=== PATIENT | male | born 1970 | race Two or more races ===

== ENCOUNTER 2023-01-18 16:11 | Emergency (ER) | payer MEDICAID, OTHER ==
[~2023-01-18] VITALS: Ht 157.5 cm; Wt 73.5 kg
[2023-01-18 16:37] VITALS: PULSE 87; RESP 18; O2SAT 97
[2023-01-18 16:51] LABS: Basophils # (auto) 0.1 10 ^3/uL (0-0.2); Basophils % (auto) 0.5 % (0.0-2.0); Eosinophils # (auto) 0 10 ^3/uL (0-0.8); Eosinophils % (auto) 0.2 % (0.0-7.0); Hematocrit 47.4 % (41.0-53.0); Lymphocytes % (auto) 9.7 % (10.0-50.0); Mean Corpuscular Hemoglobin 28.9 pg (28.0-32.0); Mean Corpuscular Hgb Conc. 33.9 g/dL (32.0-36.0); Mean Corpuscular Volume 85.3 fL (80.0-100.0); Monocytes # (auto) 0.3 10 ^3/uL (0-1.3); Monocytes % (auto) 2.9 % (0.0-12.0); Neutrophils # (auto) 8.7 10 ^3/uL (1.6-8.6); Neutrophils % (auto) 86.7 % (37.0-80.0); Red Blood Cells 5.55 10^6/uL (4.5-5.90); Red Cell Distribution Width 13.3 % (11.8-14.3); White Blood Cell 10.1 10^3/uL (4.4-10.8)
[2023-01-18 17:09] LABS: Alanine Aminotransferase 32 U/L (7-40); Albumin 4.7 g/dL (3.2-4.8); Alkaline Phosphatase 173 U/L (46-116); Anion Gap 10 (5-15); Aspartate Aminotransferase 12 U/L (13-40); BUN/Creatinine Ratio 10.4 (10.0-20.0); Bilirubin, Total 0.7 mg/dL (0.2-1.0); Blood Urea Nitrogen 14 mg/dL (9-23); Calcium 9.4 mg/dL (8.7-10.4); Carbon Dioxide 24 mmol/L (20-30); Chloride 98 mmol/L (98-107); Lipase 65 U/L (12-53); Potassium 4.1 mmol/L (3.5-5.1); Sodium 132 mmol/L (136-145); Total Protein 7.1 g/dL (5.7-8.2)
[2023-01-18 17:20] LABS: Glucose 665 mg/dL (74-106)
[2023-01-18] MEDS ORDERED: InsuLIN REG 1unit/0.01ml Soln (100units/ml) IV ONE (17:30)
[2023-01-18] MEDS ORDERED: SODIUM CHLORIDE 0.9% 1,000 ML IV ONE (18:45)
[2023-01-18 18:55] LABS: Base Excess 1.7 mmol/L (-2.0-2.0)
[2023-01-18 19:00] VITALS: TEMP 98.3
[2023-01-18 19:15] LABS: Urine Bacteria NONE SEEN /hpf (None Seen); Urine Blood 3+ /uL (Negative); Urine Clarity Clear (Clear); Urine Color Colorless (Yellow); Urine Protein, UAD TRACE (Negative); Urine Specific Gravity 1.026 (1.001-1.035); Urine Urobilinogen Normal (Negative); Urine WBC 39 /hpf (0 - 3)
[2023-01-18 19:25] VITALS: PULSE 85; RESP 18; O2SAT 98
[2023-01-18 23:45] VITALS: BP 150/98; PULSE 95; RESP 14; O2SAT 95
[2023-01-18] MEDS ORDERED: BACDST PO (23:51)
== END 2023-01-18 23:48 | disposition left against medical advice (07) ==
LOC: ER 16:11 → EDBD 16:11 → ER 23:48
DX: E11.65 Type 2 diabetes mellitus with hyperglycemia (principal); N20.0 Calculus of kidney; N39.0 Urinary tract infection, site not specified; N28.1 Cyst of kidney, acquired; Q63.1 Lobulated, fused and horseshoe kidney; E78.5 Hyperlipidemia, unspecified; I10 Essential (primary) hypertension; F17.210 Nicotine dependence, cigarettes, uncomplicated
CPT/HCPCS: 36415; 36600; 74176; 80053; 81001; 82805; 82962; 83690; 84484; 85025; 93005; 96361; 96374; 99285; J1815; J7030

== ENCOUNTER 2024-01-06 09:39 | Emergency (ER) | payer SELFPAY ==
[~2024-01-06] VITALS: Ht 180.3 cm; Wt 65.9 kg
[~2024-01-06 09:39] MED LIST: BACDST PO
[2024-01-06] MEDS: SODIUM CHLORIDE 0.9% 1,000 ML IVB ONE (11:00)
[2024-01-06] MEDS: METOCLOPRAMIDE HCL 5MG/ml INJ 2ml VIAL IV ONE (11:30)
[2024-01-06] MEDS: KETOROLAC TROMETH 30 MG/ML 1ML VIAL IV ONE (11:30)
[2024-01-06 11:55] LABS: Basophils # (auto) 0 10 ^3/uL (0-0.2); Basophils % (auto) 0.3 % (0.0-2.0); Eosinophils # (auto) 0 10 ^3/uL (0-0.8); Eosinophils % (auto) 0.1 % (0.0-7.0); Hematocrit 37.5 % (41.0-53.0); Lymphocytes # (auto) 0.6 10 ^3/uL (0.4-5.4); Lymphocytes % (auto) 5.6 % (10.0-50.0); Mean Corpuscular Hemoglobin 27.8 pg (28.0-32.0); Mean Corpuscular Hgb Conc. 34.6 g/dL (32.0-36.0); Mean Corpuscular Volume 80.3 fL (80.0-100.0); Monocytes # (auto) 0.3 10 ^3/uL (0-1.3); Monocytes % (auto) 3.2 % (0.0-12.0); Neutrophils # (auto) 9.3 10 ^3/uL (1.6-8.6); Neutrophils % (auto) 90.8 % (37.0-80.0); Platelet Count (auto) 311 10^3/uL (140-450); Red Blood Cells 4.67 10^6/uL (4.5-5.90); Red Cell Distribution Width 12.9 % (11.8-14.3); White Blood Cell 10.3 10^3/uL (4.4-10.8)
[2024-01-06 12:06] LABS: Alanine Aminotransferase 10 U/L (7-40); Albumin 4.4 g/dL (3.2-4.8); Alkaline Phosphatase 140 U/L (46-116); Anion Gap 7 (5-15); Aspartate Aminotransferase < 8 U/L (13-40); BUN/Creatinine Ratio 13.3 (10.0-20.0); Blood Urea Nitrogen 12 mg/dL (9-23); Calcium 9.9 mg/dL (8.7-10.4); Carbon Dioxide 26 mmol/L (20-30); Chloride 104 mmol/L (98-107); Glucose 336 mg/dL (74-106); Lipase 30 U/L (12-53); Magnesium 1.6 mg/dL (1.6-2.6); Potassium 4.1 mmol/L (3.5-5.1); Sodium 137 mmol/L (136-145)
[2024-01-06 12:07] LABS: Bilirubin, Total 0.4 mg/dL (0.2-1.0); Total Protein 7.2 g/dL (5.7-8.2)
[2024-01-06 13:59] VITALS: BP 113/81; PULSE 92; RESP 13; TEMP 98; O2SAT 98
== END 2024-01-06 14:22 | disposition left against medical advice (07) ==
LOC: ER 09:39 → EDBD 09:39 → ER 14:22
DX: K68.3 Retroperitoneal hematoma (principal); N28.89 Other specified disorders of kidney and ureter; N20.0 Calculus of kidney; Q63.1 Lobulated, fused and horseshoe kidney; R91.8 Other nonspecific abnormal finding of lung field; E11.9 Type 2 diabetes mellitus without complications; E78.5 Hyperlipidemia, unspecified; I10 Essential (primary) hypertension; F17.210 Nicotine dependence, cigarettes, uncomplicated
CPT/HCPCS: 36415; 74176; 80053; 83690; 83735; 85025; 93005; 96361; 96374; 96375; 99285; J1885; J2765; J7030

== ENCOUNTER 2024-05-17 20:02 | Inpatient (IN) | payer MEDICAID ==
[~2024-05-17] VITALS: Ht 177.8 cm; Wt 49.4 kg
--- NOTE | 2024-05-17 20:37 | ED.PDOC ---
History of Present Illness HPI Comments 53 y/o, with a Hx of DM, gout, HLD, HTN, and tobacco use, M is BIBA for c/o shortness of breath and chest pain, today. Per EMS report, patient endorses on sudden and unprovoked onset of symptoms, that began with difficulty breathing 2 hours prior to arrival to ED, with chest pain ensuing 1.5 hours later. Patient reports on being fine all day prior symptoms onset and having them in the past when he had "fluids" in his lungs then. Patient also was stated to have a Hx of lung cancer that, originally, metastasized from his right kidney s/p nephrectomy and is being treated, currently, at [facility] every 3 weeks, with last treatment session being performed 4 days ago. Patient was noted to have been found with a SpO2 of 94-96%RA, with all other remaining vitals stable, on scene, and was placed on 2lpm O2 en route. At time of assessment, patient reports no additional relevant or pertinent history, such as sick contac t or recent travel, aside from additional complaint of chronic back pain issues, which restrains his means of travel and was another reason he called EMS. He denies having any palpitations, cough, congestion, fever, chills, nausea, vomiting, or other associated symptoms or modifiers at this time. 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 Cardiac: chest pain; No palpitations. Lungs: shortness of breath; no cough. GI: No nausea, no vomiting, no diarrhea, no constipation, no abdominal pain : No dysuria, frequency, or urgency. No hematuria. Musculoskeletal: back pain (chronic); No joint pain , no joint swelling, no extremity edema. Skin: No rash, no itching. Neuro: No headache, no dizziness, no weakness Vital Signs Vital Signs Date Time Temp Pulse Resp B/P (MAP) Pulse Ox O2 Delivery O2 Flow Rate FiO2 05/17/24 21:50 18 97 Simple Mask* 6 50 05/17/24 20:37 117 05/17/24 20:14 98.2 117/81 (93) Physical Exam General: Awake, alert and oriented. Patient is frail, ill-appearing No acute distress. Skin: Skin in warm, dry and intact. Appropriate color for ethnicity. Nailbeds pink with no cyanosis. HEENT: The head is normocephalic and atraumatic. Conjunctivae are clear without exudates or hemorrhage. Sclera is non-icteric. EOM are intact. No signs of nystagmus. Eyelids are normal in appearance without swelling or lesions. Oral mucosa is pink and moist Neck: The neck is supple with normal range of motion. No JVD. Cardiac: Heart rate and rhythm are normal. No murmurs, gallops, or rubs are auscultated. Respiratory: Diminished breathe sounds, bilaterally; No signs of respiratory distress. Lung sounds are clear in all lobes bilaterally without rales, rhonchi, or wheezes. Abdominal: Abdomen is soft, non-tender without distention. Bowel sounds are present and normoactive in all four quadrants. Extremities: Upper and lower extremities are atraumatic in appearance without deformity or edema. Neurological: The patient is awake, alert and oriented to person, place, and time with normal speech. Speech is clear. There is no facial asymmetry. Psychiatric: Appropriate mood and affect. Good judgement and insight. No visual or auditory hallucinations. Past Medical History PAST MEDICAL HISTORY: DM, Gout, High Lipids, HTN Past Medical History (Other): chronic back pain syndrome. Surgical History: Denies all surgeries Family History Family History: Reviewed,noncontributory to illness, Unknown Social History Smoker: Cigarettes Alcohol: Denies ETOH Use Drugs: Denies Drug Use Lives In: Home Was a procedure done? Was a procedure done?: No EKG EKG : Pulse Rate (adult): 117 [place]: Normal Cardiac Rhythm: ST Block: None Hypertrophy: None ST: Normal Differential Dx Considerations may include: Differential diagnoses considered includebut arenot limited to acute Bronchitis, Asthma, COPD, Pneumothorax, PE, CHF, Pulmonary HTN, Anemia, CO Poisoning, Methemoglobinemia, Hyperventilation, Metabolic Acidosis, Pulmonary Edema, Pneumonia, ACS, Pericardial Tamponade, Anxiety, other X-Ray, Labs, Meds, VS Vital Signs Date Time Temp Pulse Resp B/P (MAP) Pulse Ox O2 Delivery O2 Flow Rate FiO2 05/17/24 21:50 18 97 Simple Mask* 6 50 05/17/24 20:37 117 05/17/24 20:14 98.2 113 20 117/81 (93) 94 05/17/24 20:03 117 Lab Test 05/17/24 23:00 05/17/24 21:32 05/17/24 20:43 05/17/24 20:40 Range/Units Lactic Acid Level Pending 2.2 *H 0.4-2.0 mmol/L Parathyroid Hormone (Intact) Pending Blood Gas Specimen Type Arterial Blood Gas Sample Site Right radial Blood Gas Patient Temperature 37.0 Arterial Blood Date Drawn [id number] Arterial Blood pH 7.535 H 7.350-7.450 Arterial Blood Partial Pressure CO2 33.2 L 35.0-48.0 mmHg Arterial Blood Partial Pressure O2 66.6 L 83.0-108.0 mmHg Arterial Blood HCO3 27.4 21.0-28.0 mmol/L Arterial Blood Oxygen Saturation 94.3 94.0-98.0 % Arterial Blood Base Excess 5.1 H -2.0-3.0 mmol/L Arterial Blood Oxyhemoglobin 93.1 L 94.0-98.0 % Arterial Blood Carboxyhemoglobin 0.7 0.5-1.5 % Arterial Blood Methemoglobin 0.6 0.0-1.5 % Micky Test Yes Blood Gas Total Hemoglobin 13.50 13.5-17.5 g/dL Blood Gas Liter Flow 6.00 Blood Gas Modality Mask - simple FiO2 % 35.0 White Blood Count 10.5 4.4-10.8 10^3/uL Red Blood Count 5.48 4.5-5.90 10^6/uL Hemoglobin 14.6 13.5-17.5 g/dL Hematocrit 43.7 41.0-53.0 % Mean Corpuscular Volume 79.8 L 80.0-100.0 fL Mean Corpuscular Hemoglobin 26.6 L 28.0-32.0 pg Mean Corpuscular Hemoglobin Concent 33.4 32.0-36.0 g/dL Red Cell Distribution Width 14.5 H 11.8-14.3 % Platelet Count 430 140-450 10^3/uL Mean Platelet Volume 7.9 6.9-10.8 fL Neutrophils (%) (Auto) 87.3 H 37.0-80.0 % Lymphocytes (%) (Auto) 9.0 L 10.0-50.0 % Monocytes (%) (Auto) 3.0 0.0-12.0 % Eosinophils (%) (Auto) 0.0 0.0-7.0 % Basophils (%) (Auto) 0.7 0.0-2.0 % Neutrophils # (Auto) 9.2 H 1.6-8.6 10 ^3/uL Lymphocytes # (Auto) 0.9 0.4-5.4 10 ^3/uL Monocytes # (Auto) 0.3 0-1.3 10 ^3/uL Eosinophils # (Auto) 0 0-0.8 10 ^3/uL Basophils # (Auto) 0.1 0-0.2 10 ^3/uL Nucleated Red Blood Cells 0.0 % Sodium Level 134 L 136-145 mmol/L Potassium Level 4.7 3.5-5.1 mmol/L Chloride Level 96 L 98-107 mmol/L Carbon Dioxide Level 29 20-31 mmol/L Anion Gap 9 5-15 Blood Urea Nitrogen 31 H 9-23 mg/dL Creatinine 0.96 0.700-1.30 mg/dL Glomerular Filtration Rate Calc 95 >90 mL/min BUN/Creatinine Ratio 32.3 H 10.0-20.0 Serum Glucose 152 H 74-106 mg/dL Calcium Level 13.4 *H 8.7-10.4 mg/dL Total Bilirubin 0.5 0.2-1.0 mg/dL Aspartate Amino Transferase (AST) 17 13-40 U/L Alanine Aminotransferase (ALT) 9 7-40 U/L Alkaline Phosphatase 134 H 46-116 U/L Troponin I High Sensitivity < 3 L </=54 ng/L B-Type Natriuretic Peptide 57.85 0-100 pg/mL Total Protein 8.2 5.7-8.2 g/dL Albumin 4.8 3.2-4.8 g/dL Thyroid Stimulating Hormone (TSH) 4.29 0.55-4.78 uIU/mL Influenza Type A Antigen Negative Negative Influenza Type B Antigen Negative Negative SARS-CoV-2 Antigen (Rapid) Negative NEGATIVE Current Medications Medications (Trade) Dose Ordered Sig/Sonia Route Start Time Stop Time Status Last Admin Sodium Chloride 1,000 ml @ 1,000 mls/hr Q1H ONCE IV 05/17/24 21:45 05/17/24 22:44 DC 05/17/24 22:12 Time of 1ST Reevaluation: 23:28 Reevaluation 1ST: Unchanged Patient Education/Counseling: Diagnosis, Treatment, Other (Need for admission) Family Education/Counseling: No Family Present Departure 1 Departure Time of Disposition: 23:21 Impression: Primary Impression: Hypoxia Additional Impressions: Pneumonia Hypercalcemia Disposition: ADMITTED INPATIENT Condition: Stable Comments 53-year-old male with history of metastatic lung cancer presents to the emergency department with shortness of breath. Patient is hypoxic, he improved somewhat after albuterol treatment. Chest x-ray shows pneumonia. CTA negative for pulmonary embolism. Antibiotics initiated in the emergency department. IV fluids initiated for treatment of hypercalcemia of 13.4 Patient admitted for further treatment, evaluation and monitoring. Extensive evaluation was performed in attempt to identify or rule out: (See differential diagnosis section) The following tests were ordered, and results were reviewed by me: (See diagnostic results section) The following test were independently interpreted by me: EKG I reviewed and agreed with the following test results read by other providers: Chest x-ray I reviewed the following notes from the pt's past medical encounters: ER visit 01/2024 for abdominal pain Additional information was gathered from interviewing the following independent historians: EMS, patient's family at bedside Discussion of management or test interpretation with external physician/other qualified health toddler caregiver: N/A Addressed an acute or chronic illness that poses a threat to life or bodily fun ction: Acute hypoxia, pneumonia Decision regarding hospitalization or escalation of hospital level of care: Risk and benefits of admission for further treatment of patient's condition was considered. Due to patient's current clinical condition, high risk of decline and poor outcome if discharged and need for further inpatient management and monitoring, patient will be admitted to the hospital. Drug therapy requiring intensive monitoring for toxicity: N/A Parenteral controlled substances: N/A Decision regarding elective major surgery with identified patient or procedure risk factors: N/A Decision regarding emergency major surgery: N/A Decision not to resuscitate or to de-escalate care because of poor prognosis: N/A Diagnosis or treatment significantly limited by social determinants of health: N/A Critical Care Note Critical Care Time?: No Stability Stability form required: No Heart Score Heart Score: Heart Score Response (Comments) Value History Moderate Suspicious 1 EKG Normal 0 Age 45-64 1 Risk Factors >3 or Hx ASHD 2 Troponin Normal limit 0 Total 4 I personally scribed for DON VIERA MD ([email or web address]) on 05/17/24 at 20:37. Electronically submitted by Yemi Blair ([email or web address]). DON VIERA MD May 17, 2024 20:37
[2024-05-17 21:10] LABS: Basophils # (auto) 0.1 10 ^3/uL (0-0.2); Eosinophils # (auto) 0 10 ^3/uL (0-0.8); Mean Corpuscular Volume 79.8 fL (80.0-100.0); Monocytes # (auto) 0.3 10 ^3/uL (0-1.3)
[2024-05-17 21:11] LABS: Anion Gap 9 (5-15); Aspartate Aminotransferase 17 U/L (13-40); BUN/Creatinine Ratio 32.3 (10.0-20.0); Carbon Dioxide 29 mmol/L (20-31); Potassium 4.7 mmol/L (3.5-5.1)
[2024-05-17 21:12] LABS: Basophils % (auto) 0.7 % (0.0-2.0); Bilirubin, Total 0.5 mg/dL (0.2-1.0); Hematocrit 43.7 % (41.0-53.0); Hemoglobin 14.6 g/dL (13.5-17.5); Lymphocytes # (auto) 0.9 10 ^3/uL (0.4-5.4); Mean Corpuscular Hemoglobin 26.6 pg (28.0-32.0); Mean Corpuscular Hgb Conc. 33.4 g/dL (32.0-36.0); Neutrophils # (auto) 9.2 10 ^3/uL (1.6-8.6); Neutrophils % (auto) 87.3 % (37.0-80.0); Platelet Count (auto) 430 10^3/uL (140-450); Red Blood Cells 5.48 10^6/uL (4.5-5.90); Red Cell Distribution Width 14.5 % (11.8-14.3); Total Protein 8.2 g/dL (5.7-8.2); White Blood Cell 10.5 10^3/uL (4.4-10.8)
[2024-05-17 21:13] LABS: Alanine Aminotransferase 9 U/L (7-40); Albumin 4.8 g/dL (3.2-4.8); Alkaline Phosphatase 134 U/L (46-116); Blood Urea Nitrogen 31 mg/dL (9-23); Chloride 96 mmol/L (98-107); Glucose 152 mg/dL (74-106); Sodium 134 mmol/L (136-145)
[2024-05-17 21:15] VITALS: PULSE 121; RESP 34; O2SAT 91
[2024-05-17 21:17] LABS: Calcium 13.4 mg/dL (8.7-10.4); Lactic Acid w/Reflex 2.2 mmol/L (0.4-2.0)
[2024-05-17 21:22] LABS: COVID19 ANTIGEN SOFIA FIA NEGATIVE (NEGATIVE); Rapid Influenza A Negative (Negative); Rapid Influenza B Negative (Negative)
--- NOTE | 2024-05-17 21:42 | DVH ---
CHEST RADIOGRAPH Indication: sob Technique: Single frontal view of the chest was obtained Comparison: CT abdomen and pelvis 01/06/2020 FINDINGS: Lines and Tubes: None Lungs: Opacification of the right upper lung zone. 8 x 6.2 cm right mid to lower lung zone mass with additional smaller nodular densities of the right lower lung zone. 7.8 x 4.9 cm left perihilar mass w ith the opacification of the left lower lung zone. Obscuration of the left hemidiaphragm. No pneumothorax. Cardiomediastinal contours: Unremarkable Bones: No acute osseous abnormality. IMPRESSION: Right upper lung zone opacification which may represent atelectasis with underlying mass / pneumonia not excluded. Multiple bilateral lung masses and nodules. Left lower lung zone opacification which may represent pneumonia /atelectasis/ pleural effusion with underlying mass.
[2024-05-17 21:44] LABS: Base Excess 5.1 mmol/L (-2.0-3.0)
[2024-05-17] MEDS: ALBUTEROL SULF 2.5 MG/0.5ML(0.5%) NEB SOLN NEB ONE (21:45)
[2024-05-17] MEDS: ALBUTEROL SULF 2.5 MG/0.5ML(0.5%) NEB SOLN ONE (21:49)
[2024-05-17] MEDS: IOHEXOL 350 MG/ML 100ML IJ ONE (22:11)
[2024-05-17] MEDS: SODIUM CHLORIDE 0.9% 1,000 ML IV ONE (22:12)
--- NOTE | 2024-05-17 22:36 | DVH ---
CTA Chest with intravenous contrast INDICATION: sob COMPARISON: None TECHNIQUE: Multidetector spiral CTA of the chest was performed of the chest with intravenous contrast . PULMONARY ANGIOGRAPHY PROTOCOL was utilized using a bolus-tracking technique centered on the main p ulmonary artery. Axial, coronal and sagittal multiplanar and MIP reformats were performed. Radiation Dose : 1. Chest: CTDI volume is 5.5 mGy. Dose-length product is 229 mGy*cm The dose indicators for CT are the volume Computed Tomography (CT) Dose Index (CTDIvol) and the Dose Length Product (DLP), and are measured in units of mGy and mGy-cm, respectively. These indicators are not patient dose, but values generated from the CT scanner acquisition factors. The report includes radiation exposure data for exposures received during this examination. Findings: Pulmonary artery: No pulmonary embolism Lower neck: Normal thyroid. Lungs: Multiple pulmonary masses are seen throughout both lungs (at least 20), the largest measuring up to 6 cm in the right lower lobe. Right upper lobe consolidation may reflect superimposed pneumoni a. Heart/Vascular Structures: Normal heart size. No pericardial effusion. Lymph Nodes: Bulky mediastinal and perihilar lymphadenopathy, for example enlarged right perihilar ly mph node measuring up to 6.6 cm. Pleura: Trace bilateral pleural effusions. Right apical pleural chest tube in place. Musculoskeletal: No acute osseous abnormality. Soft tissues: Normal. Upper abdomen: Limited portions of the upper abdomen are unremarkable. IMPRESSION: 1. No pulmonary embolism. 2. Multiple pulmonary masses throughout both lungs (at least 20), largest measuring up to 6 cm in the right lower lobe, compatible with neoplastic process. 3. Bulky mediastinal and perihilar lymphadenopathy, for example a large right perihilar lymph node me asuring up to 6.6 cm 4. Trace bilateral pleural effusions
[2024-05-17] MEDS: ACETAMINOPHEN 325 MG TAB PO ONE (23:28)
[2024-05-17] MEDS ORDERED: MORPHINE SULFATE INJ 2 MG/ml SYRG IV PRN (23:30)
[2024-05-17] MEDS ORDERED: ONDANSETRON HCL 4 MG/2 ML VIAL IV PRN (23:30)
[2024-05-17] MEDS ORDERED: NITROGLYCERIN 0.4 MG SL TAB SL PRN (23:30)
[2024-05-17 23:52] VITALS: BP 117/81; PULSE 113; RESP 16; O2SAT 99
[2024-05-18] VITALS (11 sets, daily range): BP systolic 105–115; BP diastolic 72–79; PULSE 86–113; RESP 14–20; TEMP 97.6–98.2; O2SAT 96–100
[2024-05-18] MEDS: cefTRIAXone 1GM/50ML D5W 50 ML IV ONE (00:16)
--- NOTE | 2024-05-18 00:25 | DVHHP2 ---
History of Present Illness Reason for Visit: Shortness of breath History of Present Illness 53-year-old male presents for evaluation of shortness for breath. Patient with a history of kidney carcinoma status post nephrectomy with metastases to the lungs currently undergoing immunotherapy at [facility] with last treatment being four days ago. Patient presents with a one day history of worsening shortness for breath. Denies chest pain or palpitations. No cough or fever. No other acute complaints reported. Past Medical History Hypertension, lung carcinoma, gout, diabetes mellitus Past Surgical History Nephrectomy Family History Noncontributory Smoke: <1 pack per day ALCOHOL: none Drugs: None Lives: with Family Review of Systems Review of Systems Review of systems are currently negative otherwise dressing HPI. Allergies: Coded Allergies: NO KNOWN ALLERGIES (Unverified , 01/18/23) Medications Current Medications Medications Dose Ordered Sig/Sonia Route Start Time Stop Time Status Last Admin Dose Admin Albuterol 2.5 mg Q6HPRN PRN NEB 05/17/24 23:30 Ipratropium [place] 0.5 mg Q6HPRN PRN NEB 05/17/24 23:30 Ceftriaxone Sodium 50 ml @ 100 mls/hr Q24H IV 05/18/24 23:00 Furosemide 40 mg DAILY PO 05/18/24 10:00 Acetaminophen/ Hydrocodone Bitart 1 tab Q4HP PRN PO 05/17/24 23:30 Ondansetron HCl 4 mg Q4HP PRN IV 05/17/24 23:30 Acetaminophen 650 mg Q6HP PRN PO 05/17/24 23:30 Morphine Sulfate 2 mg Q6HPRN PRN IV 05/17/24 23:30 Nitroglycerin 0.4 mg Q5MINP PRN SL 05/17/24 23:30 Morphine Sulfate 2 mg Q30M PRN IV 05/17/24 23:30 Exam Vital Signs Vital Signs Date Time Temp Pulse Resp B/P (MAP) Pulse Ox O2 Delivery O2 Flow Rate FiO2 05/17/24 23:52 113 16 117/81 99 6.0 05/17/24 21:50 Simple Mask* 50 05/17/24 20:14 98.2 Exam Gen: 53-year-old male in mild distress Skin: Warm, dry, normal color and texture, no rash. HEENT: Normocephalic atraumatic, mucous membranes moist and pink. Neck: Cervical and supraclavicular nodes normal without enlargement, trachea is midline, thyroid gland is normal without masses. Pulmonary: Diminished breath sounds bilaterally Cardiac: Regular rate and rhythm. No murmur Abdomen: Soft, nontender, nondistended, bowel sounds present all 4 quadrants, no guarding, no rigidity, no organomegaly. Extremities: No cyanosis, clubbing, no edema Neuro: Cranial nerves II through XII grossly intact, normal affect and speech, no focal motor deficits. Labs/Xrays ORDERING PHYSICIAN: DON VIERA MD PROCEDURE(s): CTACH - CT ANGIO CHEST CONTRAST REASON: sob ORDER NUMBER(s): [id number], ACCESSION NUMBER(s): [id number] CTA Chest with intravenous contrast INDICATION: sob COMPARISON: None TECHNIQUE: Multidetector spiral CTA of the chest was performed of the chest with intravenous contrast. PULMONARY ANGIOGRAPHY PROTOCOL was utilized using a bolus- tracking technique centered on the main pulmonary artery. Axial, coronal and sagittal multiplanar and MIP reformats were performed. Radiation Dose : 1. Chest: CTDI volume is 5.5 mGy. Dose-length product is 229 mGy*cm The dose indicators for CT are the volume Computed Tomography (CT) Dose Index (CTDIvol) and the Dose Length Product (DLP), and are measured in units of mGy and mGy-cm, respectively. These indicators are not patient dose, but values generated from the CT scanner acquisition factors. The report includes radiation exposure data for exposures received during this examination. Findings: Pulmonary artery: No pulmonary embolism Lower neck: Normal thyroid. Lungs: Multiple pulmonary masses are seen throughout both lungs (at least 20), the largest measuring up to 6 cm in the right lower lobe. Right upper lobe consolidation may reflect superimposed pneumonia. Heart/Vascular Structures: Normal heart size. No pericardial effusion. Lymph Nodes: Bulky mediastinal and perihilar lymphadenopathy, for example enlarged right perihilar lymph node measuring up to 6.6 cm. Pleura: Trace bilateral pleural effusions. Right apical pleural chest tube in place. Musculoskeletal: No acute osseous abnormality. Soft tissues: Normal. Upper abdomen: Limited portions of the upper abdomen are unremarkable. IMPRESSION: 1. No pulmonary embolism. 2. Multiple pulmonary masses throughout both lungs (at least 20), largest measuring up to 6 cm in the right lower lobe, compatible with neoplastic process. 3. Bulky mediastinal and perihilar lymphadenopathy, for example a large right perihilar lymph node measuring up to 6.6 cm 4. Trace bilateral pleural effusions ATED BY: ELISSA STARK MD ORDERING PHYSICIAN: DON VIERA MD PROCEDURE(s): CXR1 - CHEST XRAY 1 VIEW REASON: sob ORDER NUMBER(s): [id number], ACCESSION NUMBER(s): [id number] CHEST RADIOGRAPH Indication: sob Technique: Single frontal view of the chest was obtained Comparison: CT abdomen and pelvis 01/06/2020 FINDINGS: Lines and Tubes: None Lungs: Opacification of the right upper lung zone. 8 x 6.2 cm right mid to lower lung zone mass with additional smaller nodular densities of the right lower lung zone. 7.8 x 4.9 cm left perihilar mass with the opacification of the left lower lung zone. Obscuration of the left hemidiaphragm. No pneumothorax. Cardiomediastinal contours: Unremarkable Bones: No acute osseous abnormality. IMPRESSION: Right upper lung zone opacification which may represent atelectasis with underlying mass / pneumonia not excluded. Multiple bilateral lung masses and nodules. Left lower lung zone opacification which may represent pneumonia /atelectasis/ pleural effusion with underlying mass. Labs Test 05/17/24 23:00 05/17/24 21:32 05/17/24 20:43 05/17/24 20:40 Range/Units Lactic Acid Level 1.7 0.4-2.0 mmol/L Blood Gas Specimen Type Arterial Blood Gas Sample Site Right radial Blood Gas Patient Temperature 37.0 Arterial Blood Date Drawn [id number] Arterial Blood pH 7.535 H 7.350-7.450 Arterial Blood Partial Pressure CO2 33.2 L 35.0-48.0 mmHg Arterial Blood Partial Pressure O2 66.6 L 83.0-108.0 mmHg Arterial Blood HCO3 27.4 21.0-28.0 mmol/L Arterial Blood Oxygen Saturation 94.3 94.0-98.0 % Arterial Blood Base Excess 5.1 H -2.0-3.0 mmol/L Arterial Blood Oxyhemoglobin 93.1 L 94.0-98.0 % Arterial Blood Carboxyhemoglobin 0.7 0.5-1.5 % Arterial Blood Methemoglobin 0.6 0.0-1.5 % Micky Test Yes Blood Gas Total Hemoglobin 13.50 13.5-17.5 g/dL Blood Gas Liter Flow 6.00 Blood Gas Modality Mask - simple FiO2 % 35.0 White Blood Count 10.5 4.4-10.8 10^3/uL Red Blood Count 5.48 4.5-5.90 10^6/uL Hemoglobin 14.6 13.5-17.5 g/dL Hematocrit 43.7 41.0-53.0 % Mean Corpuscular Volume 79.8 L 80.0-100.0 fL Mean Corpuscular Hemoglobin 26.6 L 28.0-32.0 pg Mean Corpuscular Hemoglobin Concent 33.4 32.0-36.0 g/dL Red Cell Distribution Width 14.5 H 11.8-14.3 % Platelet Count 430 140-450 10^3/uL Mean Platelet Volume 7.9 6.9-10.8 fL Neutrophils (%) (Auto) 87.3 H 37.0-80.0 % Lymphocytes (%) (Auto) 9.0 L 10.0-50.0 % Monocytes (%) (Auto) 3.0 0.0-12.0 % Eosinophils (%) (Auto) 0.0 0.0-7.0 % Basophils (%) (Auto) 0.7 0.0-2.0 % Neutrophils # (Auto) 9.2 H 1.6-8.6 10 ^3/uL Lymphocytes # (Auto) 0.9 0.4-5.4 10 ^3/uL Monocytes # (Auto) 0.3 0-1.3 10 ^3/uL Eosinophils # (Auto) 0 0-0.8 10 ^3/uL Basophils # (Auto) 0.1 0-0.2 10 ^3/uL Nucleated Red Blood Cells 0.0 % D-Dimer, Quantitative > 35.20 H 0.0-0.49 mg/L FEU Sodium Level 134 L 136-145 mmol/L Potassium Level 4.7 3.5-5.1 mmol/L Chloride Level 96 L 98-107 mmol/L Carbon Dioxide Level 29 20-31 mmol/L Anion Gap 9 5-15 Blood Urea Nitrogen 31 H 9-23 mg/dL Creatinine 0.96 0.700-1.30 mg/dL Glomerular Filtration Rate Calc 95 >90 mL/min BUN/Creatinine Ratio 32.3 H 10.0-20.0 Serum Glucose 152 H 74-106 mg/dL Calcium Level 13.4 *H 8.7-10.4 mg/dL Total Bilirubin 0.5 0.2-1.0 mg/dL Aspartate Amino Transferase (AST) 17 13-40 U/L Alanine Aminotransferase (ALT) 9 7-40 U/L Alkaline Phosphatase 134 H 46-116 U/L Troponin I High Sensitivity < 3 L </=54 ng/L B-Type Natriuretic Peptide 57.85 0-100 pg/mL Total Protein 8.2 5.7-8.2 g/dL Albumin 4.8 3.2-4.8 g/dL Thyroid Stimulating Hormone (TSH) 4.29 0.55-4.78 uIU/mL Influenza Type A Antigen Negative Negative Influenza Type B Antigen Negative Negative SARS-CoV-2 Antigen (Rapid) Negative NEGATIVE Assessment/Plan Assessment/Plan Assessment Acute hypoxic respiratory distress Lung carcinoma Metastatic disease Electrolyte imbalance Plan Admit the patient to telemetry to the hospitalist Luis A Rubio Resume home medications Continue treatment per orders. Plan discussed with: Patient My Orders Orders - ASHLEY GALVEZ Procedure Category Date Status Time D-Dimer LAB 05/17/24 In Process 23:25 Albuterol Medneb PHA 05/17/24 In Process (Ventolin Medneb) 23:30 Ipratropium Medneb PHA 05/17/24 In Process (Atrovent Medneb) 23:30 Ceftriaxone 1gm/50ml PHA 05/18/24 In Process D5w (Rocephin) 23:00 Furosemide Tablet PHA 05/18/24 In Process (Lasix Tablet) 10:00 Basic Metabolic Panel LAB 05/18/24 Logged 04:00 Admit ADMIT 05/17/24 Transmitted 23:25 Hydrocodone-Acet PHA 05/17/24 In Process 5/325mg Tab ([place] 23:30 Ondansetron Hcl PHA 05/17/24 In Process (Zofran) 23:30 Complete Blood Count LAB 05/18/24 Logged 04:00 Cardiac DIET 05/18/24 Transmitted Diet-2gna,Lofat,Lochol Breakfast Condition: Stable DANICA 05/17/24 In Process 23:25 Acetaminophen Tablet PHA 05/17/24 In Process (Tylenol Tablet) 23:30 Bedrest With Bathroom DANICA 05/17/24 In Process Privileg 23:25 Morphine Sulfate PHA 05/17/24 In Process Injection 23:30 Nitroglycerin PHA 05/17/24 In Process Sublingual (Ntrostat 23:30 Morphine Sulfate PHA 05/17/24 In Process Injection 23:30 Stat Ekg For Chest DANICA 05/17/24 In Process Pain 23:25 Notify Of Changes DANICA 05/17/24 In Process From Base 23:25 Claims Supervisor For DANICA 05/17/24 In Process 24 Hours 23:25 Emergency Dysrhythmia DANICA 05/17/24 In Process Protocol 23:25 Rhythm Strips Once DANICA 05/17/24 In Process Every Shift 23:25 Oxygen By Nasal RT 05/17/24 Transmitted Cannula 23:25 Megestrol Tablet PHA 05/18/24 Verified (Megace Tablet) 10:00 Temazepam (Restoril) PHA 05/18/24 Verified 00:30 Temazepam (Restoril) PHA 05/18/24 Verified 00:30 Ipratropium Medneb PHA 05/18/24 Verified (Atrovent Medneb) 00:30 Date of Service: May 17, 2024 Billing Provider: SAHLEY GALVEZ Common Visit Codes: [id number] INP/OBS CARE (HIGH) ASHLEY GALVEZ May 18, 2024 00:25
[2024-05-18] MEDS ORDERED: TEMAZEPAM 15 MG CAP PO PRN (00:30)
[2024-05-18] MEDS ORDERED: IPRATROPIUM BROM 0.5 MG/2.5ML INH SOL NEB PRN (00:30)
[2024-05-18] MEDS: TEMAZEPAM 15 MG CAP PO ONE (00:41)
[2024-05-18] MEDS: MORPHINE SULFATE INJ 2 MG/ml SYRG IV PRN (01:14)
[2024-05-18] MEDS: IPRATROPIUM BROM 0.5 MG/2.5ML INH SOL NEB PRN (01:51)
[2024-05-18] MEDS: ALBUTEROL SULF 2.5 MG/0.5ML(0.5%) NEB SOLN NEB PRN (01:51)
[2024-05-18 06:55] LABS: Basophils # (auto) 0 10 ^3/uL (0-0.2); Basophils % (auto) 0.1 % (0.0-2.0); Eosinophils # (auto) 0 10 ^3/uL (0-0.8); Hematocrit 35.3 % (41.0-53.0); Hemoglobin 11.9 g/dL (13.5-17.5); Lymphocytes # (auto) 0.5 10 ^3/uL (0.4-5.4); Lymphocytes % (auto) 6.5 % (10.0-50.0); Mean Corpuscular Hemoglobin 26.9 pg (28.0-32.0); Mean Corpuscular Hgb Conc. 33.5 g/dL (32.0-36.0); Mean Corpuscular Volume 80.3 fL (80.0-100.0); Monocytes # (auto) 0.4 10 ^3/uL (0-1.3); Monocytes % (auto) 4.7 % (0.0-12.0); Neutrophils # (auto) 7.3 10 ^3/uL (1.6-8.6); Neutrophils % (auto) 88.7 % (37.0-80.0); Nucleated Red Blood Cells % 0.1 %; Platelet Count (auto) 270 10^3/uL (140-450); Red Cell Distribution Width 14.6 % (11.8-14.3); White Blood Cell 8.2 10^3/uL (4.4-10.8)
[2024-05-18 07:18] LABS: Anion Gap 11 (5-15); Carbon Dioxide 26 mmol/L (20-31); Chloride 99 mmol/L (98-107); Potassium 3.9 mmol/L (3.5-5.1)
[2024-05-18 07:20] LABS: Calcium 11.8 mg/dL (8.7-10.4); Sodium 136 mmol/L (136-145)
[2024-05-18 07:24] LABS: BUN/Creatinine Ratio 32.3 (10.0-20.0)
[2024-05-18 07:28] LABS: Blood Urea Nitrogen 31 mg/dL (9-23); Glucose 153 mg/dL (74-106)
[2024-05-18] MEDS: HYDROcodone-ACET 5/325MG TAB PO PRN (07:34)
--- NOTE | 2024-05-18 08:36 | DVHPNRES ---
Progress Note Date Seen: May 18, 2024 Resident Creating Document: CLEVELAND BECERRIL RESIDENT Has the PT tested + for MRSA If YES, has PT been informed?: No Medical Necessity Reason Pt with a Central, PICC or Fol: No Medical Necessity Reason A 53-year-old male with PMHX renal carcinoma with lung mets, hypertension and gout presents for evaluation of shortness for breath. Patient with a history of kidney carcinoma status post nephrectomy with metastases to the lungs currently undergoing immunotherapy at [place] with last treatment being four days ago. Patient presents with a one day history of worsening shortness for breath for 2 days ago and more requirement of O2. Objective vital signs Vital Sign Date Time Temp Pulse Resp B/P (MAP) Pulse Ox O2 Delivery O2 Flow Rate FiO2 05/18/24 08:03 102 05/18/24 07:00 19 101/66 (78) 99 05/18/24 06:31 Simple Mask* 6 50 05/17/24 21:15 97.9 97.9 medications Current Medications Medications Dose Ordered Sig/Sonia Route Start Time Stop Time Status Last Admin Dose Admin Albuterol 2.5 mg Q6HPRN PRN NEB 05/17/24 23:30 05/18/24 01:51 2.5 MG Ipratropium [place] 0.5 mg Q6HPRN PRN NEB 05/17/24 23:30 05/18/24 01:51 0.5 MG Ceftriaxone Sodium 50 ml @ 100 mls/hr Q24H IV 05/18/24 23:00 Furosemide 40 mg DAILY PO 05/18/24 10:00 Acetaminophen/ Hydrocodone Bitart 1 tab Q4HP PRN PO 05/17/24 23:30 05/18/24 07:34 1 TAB Ondansetron HCl 4 mg Q4HP PRN IV 05/17/24 23:30 Acetaminophen 650 mg Q6HP PRN PO 05/17/24 23:30 Morphine Sulfate 2 mg Q6HPRN PRN IV 05/17/24 23:30 05/18/24 01:14 2 MG Nitroglycerin 0.4 mg Q5MINP PRN SL 05/17/24 23:30 Morphine Sulfate 2 mg Q30M PRN IV 05/17/24 23:30 Megestrol Acetate 40 mg BID PO 05/18/24 10:00 Temazepam 15 mg HSPRN PRN PO 05/18/24 00:30 Ipratropium [place] 0.5 mg Q4HPRN PRN NEB 05/18/24 00:30 Examination GEN: cachectic PSYCH: Good Judgment. AOx3. Normal memory, mood, and affect. HEENT -Head: normocephalic atraumatic, no facial trauma, neck is supple -Eyes: PERRL, EOMI. No discharge or redness; -Ears: External ears are normal. Normal TMs. -Nose: Normal nares. -Mouth and throat: MMM. Normal gums, mucosa, palate,. Good dentition. NECK: Supple, with no masses. CV: RRR, no m/r/g. LUNGS: diminish respiratory sounds bilateral, no wheezing, right drainage on place ABD: Soft, ND/NT. No evidence of fluid wave. No pulsatile masses on exam, rebound tenderness, James sign or pain over Mcburney's point. SKIN: Warm, well perfused. No skin rashes or abnormal lesions. MSK: No deformities or signs of scoliosis. Normal gait. EXT: No clubbing, cyanosis, or edema. NEURO: Ambulating with no limitations. Normal muscle strength and tone. No focal deficits. laboratory and microbiology Laboratory Tests 05/18/24 06:22 Test 05/18/24 06:22 Range/Units Serum Glucose 153 H 74-106 mg/dL Problem List/Assessment/Plan Problem List/Assessment/Plan #Acute on chronic respiratory failure due to lung mets #Bilateral Pleural effusion s/p PleurX catheter in the right chest #Sepsis due to probably pneumonia gram +/ gram - #Respiratory alkalosis with hypoxemia due lung mets O2 6LT : titrate down Pulmonology consult Patient had drainage of 150 cc 2 days ago Keep ceftriaxone Continue drainage as it was done at home: every other day Keep breathing treatments q6h #Renal carcinoma s/p right nephrectomy #Lung mets Patient had last inmunotherapy 4 days ago #Hypercalcemia due to malignancy #Hypoparathyroidism probably due to above IVF 75 cc/h Bolus 200 cc #DM type 2 Pending hba1c #PE ruled out AngioCT scan negative #H/o of Gout Full code Case discussed with Dr Amador Henderson discussed with: Patient, Other (rn) My Orders My Orders Orders - CLEVELAND BECERRIL Procedure Category Date Status Time Calcium LAB 05/18/24 Logged 08:28 Sodium Chloride 0.9% PHA 05/18/24 Logged 08:30 Chest Ultrasound US 05/18/24 Logged 08:31 Date of Service: May 18, 2024 Billing Provider: VILMA CROCKER MD Common Visit Codes: [id number] INP/OBS CARE(HIGH) CLEVELAND BECERRIL RESIDENT May 18, 2024 08:36 VILMA CROCKER MD May 21, 2024 15:13
[2024-05-18] MEDS: SODIUM CHLORIDE 0.9% 1,000 ML IV ONE ×2 (08:48→16:09)
--- NOTE | 2024-05-18 09:08 | DVH ---
US CHEST ULTRASOUND HISTORY: bilateral pleural effusion COMPARISON(S): None TECHNICAL DATA: Transverse and longitudinal images are obtained of the chest. FINDING: Small bilateral pleural effusion with a PleurX catheter in the right chest. IMPRESSION(S): Small bilateral pleural effusion with a PleurX catheter in the right chest.
--- NOTE | 2024-05-18 10:42 | ECG ---
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
[2024-05-18] MEDS: FUROSEMIDE 40 MG TAB PO SCH (13:01)
[2024-05-18] MEDS: MEGESTROL ACETATE 20 MG TAB PO SCH (13:10)
[2024-05-18 17:02] LABS: Magnesium 2.1 mg/dL (1.6-2.6)
[2024-05-18 17:03] LABS: Phosphorus 4.1 mg/dL (2.4-5.1)
[2024-05-18 19:50] LABS: Albumin 3.7 g/dL (3.2-4.8); Alkaline Phosphatase 109 U/L (46-116); Anion Gap 9 (5-15); BUN/Creatinine Ratio 37.4 (10.0-20.0); Bilirubin, Total 0.4 mg/dL (0.2-1.0); Carbon Dioxide 28 mmol/L (20-31); Chloride 99 mmol/L (98-107); Potassium 4.5 mmol/L (3.5-5.1)
[2024-05-18 19:59] LABS: Alanine Aminotransferase < 9 U/L (7-40); Aspartate Aminotransferase 13 U/L (13-40); Blood Urea Nitrogen 34 mg/dL (9-23); Calcium 11.7 mg/dL (8.7-10.4); Glucose 149 mg/dL (74-106); Sodium 136 mmol/L (136-145)
[2024-05-18] MEDS: cefTRIAXone 1GM/50ML D5W 50 ML IV SCH (23:01)
--- NOTE | 2024-05-18 23:32 | DVHINCON2 ---
Date of service: May 18, 2024 Referring Physician Cleveland Loomis MD Reason for Consultation AHRF, pleural effusion, lung cancer. History of Present Illness A 53-year-old man with PMHx of hypertension, kidney carcinoma with mets to lungs (s/p nephrectomy), gout, and diabetes mellitus who presented to ED on 05/17/24 for evaluation of shortness of breath. Patient is currently undergoing immunotherapy at [place] with last treatment being 4 days ago. Patient presented with a one-day history of worsening shortness of breath. Denied chest pain or palpitations. No cough or fever. No other acute complaints reported. Patient was admitted for further care and pulmonary consultation is requested for evaluation and management due to these findings. Review of Systems: 14-point review of systems negative unless otherwise noted above. Past Medical History: Hypertension, kidney carcinoma with mets to lungs (s/p nephrectomy), gout, and diabetes mellitus Past Surgical History: Nephrectomy Medications: Reviewed. Allergies: No known drug allergies. Family History: No family history of premature CAD. No family history of lung disorders. Social History: Smoker. Smokes <1 pack per day No alcohol or illicit drug use. Family History: Patient reports no known family medical history. Allergies: Coded Allergies: NO KNOWN ALLERGIES (Unverified , 01/18/23) Home Meds Active Scripts Levofloxacin Hemihydrate (LEVOFLOXACIN) 750 Mg Tab, 1 TAB PO DAILY for 7 Days, #7 TAB Prov:CLEVELAND BECERRIL RESIDENT 05/19/24 Furosemide (Furosemide) 40 Mg Tab, 40 MG PO DAILY for 30 Days, #30 TAB Prov:CLEVELAND BECERRIL RESIDENT 05/19/24 Acetaminophen (Acetaminophen) 325 Mg Tab, 325 MG PO Q6HP PRN for 10 Days, #40 TAB Prov:CLEVELAND BECERRIL RESIDENT 05/19/24 Sulfamethoxazole W/Trimethopri (Bactrim Ds Tablet) 1 Tab Tb, 1 TAB PO BID for 7 Days, #14 TAB Prov:PRIYA MONTESINOS PAC 01/18/23 Current Medications Current Medications Medications (Trade) Dose Ordered Sig/Sonia Route PRN Reason Start Time Stop Time Status Last Admin Ceftriaxone Sodium 50 ml @ 100 mls/hr Q24H IV 05/18/24 23:00 05/18/24 23:01 Furosemide (Lasix Tablet) 40 mg DAILY PO 05/18/24 10:00 05/18/24 13:01 Megestrol Acetate (Megace Tablet) 40 mg BID PO 05/18/24 10:00 05/18/24 21:51 Temazepam (Restoril) 15 mg HSPRN PRN PO FOR INSOMNIA 05/18/24 00:30 Ipratropium [place] (Atrovent Medneb) 0.5 mg Q4HPRN PRN NEB SHORTNESS OF BREATH 05/18/24 00:30 Pantoprazole Sodium (Protonix) 40 mg DAILY IV 05/19/24 10:00 Enoxaparin Sodium (Lovenox) 40 mg DAILY SC 05/19/24 10:00 Vital Signs Vital Signs Date Time Temp Pulse Resp B/P (MAP) Pulse Ox O2 Delivery O2 Flow Rate FiO2 05/18/24 21:00 98.2 96 16 110/79 (89) 98 98.2 05/18/24 20:00 Nasal Cannula* 6 44 Physical Exam Gen.: Patient lying in bed in no apparent distress. On supplemental oxygen. Head: Normocephalic, atraumatic. Eyes: EOMI/PERRLA. Ears: Normal hearing. Normal anatomy. Neck/trachea: Trachea midline, supple. Nose: Normal external anatomy. Mouth: Moist mucous membranes. Chest: Decreased air entry bilaterally. No wheezing or rhonchi. Cardiovascular: Positive S1, positive S2. Regular rate and rhythm. Abdomen: Positive bowel sounds in all 4 quadrants. Soft, non-tender, non- distended. : Deferred. Rectal: Deferred. Skin: Warm, dry. Intact. Extremities: 2+ radial pulses bilaterally. No lower extremity edema. Neuro: Awake, alert, oriented x3. No gross motor or sensory deficits. Cranial nerves II through XII intact. Gait not assessed. Labs/Diagnostic Data Labs Test 05/18/24 18:28 05/18/24 06:22 05/17/24 23:00 05/17/24 21:32 Range/Units Sodium Level 136 136-145 mmol/L Potassium Level 4.5 3.5-5.1 mmol/L Chloride Level 99 98-107 mmol/L Carbon Dioxide Level 28 20-31 mmol/L Anion Gap 9 5-15 Blood Urea Nitrogen 34 H 9-23 mg/dL Creatinine 0.91 0.700-1.30 mg/dL Glomerular Filtration Rate Calc 101 >90 mL/min BUN/Creatinine Ratio 37.4 H 10.0-20.0 Serum Glucose 149 H 74-106 mg/dL Calcium Level 11.7 H 8.7-10.4 mg/dL Total Bilirubin 0.4 0.2-1.0 mg/dL Aspartate Amino Transferase (AST) 13 13-40 U/L Alanine Aminotransferase (ALT) < 9 7-40 U/L Alkaline Phosphatase 109 46-116 U/L Total Protein 6.0 5.7-8.2 g/dL Albumin 3.7 3.2-4.8 g/dL White Blood Count 8.2 4.4-10.8 10^3/uL Red Blood Count 4.40 L 4.5-5.90 10^6/uL Hemoglobin 11.9 #L 13.5-17.5 g/dL Hematocrit 35.3 #L 41.0-53.0 % Mean Corpuscular Volume 80.3 80.0-100.0 fL Mean Corpuscular Hemoglobin 26.9 L 28.0-32.0 pg Mean Corpuscular Hemoglobin Concent 33.5 32.0-36.0 g/dL Red Cell Distribution Width 14.6 H 11.8-14.3 % Platelet Count 270 140-450 10^3/uL Mean Platelet Volume 7.7 6.9-10.8 fL Neutrophils (%) (Auto) 88.7 H 37.0-80.0 % Lymphocytes (%) (Auto) 6.5 L 10.0-50.0 % Monocytes (%) (Auto) 4.7 0.0-12.0 % Eosinophils (%) (Auto) 0.0 0.0-7.0 % Basophils (%) (Auto) 0.1 0.0-2.0 % Neutrophils # (Auto) 7.3 1.6-8.6 10 ^3/uL Lymphocytes # (Auto) 0.5 0.4-5.4 10 ^3/uL Monocytes # (Auto) 0.4 0-1.3 10 ^3/uL Eosinophils # (Auto) 0 0-0.8 10 ^3/uL Basophils # (Auto) 0 0-0.2 10 ^3/uL Nucleated Red Blood Cells 0.1 % Hemoglobin A1c 6.5 H <5.7 % A1C Phosphorus Level 4.1 2.4-5.1 mg/dL Magnesium Level 2.1 1.6-2.6 mg/dL Lactic Acid Level 1.7 0.4-2.0 mmol/L Parathyroid Hormone (Intact) 8.9 L 18.4-80.1 pg/mL Blood Gas Specimen Type Arterial Blood Gas Sample Site Right radial Blood Gas Patient Temperature 37.0 Arterial Blood Date Drawn Arterial Blood pH 7.535 H 7.350-7.450 Arterial Blood Partial Pressure CO2 33.2 L 35.0-48.0 mmHg Arterial Blood Partial Pressure O2 66.6 L 83.0-108.0 mmHg Arterial Blood HCO3 27.4 21.0-28.0 mmol/L Arterial Blood Oxygen Saturation 94.3 94.0-98.0 % Arterial Blood Base Excess 5.1 H -2.0-3.0 mmol/L Arterial Blood Oxyhemoglobin 93.1 L 94.0-98.0 % Arterial Blood Carboxyhemoglobin 0.7 0.5-1.5 % Arterial Blood Methemoglobin 0.6 0.0-1.5 % Micky Test Yes Blood Gas Total Hemoglobin 13.50 13.5-17.5 g/dL Blood Gas Liter Flow 6.00 Blood Gas Modality Mask - simple FiO2 % 35.0 Test 05/17/24 20:43 05/17/24 20:40 Range/Units D-Dimer, Quantitative > 35.20 H 0.0-0.49 mg/L FEU Troponin I High Sensitivity < 3 L </=54 ng/L B-Type Natriuretic Peptide 57.85 0-100 pg/mL Thyroid Stimulating Hormone (TSH) 4.29 0.55-4.78 uIU/mL Influenza Type A Antigen Negative Negative Influenza Type B Antigen Negative Negative SARS-CoV-2 Antigen (Rapid) Negative NEGATIVE Assessment Impression: Acute hypoxic respiratory failure Dependence on supplemental oxygen Pleural effusion Atelectasis Lung cancer Metastatic disease Elevated D-dimer Nicotine dependence Plan: Supplemental oxygen 2 LPM NC Titrate to keep O2 sats above 92%. Taper O2 as tolerated. CTA reviewed, reveals no evidence of pulmonary embolism. Mediastinal lymphadenopathy. Trace bilateral pleural effusions. Drain PleurX per home schedule. Drains every other day. Continue bronchodilators. Continue antibiotics Incentive spirometry Diurese as tolerated w/ Lasix Monitor renal function. Monitor electrolytes. Supplement as necessary. Monitor ins and outs. Smoking cessation discussed for greater than 10 minutes GI prophylaxis - Protonix DVT prophylaxis. Prognosis: Poor given patient's multiple co-morbidities. Rest of plan per hospitalist and other consultants. Thank you, Dr. Loomis, for allowing me to participate in this patient's care. Further recommendations will depend on the patient's clinical course. Please do not hesitate to contact me if you have any questions or concerns. This medical document was created using an electronic medical record system with [employer] dictation system. Although these documentations are being carefully reviewed, there may still be some phonetic and typographical changes. The errors are purely typographical, due to imperfection on the software program, and do not reflect any compromise in the patient's medical care. Plan discussed with: Patient, Other (ROBERT Lopez/MD Loomis) YIN SAMSON MD May 18, 2024 23:32
[2024-05-19] VITALS (8 sets, daily range): BP systolic 92–106; BP diastolic 66–72; PULSE 90–99; RESP 16–19; TEMP 97.3–98.1; O2SAT 92–98
[2024-05-19] MEDS ORDERED: IPRATROPIUM BROM 0.5 MG/2.5ML INH SOL NEB PRN (05:30)
[2024-05-19 08:10] LABS: Magnesium 2.2 mg/dL (1.6-2.6)
[2024-05-19 08:11] LABS: Basophils # (auto) 0 10 ^3/uL (0-0.2); Basophils % (auto) 0.1 % (0.0-2.0); Eosinophils # (auto) 0 10 ^3/uL (0-0.8); Hematocrit 34.8 % (41.0-53.0); Hemoglobin 11.5 g/dL (13.5-17.5); Lymphocytes # (auto) 0.5 10 ^3/uL (0.4-5.4); Lymphocytes % (auto) 4.9 % (10.0-50.0); Mean Corpuscular Hemoglobin 27.2 pg (28.0-32.0); Mean Corpuscular Hgb Conc. 33.1 g/dL (32.0-36.0); Mean Corpuscular Volume 82.2 fL (80.0-100.0); Monocytes # (auto) 0.4 10 ^3/uL (0-1.3); Monocytes % (auto) 3.7 % (0.0-12.0); Neutrophils % (auto) 91.3 % (37.0-80.0); Nucleated Red Blood Cells % 0.1 %; Phosphorus 3.8 mg/dL (2.4-5.1); Platelet Count (auto) 278 10^3/uL (140-450); Red Blood Cells 4.24 10^6/uL (4.5-5.90); Red Cell Distribution Width 14.8 % (11.8-14.3); White Blood Cell 9.9 10^3/uL (4.4-10.8)
--- NOTE | 2024-05-19 08:45 | DVH ---
EXAM: XY CHEST XRAY 1 VIEW Indication: pleural effusion Technique: Single frontal view of the chest was obtained Comparison: XY CHEST XRAY 1 VIEW on DOS: 05/17/24 FINDINGS: Lines and Tubes: Right pleurX catheter is visualized. Lungs: Multifocal masslike consolidative opacities. Pleura: Moderate right pleural effusion. No pneumothorax. Cardiomediastinal contours: Cardiomegaly. Bones: No acute osseous abnormality. IMPRESSION: Right pleurX catheter with moderate right pleural effusion. Multifocal masslike consolidative opaciti es.
[2024-05-19] MEDS: PANTOPRAZOLE 40 MG/10 ML VIAL INJ IV SCH (09:33)
[2024-05-19] MEDS: ENOXAPARIN SOD 40 MG/0.4 ML SYRINGE SC SCH (09:37)
[2024-05-19] MEDS ORDERED: FURO40TA4 PO (11:42)
[2024-05-19] MEDS ORDERED: ACET-1882 PO (11:42)
--- NOTE | 2024-05-19 13:22 | DVHDSRES ---
Discharge Summary Date of Admission Resident Creating Document: CLEVELAND BECERRIL RESIDENT May 17, 2024 at 23:25 Date of Discharge: May 19, 2024 Admitting Diagnosis acute on chronic respiratory failure Labs/Diagnostic Data: Laboratory Results Test 05/19/24 07:29 05/18/24 18:28 05/18/24 06:22 05/17/24 23:00 White Blood Count 9.9 10^3/uL (4.4-10.8) Red Blood Count 4.24 10^6/uL (4.5-5.90) Hemoglobin 11.5 g/dL (13.5-17.5) Hematocrit 34.8 % (41.0-53.0) Mean Corpuscular Volume 82.2 fL (80.0-100.0) Mean Corpuscular Hemoglobin 27.2 pg (28.0-32.0) Mean Corpuscular Hemoglobin Concent 33.1 g/dL (32.0-36.0) Red Cell Distribution Width 14.8 % (11.8-14.3) Platelet Count 278 10^3/uL (140-450) Mean Platelet Volume 7.4 fL (6.9-10.8) Neutrophils (%) (Auto) 91.3 % (37.0-80.0) Lymphocytes (%) (Auto) 4.9 % (10.0-50.0) Monocytes (%) (Auto) 3.7 % (0.0-12.0) Eosinophils (%) (Auto) 0.0 % (0.0-7.0) Basophils (%) (Auto) 0.1 % (0.0-2.0) Neutrophils # (Auto) 9.0 10 ^3/uL (1.6-8.6) Lymphocytes # (Auto) 0.5 10 ^3/uL (0.4-5.4) Monocytes # (Auto) 0.4 10 ^3/uL (0-1.3) Eosinophils # (Auto) 0 10 ^3/uL (0-0.8) Basophils # (Auto) 0 10 ^3/uL (0-0.2) Nucleated Red Blood Cells 0.1 % Phosphorus Level 3.8 mg/dL (2.4-5.1) Magnesium Level 2.2 mg/dL (1.6-2.6) Sodium Level 136 mmol/L (136-145) Potassium Level 4.5 mmol/L (3.5-5.1) Chloride Level 99 mmol/L (98-107) Carbon Dioxide Level 28 mmol/L (20-31) Anion Gap 9 (5-15) Blood Urea Nitrogen 34 mg/dL (9-23) Creatinine 0.91 mg/dL (0.700-1.30) Glomerular Filtration Rate Calc 101 mL/min (>90) BUN/Creatinine Ratio 37.4 (10.0-20.0) Serum Glucose 149 mg/dL (74-106) Calcium Level 11.7 mg/dL (8.7-10.4) Total Bilirubin 0.4 mg/dL (0.2-1.0) Aspartate Amino Transferase (AST) 13 U/L (13-40) Alanine Aminotransferase (ALT) < 9 U/L (7-40) Alkaline Phosphatase 109 U/L (46-116) Total Protein 6.0 g/dL (5.7-8.2) Albumin 3.7 g/dL (3.2-4.8) Hemoglobin A1c 6.5 % A1C (<5.7) Lactic Acid Level 1.7 mmol/L (0.4-2.0) Parathyroid Hormone (Intact) 8.9 pg/mL (18.4-80.1) Test 05/17/24 21:32 05/17/24 20:43 05/17/24 20:40 Blood Gas Specimen Type Arterial Blood Gas Sample Site Right radial Blood Gas Patient Temperature 37.0 Arterial Blood Date Drawn [id number] Arterial Blood pH 7.535 (7.350-7.450) Arterial Blood Partial Pressure CO2 33.2 mmHg (35.0-48.0) Arterial Blood Partial Pressure O2 66.6 mmHg (83.0-108.0) Arterial Blood HCO3 27.4 mmol/L (21.0-28.0) Arterial Blood Oxygen Saturation 94.3 % (94.0-98.0) Arterial Blood Base Excess 5.1 mmol/L (-2.0-3.0) Arterial Blood Oxyhemoglobin 93.1 % (94.0-98.0) Arterial Blood Carboxyhemoglobin 0.7 % (0.5-1.5) Arterial Blood Methemoglobin 0.6 % (0.0-1.5) Micky Test Yes Blood Gas Total Hemoglobin 13.50 g/dL (13.5-17.5) Blood Gas Liter Flow 6.00 Blood Gas Modality Mask - simple FiO2 % 35.0 D-Dimer, Quantitative > 35.20 mg/L FEU (0.0-0.49) Troponin I High Sensitivity < 3 ng/L (</=54) B-Type Natriuretic Peptide 57.85 pg/mL (0-100) Thyroid Stimulating Hormone (TSH) 4.29 uIU/mL (0.55-4.78) Influenza Type A Antigen Negative (Negative) Influenza Type B Antigen Negative (Negative) SARS-CoV-2 Antigen (Rapid) Negative (NEGATIVE) Other Laboratory Tests 05/19/24 07:29 05/18/24 18:28 Brief Hx & Hospital Course: A 53-year-old male with PMHx of renal carcinoma post-right nephrectomy with metastases to the lungs, hypertension, gout, and type 2 diabetes was admitted for acute on chronic respiratory failure secondary to lung metastases. The patient presented with two days of worsening dyspnea and was found to have bilateral pleural effusions and hypoxemia requiring oxygen supplementation above his baseline requirements. The right pleural effusion was managed via PleurX catheter drainage (total of 400 cc) and ongoing at-home management. Imaging ruled out pulmonary embolism, and antibiotics were initiated for probable pneumonia with gram-positive/gram-negative coverage. The patient also had asymptomatic hypercalcemia likely due to malignancy, which improved with diuretics during admission. His oxygen requirements returned to baseline, and hypercalcemia is improving. He remains on regular oxygen therapy and breathing treatments at home. The patient was discharged with close follow- up for oncology and pulmonary care, and ongoing at-home pleural effusion management every other day via PleurX catheter. GEN: cachectic PSYCH: Good Judgment. AOx3. Normal memory, mood, and affect. HEENT -Head: normocephalic atraumatic, no facial trauma, neck is supple -Eyes: PERRL, EOMI. No discharge or redness; -Ears: External ears are normal. Normal TMs. -Nose: Normal nares. -Mouth and throat: MMM. Normal gums, mucosa, palate,. Good dentition. NECK: Supple, with no masses. CV: RRR, no m/r/g. LUNGS: diminish respiratory sounds bilateral, no wheezing, right drainage on place ABD: Soft, ND/NT. No evidence of fluid wave. No pulsatile masses on exam, rebound tenderness, James sign or pain over Mcburney's point. SKIN: Warm, well perfused. No skin rashes or abnormal lesions. MSK: No deformities or signs of scoliosis. Normal gait. EXT: No clubbing, cyanosis, or edema. NEURO: Ambulating with no limitations. Normal muscle strength and tone. No focal deficits. Case discussed with Dr English Time spent on care 23 min Consults/Reason for consult pulmonology due to malignant pleural effusion Operations or Procedures CTA Chest with intravenous contrast INDICATION: sob COMPARISON: None TECHNIQUE: Multidetector spiral CTA of the chest was performed of the chest with intravenous contrast. PULMONARY ANGIOGRAPHY PROTOCOL was utilized using a bolus- tracking technique centered on the main pulmonary artery. Axial, coronal and sagittal multiplanar and MIP reformats were performed. Radiation Dose : 1. Chest: CTDI volume is 5.5 mGy. Dose-length product is 229 mGy*cm The dose indicators for CT are the volume Computed Tomography (CT) Dose Index (CTDIvol) and the Dose Length Product (DLP), and are measured in units of mGy and mGy-cm, respectively. These indicators are not patient dose, but values generated from the CT scanner acquisition factors. The report includes radiation exposure data for exposures received during this examination. Findings: Pulmonary artery: No pulmonary embolism Lower neck: Normal thyroid. Lungs: Multiple pulmonary masses are seen throughout both lungs (at least 20), the largest measuring up to 6 cm in the right lower lobe. Right upper lobe consolidation may reflect superimposed pneumonia. Heart/Vascular Structures: Normal heart size. No pericardial effusion. Lymph Nodes: Bulky mediastinal and perihilar lymphadenopathy, for example enlarged right perihilar lymph node measuring up to 6.6 cm. Pleura: Trace bilateral pleural effusions. Right apical pleural chest tube in place. Musculoskeletal: No acute osseous abnormality. Soft tissues: Normal. Upper abdomen: Limited portions of the upper abdomen are unremarkable. IMPRESSION: 1. No pulmonary embolism. 2. Multiple pulmonary masses throughout both lungs (at least 20), largest measuring up to 6 cm in the right lower lobe, compatible with neoplastic process. 3. Bulky mediastinal and perihilar lymphadenopathy, for example a large right perihilar lymph node measuring up to 6.6 cm 4. Trace bilateral pleural effusions Condition at Discharge: Stable Final Diagnosis/Problems List #Acute on chronic respiratory failure due to lung mets #Bilateral Pleural effusion s/p PleurX catheter in the right chest #Sepsis due to probably pneumonia gram +/ gram - #Respiratory alkalosis with hypoxemia due lung mets #Renal carcinoma s/p right nephrectomy #Lung mets #Hypercalcemia due to malignancy #Hypoparathyroidism probably due to above #DM type 2 border-line hba1c #PE ruled out #H/o of Gout Discharge Disposition: Home Discharge Instruct/Medications Diet: Consistent carbohydrate, Cardiac 2g Na,low cholest Activity: Light activity Follow Up/Referral: f/u with oncologit on [place] f/u pulm Dr Lee as outpatient Medications: see prescription Discharge Statement: "Patient was advised to return to the ER or call 911 if any headaches, dizziness, shortness of breath, chest pain, abdominal pain, bleeding, fevers, or worsening of medical condition. Patient was counseled about treatment plan, medications, possible side effects, patientverbalized understanding. All questions were answered to the best of my ability. This discharge took greater then 30 minutes in planning, reviewing documentation, counseling the patient, and discussing with other team members." ASSESSMENT ASSESSMENT Assessment acute respiratory failure pleural efussion hypercalcemia Date of Service: May 19, 2024 Billing Provider: VILMA ENGLISH MD Common Visit Codes: 92141-DTS/OBS DISCH DAY >30min CLEVELAND BECERRIL RESIDENT May 19, 2024 13:22 VILMA ENGLISH MD May 21, 2024 15:13
[2024-05-19] MEDS ORDERED: LEVO750T40 PO (13:25)
[2024-05-19] MEDS: ACETAMINOPHEN 325 MG TAB PO PRN (14:10)
--- NOTE | 2024-05-19 22:53 | DVHPN2 ---
Progress Note - Dictate Date Seen: May 19, 2024 Has the PT tested + for MRSA If YES, has PT been informed?: No Medical Necessity Reason Pt with a Central, PICC or Fol: No Subjective Patient seen and examined at bedside. Remains on supplemental oxygen Overnight events reviewed. vital signs Vital Sign Date Time Temp Pulse Resp B/P (MAP) Pulse Ox O2 Delivery O2 Flow Rate FiO2 05/19/24 17:00 98.1 99 18 93/66 (75) 96 98.1 05/19/24 10:00 Mask 6.0 05/19/24 10:00 50 Total Intake and Output 05/18/24 05/18/24 05/19/24 15:00 23:00 07:00 Intake Total 75 ml 360 ml 290 ml Output Total 450 ml Balance 75 ml 360 ml -160 ml objective Gen.: Patient lying in bed in no apparent distress. On supplemental oxygen. Head: Normocephalic, atraumatic. Eyes: EOMI/PERRLA. Ears: Normal hearing. Normal anatomy. Neck/trachea: Trachea midline, supple. Nose: Normal external anatomy. Mouth: Moist mucous membranes. Chest: Decreased air entry bilaterally. No wheezing or rhonchi. Cardiovascular: Positive S1, positive S2. Regular rate and rhythm. Abdomen: Positive bowel sounds in all 4 quadrants. Soft, non-tender, non- distended. : Deferred. Rectal: Deferred. Skin: Warm, dry. Intact. Extremities: 2+ radial pulses bilaterally. No lower extremity edema. Neuro: Awake, alert, oriented x3. No gross motor or sensory deficits. Cranial nerves II through XII intact. Gait not assessed. laboratory and microbiology Laboratory Tests 05/19/24 07:29 05/18/24 18:28 Test 05/18/24 18:28 Range/Units Serum Glucose 149 H 74-106 mg/dL Assessment/Plan Impression: Acute hypoxic respiratory failure Dependence on supplemental oxygen Pleural effusion Atelectasis Lung cancer Metastatic disease Elevated D-dimer Nicotine dependence Events: Remains on supplemental oxygen, 4 LPM NC Taper O2 as tolerated S/p drainage of right PleurX - 400 mL Continue antibiotics Incentive spirometry Patient is stable for discharge from the pulmonary standpoint. Labs and imaging reviewed. Rest of plan as noted below. Plan: Supplemental oxygen Titrate to keep O2 sats above 92%. CTA reviewed, reveals no evidence of pulmonary embolism. Mediastinal lymphadenopathy. Trace bilateral pleural effusions. Drain PleurX per home schedule. Drains every other day. Continue bronchodilators PRN. Continue antibiotics Incentive spirometry Diurese as tolerated w/ Lasix Monitor renal function. Monitor electrolytes. Supplement as necessary. Monitor ins and outs. Smoking cessation discussed for greater than 10 minutes GI prophylaxis - Protonix DVT prophylaxis. Prognosis: Poor given patient's multiple co-morbidities. Rest of plan per hospitalist and other consultants. Thank you, Dr. Loomis, for allowing me to participate in this patient's care. Further recommendations will depend on the patient's clinical course. Please do not hesitate to contact me if you have any questions or concerns. This medical document was created using an electronic medical record system with [employer] computerized dictation system. Although these documentations are being carefully reviewed, there may still be some phonetic and typographical changes. The errors are purely typographical, due to imperfection on the software program, and do not reflect any compromise in the patient's medical care. Plan discussed with: Patient, Other (ROBERT Lopez) YIN SAMSON MD May 19, 2024 22:53
== END 2024-05-19 17:01 | disposition home or self-care (01) | DRG 720 ==
LOC: EDSEX 20:02 → ER 20:02 → EDBD 20:02 → TELE 23:25 → TELE-WESTW 05-18 09:21
PROVIDERS: ADMIT Student in an Organized Health Care Education/Training Program; ATTEND Student in an Organized Health Care Education/Training Program
DX: A41.59 Other Gram-negative sepsis (principal); J96.21 Acute and chronic respiratory failure with hypoxia; J15.69 Pneumonia due to other Gram-negative bacteria; C78.02 Secondary malignant neoplasm of left lung; C78.01 Secondary malignant neoplasm of right lung; E87.3 Alkalosis; J15.9 Unspecified bacterial pneumonia; J90 Pleural effusion, not elsewhere classified; Z20.822 Contact with and (suspected) exposure to COVID-19; Z99.81 Dependence on supplemental oxygen; E78.5 Hyperlipidemia, unspecified; E11.9 Type 2 diabetes mellitus without complications; E83.52 Hypercalcemia; F17.210 Nicotine dependence, cigarettes, uncomplicated; G89.4 Chronic pain syndrome; I10 Essential (primary) hypertension; M10.9 Gout, unspecified; Z85.528 Personal history of other malignant neoplasm of kidney; Z90.5 Acquired absence of kidney; Z79.899 Other long term (current) drug therapy; Z79.4 Long term (current) use of insulin
CPT/HCPCS: 36415; 36600; 71045; 71275; 76604; 80048; 80053; 82310; 82805; 83036; 83605; 83735; 83880; 83970; 84100; 84443; 84484; 85025; 85379; 87070; 87426; 87804; 93005; 94640; G0378; J2470

== ENCOUNTER 2024-06-02 02:28 | Inpatient (IN) | payer MEDICAID ==
[~2024-06-02] VITALS: Ht 182.9 cm; Wt 50.2 kg
[2024-06-02] VITALS (31 sets, daily range): BP systolic 76–104; BP diastolic 51–71; PULSE 85–116; RESP 10–20; TEMP 97.5–98; O2SAT 91–100
[~2024-06-02 02:28] MED LIST changes: +ACET-1882 PO; +FURO40TA4 PO; +LEVO750T40 PO
[2024-06-02 03:07] LABS: Basophils # (auto) 0 10 ^3/uL (0-0.2); Basophils % (auto) 0.2 % (0.0-2.0); Eosinophils # (auto) 0 10 ^3/uL (0-0.8); Eosinophils % (auto) 0.2 % (0.0-7.0); Hemoglobin 11.6 g/dL (13.5-17.5); Lymphocytes # (auto) 0.3 10 ^3/uL (0.4-5.4); Lymphocytes % (auto) 2.9 % (10.0-50.0); Mean Corpuscular Hemoglobin 27.2 pg (28.0-32.0); Mean Corpuscular Hgb Conc. 32.2 g/dL (32.0-36.0); Mean Corpuscular Volume 84.3 fL (80.0-100.0); Monocytes # (auto) 0.2 10 ^3/uL (0-1.3); Monocytes % (auto) 1.9 % (0.0-12.0); Neutrophils # (auto) 10.7 10 ^3/uL (1.6-8.6); Neutrophils % (auto) 94.8 % (37.0-80.0); Nucleated Red Blood Cells % 0.1 %; Platelet Count (auto) 202 10^3/uL (140-450); Red Blood Cells 4.27 10^6/uL (4.5-5.90); Red Cell Distribution Width 15.5 % (11.8-14.3); White Blood Cell 11.3 10^3/uL (4.4-10.8)
--- NOTE | 2024-06-02 03:12 | ED.PDOC ---
History of Present Illness HPI Comments 53 y/o M, with a Hx of renal carcinoma post-right nephrectomy with metastases to lungs, acute on chronic respiratory failure, bilateral pleural effusions, sepsis secondary to PNA, DM type II, HLD, HTN, and hypoparathyroidism, is BIBA for c/o shortness of breath, today. Per EMS report, patient endorses on sudden and unprovoked onset of symptoms, this morning. He is noted to have been found with a SpO2 of 92% on his 4LPM O2, which increased to 98% upon oxygen placement en route, by EMS staff. At of assessment, patient comments on feeling better and denies having any chest pain, cough, fever, chills, or other associated symptoms or modifiers at this time. Chief Complaint: Shortness of Breath Time Seen by MD: 02:40 Primary Care Provider: UNKNOWN Reviewed Notes: Nurses Notes, Concrete Journeyman Notes, Medications, Allergies Allergies: Coded Allergies: NO KNOWN ALLERGIES (Unverified , 01/18/23) Home Meds Active Scripts Levofloxacin Hemihydrate (LEVOFLOXACIN) 750 Mg Tab, 1 TAB PO DAILY for 7 Days, #7 TAB Prov:C[place]AND BECERRIL RESIDENT 05/19/24 Furosemide (Furosemide) 40 Mg Tab, 40 MG PO DAILY for 30 Days, #30 TAB Prov:C[place]AND BECERRIL RESIDENT 05/19/24 Acetaminophen (Acetaminophen) 325 Mg Tab, 325 MG PO Q6HP PRN for 10 Days, #40 TAB Prov:CLEVELAND BECERRIL RESIDENT 05/19/24 Sulfamethoxazole W/Trimethopri (Bactrim Ds Tablet) 1 Tab Tb, 1 TAB PO BID for 7 Days, #14 TAB Prov:PRIYA MONTESINOS PAC 01/18/23 Information Source: Patient, Emergency Med Personnel Mode of Arrival: EMS Severity: Moderate Timing: Hours Duration: Since onset Prehospital treatment: 12 Lead EKG, Hygiene Teacher, Oxygen Past Medical History PAST MEDICAL HISTORY: Cancer (renal carcinoma post-right nephrectomy with metastases to the lungs), DM (type II ), Gout, High Lipids, HTN, Thyroid (hypoparathyroidism) Past Medical History (Other): acute on chronic respiratory failiure bilateral pleural effusions sepsis PNA respiratory alkalosis w/hypoxemia hypercalcemia Surgical History: Denies all surgeries Surgical History (Other): right nephectomy Family History Family History: Reviewed,noncontributory to illness, Unknown Social History Smoker: Cigarettes Alcohol: Denies ETOH Use Drugs: Denies Drug Use Lives In: Home Respiratory: reports: shortness of breath All Other Systems: Reviewed and Negative (negative unless otherwise stated above or in HPI) Physical Exam General Appearance: No Apparent Distress, Normal HEENT: Normal ENT Inspection, Pharynx Normal, TMs Normal Neck: Full Range of Motion, Non-Tender, Normal, Normal Inspection Respiratory: Chest Non-Tender, Lungs Clear, No Accessory Muscle Use, No Respiratory Distress, Normal Breath Sounds Cardiovascular: No Edema, No JVD, No Murmur, No Gallop, Normal Peripheral Pulses, Regular Rate/Rhythm Breast Exam: Deferred Gastrointestinal: No Organomegaly, Non Tender, No Pulsatile Mass, Normal Bowel Sounds, Soft Genitalia: Deferred Pelvic: Deferred Rectal: Deferred Extremities: No calf tenderness, Normal capillary refill, Normal inspection, Normal range of motion, Non-tender, No pedal edema Musculoskeletal : Apperance: Normal Neurologic: Alert, upsetter helper II-XII nml as Tested, No Motor Deficits, Normal Affect, Normal Mood, No Sensory Deficits Cerebellar Function: Normal Reflexes: Normal Skin: Dry, Normal Color, Warm Lymphatic: No Adenopathy Was a procedure done? Was a procedure done?: No EKG EKG : Pulse Rate (adult): 102 [place]: Normal Cardiac Rhythm: ST Block: None Hypertrophy: None ST: Normal Differential Dx Considerations may include: lung CA advancement, URI, viral syndrome, bilateral pleural effusions X-Ray, Labs, Meds, VS Vital Signs Date Time Temp Pulse Resp B/P (MAP) Pulse Ox O2 Delivery O2 Flow Rate FiO2 06/02/24 03:12 100 12 96 Nasal Cannula* 5 40 06/02/24 03:12 102 06/02/24 03:09 98.9 100 12 85/58 (67) 96 98.9 06/02/24 02:48 102 06/02/24 02:35 97.8 105 18 88/66 (73) 98 Lab Test 06/02/24 02:52 Range/Units White Blood Count 11.3 H 4.4-10.8 10^3/uL Red Blood Count 4.27 L 4.5-5.90 10^6/uL Hemoglobin 11.6 L 13.5-17.5 g/dL Hematocrit 36.0 L 41.0-53.0 % Mean Corpuscular Volume 84.3 80.0-100.0 fL Mean Corpuscular Hemoglobin 27.2 L 28.0-32.0 pg Mean Corpuscular Hemoglobin Concent 32.2 32.0-36.0 g/dL Red Cell Distribution Width 15.5 H 11.8-14.3 % Platelet Count 202 140-450 10^3/uL Mean Platelet Volume 7.0 6.9-10.8 fL Neutrophils (%) (Auto) 94.8 H 37.0-80.0 % Lymphocytes (%) (Auto) 2.9 L 10.0-50.0 % Monocytes (%) (Auto) 1.9 0.0-12.0 % Eosinophils (%) (Auto) 0.2 0.0-7.0 % Basophils (%) (Auto) 0.2 0.0-2.0 % Neutrophils # (Auto) 10.7 H 1.6-8.6 10 ^3/uL Lymphocytes # (Auto) 0.3 L 0.4-5.4 10 ^3/uL Monocytes # (Auto) 0.2 0-1.3 10 ^3/uL Eosinophils # (Auto) 0 0-0.8 10 ^3/uL Basophils # (Auto) 0 0-0.2 10 ^3/uL Nucleated Red Blood Cells 0.1 % Sodium Level 130 L 136-145 mmol/L Potassium Level 5.1 3.5-5.1 mmol/L Chloride Level 91 L 98-107 mmol/L Carbon Dioxide Level 30 20-31 mmol/L Anion Gap 9 5-15 Blood Urea Nitrogen 65 H 9-23 mg/dL Creatinine 1.97 H 0.700-1.30 mg/dL Glomerular Filtration Rate Calc 40 >90 mL/min BUN/Creatinine Ratio 33.0 H 10.0-20.0 Serum Glucose 137 H 74-106 mg/dL Calcium Level 12.8 H 8.7-10.4 mg/dL Troponin I High Sensitivity < 3 L </=54 ng/L B-Type Natriuretic Peptide 36.76 0-100 pg/mL Current Medications Medications (Trade) Dose Ordered Sig/Sonia Route Start Time Stop Time Status Last Admin Methylprednisolone Sodium Succinate (Solu Medrol) 62.5 mg ONCE ONCE IV 06/02/24 04:00 06/02/24 04:01 DC 06/02/24 04:05 Sodium Chloride 1,000 ml @ 1,000 mls/hr Q1H ONCE IV 06/02/24 04:00 06/02/24 04:59 06/02/24 04:02 Time of 1ST Reevaluation: 03:10 Reevaluation 1ST: Unchanged Patient Education/Counseling: Diagnosis, Treatment Family Education/Counseling: No Family Present Additional Information I reviewed the following notes from patient's past medical encounters: ED physician note on 05/17/24 and Admission discharge summary report on 05/19/24 The following tests were ordered, and results were reviewed by me: CXR, BNP, troponin, CBC, BMP Additional Information was gathered from interviewing the following independent historians: EMT I reviewed and agreed with the following test results read by other providers: CXR I discussed treatment and results with medical personnel Departure 1 Departure Time of Disposition: 04:10 (Patient with worsening shortness of breath and pain. We will admit patient for further workup.) Impression: Primary Impression: Lung malignancy Qualified Codes: C34.80 - Malignant neoplasm of overlapping sites of unspecified bronchus and lung Additional Impression: Shortness of breath Disposition: 09 ADMITTED INPATIENT Admit to: Med Surg Condition: Serious Critical Care Note Critical Care Time?: No Stability Stability form required: No Heart Score Heart Score: Heart Score Response (Comments) Value History N/A 0 EKG N/A 0 Age N/A 0 Risk Factors N/A 0 Troponin N/A 0 Total 0 I personally scribed for SHLOMO SALAZAR MD ([email or web address]) on 06/02/24 at 03:12. Electronically submitted by Yemi Blair [email or web address]). SHLOMO SALAZAR MD Jun 02, 2024 03:12
[2024-06-02 03:16] LABS: Anion Gap 9 (5-15); Carbon Dioxide 30 mmol/L (20-31)
[2024-06-02 03:19] LABS: Calcium 12.8 mg/dL (8.7-10.4); Chloride 91 mmol/L (98-107); Potassium 5.1 mmol/L (3.5-5.1); Sodium 130 mmol/L (136-145)
[2024-06-02 03:26] LABS: Blood Urea Nitrogen 65 mg/dL (9-23); Glucose 137 mg/dL (74-106)
--- NOTE | 2024-06-02 03:55 | DVH ---
CHEST RADIOGRAPH Indication: sob, lung ca Technique: Single frontal view of the chest was obtained Comparison: XY CHEST XRAY 1 VIEW on DOS: 05/19/24, XY CHEST XRAY 1 VIEW on DOS: 05/17/24 IMPRESSION: Heart appears stable in size. There are innumerable bilateral pulmonary masses. Right upper lobe con solidation has improved. Probable small bilateral pleural effusions. Right chest tube is present, no discrete pneumothorax.
[2024-06-02] MEDS: SODIUM CHLORIDE 0.9% 1,000 ML IV ONE (04:02)
[2024-06-02] MEDS: methylPREDNISolone SOD SUCC 125 MG/2 ML VL IV ONE (04:05)
[2024-06-02] MEDS: ALBUTEROL SULF 2.5 MG/0.5ML(0.5%) NEB SOLN NEB ONE (04:20)
[2024-06-02] MEDS: IPRATROPIUM BROM 0.5 MG/2.5ML INH SOL NEB ONE (04:20)
[2024-06-02] MEDS: PIPERACILLIN-TAZOB 3.375GM 100 ML IV ONE (04:27)
[2024-06-02 04:46] LABS: COVID19 ANTIGEN SOFIA FIA NEGATIVE (NEGATIVE); Rapid Influenza A Negative (Negative); Rapid Influenza B Negative (Negative)
[2024-06-02 05:01] LABS: Lactic Acid w/Reflex 2.1 mmol/L (0.4-2.0)
[2024-06-02] MEDS: AZITHROMYCIN 500MG/ 250ML 250 ML IV ONE (05:17)
[2024-06-02] MEDS ORDERED: ONDANSETRON HCL 4 MG/2 ML VIAL IV PRN (07:00)
[2024-06-02] MEDS: InsuLIN REG 1unit/0.01ml Soln (100units/ml) SC SCH (07:00)
[2024-06-02] MEDS ORDERED: DEXTROSE (50%) 50ML SYRG IV PRN (07:00)
[2024-06-02] MEDS ORDERED: ACETAMINOPHEN 325 MG TAB PO PRN (07:00)
--- NOTE | 2024-06-02 07:02 | ECG ---
[facility] Test Date: 2024-06-02 Test Time: 02:48:22 Pat Name: VAISHNAVI MON Department: ED Room: [address] [place] [address] Gender: M Corduroy Brusher Operator: NABIL : 1970 Requested By: SHLOMO SALAZAR Order Number: [id number] Reading MD: Rene Bartlett Measurements Intervals [place] Rate: 102 P: 81 AL: 151 QRS: 74 QRSD: 93 T: 0 QT: 278 QTc: 363 Interpretive Statements Sinus tachycardia Low voltage, extremity leads Nonspecific T abnormalities, lateral leads Electronically Signed On 06-03-2024 8:53:53 PST by Rene Bartlett Please click the below link to view image of tracing.
--- NOTE | 2024-06-02 07:02 | DVHHP2 ---
History of Present Illness Reason for Visit: SOB History of Present Illness Arnol Olmos is a 53-year-old male with past medical history of hypertension, hyperlipidemia, diabetes, renal cell carcinoma Mets to the lung receiving treatment immunotherapy at [place], gout, hypothyroidism, right nephrectomy who presents to the ED with shortness of breath x1 day. Per mother at bedside and caregiver stated that the patient is bed-bound, on 5 L nasal cannula oxygen dependence at home suddenly became short of breath. Per family and caregiver, patient is A&O x1 and tracks with eyes but nonverbal. Patient is still has right chest tube in place, was supposed to go see oncologist today to get a re- sutured. Patient also has dentures in place. Per caregiver patient eats foods that are liquids and needs assistance be fed. Per caregiver patient is getting Opdivo at [place]. Caregiver denies any recent sick contacts or recent illnesses. Mother and caregiver at bedside denies chest pain, fever, chills, nausea, vomiting, diarrhea, and recent trauma or injury. Cardiovascular: HTN, hyperipidemia Endocrine: Diabetes, Hypothyroidism Past Medical History Renal cell carcinoma Mets to the lung Past Surgical History: Other (Right nephrectomy) Family History: None Smoke: Quit ALCOHOL: none Drugs: None Lives: with Family Domestic Violence: Neg Review of Systems Respiratory: Shortness of breath Allergies: Coded Allergies: NO KNOWN ALLERGIES (Unverified , 01/18/23) Exam Vital Signs Vital Signs Date Time Temp Pulse Resp B/P (MAP) Pulse Ox O2 Delivery O2 Flow Rate FiO2 06/02/24 06:00 94 10 90/56 (67) 96 06/02/24 04:21 Nasal Cannula* 4 36 06/02/24 03:09 98.9 98.9 General Appearance: No acute distress HEENT: Atraumatic, Other (Patient has dentures) Respiratory: Normal air movement Cardiovascular: Normal S1, Normal S2, No murmurs Abdominal: Normal bowel sounds, Soft, No tenderness, No hepatospenomegaly, No masses Extremities: No edema, Normal pulses, No tenderness/swelling Neuro: Sensation intact Psych/Mental Status: Other (A&O x1) Labs/Xrays Labs Test 06/02/24 04:30 06/02/24 04:14 06/02/24 02:52 Range/Units Lactic Acid Level 2.1 *H 0.4-2.0 mmol/L Influenza Type A Antigen Negative Negative Influenza Type B Antigen Negative Negative SARS-CoV-2 Antigen (Rapid) Negative NEGATIVE White Blood Count 11.3 H 4.4-10.8 10^3/uL Red Blood Count 4.27 L 4.5-5.90 10^6/uL Hemoglobin 11.6 L 13.5-17.5 g/dL Hematocrit 36.0 L 41.0-53.0 % Mean Corpuscular Volume 84.3 80.0-100.0 fL Mean Corpuscular Hemoglobin 27.2 L 28.0-32.0 pg Mean Corpuscular Hemoglobin Concent 32.2 32.0-36.0 g/dL Red Cell Distribution Width 15.5 H 11.8-14.3 % Platelet Count 202 140-450 10^3/uL Mean Platelet Volume 7.0 6.9-10.8 fL Neutrophils (%) (Auto) 94.8 H 37.0-80.0 % Lymphocytes (%) (Auto) 2.9 L 10.0-50.0 % Monocytes (%) (Auto) 1.9 0.0-12.0 % Eosinophils (%) (Auto) 0.2 0.0-7.0 % Basophils (%) (Auto) 0.2 0.0-2.0 % Neutrophils # (Auto) 10.7 H 1.6-8.6 10 ^3/uL Lymphocytes # (Auto) 0.3 L 0.4-5.4 10 ^3/uL Monocytes # (Auto) 0.2 0-1.3 10 ^3/uL Eosinophils # (Auto) 0 0-0.8 10 ^3/uL Basophils # (Auto) 0 0-0.2 10 ^3/uL Nucleated Red Blood Cells 0.1 % Sodium Level 130 L 136-145 mmol/L Potassium Level 5.1 3.5-5.1 mmol/L Chloride Level 91 L 98-107 mmol/L Carbon Dioxide Level 30 20-31 mmol/L Anion Gap 9 5-15 Blood Urea Nitrogen 65 H 9-23 mg/dL Creatinine 1.97 H 0.700-1.30 mg/dL Glomerular Filtration Rate Calc 40 >90 mL/min BUN/Creatinine Ratio 33.0 H 10.0-20.0 Serum Glucose 137 H 74-106 mg/dL Calcium Level 12.8 H 8.7-10.4 mg/dL Troponin I High Sensitivity < 3 L </=54 ng/L B-Type Natriuretic Peptide 36.76 0-100 pg/mL EXAM: CT HEAD WITHOUT CONTRAST INDICATION: Pain TECHNIQUE: CT of the head without intravenous contrast. Radiation Dose : 1. Head: CT Dose: CTDI volume is 51.53 mGy. Dose-length product is 1015.65 mGy*cm The dose indicators for CT are the volume Computed Tomography (CT) Dose Index (CTDIvol) and the Dose Length Product (DLP), and are measured in units of mGy and mGy-cm, respectively. These indicators are not patient dose, but values generated from the CT scanner acquisition factors. The report includes radiation exposure data for exposures received during this examination. COMPARISON: None FINDINGS: There is no evidence of acute intracranial hemorrhage, extra-axial collection, mass effect, midline shift, herniation or hydrocephalus. The ventricles, sulci and cisterns are age appropriate. The lion-white differentiation is intact. Patchy periventricular and subcortical white matter hypoattenuation is nonspecific but may be related to small vessel ischemic disease. The visualized paranasal sinuses and mastoid air cells are clear. The surrounding soft tissues and osseous structures are unremarkable. IMPRESSION: No acute intracranial abnormality. CHEST RADIOGRAPH Indication: sob, lung ca Technique: Single frontal view of the chest was obtained Comparison: XY CHEST XRAY 1 VIEW on DOS: 05/19/24, XY CHEST XRAY 1 VIEW on DOS: 05/17/24 IMPRESSION: Heart appears stable in size. There are innumerable bilateral pulmonary masses. Right upper lobe consolidation has improved. Probable small bilateral pleural effusions. Right chest tube is present, no discrete pneumothorax. Assessment/Plan Assessment/Plan Assessment/Plan: Acute on chronic respiratory failure Leukocytosis rule out sepsis Lactic acidosis Hyponatremia Oxygen dependence MK and CKD History of right nephrectomy Labs IV antibiotics-Zosyn + azithromycin Respiratory treatments IV fluids IV steroids Blood cultures Flu negative COVID negative EKG done Chest x-ray noted BNP Troponin negative UA Urine culture A.m. labs CT head Nephro consult Pulmonary consult for right chest tube Wound consult for sacral wound pressor Diabetes type 2 uncontrolled Hemoglobin A1c ISS and Accu-Cheks Renal cell carcinoma Mets to the lung Follow up outpatient with oncologist Chronic hypertension Continue home medications Chronic hyperlipidemia Continue home medications History of gout Continue home medications History of hypothyroidism Continue home medication Ex-smoker Monitor Bilateral pulmonary masses Follow up outpatient with oncologist FEN/PPX Diet Ivf DVT ppx - lovenox PUD ppx - famotidine given with steroids Discussed plan of care with patient's mom, caregiver and nurse Home medications reconciled Admit to ICU Plan discussed with: Patient My Orders Orders - YASMANY AVITIA Procedure Category Date Status Time Azithromycin 500mg/ PHA 06/02/24 Verified 250ml (Zithromax 50 10:00 Zosyn Extended PHA 06/02/24 Verified Infusion 14:00 Urinalysis LAB 06/02/24 Verified 06:51 Urine Bacterial KATHLEEN 06/02/24 Verified Culture 06:51 Hemoglobin A1c LAB 06/02/24 Verified 06:51 Glucose Blood PHA 06/02/24 Verified (Accu-Chek Comfort 07:00 Mild Sliding Scale PHA 06/02/24 Verified 07:00 Dextrose 50% Syringe PHA 06/02/24 Verified 07:00 NS PHA 06/02/24 Verified 07:[address] 06/02/24 Verified 06:51 *[facility] CONS 06/02/24 Verified -[place] 06:51 Admit ADMIT 06/02/24 Verified 06:51 Date of Service: Jun 02, 2024 Billing Provider: YASMANY AVITIA Common Visit Codes: [id number] INP/OBS CARE (HIGH) YASMANY AVITIA Jun 02, 2024 07:02
[2024-06-02] MEDS: ACCU-CHEK COMFORT CURVE STRIP VI SCH (07:13)
[2024-06-02] MEDS: SODIUM CHLORIDE 0.9% 1,000 ML IV SCH ×2 (07:48→16:12)
--- NOTE | 2024-06-02 07:54 | DVH ---
EXAM: CT HEAD WITHOUT CONTRAST INDICATION: Pain TECHNIQUE: CT of the head without intravenous contrast. Radiation Dose : 1. Head: CT Dose: CTDI volume is 51.53 mGy. Dose-length product is 1015.65 mGy*cm The dose indicators for CT are the volume Computed Tomography (CT) Dose Index (CTDIvol) and the Dose Length Product (DLP), and are measured in units of mGy and mGy-cm, respectively. These indicators are not patient dose, but values generated from the CT scanner acquisition factors. The report includes radiation exposure data for exposures received during this examination. COMPARISON: None FINDINGS: There is no evidence of acute intracranial hemorrhage, extra-axial collection, mass effect, midline s hift, herniation or hydrocephalus. The ventricles, sulci and cisterns are age appropriate. The lion-white differentiation is intact. Patchy periventricular and subcortical white matter hypoattenuation is nonspecific but may be related to small vessel ischemic disease. The visualized paranasal sinuses and mastoid air cells are clear. The surrounding soft tissues and osseous structures are unremarkable. IMPRESSION: No acute intracranial abnormality. Radiation optimization: All CT scans at this facility use at least one of these dose optimization hugo hniques: automated exposure control mA and/or kV adjustment per patient size (includes targeted exam s where dose is matched to clinical indication) or iterative reconstruction.
[2024-06-02] MEDS ORDERED: METH-1181 (08:42)
[2024-06-02] MEDS ORDERED: PROC10TA6 (08:42)
[2024-06-02] MEDS ORDERED: ALBUTEROL SULF 2.5 MG/0.5ML(0.5%) NEB SOLN NEB PRN (08:45)
[2024-06-02] MEDS ORDERED: IPRATROPIUM BROM 0.5 MG/2.5ML INH SOL NEB PRN (08:45)
[2024-06-02] MEDS: IPRATROPIUM BROM 0.5 MG/2.5ML INH SOL NEB SCH (09:11)
[2024-06-02] MEDS: ALBUTEROL SULF 2.5 MG/0.5ML(0.5%) NEB SOLN NEB SCH (09:11)
[2024-06-02] MEDS ORDERED: FUROSEMIDE 40 MG TAB PO SCH (10:00)
--- NOTE | 2024-06-02 10:32 | DVHINCON2 ---
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 Patient presents to the hospital complaining of weakness. Per caregiver at bedside patient has poor nutrition. Nephrology consulted due to elevated creatinine level. Patient's baseline renal function is normal. At bedside patient is moving spontaneously but is alert and oriented times 0. He is severely cachectic and malnourished Allergies: Coded Allergies: NO KNOWN ALLERGIES (Unverified , 01/18/23) Home Meds Active Scripts Levofloxacin Hemihydrate (LEVOFLOXACIN) 750 Mg Tab, 1 TAB PO DAILY for 7 Days, #7 TAB Prov:[place] BECERRIL RESIDENT 05/19/24 Furosemide (Furosemide) 40 Mg Tab, 40 MG PO DAILY for 30 Days, #30 TAB Prov:[place] BECERRIL RESIDENT 05/19/24 Acetaminophen (Acetaminophen) 325 Mg Tab, 325 MG PO Q6HP PRN for 10 Days, #40 TAB Prov:[place] B[facility]ERRIL [facility] 05/19/24 Sulfamethoxazole W/Trimethopri (Bactrim Ds Tablet) 1 Tab Tb, 1 TAB PO BID for 7 Days, #14 TAB Prov:PRIYA MONTESINOS PAC 01/18/23 Reported Medications Prochlorperazine Maleate (Compazine) 10 Mg Tb 06/02/24 Methocarbamol (Methocarbamol) 500 Mg Tab, 1 06/02/24 Current Medications Current Medications Medications (Trade) Dose Ordered Sig/Sonia Route PRN Reason Start Time Stop Time Status Last Admin Azithromycin 250 ml @ 125 mls/hr DAILY IV 06/03/24 10:00 Piperacillin Sod/ Tazobactam Sod 100 ml @ 25 mls/hr Q8HR IV 06/02/24 14:00 Diagnostic Test (Pha) (Accu-Chek Comfort Curve T) 1 strip ACHS 06/02/24 07:00 06/02/24 07:13 Insulin Human Regular (InsuLIN R) ACHS SC 06/02/24 07:00 Dextrose 50 ml UD PRN IV Blood Sugar LESS THAN 60 06/02/24 07:00 Sodium Chloride 1,000 ml @ 60 mls/hr [id number] IV 06/02/24 07:00 06/02/24 07:48 Ondansetron HCl (Zofran) 4 mg Q4HP PRN IV NAUSEA / VOMITING 06/02/24 07:00 Enoxaparin Sodium (Lovenox) 30 mg DAILY SC 06/02/24 10:00 Acetaminophen (Tylenol Tablet) 650 mg Q6HP PRN PO PAIN SCALE 1-3 OR TEMP>100.4 06/02/24 07:00 Methylprednisolone Sodium Succinate (Solu Medrol) 40 mg Q8HR IV 06/02/24 14:00 Famotidine (Pepcid Injection) 20 mg DAILY IV 06/02/24 10:00 Furosemide (Lasix Tablet) 40 mg DAILY PO 06/02/24 10:00 06/02/24 09:50 DC Albuterol (Ventolin Medneb) 2.5 mg Q4HWA NEB 06/02/24 10:00 06/02/24 09:11 Albuterol (Ventolin Medneb) 2.5 mg Q2HPRN PRN NEB SHORTNESS OF BREATH 06/02/24 08:45 Ipratropium [place] (Atrovent Medneb) 0.5 mg Q4HWA NEB 06/02/24 10:00 06/02/24 09:11 Ipratropium [place] (Atrovent Medneb) 0.5 mg Q2HPRN PRN NEB SHORTNESS OF BREATH 06/02/24 08:45 Family History: Patient reports no known family medical history. Review of Systems Can not obtain due to altered mental state H&P Exam Vital Signs/I&O Vital Sign Date Time Temp Pulse Resp B/P (MAP) Pulse Ox O2 Delivery O2 Flow Rate FiO2 06/02/24 09:17 97.5 93 91/62 98 2.0 97.5 06/02/24 09:14 14 Nasal Cannula* 28 Intake and Output 06/01/24 06/02/24 19:00 07:00 Intake Total 1225 ml Balance 1225 ml Intake IV Total 1225 ml Physical Exam Cachectic weak appearing middle-aged male Alert oriented times 0 Right chest tube Abdomen is soft Bony prominence of the sacral bones No pitting edema Labs/Diagnostic Data Labs/Diagnostic Data Laboratory Tests Test 06/02/24 07:25 06/02/24 07:12 06/02/24 04:30 06/02/24 04:14 Range/Units Lactic Acid Level 1.7 2.1 *H 0.4-2.0 mmol/L POC Glucose 194 H 70-106 mg/dl Influenza Type A Antigen Negative Negative Influenza Type B Antigen Negative Negative SARS-CoV-2 Antigen (Rapid) Negative NEGATIVE Test 06/02/24 02:52 Range/Units White Blood Count 11.3 H 4.4-10.8 10^3/uL Red Blood Count 4.27 L 4.5-5.90 10^6/uL Hemoglobin 11.6 L 13.5-17.5 g/dL Hematocrit 36.0 L 41.0-53.0 % Mean Corpuscular Volume 84.3 80.0-100.0 fL Mean Corpuscular Hemoglobin 27.2 L 28.0-32.0 pg Mean Corpuscular Hemoglobin Concent 32.2 32.0-36.0 g/dL Red Cell Distribution Width 15.5 H 11.8-14.3 % Platelet Count 202 140-450 10^3/uL Mean Platelet Volume 7.0 6.9-10.8 fL Neutrophils (%) (Auto) 94.8 H 37.0-80.0 % Lymphocytes (%) (Auto) 2.9 L 10.0-50.0 % Monocytes (%) (Auto) 1.9 0.0-12.0 % Eosinophils (%) (Auto) 0.2 0.0-7.0 % Basophils (%) (Auto) 0.2 0.0-2.0 % Neutrophils # (Auto) 10.7 H 1.6-8.6 10 ^3/uL Lymphocytes # (Auto) 0.3 L 0.4-5.4 10 ^3/uL Monocytes # (Auto) 0.2 0-1.3 10 ^3/uL Eosinophils # (Auto) 0 0-0.8 10 ^3/uL Basophils # (Auto) 0 0-0.2 10 ^3/uL Nucleated Red Blood Cells 0.1 % Sodium Level 130 L 136-145 mmol/L Potassium Level 5.1 3.5-5.1 mmol/L Chloride Level 91 L 98-107 mmol/L Carbon Dioxide Level 30 20-31 mmol/L Anion Gap 9 5-15 Blood Urea Nitrogen 65 H 9-23 mg/dL Creatinine 1.97 H 0.700-1.30 mg/dL Glomerular Filtration Rate Calc 40 >90 mL/min BUN/Creatinine Ratio 33.0 H 10.0-20.0 Serum Glucose 137 H 74-106 mg/dL Calcium Level 12.8 H 8.7-10.4 mg/dL Troponin I High Sensitivity < 3 L </=54 ng/L B-Type Natriuretic Peptide 36.76 0-100 pg/mL Assessment Acute kidney injury hemodynamically mediated patient clinically appears volume depleted No previous history of CKD Bilateral small pleural effusions with PleurX catheter in place Metastatic cancer Severe protein calorie malnutrition Recommend IV fluid hydration gentle fluid at this time Recommend nutritional consult Avoid hypotension Recommend sepsis workup Obtain urine studies place Morrison catheter if unable to produce urine Obtain pulmonology consultation Plan discussed with: Other (child care provider) NATHAN LOOMIS MD Jun 02, 2024 10:32
[2024-06-02] MEDS: ENOXAPARIN SOD 30 MG/0.3 ML SYRINGE SC SCH (10:50)
[2024-06-02] MEDS: FAMOTIDINE (10MG/ML) 2ML VL IV SCH (10:51)
[2024-06-02 11:54] LABS: Base Excess -1.7 mmol/L (-2.0-3.0)
[2024-06-02] MEDS: NOREPINEPHRINE 8 MG/250ML KIT 250 ML IV ONE (13:52)
[2024-06-02] MEDS: NOREPINEPHRINE 8 MG/250ML KIT 250 ML IV SCH (14:00)
[2024-06-02] MEDS: methylPREDNISolone SOD SUCC 40 MG/ML VL IV SCH (14:51)
[2024-06-02] MEDS: PIPERACILLIN-TAZOB 3.375GM 100 ML IV SCH (14:51)
[2024-06-02 15:01] LABS: Base Excess 4.3 mmol/L (-2.0-3.0)
[2024-06-02 16:22] LABS: Urine Bacteria FEW /hpf (None Seen); Urine Blood TRACE /uL (Negative); Urine Clarity Turbid (Clear); Urine Color Yellow (Yellow); Urine Hyaline Cast FEW /lpf (0 - 2); Urine Mucus FEW (None Seen); Urine Protein, UAD 1+ (Negative); Urine Sperm PRESENT /hpf (None Seen); Urine Squamous Epithelial Cell FEW /hpf (<5); Urine Urobilinogen Normal (Negative); Urine WBC 6 /HPF (0-3)
[2024-06-02 16:31] LABS: Creatinine, Urine 105.47 mg/dL (30.0-125.0); Sodium Urine < 10 mmol/L (40-220)
--- NOTE | 2024-06-02 16:41 | DVHPN2 ---
Subjective Patient unresponsive Reviewed: Care Plan, H&P, Labs, Medications Changes from previous H/P or p: No Changes General: Per HPI Respiratory: Shortness of breath Objective Vitals Vital Signs Date Time Temp Pulse Resp B/P (MAP) Pulse Ox O2 Delivery O2 Flow Rate FiO2 06/02/24 16:00 99/69 06/02/24 15:19 86 100 Facial BiPAP Mask 50 06/02/24 15:00 15 06/02/24 13:52 70.0 06/02/24 10:32 97.6 97.6 Intake/Output Intake and Output 06/02/24 07:00 Intake Total 1225 ml Balance 1225 ml Intake IV Total 1225 ml General Appearance: severe distress, Other (Encephalopathic) HEENT: Atraumatic, PERRLA Cardiovascular: Normal S1, Normal S2 Abdomen: Normal bowel sounds, Soft, No tenderness Musculoskeletal: Normal sensory function, Normal motor function Neuro: Normal gait, Normal speech Psych/Mental Status: Mental status NL, Mood NL Medications Current Medications Medications Dose Ordered Sig/Sonia Route Start Time Stop Time Status Last Admin Dose Admin Azithromycin 250 ml @ 125 mls/hr DAILY IV 06/03/24 10:00 Piperacillin Sod/ Tazobactam Sod 100 ml @ 25 mls/hr Q8HR IV 06/02/24 14:00 06/02/24 14:51 25 MLS/HR Diagnostic Test (Pha) 1 strip ACHS 06/02/24 07:00 06/02/24 11:49 1 STRIP Insulin Human Regular ACHS SC 06/02/24 07:00 06/02/24 11:49 3 UNITS Dextrose 50 ml UD PRN IV 06/02/24 07:00 Ondansetron HCl 4 mg Q4HP PRN IV 06/02/24 07:00 Enoxaparin Sodium 30 mg DAILY SC 06/02/24 10:00 06/02/24 10:50 30 MG Acetaminophen 650 mg Q6HP PRN PO 06/02/24 07:00 Methylprednisolone Sodium Succinate 40 mg Q8HR IV 06/02/24 14:00 06/02/24 14:51 40 MG Famotidine 20 mg DAILY IV 06/02/24 10:00 06/02/24 10:51 20 MG Albuterol 2.5 mg Q4HWA NEB 06/02/24 10:00 06/02/24 13:52 2.5 MG Albuterol 2.5 mg Q2HPRN PRN NEB 06/02/24 08:45 Ipratropium [place] 0.5 mg Q4HWA [facility] 06/02/24 10:00 06/02/24 13:52 0.5 MG Ipratropium [place] 0.5 mg Q2HPRN PRN NEB 06/02/24 08:45 Norepinephrine Bitartrate 250 ml @ 3.75 mls/hr Q24H IV 06/02/24 14:00 06/02/24 14:00 3.75 MLS/HR Sodium Chloride 1,000 ml @ 125 mls/hr Q8H IV 06/02/24 16:00 06/02/24 16:12 125 MLS/HR Laboratory Results Laboratory Tests 06/02/24 02:52 Chemistry Test 06/02/24 02:52 Calcium Level 12.8 mg/dL (8.7-10.4) H Cardiac Markers Test 06/02/24 02:52 B-Type Natriuretic Peptide 36.76 pg/mL (0-100) Urinalysis Test 06/02/24 15:57 Urine Color Yellow (Yellow) Urine Clarity Turbid (Clear) H Urine pH 5.0 (5.0-9.0) Urine Specific [place] 1.020 (1.001-1.035) Urine Protein 1+ (Negative) H Urine Ketones Negative (Negative) Urine Blood Trace /uL (Negative) H Urine Nitrite Negative (Negative) Urine Bilirubin Negative (Negative) Urine Urobilinogen Normal mg/dL (Negative) Urine Leukocyte Esterase Trace /uL (Negative) Urine RBC 7 /hpf (0 - 3) Urine Microscopic WBC 6 /HPF (0-3) H Urine Squamous Epithelial Cells Few /hpf (<5) Urine Calcium Oxalate Crystals Few (None Seen) Urine Bacteria Few /hpf (None Seen) H Urine Hyaline Casts Few /lpf (0 - 2) Urine Mucus Few (None Seen) Urine Sperm Present /hpf (None Seen) Urine Creatinine 105.47 mg/dL (30.0-125.0) Urine Sodium < 10 mmol/L (40-220) L Urine Glucose Normal mg/dL (Normal) Blood Gas Results Test 06/02/24 11:42 06/02/24 14:51 06/02/24 16:08 Arterial Blood pH 7.133 (7.350-7.450) 7.241 (7.350-7.450) 7.246 (7.350-7.450) FiO2 % 100.0 50.0 50.0 Labs and/or images reviewed: Labs reviewed by me, Image(s) reviewed by me Assessment/Plan Assessment/Plan Impression: -acute on chronic hypoxic and hypercarbic respiratory failure -metabolic encephalopathy secondary to hypercarbia and hypercalcemia -renal cell carcinoma, status post nephrectomy with metastatic cancer to the lungs -cachexia -hypercalcemia -tic acidosis -diabetes mellitus Plan: -plan of care discussed with patient's family bedside. At this time they wished for the patient to be full code. Given his clinical presentation, the patient should be endotracheally intubated while he was on BiPAP given his nonresponsiveness. Patient's mother is wishing to hold off on intubating at this time. Discussion was made with her that a repeat ABG will be performed and if he continues to have worsening hypercarbia, patient will be endotracheally intubated. -nephrology consultation -IV hydration -regular insulin sliding scale -empiric antibiotic therapy -continue BiPAP at current settings -repeat labs in a.m. Critical care time spent with patient discussing and formulating plan of care: 90 minutes. This does not include time spent performing procedures. This medical document was created using an electronic medical record system with [employer] dictation system. Although this document has been carefully reviewed, there may still be some phonetic and typographical errors. These areas are purely typographical due to imperfections of the software programs, and do not reflect any compromise in the patient's medical care. Plan discussed with: Patient, Other (RN) My Orders Orders - MARCELO CARRASCO NP Procedure Category Date Status Time Sodium Chloride 0.9% PHA 06/02/24 In Process 16:00 Date of Service: Jun 02, 2024 Billing Provider: MARCELO CARRASCO NP Common Visit Codes: [id number] CARE 30-74 MIN, [id number] CARE-EACH +30MIN MARCELO CARRASCO NP Jun 02, 2024 16:41
[2024-06-02] MEDS: fentaNYL Drip 2500mCg/250mlNS 250 ML IV SCH (17:45)
[2024-06-02] MEDS: ETOMIDATE (2MG/ML) 20ML VIAL IV ONE (17:51)
[2024-06-02] MEDS: ROCURONIUM 10MG/ML 10ML VIAL IV ONE (17:52)
[2024-06-02] MEDS: MIDAZOLAM DRIP 50 mg/50mL 50 ML IV SCH (17:55)
[2024-06-02] MEDS: PHENYLEPHRINE IV 250 ML IV SCH (18:00)
--- NOTE | 2024-06-02 18:33 | DVHNC2 ---
Procedure - Procedure: Endotracheal Intubation INDICATION: Acute hypoxic respiratory failure, accessory muscle usage Physician: Yin Lee MD High Lift Mule Operator: Dr Anil Velasquez MD PGY2 CONSENT: Emergent procedure. Implied. Time out time: 1810 pm Patient medications and allergies reviewed. Patient identification and proposed procedure were verified prior to the procedure by the physician, and a nurse in the patient's room. The heart rate, respiratory rate, oxygen saturations, blood pressure, adequacy of pulmonary ventilation, and response to care were monitored throughout the procedure. The physical status of the patient was reassessed after the procedure. PROCEDURE SUMMARY: A time out was performed. My hands were washed immediately prior to the procedure. I wore a surgical cap, mask with protective eyewear, gown and gloves throughout the procedure. The patient was placed on a surveillance system monitor including continuous pulse oximetry. The patient received 16 mg Etomidate and 50 mg rocuronium for induction. Cricoid pressure was maintained from time induction agent was given to time of cuff balloon inflation. Using a MAC 4 LaryngoScope and a size 8.0 endotracheal tube with stylet, the patient was intubated on the 1 attempt. The stylet was removed and cuff balloon was inflated. Appropriate endotracheal tube position was confirmed by direct visualization of vocal cord passage, fogging of the tube, CO2 colorimetric indicator and symmetric breath sounds. The tube was secured at 23 cm at the lips. Post intubation chest x-ray is pending. CPT Code: 80394 YIN LEE MD Jun 02, 2024 18:33
--- NOTE | 2024-06-02 18:34 | DVHNC2 ---
Procedure - ULTRASOUND-GUIDED LEFT SUBCLAVIAN INTERNAL JUGULAR CENTRAL VENOUS CANNULATION CPT Codes: 23291 (ultrasound guidance) 04007 (insertion of non-tunneled centrally inserted central venous catheter) 87922 (CXR interpretation) Time out time: 1824 Patient medications and allergies reviewed. The risks and benefits of the procedure and the sedation options and risk were discussed with the patient's healthcare proxy. All questions were answered and informed consent was obtained. Patient identification and proposed procedure were verified prior to the procedure by the physician, and a nurse in the patient's room. The heart rate, respiratory rate, oxygen saturations, blood pressure, adequacy of pulmonary ventilation, and response to care were monitored throughout the procedure. The physical status of the patient was reassessed after the procedu re. Date: 06/02/24 PHYSICIAN: Yin Lee Calender Roll Press Operator: Dr Anil Velasquez MD PGY 2 PREOPERATIVE DIAGNOSIS: Shock POSTOPERATIVE DIAGNOSIS: Shock PROCEDURE PERFORMED: Limited Ultrasound-guided LEFT SUBCLAVIAN jugular central line placement. ANESTHESIA: 2 mL of 1% lidocaine plain. ESTIMATED BLOOD LOSS: less than 5 mL. SPECIMENS: None. COMPLICATIONS: None. INDICATIONS FOR PROCEDURE: The patient is in need of large bore IV access for administration of fluids, including blood products and vasoactive drugs, possib le transvenous cardiac pacing and CVP monitoring for hemodynamic instability. DESCRIPTION OF PROCEDURE IN DETAIL: The patient was lying in the Trendelenburg position with head turned 30 degrees away from the insertion site. The skin was thoroughly sponged with chlorhexidine and allowed to dry. All persons involved were shielded with hair nets, face masks and sterile gowns. With sterile-gloved hands the right neck area was draped with the large disposable sterile field provided in the pre-manufactured kit. The skin and subcutaneous tissues superficial to the LEFT SUBCLAVIAN vein were anesthetized with 2 mL of 1% lidocaine. The LEFT SUBCLAVIAN vein was identified on ultrasound using the linear ultrasound probe in the transverse orientation. The subclavian artery was identified and avoided utilizing color-flow. The subclavian vein was then placed in the center of the ultrasound field and compressed for patency. A movement artifact was identified as the needle was advanced through the skin and advanced toward the vessel. A real time hyperechoic signal revealed visualization of vascular needle entry into the lumen as blood was noted to flashback in the syringe. The needle was then held in place while the guide wire was advanced. The needle was then removed. Direct visualization of guide wire location within the vein was noted on ultrasound indicating proper placement and was document in the electronic medical record chart. A skin dilator was advanced over the guidewire and removed, and the triple-lumen catheter was then advanced over the guide wire into proper position. The guide wire was removed and discarded. The ports were aspirated which showed good blood return and then carefully flushed with normal saline. The catheter was stabilized and sutured to the skin with 2-0 silk at 2 anchor points. A sterile bio-patch and dressing was placed over the catheter, including the insertion site. The patient tolerated the procedure well. A chest x-ray was ordered for position confirmation. I reviewed the image immediately after it was taken at bedside. Post-procedure chest x-ray is pending at the time of doing this note. An image recording of the procedure accompanies the chart. YIN LEE MD Jun 02, 2024 18:34
[2024-06-02 18:59] LABS: Base Excess -0.5 mmol/L (-2.0-3.0)
--- NOTE | 2024-06-02 19:04 | DVH ---
CHEST RADIOGRAPH Indication: INTUBATION AND CENTRAL LINE Technique: Single frontal view of the chest was obtained Comparison: XY CHEST PORTABLE on DOS: 06/02/24, XY CHEST XRAY 1 VIEW on DOS: 05/19/24, XY CHEST XRAY 1 VIEW on DOS: 05/17/24 FINDINGS: Lines and Tubes: Endotracheal and enteric tubes are in satisfactory position. Appears to be left-side d approach central venous catheter terminating over the distal SVC. There is a right-sided chest tube terminating over the right lower lung zone. Lungs: Redemonstration of multiple pulmonary masses with bilateral perihilar lower lung zone opacitie s and obscuration of the diaphragm No pneumothorax. Cardiomediastinal contours: cardiomediastinal silhouette is unchanged. Bones: No acute osseous abnormality. Surgical clips noted over the right paramedian abdomen. IMPRESSION: Redemonstration of bilateral lung masses and consolidation; relatively unchanged from prior imaging. Possible [id number]-right pleural effusion. Endotracheal tube, enteric tube, right-sided chest tube and left-sided approach central venous cathet er are in satisfactory position.
--- NOTE | 2024-06-02 19:23 | DVHINCON2 ---
Date of service: Jun 02, 2024 Referring Physician AMOS Gifford Reason for Consultation Acute hypoxic respiratory failure, recurrent right pleural effusion due to malignancy History of Present Illness 53-year-old man history of hypertension, hyperlipidemia, diabetes mellitus type 2, renal cell carcinoma with metastasis to the lung on immunotherapy at [facility], gout, hypothyroidism, status post right nephrectomy who presented with shortness of breath. Patient was bed-bound. He has a PleurX catheter in place which is drained every other day per family member. He suddenly became short of breath. He was on noninvasive positive pressure ventilation. He became obtunded. He was emergently intubated and placed on mechanical ventilator. See separate procedure notes. Pulmonary c onsultation is called due to acute hypoxic respiratory failure, mechanical ventilator management, recurrent right pleural effusion due to malignancy. Review of systems: Unable to obtain due to patient's critical condition. Past medical history:hypertension, hyperlipidemia, diabetes mellitus type 2, renal cell carcinoma with metastasis to the lung on immunotherapy at [facility], gout, hypothyroidism, Past surgical history: status post right nephrectomy Medications: Reviewed Allergies: No known drug allergies. Family history: No family history of premature CAD. No family history of lung disease Social history: Ex-smoker. No alcohol or illicit drug use. Lives with family. Family History: Patient reports no known family medical history. Allergies: Coded Allergies: NO KNOWN ALLERGIES (Unverified , 01/18/23) Home Meds Active Scripts Levofloxacin Hemihydrate (LEVOFLOXACIN) 750 Mg Tab, 1 TAB PO DAILY for 7 Days, #7 TAB Prov:[facility] RESIDENT 05/19/24 Furosemide (Furosemide) 40 Mg Tab, 40 MG PO DAILY for 30 Days, #30 TAB Prov:[facility] RESIDENT 05/19/24 Acetaminophen (Acetaminophen) 325 Mg Tab, 325 MG PO Q6HP PRN for 10 Days, #40 TAB Prov:[facility] 05/19/24 Sulfamethoxazole W/Trimethopri (Bactrim Ds Tablet) 1 Tab Tb, 1 TAB PO BID for 7 Days, #14 TAB Prov:PRIYA MONTESINOS PAC 01/18/23 Reported Medications Prochlorperazine Maleate (Compazine) 10 Mg Tb 06/02/24 Methocarbamol (Methocarbamol) 500 Mg Tab, 1 06/02/24 Current Medications Current Medications Medications (Trade) Dose Ordered Sig/Sonia Route PRN Reason Start Time Stop Time Status Last Admin Azithromycin 250 ml @ 125 mls/hr DAILY IV 06/03/24 10:00 Piperacillin Sod/ Tazobactam Sod 100 ml @ 25 mls/hr Q8HR IV 06/02/24 14:00 06/02/24 14:51 Diagnostic Test (Pha) (Accu-Chek Comfort Curve T) 1 strip ACHS 06/02/24 07:00 06/02/24 17:12 Insulin Human Regular (InsuLIN R) ACHS SC 06/02/24 07:00 06/02/24 11:49 Dextrose 50 ml UD PRN IV Blood Sugar LESS THAN 60 06/02/24 07:00 Sodium Chloride 1,000 ml @ 60 mls/hr [id number] IV 06/02/24 07:00 06/02/24 15:56 DC 06/02/24 07:48 Ondansetron HCl (Zofran) 4 mg Q4HP PRN IV NAUSEA / VOMITING 06/02/24 07:00 Enoxaparin Sodium (Lovenox) 30 mg DAILY SC 06/02/24 10:00 06/02/24 10:50 Acetaminophen (Tylenol Tablet) 650 mg Q6HP PRN PO PAIN SCALE 1-3 OR TEMP>100.4 06/02/24 07:00 Methylprednisolone Sodium Succinate (Solu Medrol) 40 mg Q8HR IV 06/02/24 14:00 06/02/24 14:51 Famotidine (Pepcid Injection) 20 mg DAILY IV 06/02/24 10:00 06/02/24 10:51 Furosemide (Lasix Tablet) 40 mg DAILY PO 06/02/24 10:00 06/02/24 09:50 DC Albuterol (Ventolin Medneb) 2.5 mg Q4HWA NEB 06/02/24 10:00 06/02/24 13:52 Albuterol (Ventolin Medneb) 2.5 mg Q2HPRN PRN NEB SHORTNESS OF BREATH 06/02/24 08:45 Ipratropium [place] (Atrovent Medneb) 0.5 mg Q4HWA NEB 06/02/24 10:00 06/02/24 13:52 Ipratropium [place] (Atrovent Medneb) 0.5 mg Q2HPRN PRN NEB SHORTNESS OF BREATH 06/02/24 08:45 Norepinephrine Bitartrate 250 ml @ 3.75 mls/hr Q24H IV 06/02/24 14:00 06/02/24 14:00 Sodium Chloride 1,000 ml @ 125 mls/hr Q8H IV 06/02/24 16:00 06/02/24 16:12 Midazolam HCl 50 ml @ 1 mls/hr Q24H IV 06/02/24 17:45 06/02/24 17:55 Fentanyl Citrate 250 ml @ 2.5 mls/hr Q24H IV 06/02/24 17:45 Phenylephrine HCl 250 ml @ 30 mls/hr Q8H20M IV 06/02/24 18:00 Vital Signs Vital Signs Date Time Temp Pulse Resp B/P (MAP) Pulse Ox O2 Delivery O2 Flow Rate FiO2 06/02/24 19:10 82/61 06/02/24 19:00 85 20 100 06/02/24 15:19 Facial BiPAP Mask 50 06/02/24 13:52 70.0 06/02/24 10:32 97.6 97.6 Physical Exam Gen.: Patient lying in bed in medical ICU. Sedated, intubated on mechanical ventilator. Head: Normocephalic, atraumatic. Eyes: PERRLA. Ears: Normal external anatomy. Throat: Endotracheal tube and orogastric tube in place. Neck: Supple, trachea midline. Chest: Transmitted breath sounds bilaterally. Decreased air entry bilaterally. No wheezing. Bibasilar crackles. Cardio vascular: Positive S1, positive S2. Regular rate and rhythm. Abdomen: Positive bowel sounds in all 4 quadrants. Soft, nontender, nondistended. : Morrison in place. Normal external genitalia. Rectal: Deferred Skin: Warm, dry. Intact. Extremities: 2+ radial pulses bilaterally. No lower extremity edema. Neuro: Sedated. Labs/Diagnostic Data Labs Test 06/02/24 17:33 06/02/24 15:57 06/02/24 14:51 06/02/24 07:25 Range/Units Blood Gas Specimen Type Arterial Blood Gas Sample Site Right radial Blood Gas Patient Temperature 37.0 Arterial Blood Date Drawn [id number] Arterial Blood pH 7.235 *L 7.350-7.450 Arterial Blood Partial Pressure CO2 68.5 *H 35.0-48.0 mmHg Arterial Blood Partial Pressure O2 41.6 *L 83.0-108.0 mmHg Arterial Blood HCO3 28.4 H 21.0-28.0 mmol/L Arterial Blood Oxygen Saturation 76.6 *L 94.0-98.0 % Arterial Blood Base Excess -0.5 -2.0-3.0 mmol/L Arterial Blood Oxyhemoglobin 75.5 L 94.0-98.0 % Arterial Blood Carboxyhemoglobin 0.6 0.5-1.5 % Arterial Blood Methemoglobin 0.8 0.0-1.5 % Micky Test Yes Blood Gas Total Hemoglobin 12.10 L 13.5-17.5 g/dL Blood Gas Set Respiration Rate 16.0 Blood Gas Modality Mask - bipap Blood Gas Spontaneous Rate 16 FiO2 % 100.0 Blood Gas Spontaneous Tidal Volume 550 Blood Gas EPAP 7 Blood Gas IPAP 18 Blood Gas Critical Value Read Back Yes Blood Gas Notified Whom Dr. ricky antony Blood Gas Notified Time [id number] Blood Gas Notified By Curt harvey die forger Urine Color Yellow Yellow Urine Clarity Turbid H Clear Urine pH 5.0 5.0-9.0 Urine Specific [place] 1.020 1.001-1.035 Urine Protein 1+ H Negative Urine Ketones Negative Negative Urine Blood Trace H Negative /uL Urine Nitrite Negative Negative Urine Bilirubin Negative Negative Urine Urobilinogen Normal Negative mg/dL Urine Leukocyte Esterase Trace Negative /uL Urine RBC 7 0 - 3 /hpf Urine Microscopic WBC 6 H 0-3 /HPF Urine Squamous Epithelial Cells Few <5 /hpf Urine Calcium Oxalate Crystals Few None Seen Urine Bacteria Few H None Seen /hpf Urine Hyaline Casts Few 0 - 2 /lpf Urine Mucus Few None Seen Urine Sperm Present None Seen /hpf Urine Creatinine 105.47 30.0-125.0 mg/dL Urine Sodium < 10 L 40-220 mmol/L Urine Glucose Normal Normal mg/dL Blood Gas Pressure Support 8 Lactic Acid Level 1.7 0.4-2.0 mmol/L Test 06/02/24 07:12 06/02/24 04:14 06/02/24 02:52 Range/Units POC Glucose 194 H 70-106 mg/dl Influenza Type A Antigen Negative Negative Influenza Type B Antigen Negative Negative SARS-CoV-2 Antigen (Rapid) Negative NEGATIVE White Blood Count 11.3 H 4.4-10.8 10^3/uL Red Blood Count 4.27 L 4.5-5.90 10^6/uL Hemoglobin 11.6 L 13.5-17.5 g/dL Hematocrit 36.0 L 41.0-53.0 % Mean Corpuscular Volume 84.3 80.0-100.0 fL Mean Corpuscular Hemoglobin 27.2 L 28.0-32.0 pg Mean Corpuscular Hemoglobin Concent 32.2 32.0-36.0 g/dL Red Cell Distribution Width 15.5 H 11.8-14.3 % Platelet Count 202 140-450 10^3/uL Mean Platelet Volume 7.0 6.9-10.8 fL Neutrophils (%) (Auto) 94.8 H 37.0-80.0 % Lymphocytes (%) (Auto) 2.9 L 10.0-50.0 % Monocytes (%) (Auto) 1.9 0.0-12.0 % Eosinophils (%) (Auto) 0.2 0.0-7.0 % Basophils (%) (Auto) 0.2 0.0-2.0 % Neutrophils # (Auto) 10.7 H 1.6-8.6 10 ^3/uL Lymphocytes # (Auto) 0.3 L 0.4-5.4 10 ^3/uL Monocytes # (Auto) 0.2 0-1.3 10 ^3/uL Eosinophils # (Auto) 0 0-0.8 10 ^3/uL Basophils # (Auto) 0 0-0.2 10 ^3/uL Nucleated Red Blood Cells 0.1 % Sodium Level 130 L 136-145 mmol/L Potassium Level 5.1 3.5-5.1 mmol/L Chloride Level 91 L 98-107 mmol/L Carbon Dioxide Level 30 20-31 mmol/L Anion Gap 9 5-15 Blood Urea Nitrogen 65 H 9-23 mg/dL Creatinine 1.97 H 0.700-1.30 mg/dL Glomerular Filtration Rate Calc 40 >90 mL/min BUN/Creatinine Ratio 33.0 H 10.0-20.0 Serum Glucose 137 H 74-106 mg/dL Calcium Level 12.8 H 8.7-10.4 mg/dL Troponin I High Sensitivity < 3 L </=54 ng/L B-Type Natriuretic Peptide 36.76 0-100 pg/mL Assessment Impression: Acute hypoxic respiratory failure Acute hypercarbic respiratory failure, PaCO2 60.5 mmHg On mechanical ventilator Recurrent right pleural effusion due to malignancy Renal cell carcinoma with metastasis to the lung Ex-smoker Cachexia, BMI 15.8 Shock Plan: s/p intubation on mechanical ventilator CXR image and report reviewed. Bilateral lung masses. Endotracheal tube in place. Bilateral pleural effusions, [id number]-dami-right pleural effusion. ABG reviewed. Acidemia due to CO2 retention On vent: 24, 450, eight, 100% Titrate FIO2 to keep O2 saturation above 92%. VAP bundle Daily ABG and CXR while intubated. Sedate for ventilatory synchrony Post intubation ABG pending On pressors for hemodynamic support. On Levophed Start vasopressin and fentanyl (if necessary. Titrate to keep MAP above 65 mmHg/SBP above 90 mmHg. Broad-spectrum empiric antibiotics. F/u cultures. Monitor renal function due to Acute kidney injury. Monitor electrolytes. Supplement as necessary. Nutritional support. Accucheks, ISS. GI/DVT prophylaxis. Condition: Critical Prognosis: Poor given multiple comorbidities. Rest of plan per hospitalist and other consultants. A total of 36 minutes of critical care time was spent reviewing the patient record, examining the patient, making a diagnostic and therapeutic plan, discussing this plan with the medical personnel, following up on diagnostic studies and following the patient for clinical stability excluding any and all procedures. At least 50% of this time was spent in direct, [id number] contact. Thank you AMOS Gifford for allowing me to participate in this patient's care. Further recommendations will depend on patient's clinical course. Please do not hesitate to contact me if you have any questions or concerns. This medical document was created using an electronic medical record system with [employer] system. Although this document has been carefully reviewed, there may still be some phonetic and typographical errors. These areas are purely typographical due to imperfections of the software programs, and do not reflect any compromise in the patient's medical care. Plan discussed with: Spouse, Other (RN, MD, FURNACE CHECKER) YIN SAMSON MD Jun 02, 2024 19:23
--- NOTE | 2024-06-02 20:20 | DVH ---
CHEST RADIOGRAPH Indication: ET TUBE RELOCATED. CXR TO CONFIRM PLACEMENT Technique: Single frontal view of the chest was obtained COMPARISON: XY CHEST PORTABLE on DOS: 06/02/24, XY CHEST PORTABLE on DOS: 06/02/24, XY CHEST XRAY 1 VIE W on DOS: 05/19/24, XY CHEST XRAY 1 VIEW on DOS: 05/17/24 FINDINGS: Lines and Tubes: Endotracheal tube, enteric catheter and left central venous catheter in satisfactory position. Right chest tube in-situ. Lungs: Multiple right lung masses. Bilateral airspace disease. Pleura: Small bilateral pleural effusions. No pneumothorax. Cardiomediastinal contours: Unremarkable Bones: Unremarkable IMPRESSION: Lines and tubes in satisfactory position.
[2024-06-03] VITALS (105 sets, daily range): BP systolic 82–119; BP diastolic 51–90; PULSE 98–126; RESP 11–25; TEMP 98.1–99.6; O2SAT 91–99
[2024-06-03 05:06] LABS: Mean Corpuscular Volume 80.8 fL (80.0-100.0)
[2024-06-03 05:09] LABS: Hematocrit 33.5 % (41.0-53.0); Hemoglobin 11.4 g/dL (13.5-17.5); Mean Corpuscular Hemoglobin 27.5 pg (28.0-32.0); Mean Corpuscular Hgb Conc. 34.1 g/dL (32.0-36.0); Platelet Count (auto) 302 10^3/uL (140-450); Red Blood Cells 4.14 10^6/uL (4.5-5.90); Red Cell Distribution Width 15.2 % (11.8-14.3); White Blood Cell 13.7 10^3/uL (4.4-10.8)
[2024-06-03 05:12] LABS: Band Neutrophils % (manual) 0; Basophils % (manual) 0 (0.0-2.0); Blast Cells 0; Eosinophils % (manual) 0 (0-7); Metamyelocytes % 0; Promyelocytes % 0; Reactive Lymphocytes 0
[2024-06-03 05:22] LABS: Albumin 3.7 g/dL (3.2-4.8); Alkaline Phosphatase 109 U/L (46-116); Anion Gap 11 (5-15); Aspartate Aminotransferase 24 U/L (13-40); BUN/Creatinine Ratio 36.9 (10.0-20.0); Carbon Dioxide 23 mmol/L (20-31); Chloride 98 mmol/L (98-107)
[2024-06-03 05:23] LABS: Alanine Aminotransferase < 9 U/L (7-40); Bilirubin, Total 0.4 mg/dL (0.2-1.0); Blood Urea Nitrogen 79 mg/dL (9-23); Calcium 11.1 mg/dL (8.7-10.4); Glucose 163 mg/dL (74-106); Potassium 5.4 mmol/L (3.5-5.1); Sodium 132 mmol/L (136-145); Total Protein 5.9 g/dL (5.7-8.2)
[2024-06-03 05:58] LABS: Lymphocytes % (manual) 2 (10.0-50.0); Monocytes % (manual) 2 (0-12); Myelocytes % 1; Platelet Estimate Adequate
[2024-06-03] MEDS: FUROSEMIDE 100 MG/10ML VIAL IV ONE (08:17)
[2024-06-03 08:18] LABS: Base Excess -4.3 mmol/L (-2.0-3.0)
--- NOTE | 2024-06-03 08:57 | DVHPN2 ---
Subjective Patient unresponsive Reviewed: Care Plan, H&P, Labs, Medications Changes from previous H/P or p: No Changes General: Per HPI Respiratory: Shortness of breath Objective Vitals Vital Signs Date Time Temp Pulse Resp B/P (MAP) Pulse Ox O2 Delivery O2 Flow Rate FiO2 06/03/24 08:25 97/70 06/03/24 08:02 121 20 95 40 06/03/24 06:00 Mechanical Ventilator+ 06/03/24 04:00 98.9 98.9 06/02/24 13:52 70.0 Intake/Output Intake and Output 06/03/24 06:59 Intake Total 1712.50 ml Output Total 325 ml Balance 1387.50 ml Intake Oral 0 ml IV Total 1712.50 ml Output Urine Total 325 ml Stool Total 0 ml General Appearance: severe distress, Other (Encephalopathic) HEENT: Atraumatic, PERRLA Cardiovascular: Normal S1, Normal S2 Abdomen: Normal bowel sounds, Soft, No tenderness Musculoskeletal: Normal sensory function, Normal motor function Neuro: Normal gait, Normal speech Skin: Dry, Intact Psych/Mental Status: Mental status NL, Mood NL Medications Current Medications Medications Dose Ordered Sig/Sonia Route Start Time Stop Time Status Last Admin Dose Admin Azithromycin 250 ml @ 125 mls/hr DAILY IV 06/03/24 10:00 Piperacillin Sod/ Tazobactam Sod 100 ml @ 25 mls/hr Q8HR IV 06/02/24 14:00 06/03/24 05:30 25 MLS/HR Diagnostic Test (Pha) 1 strip ACHS 06/02/24 07:00 06/03/24 06:36 1 STRIP Insulin Human Regular ACHS SC 06/02/24 07:00 06/03/24 06:38 3 UNITS Dextrose 50 ml UD PRN IV 06/02/24 07:00 Ondansetron HCl 4 mg Q4HP PRN IV 06/02/24 07:00 Enoxaparin Sodium 30 mg DAILY SC 06/02/24 10:00 06/02/24 10:50 30 MG Acetaminophen 650 mg Q6HP PRN PO 06/02/24 07:00 Methylprednisolone Sodium Succinate 40 mg Q8HR IV 06/02/24 14:00 06/03/24 05:30 40 MG Famotidine 20 mg DAILY IV 06/02/24 10:00 06/02/24 10:51 20 MG Albuterol 2.5 mg Q2HPRN PRN NEB 06/02/24 08:45 Ipratropium [place] 0.5 mg Q2HPRN PRN NEB 06/02/24 08:45 Norepinephrine Bitartrate 250 ml @ 3.75 mls/hr Q24H IV 06/02/24 14:00 06/03/24 07:35 37.5 MLS/HR Sodium Chloride 1,000 ml @ 125 mls/hr Q8H IV 06/02/24 16:00 06/02/24 23:34 125 MLS/HR Midazolam HCl 50 ml @ 1 mls/hr Q24H IV 06/02/24 17:45 06/03/24 08:25 5 MLS/HR Fentanyl Citrate 250 ml @ 2.5 mls/hr Q24H IV 06/02/24 17:45 Phenylephrine HCl 250 ml @ 30 mls/hr Q8H20M IV 06/02/24 18:00 Albuterol 2.5 mg Q6H NEB 06/03/24 12:00 UNV Ipratropium [place] 0.5 mg Q6H NEB 06/03/24 12:00 UNV Doxycycline Hyclate 100 ml @ 50 mls/hr Q12H IV 06/03/24 08:45 UNV Enteral Nutritional Formula 1,000 ml 30ML/HR GT 06/03/24 08:45 UNV Laboratory Results Laboratory Tests 06/03/24 04:53 Chemistry Test 06/03/24 04:53 Albumin 3.7 g/dL (3.2-4.8) Calcium Level 11.1 mg/dL (8.7-10.4) H Total Protein 5.9 g/dL (5.7-8.2) LFT Test 06/03/24 04:53 Alanine Aminotransferase (ALT) < 9 U/L (7-40) Alkaline Phosphatase 109 U/L (46-116) Aspartate Amino Transferase (AST) 24 U/L (13-40) Total Bilirubin 0.4 mg/dL (0.2-1.0) Urinalysis Test 06/02/24 15:57 Urine Color Yellow (Yellow) Urine Clarity Turbid (Clear) H Urine pH 5.0 (5.0-9.0) Urine Specific [place] 1.020 (1.001-1.035) Urine Protein 1+ (Negative) H Urine Ketones Negative (Negative) Urine Blood Trace /uL (Negative) H Urine Nitrite Negative (Negative) Urine Bilirubin Negative (Negative) Urine Urobilinogen Normal mg/dL (Negative) Urine Leukocyte Esterase Trace /uL (Negative) Urine RBC 7 /hpf (0 - 3) Urine Microscopic WBC 6 /HPF (0-3) H Urine Squamous Epithelial Cells Few /hpf (<5) Urine Calcium Oxalate Crystals Few (None Seen) Urine Bacteria Few /hpf (None Seen) H Urine Hyaline Casts Few /lpf (0 - 2) Urine Mucus Few (None Seen) Urine Sperm Present /hpf (None Seen) Urine Creatinine 105.47 mg/dL (30.0-125.0) Urine Sodium < 10 mmol/L (40-220) L Urine Glucose Normal mg/dL (Normal) Blood Gas Results Test 06/02/24 11:42 06/02/24 14:51 06/02/24 16:08 06/02/24 17:33 Arterial Blood pH 7.133 (7.350-7.450) 7.241 (7.350-7.450) 7.246 (7.350-7.450) 7.235 (7.350-7.450) FiO2 % 100.0 50.0 50.0 100.0 Test 06/02/24 19:43 06/03/24 08:08 Arterial Blood pH 7.389 (7.350-7.450) 7.409 (7.350-7.450) FiO2 % 100.0 40.0 Microbiology Microbiology Date/Time Source Procedure Growth Status 06/02/24 04:30 Blood Blood Culture - Preliminary NO GROWTH AFTER 24 HOURS OF INCUBATION. Resulted Labs and/or images reviewed: Labs reviewed by me, Image(s) reviewed by me Assessment/Plan Assessment/Plan Impression: -acute on chronic hypoxic and hypercarbic respiratory failure -metabolic encephalopathy secondary to hypercarbia and hypercalcemia -renal cell carcinoma, status post nephrectomy with metastatic cancer to the lungs -cachexia -hypercalcemia -metabolic acidosis -diabetes mellitus -acute kidney injury, probable vasomotor nephropathy -CKD stage IIIB -history of nephrectomy Plan: -events: Patient was endotracheally intubated in the evening by pulmonology. -nephrology consultation : Recommendations reviewed -continue normal saline at 125 mL/hr. -start tube feeding -regular insulin sliding scale -empiric antibiotic therapy -continue BiPAP at current settings -repeat labs in a.m. Long discussion was made with the patient's family who were bedside. Reported overall prognosis is poor. At this time they wished for the patient to remain full code. Critical care time spent with patient discussing and formulating plan of care: 40 minutes. This does not include time spent performing procedures. This medical document was created using an electronic medical record system with [employer] dictation system. Although this document has been carefully reviewed, there may still be some phonetic and typographical errors. These areas are purely typographical due to imperfections of the software programs, and do not reflect any compromise in the patient's medical care. Plan discussed with: Patient, Other (RN) My Orders Orders - MARCELO CARRASCO NP Procedure Category Date Status Time Sodium Chloride 0.9% PHA 06/02/24 In Process 16:00 Chest Portable XY 06/02/24 Resulted 19:44 Mrsa Screen KATHLEEN 06/02/24 In Process 22:30 * Dietary Consult CONS 06/03/24 Transmitted 00:38 Albuterol Medneb PHA 06/03/24 Logged (Ventolin Medneb) 12:00 Ipratropium Medneb PHA 06/03/24 Logged (Atrovent Medneb) 12:00 Potassium LAB 06/03/24 Logged 13:00 Complete Blood Count LAB 06/04/24 Verified 04:00 Chest Portable XY 06/04/24 Logged 04:00 Doxycycline PHA 06/03/24 Logged 100mg/100ml 08:45 Nutritional PHA 06/03/24 Logged Supplements (Nepro 08:45 Date of Service: Jun 03, 2024 Billing Provider: MARCELO CARRASCO NP Common Visit Codes: [id number] CARE 30-74 MIN MARCELO CARRASCO NP Jun 03, 2024 08:57
[2024-06-03] MEDS ORDERED: AZITHROMYCIN 500MG/ 250ML 250 ML IV SCH (10:00)
[2024-06-03] MEDS: DOXYCYCLINE 100MG/100ML 100 ML IV SCH (10:12)
[2024-06-03] MEDS: IPRATROPIUM BROM 0.5 MG/2.5ML INH SOL NEB SCH (12:00)
[2024-06-03] MEDS: ALBUTEROL SULF 2.5 MG/0.5ML(0.5%) NEB SOLN NEB SCH (12:01)
--- NOTE | 2024-06-03 14:10 | DVHPN2 ---
Progress Note Date Seen: Jun 03, 2024 Medical Necessity Reason Pt with a Central, PICC or Fol: Yes The following are medically ne: Central Line, Morrison Catheter Subjective Review of Systems: RESPIRATORY:Abnormal Objective vital signs Vital Sign Date Time Temp Pulse Resp B/P (MAP) Pulse Ox O2 Delivery O2 Flow Rate FiO2 06/03/24 13:52 103/82 06/03/24 13:48 113 22 97 40 06/03/24 12:00 Mechanical Ventilator+ 06/03/24 10:33 99.6 99.6 06/02/24 13:52 70.0 Total Intake and Output 06/02/24 06/02/24 06/03/24 15:00 23:00 07:00 Intake Total 926.25 ml 978.75 ml Output Total 325 ml Balance 926.25 ml 653.75 ml medications Current Medications Medications Dose Ordered Sig/Sonia Route Start Time Stop Time Status Last Admin Dose Admin Piperacillin Sod/ Tazobactam Sod 100 ml @ 25 mls/hr Q8HR IV 06/02/24 14:00 06/03/24 13:37 25 MLS/HR Diagnostic Test (Pha) 1 strip ACHS 06/02/24 07:00 06/03/24 11:49 1 STRIP Insulin Human Regular ACHS SC 06/02/24 07:00 06/03/24 12:25 4 UNITS Dextrose 50 ml UD PRN IV 06/02/24 07:00 Ondansetron HCl 4 mg Q4HP PRN IV 06/02/24 07:00 Enoxaparin Sodium 30 mg DAILY SC 06/02/24 10:00 06/03/24 10:12 30 MG Acetaminophen 650 mg Q6HP PRN PO 06/02/24 07:00 Methylprednisolone Sodium Succinate 40 mg Q8HR IV 06/02/24 14:00 06/03/24 13:38 40 MG Famotidine 20 mg DAILY IV 06/02/24 10:00 06/03/24 10:11 20 MG Albuterol 2.5 mg Q2HPRN PRN NEB 06/02/24 08:45 Ipratropium [place] 0.5 mg Q2HPRN PRN NEB 06/02/24 08:45 Norepinephrine Bitartrate 250 ml @ 3.75 mls/hr Q24H IV 06/02/24 14:00 06/03/24 13:52 33.75 MLS/HR Sodium Chloride 1,000 ml @ 125 mls/hr Q8H IV 06/02/24 16:00 06/02/24 23:34 125 MLS/HR Midazolam HCl 50 ml @ 1 mls/hr Q24H IV 06/02/24 17:45 06/03/24 08:25 5 MLS/HR Fentanyl Citrate 250 ml @ 2.5 mls/hr Q24H IV 06/02/24 17:45 06/03/24 09:26 2.5 MLS/HR Phenylephrine HCl 250 ml @ 30 mls/hr Q8H20M IV 06/02/24 18:00 Albuterol 2.5 mg Q6H NEB 06/03/24 12:00 06/03/24 12:01 2.5 MG Ipratropium [place] 0.5 mg Q6H NEB 06/03/24 12:00 06/03/24 12:00 0.5 MG Doxycycline Hyclate 100 ml @ 50 mls/hr Q12H IV 06/03/24 08:45 06/03/24 10:12 50 MLS/HR Enteral Nutritional Formula 1,000 ml 30ML/HR GT 06/03/24 08:45 Examination: GENERAL:Abnormal, LUNGS:Abnormal, ABDOMEN:Abnormal laboratory and microbiology Laboratory Tests 06/03/24 13:10 06/03/24 04:53 Test 06/03/24 04:53 Range/Units Serum Glucose 163 H 74-106 mg/dL Microbiology Date/Time Source Procedure Growth Status 06/02/24 18:00 Sputum Gram Stain - Final Resulted 06/02/24 18:00 Sputum Respiratory Culture - Preliminary Resulted 06/02/24 15:57 Voided Urine Urine Culture - Preliminary Resulted 06/02/24 04:30 Blood Blood Culture - Preliminary NO GROWTH AFTER 24 HOURS OF INCUBATION. Resulted Problem List/Assessment/Plan Problem List/Assessment/Plan Acute kidney injury hemodynamically mediated patient clinically appears volume depleted No previous history of CKD Bilateral small pleural effusions with PleurX catheter in place Metastatic cancer Severe protein calorie malnutrition IV fluid hydration Pressors to maintain mean arterial pressure greater than 65 Diuretic stressors challenge today Avoid hypotension Critically ill patient's poor prognosis due to poor functional status and failure to thrive Plan discussed with: Spouse My Orders My Orders Orders - NATHAN LOOMIS MD Procedure Category Date Status Time Basic Metabolic Panel LAB 06/04/24 Verified 04:00 NATHAN LOOMIS MD Jun 03, 2024 14:10
--- NOTE | 2024-06-03 14:50 | MEDREC ---
[facility] ASP Intervention Section I [facility] ASP Intervention: Review courses of therapy (PLEASE CONSIDER BRO[employer] COVERAGE FOR MDRO AND ANTIFUNGAL IF CLINICALLY RELEVANT) ROSENDA MELCHOR PHARMACIST Jun 03, 2024 14:50
[2024-06-03] MEDS: Nepro With Carb Steady 1 Liter Bottle GT SCH (15:18)
--- NOTE | 2024-06-03 23:39 | DVHPN2 ---
Progress Note - Dictate Date Seen: Jun 03, 2024 Medical Necessity Reason Pt with a Central, PICC or Fol: Yes The following are medically ne: Central Line, Dc Catheter Reason for dc catheter: Strict I&O Subjective Patient seen and examined at bedside. Sedated, intubated on mechanical ventilator. Overnight events reviewed. vital signs Vital Sign Date Time Temp Pulse Resp B/P (MAP) Pulse Ox O2 Delivery O2 Flow Rate FiO2 06/03/24 22:05 98 20 92/66 (75) 98 30 06/03/24 18:00 Mechanical Ventilator+ 06/03/24 12:00 98.6 98.6 06/02/24 13:52 70.0 Total Intake and Output 06/02/24 06/02/24 06/03/24 15:00 23:00 07:00 Intake Total 926.25 ml 978.75 ml Output Total 325 ml Balance 926.25 ml 653.75 ml medications Current Medications Medications Dose Ordered Sig/Sonia Route Start Time Stop Time Status Last Admin Dose Admin Piperacillin Sod/ Tazobactam Sod 100 ml @ 25 mls/hr Q8HR IV 06/02/24 14:00 06/03/24 21:54 25 MLS/HR Diagnostic Test (Pha) 1 strip ACHS 06/02/24 07:00 06/03/24 21:55 1 STRIP Insulin Human Regular ACHS SC 06/02/24 07:00 06/03/24 22:06 2 UNITS Dextrose 50 ml UD PRN IV 06/02/24 07:00 Ondansetron HCl 4 mg Q4HP PRN IV 06/02/24 07:00 Enoxaparin Sodium 30 mg DAILY SC 06/02/24 10:00 06/03/24 10:12 30 MG Acetaminophen 650 mg Q6HP PRN PO 06/02/24 07:00 Methylprednisolone Sodium Succinate 40 mg Q8HR IV 06/02/24 14:00 06/03/24 21:54 40 MG Famotidine 20 mg DAILY IV 06/02/24 10:00 06/03/24 10:11 20 MG Albuterol 2.5 mg Q2HPRN PRN NEB 06/02/24 08:45 Ipratropium [place] 0.5 mg Q2HPRN PRN NEB 06/02/24 08:45 Norepinephrine Bitartrate 250 ml @ 3.75 mls/hr Q24H IV 06/02/24 14:00 06/03/24 13:52 33.75 MLS/HR Sodium Chloride 1,000 ml @ 125 mls/hr Q8H IV 06/02/24 16:00 06/03/24 14:44 125 MLS/HR Midazolam HCl 50 ml @ 1 mls/hr Q24H IV 06/02/24 17:45 06/03/24 23:18 6 MLS/HR Fentanyl Citrate 250 ml @ 2.5 mls/hr Q24H IV 06/02/24 17:45 06/03/24 09:26 2.5 MLS/HR Phenylephrine HCl 250 ml @ 30 mls/hr Q8H20M IV 06/02/24 18:00 Albuterol 2.5 mg Q6H NEB 06/03/24 12:00 06/03/24 18:21 2.5 MG Ipratropium [place] 0.5 mg Q6H NEB 06/03/24 12:00 06/03/24 18:21 0.5 MG Doxycycline Hyclate 100 ml @ 50 mls/hr Q12H IV 06/03/24 08:45 06/03/24 20:59 50 MLS/HR Enteral Nutritional Formula 1,000 ml 30ML/HR GT 06/03/24 08:45 06/03/24 15:18 1,000 ML objective Gen.: Patient lying in bed in medical ICU. Sedated, intubated on mechanical ventilator. Head: Normocephalic, atraumatic. Eyes: PERRLA. Ears: Normal external anatomy. Throat: Endotracheal tube and orogastric tube in place. Neck: Supple, trachea midline. Chest: Transmitted breath sounds bilaterally. Decreased air entry bilaterally. No wheezing. Bibasilar crackles. Cardiovascular: Positive S1, positive S2. Regular rate and rhythm. Abdomen: Positive bowel sounds in all 4 quadrants. Soft, nontender, nondistended. : Dc in place. Normal external genitalia. Rectal: Deferred. Skin: Warm, dry. Intact. Extremities: 2+ radial pulses bilaterally. No lower extremity edema. Neuro: Sedated. 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 CXR reviewed, demonstrates small bilateral pleural effusions and atelectasis. No pneumothorax. Continue antibiotics Continue bronchodilators IV steroids Blood cultures show no growth in 24 hours Monitor renal function - creatinine trending up Monitor electrolytes. Supplement as necessary. Hyperkalemia GI prophylaxis w/ Pepcid DVT prophylaxis w/ Lovenox Labs and imaging reviewed. Rest of plan as noted below. Plan: s/p intubation on mechanical ventilator CXR image and report reviewed. Bilateral lung masses. Endotracheal tube in place. Bilateral pleural effusions, [id number]-right pleural effusion. ABG reviewed. Acidemia due to CO2 retention On vent: RR 20, VT 450, PEEP 8, Fio2 40% Titrate FIO2 to keep O2 saturation above 92%. VAP bundle Daily ABG and CXR while intubated. Sedate for ventilator synchrony On pressors for hemodynamic support. On Levophed Start vasopressin if necessary. Titrate to keep MAP above 65 mmHg/SBP above 90 mmHg. Broad-spectrum empiric antibiotics. F/u cultures. Monitor renal function due to Acute kidney injury. Monitor electrolytes. Supplement as necessary. Nutritional support. Accucheks, ISS. GI/DVT prophylaxis. Condition: Critical Prognosis: Poor given multiple comorbidities. Rest of plan per hospitalist and other consultants. A total of 35 minutes of critical care time was spent reviewing the patient record, examining the patient, making a diagnostic and therapeutic plan, discussing this plan with the medical personnel, following up on diagnostic studies and following the patient for clinical stability excluding any and all procedures. At least 50% of this time was spent in direct, [id number] contact. Thank you AMOS Gifford for allowing me to participate in this patient's care. Further recommendations will depend on patient's clinical course. Please do not hesitate to contact me if you have any questions or concerns. This medical document was created using an electronic medical record system with Dragon computerized dictation system. Although this document has been carefully reviewed, there may still be some phonetic and typographical errors. These areas are purely typographical due to imperfections of the software programs, and do not reflect any compromise in the patient's medical care. Plan discussed with: Other (RN) Critical Care Time(min): 35 YIN SAMSON MD Jun 03, 2024 23:39
[2024-06-04] VITALS (103 sets, daily range): BP systolic 69–146; BP diastolic 45–93; PULSE 92–109; RESP 18–22; TEMP 97.8–99.6; O2SAT 92–100
--- NOTE | 2024-06-04 05:36 | DVH ---
CHEST RADIOGRAPH Indication: device placement Technique: Single frontal view of the chest was obtained COMPARISON: XY CHEST PORTABLE on DOS: 06/02/24, XY CHEST PORTABLE on DOS: 06/02/24, XY CHEST PORTABLE o n DOS: 06/02/24, XY CHEST XRAY 1 VIEW on DOS: 05/19/24, XY CHEST XRAY 1 VIEW on DOS: 05/17/24, XY CHEST PORTABLE on DOS: 06/02/24 FINDINGS: Lines and Tubes: Endotracheal tube, enteric catheter and left central venous catheter in satisfactory position. Right chest tube in-situ. Lungs: Multiple bilateral lung masses. Bilateral airspace disease. Pleura: Small bilateral pleural effusions. Possible small right pneumothorax, unchanged. Cardiomediastinal contours: Unremarkable Bones: Unremarkable IMPRESSION: Lines and tubes in satisfactory position. No significant interval change.
[2024-06-04 06:34] LABS: Basophils # (auto) 0 10 ^3/uL (0-0.2); Basophils % (auto) 0.1 % (0.0-2.0); Eosinophils # (auto) 0 10 ^3/uL (0-0.8); Hematocrit 32.8 % (41.0-53.0); Hemoglobin 10.7 g/dL (13.5-17.5); Lymphocytes # (auto) 0.4 10 ^3/uL (0.4-5.4); Lymphocytes % (auto) 2.5 % (10.0-50.0); Mean Corpuscular Hemoglobin 27.1 pg (28.0-32.0); Mean Corpuscular Hgb Conc. 32.7 g/dL (32.0-36.0); Mean Corpuscular Volume 82.7 fL (80.0-100.0); Monocytes # (auto) 0.2 10 ^3/uL (0-1.3); Monocytes % (auto) 1.6 % (0.0-12.0); Neutrophils # (auto) 14.8 10 ^3/uL (1.6-8.6); Neutrophils % (auto) 95.8 % (37.0-80.0); Platelet Count (auto) 198 10^3/uL (140-450); Red Blood Cells 3.97 10^6/uL (4.5-5.90); Red Cell Distribution Width 15.8 % (11.8-14.3); White Blood Cell 15.4 10^3/uL (4.4-10.8)
[2024-06-04 06:49] LABS: Chloride 104 mmol/L (98-107); Potassium 4.5 mmol/L (3.5-5.1); Sodium 137 mmol/L (136-145)
[2024-06-04 06:50] LABS: Anion Gap 15 (5-15); Calcium 10.1 mg/dL (8.7-10.4)
[2024-06-04 06:51] LABS: Carbon Dioxide 18 mmol/L (20-31)
[2024-06-04 06:55] LABS: BUN/Creatinine Ratio 37.3 (10.0-20.0)
[2024-06-04 06:56] LABS: Glucose 170 mg/dL (74-106)
[2024-06-04 06:58] LABS: Blood Urea Nitrogen 91 mg/dL (9-23)
[2024-06-04 08:27] LABS: Base Excess -9.4 mmol/L (-2.0-3.0)
--- NOTE | 2024-06-04 08:32 | DVHPN2 ---
Subjective Patient unresponsive Reviewed: Care Plan, H&P, Labs, Medications Changes from previous H/P or p: No Changes General: Per HPI Respiratory: Shortness of breath Objective Vitals Vital Signs Date Time Temp Pulse Resp B/P (MAP) Pulse Ox O2 Delivery O2 Flow Rate FiO2 06/04/24 07:00 111/69 06/04/24 06:45 106 20 95 06/04/24 06:15 30 06/04/24 06:00 Mechanical Ventilator+ 06/04/24 04:00 99.4 99.4 06/02/24 13:52 70.0 Intake/Output Intake and Output 06/04/24 07:00 Intake Total 4474.21 ml Output Total 1300 ml Balance 3174.21 ml Intake Oral 0 ml IV Total 4333.21 ml Tube Feeding 141 ml Output Urine Total 900 ml Stool Total 0 ml Drainage Total 400 ml General Appearance: moderate distress, Other (Cachexia) HEENT: Atraumatic, PERRLA Cardiovascular: Normal S1, Normal S2 Abdomen: Normal bowel sounds, Soft, No tenderness Musculoskeletal: Normal sensory function, Normal motor function Neuro: Normal gait, Normal speech Skin: Dry, Intact Psych/Mental Status: Mental status NL, Mood NL Medications Current Medications Medications Dose Ordered Sig/Sonia Route Start Time Stop Time Status Last Admin Dose Admin Piperacillin Sod/ Tazobactam Sod 100 ml @ 25 mls/hr Q8HR IV 06/02/24 14:00 06/04/24 06:28 25 MLS/HR Diagnostic Test (Pha) 1 strip ACHS 06/02/24 07:00 06/04/24 06:30 1 STRIP Insulin Human Regular ACHS SC 06/02/24 07:00 06/04/24 06:34 3 UNITS Dextrose 50 ml UD PRN IV 06/02/24 07:00 Ondansetron HCl 4 mg Q4HP PRN IV 06/02/24 07:00 Enoxaparin Sodium 30 mg DAILY SC 06/02/24 10:00 06/03/24 10:12 30 MG Acetaminophen 650 mg Q6HP PRN PO 06/02/24 07:00 Methylprednisolone Sodium Succinate 40 mg Q8HR IV 06/02/24 14:00 06/04/24 06:28 40 MG Albuterol 2.5 mg Q2HPRN PRN NEB 06/02/24 08:45 Ipratropium [place] 0.5 mg Q2HPRN PRN NEB 06/02/24 08:45 Norepinephrine Bitartrate 250 ml @ 3.75 mls/hr Q24H IV 06/02/24 14:00 06/03/24 13:52 33.75 MLS/HR Sodium Chloride 1,000 ml @ 125 mls/hr Q8H IV 06/02/24 16:00 06/04/24 00:00 125 MLS/HR Midazolam HCl 50 ml @ 1 mls/hr Q24H IV 06/02/24 17:45 06/03/24 23:18 6 MLS/HR Fentanyl Citrate 250 ml @ 2.5 mls/hr Q24H IV 06/02/24 17:45 06/03/24 09:26 2.5 MLS/HR Phenylephrine HCl 250 ml @ 30 mls/hr Q8H20M IV 06/02/24 18:00 Albuterol 2.5 mg Q6H NEB 06/03/24 12:00 06/04/24 06:15 2.5 MG Ipratropium [place] 0.5 mg Q6H NEB 06/03/24 12:00 06/04/24 06:15 0.5 MG Doxycycline Hyclate 100 ml @ 50 mls/hr Q12H IV 06/03/24 08:45 06/03/24 20:59 50 MLS/HR Enteral Nutritional Formula 1,000 ml 30ML/HR GT 06/03/24 08:45 06/03/24 15:18 1,000 ML Pantoprazole Sodium 40 mg BID IV 06/04/24 10:00 Laboratory Results Laboratory Tests 06/04/24 06:15 Chemistry Test 06/03/24 16:35 06/04/24 06:15 Magnesium Level 2.5 mg/dL (1.6-2.6) Calcium Level 10.1 mg/dL (8.7-10.4) Coagulation Test 06/04/24 06:15 D-Dimer, Quantitative 5.21 mg/L FEU (0.0-0.49) H Urinalysis Test 06/02/24 15:57 Urine Color Yellow (Yellow) Urine Clarity Turbid (Clear) H Urine pH 5.0 (5.0-9.0) Urine Specific [place] 1.020 (1.001-1.035) Urine Protein 1+ (Negative) H Urine Ketones Negative (Negative) Urine Blood Trace /uL (Negative) H Urine Nitrite Negative (Negative) Urine Bilirubin Negative (Negative) Urine Urobilinogen Normal mg/dL (Negative) Urine Leukocyte Esterase Trace /uL (Negative) Urine RBC 7 /hpf (0 - 3) Urine Microscopic WBC 6 /HPF (0-3) H Urine Squamous Epithelial Cells Few /hpf (<5) Urine Calcium Oxalate Crystals Few (None Seen) Urine Bacteria Few /hpf (None Seen) H Urine Hyaline Casts Few /lpf (0 - 2) Urine Mucus Few (None Seen) Urine Sperm Present /hpf (None Seen) Urine Creatinine 105.47 mg/dL (30.0-125.0) Urine Sodium < 10 mmol/L (40-220) L Urine Glucose Normal mg/dL (Normal) Microbiology Microbiology Date/Time Source Procedure Growth Status 06/02/24 22:30 Nose MRSA Screen - Final Complete 06/02/24 18:00 Sputum Gram Stain - Final Resulted 06/02/24 18:00 Sputum Respiratory Culture - Preliminary Resulted 06/02/24 15:57 Voided Urine Urine Culture - Preliminary Resulted 06/02/24 04:30 Blood Blood Culture - Preliminary NO GROWTH AFTER 48 HOURS OF INCUBATION. Resulted Labs and/or images reviewed: Labs reviewed by me, Image(s) reviewed by me Assessment/Plan Assessment/Plan Impression: -acute on chronic hypoxic and hypercarbic respiratory failure -metabolic encephalopathy secondary to hypercarbia and hypercalcemia -renal cell carcinoma, status post nephrectomy with metastatic cancer to the lungs -cachexia -hypercalcemia -metabolic acidosis -diabetes mellitus -acute kidney injury, probable vasomotor nephropathy -CKD stage IIIB -history of nephrectomy Plan: -events: Minimal urine output. Calcium improving. Patient now moving to noxious stimuli. -pulmonary consultation: Ventilator management per their discretion. -nephrology consultation : Recommendations reviewed -continue normal saline at 125 mL/hr. -continue tube feeding -PleurX catheter draining by staff every other day -regular insulin sliding scale -empiric antibiotic therapy: No growth at this time -repeat labs in a.m. Critical care time spent with patient discussing and formulating plan of care: 40 minutes. This does not include time spent performing procedures. This medical document was created using an electronic medical record system with SmartCrowdsation system. Although this document has been carefully reviewed, there may still be some phonetic and typographical errors. These areas are purely typographical due to imperfections of the software programs, and do not reflect any compromise in the patient's medical care. Plan discussed with: Patient, Other (RN) My Orders Orders - MARCELO CARRASCO NP Procedure Category Date Status Time Albuterol Medneb PHA 06/03/24 In Process (Ventolin Medneb) 12:00 Ipratropium Medneb PHA 06/03/24 In Process (Atrovent Medneb) 12:00 Chest Portable XY 06/04/24 Resulted 04:00 Doxycycline PHA 06/03/24 In Process 100mg/100ml 08:45 Nutritional PHA 06/03/24 In Process Supplements (Nepro 08:45 Cover Wound With Foam DANICA 06/03/24 In Process Dressing 10:35 Pantoprazole PHA 06/04/24 In Process (Protonix) 10:00 Basic Metabolic Panel LAB 06/05/24 Verified 04:00 Chest Portable XY 06/05/24 Logged 04:00 Abg W/ Co-Ox RT 06/05/24 Logged 04:00 Phosphorus LAB 06/04/24 Logged 08:21 Uric Acid LAB 06/04/24 Logged 08:21 Date of Service: Jun 04, 2024 Billing Provider: MARCELO CARRASCO NP Common Visit Codes: [id number] CARE 30-74 MIN MARCELO CARRASCO NP Jun 04, 2024 08:32
[2024-06-04] MEDS: PANTOPRAZOLE 40 MG/10 ML VIAL INJ IV SCH (09:09)
[2024-06-04] MEDS: SODIUM CHLORIDE 0.9% 1,000 ML IV SCH (09:10)
[2024-06-04 09:12] LABS: Phosphorus 5.4 mg/dL (2.4-5.1)
[2024-06-04 11:12] LABS: Uric Acid 14.1 mg/dL (3.7-9.2)
--- NOTE | 2024-06-04 14:24 | DVHPN2 ---
Progress Note Date Seen: Jun 04, 2024 Medical Necessity Reason Pt with a Central, PICC or Fol: Yes The following are medically ne: Central Line, [place] Catheter Subjective Patient reports: No new complaints Review of Systems: RESPIRATORY:Abnormal Objective vital signs Vital Sign Date Time Temp Pulse Resp B/P (MAP) Pulse Ox O2 Delivery O2 Flow Rate FiO2 06/04/24 12:19 105 20 99/57 (71) 95 30 06/04/24 12:00 Mechanical Ventilator+ 06/04/24 12:00 98.1 98.1 06/02/24 13:52 70.0 Total Intake and Output 06/03/24 06/03/24 06/04/24 15:00 23:00 07:00 Intake Total 1503.41 ml 1660.25 ml 1310.55 ml Output Total 950 ml 350 ml Balance 1503.41 ml 710.25 ml 960.55 ml medications Current Medications Medications Dose Ordered Sig/Sonia Route Start Time Stop Time Status Last Admin Dose Admin Piperacillin Sod/ Tazobactam Sod 100 ml @ 25 mls/hr Q8HR IV 06/02/24 14:00 06/04/24 13:32 25 MLS/HR Diagnostic Test (Pha) 1 strip ACHS 06/02/24 07:00 06/04/24 11:48 1 STRIP Insulin Human Regular ACHS SC 06/02/24 07:00 06/04/24 11:54 2 UNITS Dextrose 50 ml UD PRN IV 06/02/24 07:00 Ondansetron HCl 4 mg Q4HP PRN IV 06/02/24 07:00 Enoxaparin Sodium 30 mg DAILY SC 06/02/24 10:00 06/04/24 09:11 30 MG Acetaminophen 650 mg Q6HP PRN PO 06/02/24 07:00 Methylprednisolone Sodium Succinate 40 mg Q8HR IV 06/02/24 14:00 06/04/24 13:32 40 MG Albuterol 2.5 mg Q2HPRN PRN NEB 06/02/24 08:45 Ipratropium [place] 0.5 mg Q2HPRN PRN NEB 06/02/24 08:45 Norepinephrine Bitartrate 250 ml @ 3.75 mls/hr Q24H IV 06/02/24 14:00 06/04/24 10:22 22.5 MLS/HR Midazolam HCl 50 ml @ 1 mls/hr Q24H IV 06/02/24 17:45 06/03/24 23:18 6 MLS/HR Fentanyl Citrate 250 ml @ 2.5 mls/hr Q24H IV 06/02/24 17:45 06/03/24 09:26 2.5 MLS/HR Phenylephrine HCl 250 ml @ 30 mls/hr Q8H20M IV 06/02/24 18:00 Albuterol 2.5 mg Q6H NEB 06/03/24 12:00 06/04/24 12:18 2.5 MG Ipratropium [place] 0.5 mg Q6H NEB 06/03/24 12:00 06/04/24 12:18 0.5 MG Doxycycline Hyclate 100 ml @ 50 mls/hr Q12H IV 06/03/24 08:45 06/04/24 09:08 50 MLS/HR Enteral Nutritional Formula 1,000 ml 30ML/HR GT 06/03/24 08:45 06/03/24 15:18 1,000 ML Pantoprazole Sodium 40 mg BID IV 06/04/24 10:00 06/04/24 09:09 40 MG Sodium Chloride 1,000 ml @ 75 mls/hr [id number] IV 06/04/24 08:30 06/04/24 09:10 75 MLS/HR Examination: GENERAL:Abnormal, LUNGS:Abnormal, CVS:Abnormal laboratory and microbiology Laboratory Tests 06/04/24 06:15 Test 06/04/24 06:15 Range/Units Serum Glucose 170 H 74-106 mg/dL Microbiology Date/Time Source Procedure Growth Status 06/02/24 22:30 Nose MRSA Screen - Final Complete 06/02/24 18:00 Sputum Gram Stain - Final Resulted 06/02/24 18:00 Sputum Respiratory Culture - Preliminary Resulted 06/02/24 15:57 Voided Urine Urine Culture - Preliminary Resulted 06/02/24 04:30 Blood Blood Culture - Preliminary NO GROWTH AFTER 48 HOURS OF INCUBATION. Resulted Problem List/Assessment/Plan Problem List/Assessment/Plan Acute kidney injury hemodynamically mediated patient clinically appears volume depleted No previous history of CKD Bilateral small pleural effusions with PleurX catheter in place Metastatic cancer Severe protein calorie malnutrition worsening azotemia is multifactorial. catabolic state, steroids and high protein continue IVF start diuretics to increase UOP Pressors to maintain mean arterial pressure greater than 65 Avoid hypotension Critically ill patient's poor prognosis due to poor functional status and failure to thrive. patient is hospice candidate. not candidate for jail dialysis. Discussion about acute dialysis risk and benefits are ongoing however treatment has very high chance of poor tolerance Plan discussed with: Spouse Critical Care Time (mins): 36 NATHAN LOOMIS MD Jun 04, 2024 14:24
[2024-06-04] MEDS: FUROSEMIDE 100 MG/10ML VIAL IV SCH (14:56)
[2024-06-04] MEDS: FUROSEMIDE INJECTION 100 MG in SODIUM CHL 0.9% 100 ML IV SCH (17:01)
--- NOTE | 2024-06-04 23:11 | DVHPN2 ---
Progress Note - Dictate Date Seen: Jun 04, 2024 Medical Necessity Reason Pt with a Central, PICC or Fol: Yes The following are medically ne: Central Line, Dc Catheter Reason for cd catheter: Strict I&O Subjective Patient seen and examined at bedside. Sedated, intubated on mechanical ventilator. Overnight events reviewed. vital signs Vital Sign Date Time Temp Pulse Resp B/P (MAP) Pulse Ox O2 Delivery O2 Flow Rate FiO2 06/04/24 22:27 106/75 06/04/24 22:07 97 20 98 30 06/04/24 18:00 Mechanical Ventilator+ 06/04/24 16:00 98.3 98.3 06/02/24 13:52 70.0 Total Intake and Output 06/03/24 06/03/24 06/04/24 15:00 23:00 07:00 Intake Total 1503.41 ml 1660.25 ml 1310.55 ml Output Total 950 ml 350 ml Balance 1503.41 ml 710.25 ml 960.55 ml medications Current Medications Medications Dose Ordered Sig/Sonia Route Start Time Stop Time Status Last Admin Dose Admin Piperacillin Sod/ Tazobactam Sod 100 ml @ 25 mls/hr Q8HR IV 06/02/24 14:00 06/04/24 22:28 25 MLS/HR Diagnostic Test (Pha) 1 strip ACHS 06/02/24 07:00 06/04/24 22:57 1 STRIP Insulin Human Regular ACHS SC 06/02/24 07:00 06/04/24 22:51 3 UNITS Dextrose 50 ml UD PRN IV 06/02/24 07:00 Ondansetron HCl 4 mg Q4HP PRN IV 06/02/24 07:00 Enoxaparin Sodium 30 mg DAILY SC 06/02/24 10:00 06/04/24 09:11 30 MG Acetaminophen 650 mg Q6HP PRN PO 06/02/24 07:00 Methylprednisolone Sodium Succinate 40 mg Q8HR IV 06/02/24 14:00 06/04/24 22:28 40 MG Albuterol 2.5 mg Q2HPRN PRN NEB 06/02/24 08:45 Ipratropium [place] 0.5 mg Q2HPRN PRN NEB 06/02/24 08:45 Norepinephrine Bitartrate 250 ml @ 3.75 mls/hr Q24H IV 06/02/24 14:00 06/04/24 20:58 22.5 MLS/HR Midazolam HCl 50 ml @ 1 mls/hr Q24H IV 06/02/24 17:45 06/04/24 22:27 6 MLS/HR Fentanyl Citrate 250 ml @ 2.5 mls/hr Q24H IV 06/02/24 17:45 06/04/24 17:38 2.5 MLS/HR Phenylephrine HCl 250 ml @ 30 mls/hr Q8H20M IV 06/02/24 18:00 Albuterol 2.5 mg Q6H NEB 06/03/24 12:00 06/04/24 18:25 2.5 MG Ipratropium [place] 0.5 mg Q6H NEB 06/03/24 12:00 06/04/24 18:26 0.5 MG Doxycycline Hyclate 100 ml @ 50 mls/hr Q12H IV 06/03/24 08:45 06/04/24 20:21 50 MLS/HR Enteral Nutritional Formula 1,000 ml 30ML/HR GT 06/03/24 08:45 06/03/24 15:18 1,000 ML Pantoprazole Sodium 40 mg BID IV 06/04/24 10:00 06/04/24 22:28 40 MG Sodium Chloride 1,000 ml @ 75 mls/hr [id number] IV 06/04/24 08:30 06/04/24 09:10 75 MLS/HR Furosemide 100 mg/ Sodium Chloride 110 ml @ 11 mls/hr Q10H IV 06/04/24 15:15 06/04/24 17:01 11 MLS/HR objective Gen.: Patient lying in bed in medical ICU. Sedated, intubated on mechanical ventilator. Head: Normocephalic, atraumatic. Eyes: PERRLA. Ears: Normal external anatomy. Throat: Endotracheal tube and orogastric tube in place. Neck: Supple, trachea midline. Chest: Transmitted breath sounds bilaterally. Decreased air entry bilaterally. No wheezing. Bibasilar crackles. Cardiovascular: Positive S1, positive S2. Regular rate and rhythm. Abdomen: Positive bowel sounds in all 4 quadrants. Soft, nontender, nondistended. : Dc in place. Normal external genitalia. Rectal: Deferred. Skin: Warm, dry. Intact. Extremities: 2+ radial pulses bilaterally. No lower extremity edema. Neuro: Sedated. laboratory and microbiology Laboratory Tests 06/04/24 06:15 Test 06/04/24 06:15 Range/Units Serum Glucose 170 H 74-106 mg/dL Assessment/Plan Impression: Acute hypoxic respiratory failure Acute hypercarbic respiratory failure, PaCO2 60.5 mmHg On mechanical ventilator Recurrent right pleural effusion due to malignancy Renal cell carcinoma with metastasis to the lung Ex-smoker Cachexia, BMI 15.8 Shock Events: Remains on vent support On vent: RR 20, VT 450, PEEP 8, Fio2 30% Sedated on Versed, Fentanyl ABG reviewed, acidemia CXR reviewed, demonstrates multiple bilateral lung masses. Bilateral airspace disease. Small bilateral pleural effusions. Possible small right pneumothorax, unchanged. On pressors for hemodynamic support. On Levophed 12 mcg/min Start vasopressin if necessary. Titrate to keep MAP above 65 mmHg/SBP above 90 mmHg. PleurX was drained yesterday. Continue to drain every other day. Continue antibiotics Continue bronchodilators IV steroids Blood cultures show no growth in 72 hours Diurese w/ Lasix drip Monitor renal function - creatinine trending up Monitor electrolytes. Supplement as necessary. Poor prognosis GI prophylaxis w/ Pepcid DVT prophylaxis w/ Lovenox Labs and imaging reviewed. Rest of plan as noted below. Plan: s/p intubation on mechanical ventilator CXR image and report reviewed. Bilateral lung masses. Endotracheal tube in place. Bilateral pleural effusions, [id number]-right pleural effusion. ABG reviewed. Acidemia due to CO2 retention On vent: RR 20, VT 450, PEEP 8, Fio2 30% Titrate FIO2 to keep O2 saturation above 92%. VAP bundle Daily ABG and CXR while intubated. Sedate for ventilator synchrony On pressors for hemodynamic support. On Levophed Start vasopressin if necessary. Titrate to keep MAP above 65 mmHg/SBP above 90 mmHg. Broad-spectrum empiric antibiotics. F/u cultures. Monitor renal function due to Acute kidney injury. Monitor electrolytes. Supplement as necessary. Nutritional support. Accucheks, ISS. GI/DVT prophylaxis. Condition: Critical Prognosis: Poor given multiple comorbidities. Rest of plan per hospitalist and other consultants. A total of 35 minutes of critical care time was spent reviewing the patient record, examining the patient, making a diagnostic and therapeutic plan, discussing this plan with the medical personnel, following up on diagnostic studies and following the patient for clinical stability excluding any and all procedures. At least 50% of this time was spent in direct, [id number] contact. Thank you AMOS Gifford for allowing me to participate in this patient's care. Further recommendations will depend on patient's clinical course. Please do not hesitate to contact me if you have any questions or concerns. This medical document was created using an electronic medical record system with [employer] dictation system. Although this document has been carefully reviewed, there may still be some phonetic and typographical errors. These areas are purely typographical due to imperfections of the software programs, and do not reflect any compromise in the patient's medical care. Plan discussed with: Other (ROBERT Boyle) Critical Care Time(min): 35 YIN SAMSON MD Jun 04, 2024 23:11
[2024-06-05] VITALS (93 sets, daily range): BP systolic 88–133; BP diastolic 49–95; PULSE 85–99; RESP 16–24; TEMP 97.6–99.6; O2SAT 96–100
[2024-06-05 05:29] LABS: Sodium 140 mmol/L (136-145)
[2024-06-05 05:31] LABS: Anion Gap 14 (5-15); Calcium 9.5 mg/dL (8.7-10.4)
[2024-06-05 05:36] LABS: BUN/Creatinine Ratio 36.8 (10.0-20.0)
[2024-06-05 05:38] LABS: Carbon Dioxide 19 mmol/L (20-31); Chloride 107 mmol/L (98-107); Glucose 140 mg/dL (74-106)
--- NOTE | 2024-06-05 05:38 | DVH ---
CHEST RADIOGRAPH Indication: pna Technique: Single frontal view of the chest was obtained Comparison: XY CHEST PORTABLE on DOS: 06/04/24 FINDINGS: Lines and Tubes: The endotracheal tube terminates 6.9 cm above the zena. Left central venous cathet er terminates in the superior vena cava. The enteric tube terminates at the level of the gastroesopha geal junction. Right chest tube is unchanged in position. Lungs: Bilateral nodular and confluence consolidations throughout both lung saleh are unchanged. Th e lungs are hyperinflated. Pleura: No effusion. No pneumothorax. Cardiomediastinal contours: Stable cardiovascular silhouette. Bones: No acute osseous abnormality. IMPRESSION: 1. Enteric tube terminates in the gastroesophageal junction. Advancement recommended. Other lines a nd tubes are unchanged. 2. No significant interval change in nodular opacities suggestive of metastatic disease and confluent bilateral opacities which may reflect superimposed pneumonia.
[2024-06-05 05:40] LABS: Blood Urea Nitrogen 100 mg/dL (9-23)
[2024-06-05 09:43] LABS: Base Excess -10.8 mmol/L (-2.0-3.0)
--- NOTE | 2024-06-05 09:59 | DVH ---
CHEST RADIOGRAPH Indication: REPOSITION OF ET TUBE Technique: Single frontal view of the chest was obtained Comparison: XY CHEST PORTABLE on DOS: 06/05/24, XY CHEST PORTABLE on DOS: 06/04/24, XY CHEST PORTABLE o n DOS: 06/02/24, XY CHEST PORTABLE on DOS: 06/02/24, XY CHEST PORTABLE on DOS: 06/02/24, XY CHEST PORTAB LE on DOS: 06/05/24 FINDINGS: Lines and Tubes: The endotracheal tube terminates 6.9 cm above the zena. Left central venous cathet er terminates in the superior vena cava. The enteric tube terminates at the level of the gastroesopha geal junction. Right chest tube is unchanged in position. Lungs: Bilateral nodular and confluence consolidations throughout both lung saleh are unchanged. Th e lungs are hyperinflated. Pleura: No effusion. No pneumothorax. Cardiomediastinal contours: Stable cardiovascular silhouette. Bones: No acute osseous abnormality. IMPRESSION: 1. Nasogastric tube tip in the stomach. Endotracheal tube 6 cm from the zena. 2. No significant interval change in nodular opacities suggestive of metastatic disease and confluent bilateral opacities which may reflect superimposed pneumonia.
[2024-06-05 10:55] LABS: Base Excess -9.7 mmol/L (-2.0-3.0)
--- NOTE | 2024-06-05 11:17 | DVHPN2 ---
Subjective Patient unresponsive Reviewed: Care Plan, H&P, Labs, Medications Changes from previous H/P or p: No Changes General: Per HPI Respiratory: Shortness of breath Objective Vitals Vital Signs Date Time Temp Pulse Resp B/P (MAP) Pulse Ox O2 Delivery O2 Flow Rate FiO2 06/05/24 08:48 89/65 06/05/24 08:45 90 20 99 06/05/24 08:12 30 06/05/24 08:00 Mechanical Ventilator+ 06/05/24 08:00 97.7 97.7 Intake/Output Intake and Output 06/05/24 07:00 Intake Total 2444.00 ml Output Total 680 ml Balance 1764.00 ml Intake Oral 40 ml IV Total 2315.00 ml Tube Feeding 89 ml Output Urine Total 680 ml General Appearance: moderate distress, Other (Cachexia) HEENT: Atraumatic, PERRLA Cardiovascular: Normal S1, Normal S2 Abdomen: Normal bowel sounds, Soft, No tenderness Musculoskeletal: Normal sensory function, Normal motor function Neuro: Normal gait, Normal speech Skin: Dry, Intact Psych/Mental Status: Mental status NL, Mood NL Medications Current Medications Medications Dose Ordered Sig/Sonia Route Start Time Stop Time Status Last Admin Dose Admin Piperacillin Sod/ Tazobactam Sod 100 ml @ 25 mls/hr Q8HR IV 06/02/24 14:00 06/05/24 05:53 25 MLS/HR Diagnostic Test (Pha) 1 strip ACHS 06/02/24 07:00 06/05/24 06:44 1 STRIP Insulin Human Regular ACHS SC 06/02/24 07:00 06/05/24 06:44 2 UNITS Dextrose 50 ml UD PRN IV 06/02/24 07:00 Ondansetron HCl 4 mg Q4HP PRN IV 06/02/24 07:00 Enoxaparin Sodium 30 mg DAILY SC 06/02/24 10:00 06/05/24 09:04 30 MG Acetaminophen 650 mg Q6HP PRN PO 06/02/24 07:00 Methylprednisolone Sodium Succinate 40 mg Q8HR IV 06/02/24 14:00 06/05/24 05:52 40 MG Albuterol 2.5 mg Q2HPRN PRN NEB 06/02/24 08:45 Ipratropium [place] 0.5 mg Q2HPRN PRN NEB 06/02/24 08:45 Norepinephrine Bitartrate 250 ml @ 3.75 mls/hr Q24H IV 06/02/24 14:00 06/04/24 20:58 22.5 MLS/HR Midazolam HCl 50 ml @ 1 mls/hr Q24H IV 06/02/24 17:45 06/05/24 05:52 5 MLS/HR Fentanyl Citrate 250 ml @ 2.5 mls/hr Q24H IV 06/02/24 17:45 06/04/24 17:38 2.5 MLS/HR Phenylephrine HCl 250 ml @ 30 mls/hr Q8H20M IV 06/02/24 18:00 Albuterol 2.5 mg Q6H NEB 06/03/24 12:00 06/05/24 06:11 2.5 MG Ipratropium [place] 0.5 mg Q6H NEB 06/03/24 12:00 06/05/24 06:11 0.5 MG Doxycycline Hyclate 100 ml @ 50 mls/hr Q12H IV 06/03/24 08:45 06/05/24 09:05 50 MLS/HR Enteral Nutritional Formula 1,000 ml 30ML/HR GT 06/03/24 08:45 06/03/24 15:18 1,000 ML Pantoprazole Sodium 40 mg BID IV 06/04/24 10:00 06/05/24 09:04 40 MG Sodium Chloride 1,000 ml @ 75 mls/hr [id number] IV 06/04/24 08:30 06/05/24 02:26 75 MLS/HR Furosemide 100 mg/ Sodium Chloride 110 ml @ 11 mls/hr Q10H IV 06/04/24 15:15 06/05/24 07:31 11 MLS/HR Laboratory Results Laboratory Tests 06/04/24 06:15 06/05/24 04:46 Chemistry Test 06/05/24 04:46 Calcium Level 9.5 mg/dL (8.7-10.4) Urinalysis Test 06/02/24 15:57 Urine Color Yellow (Yellow) Urine Clarity Turbid (Clear) H Urine pH 5.0 (5.0-9.0) Urine Specific [place] 1.020 (1.001-1.035) Urine Protein 1+ (Negative) H Urine Ketones Negative (Negative) Urine Blood Trace /uL (Negative) H Urine Nitrite Negative (Negative) Urine Bilirubin Negative (Negative) Urine Urobilinogen Normal mg/dL (Negative) Urine Leukocyte Esterase Trace /uL (Negative) Urine RBC 7 /hpf (0 - 3) Urine Microscopic WBC 6 /HPF (0-3) H Urine Squamous Epithelial Cells Few /hpf (<5) Urine Calcium Oxalate Crystals Few (None Seen) Urine Bacteria Few /hpf (None Seen) H Urine Hyaline Casts Few /lpf (0 - 2) Urine Mucus Few (None Seen) Urine Sperm Present /hpf (None Seen) Urine Creatinine 105.47 mg/dL (30.0-125.0) Urine Sodium < 10 mmol/L (40-220) L Urine Glucose Normal mg/dL (Normal) Blood Gas Results Test 06/05/24 07:05 06/05/24 10:49 Arterial Blood pH 7.282 (7.350-7.450) 7.327 (7.350-7.450) FiO2 % 30.0 40.0 Microbiology Microbiology Date/Time Source Procedure Growth Status 06/02/24 22:30 Nose MRSA Screen - Final Complete 06/02/24 18:00 Sputum Gram Stain - Final Resulted 06/02/24 18:00 Sputum Respiratory Culture - Preliminary Resulted 06/02/24 15:57 Voided Urine Urine Culture - Final Complete 06/02/24 04:30 Blood Blood Culture - Preliminary NO GROWTH AFTER 72 HOURS OF INCUBATION. Resulted Labs and/or images reviewed: Labs reviewed by me, Image(s) reviewed by me Assessment/Plan Assessment/Plan Impression: -acute on chronic hypoxic and hypercarbic respiratory failure -metabolic encephalopathy secondary to hypercarbia and hypercalcemia -renal cell carcinoma, status post nephrectomy with metastatic cancer to the lungs -cachexia -hypercalcemia -metabolic acidosis -diabetes mellitus -acute kidney injury, probable vasomotor nephropathy -CKD stage IIIB -history of nephrectomy Plan: -events: Discussed case with Nephrology yesterday. Possible placement of HD catheter with dialysis initiation. This was discussed by myself with patient's family who were bedside. They verbalized understanding and wished to proceed with hemodialysis if needed. -pulmonary consultation: Ventilator management per their discretion. -nephrology consultation : Recommendations reviewed -stopped IV fluids material Lasix drip -continue tube feeding -PleurX catheter draining by staff every other day -regular insulin sliding scale -empiric antibiotic therapy: No growth at this time -repeat labs in a.m. Critical care time spent with patient discussing and formulating plan of care: 40 minutes. This does not include time spent performing procedures. This medical document was created using an electronic medical record system with [employer] dictation system. Although this document has been carefully reviewed, there may still be some phonetic and typographical errors. These areas are purely typographical due to imperfections of the software programs, and do not reflect any compromise in the patient's medical care. Plan discussed with: Patient, Other (RN) My Orders Orders - MARCELO CARRASCO NP Procedure Category Date Status Time Chest Xray 1 View XY 06/05/24 Resulted 09:31 Complete Blood Count LAB 06/06/24 Verified 05:00 Complete Blood Count LAB 06/07/24 Verified 05:00 Complete Blood Count LAB 06/08/24 Verified 05:00 Basic Metabolic Panel LAB 06/06/24 Verified 05:00 Basic Metabolic Panel LAB 06/07/24 Verified 05:00 Basic Metabolic Panel LAB 06/08/24 Verified 05:00 Chest Portable XY 06/06/24 Logged 05:00 Chest Portable XY 06/07/24 Logged 05:00 Chest Portable XY 06/08/24 Logged 05:00 Abg W/ Co-Ox RT 06/05/24 Logged 10:39 Date of Service: Jun 05, 2024 Billing Provider: MARCELO CARRASCO NP Common Visit Codes: [id number] CARE 30-74 MIN MARCELO CARRASCO NP Jun 05, 2024 11:17
--- NOTE | 2024-06-05 18:25 | DVHPN2 ---
Progress Note Date Seen: Jun 05, 2024 Medical Necessity Reason Pt with a Central, PICC or Fol: Yes The following are medically ne: Central Line, Dc Catheter Reason for dc catheter: Strict I&O Subjective Review of Systems: RESPIRATORY:Abnormal Objective vital signs Vital Sign Date Time Temp Pulse Resp B/P (MAP) Pulse Ox O2 Delivery O2 Flow Rate FiO2 06/05/24 16:25 96 20 96/66 (76) 98 35 06/05/24 12:00 97.8 97.8 06/05/24 10:00 Mechanical Ventilator+ Total Intake and Output 06/04/24 06/04/24 06/05/24 15:00 23:00 07:00 Intake Total 660.25 ml 780.25 ml 1003.50 ml Output Total 180 ml 500 ml Balance 660.25 ml 600.25 ml 503.50 ml medications Current Medications Medications Dose Ordered Sig/Sonia Route Start Time Stop Time Status Last Admin Dose Admin Piperacillin Sod/ Tazobactam Sod 100 ml @ 25 mls/hr Q8HR IV 06/02/24 14:00 06/05/24 16:22 25 MLS/HR Diagnostic Test (Pha) 1 strip ACHS 06/02/24 07:00 06/05/24 12:48 1 STRIP Insulin Human Regular ACHS SC 06/02/24 07:00 06/05/24 12:49 2 UNITS Dextrose 50 ml UD PRN IV 06/02/24 07:00 Ondansetron HCl 4 mg Q4HP PRN IV 06/02/24 07:00 Enoxaparin Sodium 30 mg DAILY SC 06/02/24 10:00 06/05/24 09:04 30 MG Acetaminophen 650 mg Q6HP PRN PO 06/02/24 07:00 Methylprednisolone Sodium Succinate 40 mg Q8HR IV 06/02/24 14:00 06/05/24 16:21 40 MG Albuterol 2.5 mg Q2HPRN PRN NEB 06/02/24 08:45 Ipratropium [place] 0.5 mg Q2HPRN PRN NEB 06/02/24 08:45 Norepinephrine Bitartrate 250 ml @ 3.75 mls/hr Q24H IV 06/02/24 14:00 06/05/24 12:52 15 MLS/HR Midazolam HCl 50 ml @ 1 mls/hr Q24H IV 06/02/24 17:45 06/05/24 16:22 5 MLS/HR Fentanyl Citrate 250 ml @ 2.5 mls/hr Q24H IV 06/02/24 17:45 06/04/24 17:38 2.5 MLS/HR Phenylephrine HCl 250 ml @ 30 mls/hr Q8H20M IV 06/02/24 18:00 Albuterol 2.5 mg Q6H NEB 06/03/24 12:00 06/05/24 11:44 2.5 MG Ipratropium [place] 0.5 mg Q6H NEB 06/03/24 12:00 06/05/24 11:44 0.5 MG Doxycycline Hyclate 100 ml @ 50 mls/hr Q12H IV 06/03/24 08:45 06/05/24 09:05 50 MLS/HR Enteral Nutritional Formula 1,000 ml 30ML/HR GT 06/03/24 08:45 06/03/24 15:18 1,000 ML Pantoprazole Sodium 40 mg BID IV 06/04/24 10:00 06/05/24 09:04 40 MG Sodium Chloride 1,000 ml @ 75 mls/hr [id number] IV 06/04/24 08:30 06/05/24 02:26 75 MLS/HR Furosemide 100 mg/ Sodium Chloride 110 ml @ 11 mls/hr Q10H IV 06/04/24 15:15 06/05/24 07:31 11 MLS/HR Examination: GENERAL:Abnormal, LUNGS:Abnormal, ABDOMEN:Abnormal laboratory and microbiology Laboratory Tests 06/05/24 04:46 06/04/24 06:15 Test 06/05/24 04:46 Range/Units Serum Glucose 140 H 74-106 mg/dL Microbiology Date/Time Source Procedure Growth Status 06/02/24 22:30 Nose MRSA Screen - Final Complete 06/02/24 18:00 Sputum Gram Stain - Final Resulted 06/02/24 18:00 Sputum Respiratory Culture - Preliminary Resulted 06/02/24 15:57 Voided Urine Urine Culture - Final Complete 06/02/24 04:30 Blood Blood Culture - Preliminary NO GROWTH AFTER 72 HOURS OF INCUBATION. Resulted Problem List/Assessment/Plan Problem List/Assessment/Plan Acute kidney injury hemodynamically mediated patient clinically appears volume depleted No previous history of CKD Bilateral small pleural effusions with PleurX catheter in place Metastatic cancer Severe protein calorie malnutrition worsening azotemia is multifactorial. catabolic state, steroids and high protein continue IVF diuretics to increase UOP Pressors to maintain mean arterial pressure greater than 65 Avoid hypotension Acute HD will start tomorrow Critically ill patient's poor prognosis due to poor functional status and failure to thrive. patient is hospice candidate. not candidate for [facility] dialysis, if does not regain function [facility] prognosis is grim Plan discussed with: Other Dietary Evaluation Review Comments: 1. Nepro 30 ml/hr is providing 58 gPro, 1274 kcal supporting pt's needs at 96% of protein, 102% of energy needs as long as pt is on vent. 2. Increase energy feedings once pt is off vent, 3. To avoid nephrotic syndrome, offer a Renal Specific diet with 60 g protein restriction after passing a speech eval. Expected Outcomes/Goals: monitor kidney function and reduce dietary protein for avoiding nephrotic symptoms, Critical Care Time (mins): 33 NATHAN LOOMIS MD Jun 05, 2024 18:25
--- NOTE | 2024-06-05 22:28 | DVHPN2 ---
Progress Note - Dictate Date Seen: Jun 05, 2024 Medical Necessity Reason Pt with a Central, PICC or Fol: Yes The following are medically ne: Central Line, Dc Catheter Reason for dc catheter: Strict I&O Subjective Patient seen and examined at bedside. Sedated, intubated on mechanical ventilator. Overnight events reviewed. vital signs Vital Sign Date Time Temp Pulse Resp B/P (MAP) Pulse Ox O2 Delivery O2 Flow Rate FiO2 06/05/24 22:18 96 20 97/69 (78) 97 35 06/05/24 18:00 Mechanical Ventilator+ 06/05/24 16:00 99.6 99.6 Total Intake and Output 06/04/24 06/04/24 06/05/24 15:00 23:00 07:00 Intake Total 660.25 ml 897.25 ml 1003.50 ml Output Total 180 ml 500 ml Balance 660.25 ml 717.25 ml 503.50 ml medications Current Medications Medications Dose Ordered Sig/Sonia Route Start Time Stop Time Status Last Admin Dose Admin Piperacillin Sod/ Tazobactam Sod 100 ml @ 25 mls/hr Q8HR IV 06/02/24 14:00 06/05/24 21:20 25 MLS/HR Diagnostic Test (Pha) 1 strip ACHS 06/02/24 07:00 06/05/24 21:46 1 STRIP Insulin Human Regular ACHS SC 06/02/24 07:00 06/05/24 21:48 2 UNITS Dextrose 50 ml UD PRN IV 06/02/24 07:00 Ondansetron HCl 4 mg Q4HP PRN IV 06/02/24 07:00 Enoxaparin Sodium 30 mg DAILY SC 06/02/24 10:00 06/05/24 09:04 30 MG Acetaminophen 650 mg Q6HP PRN PO 06/02/24 07:00 Methylprednisolone Sodium Succinate 40 mg Q8HR IV 06/02/24 14:00 06/05/24 21:22 40 MG Albuterol 2.5 mg Q2HPRN PRN NEB 06/02/24 08:45 Ipratropium [place] 0.5 mg Q2HPRN PRN NEB 06/02/24 08:45 Norepinephrine Bitartrate 250 ml @ 3.75 mls/hr Q24H IV 06/02/24 14:00 06/05/24 12:52 15 MLS/HR Midazolam HCl 50 ml @ 1 mls/hr Q24H IV 06/02/24 17:45 06/05/24 16:22 5 MLS/HR Fentanyl Citrate 250 ml @ 2.5 mls/hr Q24H IV 06/02/24 17:45 06/04/24 17:38 2.5 MLS/HR Phenylephrine HCl 250 ml @ 30 mls/hr Q8H20M IV 06/02/24 18:00 Albuterol 2.5 mg Q6H NEB 06/03/24 12:00 06/05/24 18:25 2.5 MG Ipratropium [place] 0.5 mg Q6H NEB 06/03/24 12:00 06/05/24 18:29 0.5 MG Doxycycline Hyclate 100 ml @ 50 mls/hr Q12H IV 06/03/24 08:45 06/05/24 21:19 50 MLS/HR Enteral Nutritional Formula 1,000 ml 30ML/HR GT 06/03/24 08:45 06/03/24 15:18 1,000 ML Pantoprazole Sodium 40 mg BID IV 06/04/24 10:00 06/05/24 21:19 40 MG Sodium Chloride 1,000 ml @ 75 mls/hr [id number] IV 06/04/24 08:30 06/05/24 02:26 75 MLS/HR Furosemide 100 mg/ Sodium Chloride 110 ml @ 11 mls/hr Q10H IV 06/04/24 15:15 06/05/24 18:25 11 MLS/HR objective Gen.: Patient lying in bed in medical ICU. Sedated, intubated on mechanical ventilator. Head: Normocephalic, atraumatic. Eyes: PERRLA. Ears: Normal external anatomy. Throat: Endotracheal tube and orogastric tube in place. Neck: Supple, trachea midline. Chest: Transmitted breath sounds bilaterally. Decreased air entry bilaterally. No wheezing. Bibasilar crackles. Cardiovascular: Positive S1, positive S2. Regular rate and rhythm. Abdomen: Positive bowel sounds in all 4 quadrants. Soft, nontender, nondistended. : Dc in place. Normal external genitalia. Rectal: Deferred. Skin: Warm, dry. Intact. Extremities: 2+ radial pulses bilaterally. No lower extremity edema. Neuro: Sedated. laboratory and microbiology Laboratory Tests 06/05/24 04:46 06/04/24 06:15 Test 06/05/24 04:46 Range/Units Serum Glucose 140 H 74-106 mg/dL Assessment/Plan Impression: Acute hypoxic respiratory failure Acute hypercarbic respiratory failure, PaCO2 60.5 mmHg On mechanical ventilator Recurrent right pleural effusion due to malignancy Renal cell carcinoma with metastasis to the lung Ex-smoker Cachexia, BMI 15.8 Shock Events: Remains on vent support On vent: RR 20, VT 450, PEEP 8, Fio2 35% Sedated on Versed, Fentanyl ABG reviewed, acidemia CXR reviewed, demonstrates bilateral nodular and confluence consolidations throughout both lung saleh are unchanged. The lungs are hyperinflated. Devices in place. On pressors for hemodynamic support. On Levophed 8 mcg/min Start vasopressin if necessary. Titrate to keep MAP above 65 mmHg/SBP above 90 mmHg. Improved pressor requirements Continue to drain PleurX every other day. Continue antibiotics Continue bronchodilators IV steroids Blood cultures show no growth in 72 hours Diurese w/ Lasix drip Monitor renal function - creatinine trending up Monitor electrolytes. Supplement as necessary. Nephrology recommendations appreciated Family declined hemodialysis Poor prognosis GI prophylaxis w/ Pepcid DVT prophylaxis w/ Lovenox Labs and imaging reviewed. Rest of plan as noted below. Plan: s/p intubation on mechanical ventilator CXR image and report reviewed. Bilateral lung masses. Endotracheal tube in place. Bilateral pleural effusions, [id number]-right pleural effusion. ABG reviewed. Acidemia due to CO2 retention On vent: RR 20, VT 450, PEEP 8, Fio2 35% Titrate FIO2 to keep O2 saturation above 92%. VAP bundle Daily ABG and CXR while intubated. Sedate for ventilator synchrony On pressors for hemodynamic support. On Levophed Start vasopressin if necessary. Titrate to keep MAP above 65 mmHg/SBP above 90 mmHg. Broad-spectrum empiric antibiotics. F/u cultures. Monitor renal function due to Acute kidney injury. Monitor electrolytes. Supplement as necessary. Nutritional support. Accucheks, ISS. GI/DVT prophylaxis. Condition: Critical Prognosis: Poor given multiple comorbidities. Rest of plan per hospitalist and other consultants. A total of 35 minutes of critical care time was spent reviewing the patient record, examining the patient, making a diagnostic and therapeutic plan, discussing this plan with the medical personnel, following up on diagnostic studies and following the patient for clinical stability excluding any and all procedures. At least 50% of this time was spent in direct, [id number] contact. Thank you MAOS Gifford for allowing me to participate in this patient's care. Further recommendations will depend on patient's clinical course. Please do not hesitate to contact me if you have any questions or concerns. This medical document was created using an electronic medical record system with [employer] dictation system. Although this document has been carefully reviewed, there may still be some phonetic and typographical errors. These areas are purely typographical due to imperfections of the software programs, and do not reflect any compromise in the patient's medical care. Dietary Evaluation Review Comments: 1. Nepro 30 ml/hr is providing 58 gPro, 1274 kcal supporting pt's needs at 96% of protein, 102% of energy needs as long as pt is on vent. 2. Increase energy feedings once pt is off vent, 3. To avoid nephrotic syndrome, offer a Renal Specific diet with 60 g protein restriction after passing a speech eval. Expected Outcomes/Goals: monitor kidney function and reduce dietary protein for avoiding nephrotic symptoms, Plan discussed with: Other (ROBERT Boyle) Critical Care Time(min): 35 YIN SAMSON MD Jun 05, 2024 22:28
[2024-06-06] VITALS (106 sets, daily range): BP systolic 80–118; BP diastolic 55–92; PULSE 91–104; RESP 13–97; TEMP 97.7–98.7; O2SAT 20–100
[2024-06-06 05:43] LABS: Basophils # (auto) 0 10 ^3/uL (0-0.2); Eosinophils # (auto) 0 10 ^3/uL (0-0.8); Hematocrit 29.5 % (41.0-53.0); Hemoglobin 9.5 g/dL (13.5-17.5); Lymphocytes # (auto) 0.4 10 ^3/uL (0.4-5.4); Lymphocytes % (auto) 3.1 % (10.0-50.0); Mean Corpuscular Hemoglobin 27.6 pg (28.0-32.0); Mean Corpuscular Hgb Conc. 32.2 g/dL (32.0-36.0); Mean Corpuscular Volume 85.6 fL (80.0-100.0); Monocytes # (auto) 0.5 10 ^3/uL (0-1.3); Monocytes % (auto) 3.8 % (0.0-12.0); Neutrophils # (auto) 13.5 10 ^3/uL (1.6-8.6); Neutrophils % (auto) 93.1 % (37.0-80.0); Platelet Count (auto) 152 10^3/uL (140-450); Red Blood Cells 3.45 10^6/uL (4.5-5.90); Red Cell Distribution Width 17.1 % (11.8-14.3); White Blood Cell 14.5 10^3/uL (4.4-10.8)
--- NOTE | 2024-06-06 05:52 | DVH ---
EXAM: XY CHEST PORTABLE Indication: pna Technique: Single frontal view of the chest was obtained Comparison: XY CHEST XRAY 1 VIEW on DOS: 06/05/24, XY CHEST PORTABLE on DOS: 06/05/24, XY CHEST PORTABL E on DOS: 06/04/24, XY CHEST PORTABLE on DOS: 06/02/24, XY CHEST PORTABLE on DOS: 06/02/24, XY CHEST XRA Y 1 VIEW on DOS: 06/05/24 FINDINGS: Lines and Tubes: The endotracheal tube terminates 6.9 cm above the zena. Left central venous cathet er terminates in the superior vena cava. The enteric tube terminates at the level of the gastroesopha geal junction. Right chest tube is unchanged in position. Lungs: Bilateral nodular and confluence consolidations throughout both lung saleh are unchanged. Th e lungs are hyperinflated. Pleura: No effusion. No pneumothorax. Cardiomediastinal contours: Stable cardiovascular silhouette. Bones: No acute osseous abnormality. IMPRESSION: No significant change compared to prior exam.
[2024-06-06 05:57] LABS: Calcium 8.9 mg/dL (8.7-10.4); Potassium 3.6 mmol/L (3.5-5.1); Sodium 143 mmol/L (136-145)
[2024-06-06 05:58] LABS: Anion Gap 15 (5-15)
[2024-06-06 06:03] LABS: BUN/Creatinine Ratio 31.6 (10.0-20.0)
[2024-06-06 06:04] LABS: Carbon Dioxide 16 mmol/L (20-31); Chloride 112 mmol/L (98-107); Glucose 112 mg/dL (74-106)
[2024-06-06 06:06] LABS: Blood Urea Nitrogen 91 mg/dL (9-23)
[2024-06-06] MEDS ORDERED: TPN PER PHARMACY 0 ML IV SCH (06:45)
--- NOTE | 2024-06-06 07:08 | DVHPN2 ---
Subjective Patient unresponsive Reviewed: Care Plan, H&P, Labs, Medications Changes from previous H/P or p: No Changes General: Per HPI Respiratory: Shortness of breath Objective Vitals Vital Signs Date Time Temp Pulse Resp B/P (MAP) Pulse Ox O2 Delivery O2 Flow Rate FiO2 06/06/24 05:22 99/71 06/06/24 04:01 98 20 97 35 06/06/24 04:00 98.3 98.3 06/06/24 02:00 Mechanical Ventilator+ Intake/Output Intake and Output 06/06/24 07:00 Intake Total 2929.25 ml Output Total 300 ml Balance 2629.25 ml IV Total 2929.25 ml Tube Feeding 0 ml Output Urine Total 300 ml General Appearance: moderate distress, Other (Cachexia) HEENT: Atraumatic, PERRLA Cardiovascular: Normal S1, Normal S2 Abdomen: Normal bowel sounds, Soft, No tenderness Musculoskeletal: Normal sensory function, Normal motor function Neuro: Normal gait, Normal speech Skin: Dry, Intact Psych/Mental Status: Mental status NL, Mood NL Medications Current Medications Medications Dose Ordered Sig/Sonia Route Start Time Stop Time Status Last Admin Dose Admin Piperacillin Sod/ Tazobactam Sod 100 ml @ 25 mls/hr Q8HR IV 06/02/24 14:00 06/06/24 06:26 25 MLS/HR Diagnostic Test (Pha) 1 strip ACHS 06/02/24 07:00 06/05/24 21:46 1 STRIP Insulin Human Regular ACHS SC 06/02/24 07:00 06/05/24 21:48 2 UNITS Dextrose 50 ml UD PRN IV 06/02/24 07:00 Ondansetron HCl 4 mg Q4HP PRN IV 06/02/24 07:00 Enoxaparin Sodium 30 mg DAILY SC 06/02/24 10:00 06/05/24 09:04 30 MG Acetaminophen 650 mg Q6HP PRN PO 06/02/24 07:00 Methylprednisolone Sodium Succinate 40 mg Q8HR IV 06/02/24 14:00 06/06/24 06:26 40 MG Albuterol 2.5 mg Q2HPRN PRN NEB 06/02/24 08:45 Ipratropium [place] 0.5 mg Q2HPRN PRN NEB 06/02/24 08:45 Norepinephrine Bitartrate 250 ml @ 3.75 mls/hr Q24H IV 06/02/24 14:00 06/06/24 05:22 15 MLS/HR Midazolam HCl 50 ml @ 1 mls/hr Q24H IV 06/02/24 17:45 06/06/24 00:56 5 MLS/HR Fentanyl Citrate 250 ml @ 2.5 mls/hr Q24H IV 06/02/24 17:45 06/04/24 17:38 2.5 MLS/HR Phenylephrine HCl 250 ml @ 30 mls/hr Q8H20M IV 06/02/24 18:00 Albuterol 2.5 mg Q6H NEB 06/03/24 12:00 06/06/24 06:45 2.5 MG Ipratropium [place] 0.5 mg Q6H NEB 06/03/24 12:00 06/06/24 06:46 0.5 MG Doxycycline Hyclate 100 ml @ 50 mls/hr Q12H IV 06/03/24 08:45 06/05/24 21:19 50 MLS/HR Enteral Nutritional Formula 1,000 ml 30ML/HR GT 06/03/24 08:45 06/03/24 15:18 1,000 ML Pantoprazole Sodium 40 mg BID IV 06/04/24 10:00 06/05/24 21:19 40 MG Sodium Chloride 1,000 ml @ 75 mls/hr [id number] IV 06/04/24 08:30 06/05/24 02:26 75 MLS/HR Furosemide 100 mg/ Sodium Chloride 110 ml @ 11 mls/hr Q10H IV 06/04/24 15:15 06/06/24 03:21 11 MLS/HR Amino Acids 0 ml @ 0 mls/hr PER PHARMACY IV 06/06/24 06:45 UNV Metoclopramide HCl 10 mg Q8HR IV 06/06/24 14:00 06/07/24 06:01 Laboratory Results Laboratory Tests 06/06/24 05:11 Chemistry Test 06/06/24 05:11 Calcium Level 8.9 mg/dL (8.7-10.4) Urinalysis Test 06/02/24 15:57 Urine Color Yellow (Yellow) Urine Clarity Turbid (Clear) H Urine pH 5.0 (5.0-9.0) Urine Specific [place] 1.020 (1.001-1.035) Urine Protein 1+ (Negative) H Urine Ketones Negative (Negative) Urine Blood Trace /uL (Negative) H Urine Nitrite Negative (Negative) Urine Bilirubin Negative (Negative) Urine Urobilinogen Normal mg/dL (Negative) Urine Leukocyte Esterase Trace /uL (Negative) Urine RBC 7 /hpf (0 - 3) Urine Microscopic WBC 6 /HPF (0-3) H Urine Squamous Epithelial Cells Few /hpf (<5) Urine Calcium Oxalate Crystals Few (None Seen) Urine Bacteria Few /hpf (None Seen) H Urine Hyaline Casts Few /lpf (0 - 2) Urine Mucus Few (None Seen) Urine Sperm Present /hpf (None Seen) Urine Creatinine 105.47 mg/dL (30.0-125.0) Urine Sodium < 10 mmol/L (40-220) L Urine Glucose Normal mg/dL (Normal) Blood Gas Results Test 06/05/24 10:49 Arterial Blood pH 7.327 (7.350-7.450) FiO2 % 40.0 Microbiology Microbiology Date/Time Source Procedure Growth Status 06/02/24 22:30 Nose MRSA Screen - Final Complete 06/02/24 18:00 Sputum Gram Stain - Final Resulted 06/02/24 18:00 Sputum Respiratory Culture - Preliminary Resulted 06/02/24 15:57 Voided Urine Urine Culture - Final Complete 06/02/24 04:30 Blood Blood Culture - Preliminary NO GROWTH AFTER 72 HOURS OF INCUBATION. Resulted Labs and/or images reviewed: Labs reviewed by me, Image(s) reviewed by me Assessment/Plan Assessment/Plan Impression: -acute on chronic hypoxic and hypercarbic respiratory failure -metabolic encephalopathy secondary to hypercarbia and hypercalcemia -renal cell carcinoma, status post nephrectomy with metastatic cancer to the lungs -cachexia -hypercalcemia -metabolic acidosis -diabetes mellitus -acute kidney injury, probable vasomotor nephropathy -CKD stage IIIB -history of nephrectomy Plan: -events: Patient continues to have minimal output. Discussed with family possible hemodialysis as did Nephrology. At this time they are wishing to not have hemodialysis started. -NG to low intermittent suction. KUB. -start TPN -pulmonary consultation: Ventilator management per their discretion. -nephrology consultation : Recommendations reviewed -stopped IV fluids material Lasix drip -continue tube feeding -PleurX catheter draining as needed by assessment of chest x-ray -regular insulin sliding scale -empiric antibiotic therapy: No growth at this time -repeat labs in a.m. Prognosis: Poor given multiple comorbidities and advanced metastatic cancer. Critical care time spent with patient discussing and formulating plan of care: 40 minutes. This does not include time spent performing procedures. This medical document was created using an electronic medical record system with [employer] system. Although this document has been carefully reviewed, there may still be some phonetic and typographical errors. These areas are purely typographical due to imperfections of the software programs, and do not reflect any compromise in the patient's medical care. Plan discussed with: Patient, Other (RN) My Orders Orders - MARCELO CARRASCO NP Procedure Category Date Status Time Chest Xray 1 View XY 06/05/24 Resulted 09:31 Complete Blood Count LAB 06/07/24 Verified 05:00 Complete Blood Count LAB 06/08/24 Verified 05:00 Basic Metabolic Panel LAB 06/07/24 Verified 05:00 Basic Metabolic Panel LAB 06/08/24 Verified 05:00 Chest Portable XY 06/06/24 Resulted 05:00 Chest Portable XY 06/07/24 Logged 05:00 Chest Portable XY 06/08/24 Logged 05:00 Abg W/ Co-Ox RT 06/05/24 Logged 10:39 Ng To Lis DANICA 06/06/24 In Process 06:39 Tpn Per Pharmacy PHA 06/06/24 Pending 06:45 Metoclopramide PHA 06/06/24 In Process Injection (Reglan 14:00 Kub Abdomen Single XY 06/06/24 Logged View 06:41 Date of Service: Jun 06, 2024 Billing Provider: MARCELO CARRASCO NP Common Visit Codes: [id number] CARE 30-74 MIN MARCELO CARRASCO NP Jun 06, 2024 07:08
[2024-06-06 08:22] LABS: Base Excess -9.5 mmol/L (-2.0-3.0)
[2024-06-06 09:07] LABS: Magnesium 2.3 mg/dL (1.6-2.6)
--- NOTE | 2024-06-06 10:00 | MEDREC ---
[facility] Intervention Section I [facility] Intervention: Review courses of therapy (PLEASE CONSIDER ADDING ANTIFUNGAL BASED ON THE PRELIMINARY RESPIRATORY CULTURE SHOWED MANY GROWTH OF FILAMENTOUS FUNGI, AND PATIENT'S IMMUNOCOMPROMISED CONDITION) LARRY POLLACK Jun 06, 2024 10:00
--- NOTE | 2024-06-06 10:13 | DVH ---
Exam: XY KUB ABDOMEN SINGLE VIEW Indication: obstruction Comparison: None Technique: 2 Radiographic views of the abdomen. Findings: Numerous surgical clips predominantly to the right of midline. NGT tube in the body of the stomach. Nonobstructive bowel gas pattern noted. There is no definite evidence for pneumoperitoneum. No abnormal calcifications noted. Impression: 1. Nonobstructive bowel gas pattern noted. 2. G tube in the body of the stomach.
[2024-06-06] MEDS: LACTATED RINGER'S 1,000 ML IV SCH (10:59)
--- NOTE | 2024-06-06 11:25 | DVHPN2 ---
Progress Note Date Seen: Jun 06, 2024 Medical Necessity Reason Pt with a Central, PICC or Fol: Yes The following are medically ne: Central Line, Dc Catheter Reason for dc catheter: Strict I&O Subjective Patient reports: Other Review of Systems: RESPIRATORY:Abnormal Objective vital signs Vital Sign Date Time Temp Pulse Resp B/P (MAP) Pulse Ox O2 Delivery O2 Flow Rate FiO2 06/06/24 11:00 100 21 110/78 (89) 97 06/06/24 10:55 35 06/06/24 10:00 Mechanical Ventilator+ 06/06/24 08:00 97.7 97.7 Total Intake and Output 06/05/24 06/05/24 06/06/24 15:00 23:00 07:00 Intake Total 1001.75 ml 1410.5 ml 1745.5 ml Output Total 300 ml 350 ml Balance 1001.75 ml 1110.5 ml 1395.5 ml medications Current Medications Medications Dose Ordered Sig/Sonia Route Start Time Stop Time Status Last Admin Dose Admin Piperacillin Sod/ Tazobactam Sod 100 ml @ 25 mls/hr Q8HR IV 06/02/24 14:00 06/06/24 06:26 25 MLS/HR Diagnostic Test (Pha) 1 strip ACHS 06/02/24 07:00 06/06/24 11:09 1 STRIP Insulin Human Regular ACHS SC 06/02/24 07:00 06/05/24 21:48 2 UNITS Dextrose 50 ml UD PRN IV 06/02/24 07:00 Ondansetron HCl 4 mg Q4HP PRN IV 06/02/24 07:00 Enoxaparin Sodium 30 mg DAILY SC 06/02/24 10:00 06/06/24 08:46 30 MG Acetaminophen 650 mg Q6HP PRN PO 06/02/24 07:00 Methylprednisolone Sodium Succinate 40 mg Q8HR IV 06/02/24 14:00 06/06/24 06:26 40 MG Albuterol 2.5 mg Q2HPRN PRN NEB 06/02/24 08:45 Ipratropium [place] 0.5 mg Q2HPRN PRN NEB 06/02/24 08:45 Norepinephrine Bitartrate 250 ml @ 3.75 mls/hr Q24H IV 06/02/24 14:00 06/06/24 05:22 15 MLS/HR Midazolam HCl 50 ml @ 1 mls/hr Q24H IV 06/02/24 17:45 06/06/24 08:45 5 MLS/HR Fentanyl Citrate 250 ml @ 2.5 mls/hr Q24H IV 06/02/24 17:45 06/04/24 17:38 2.5 MLS/HR Phenylephrine HCl 250 ml @ 30 mls/hr Q8H20M IV 06/02/24 18:00 Albuterol 2.5 mg Q6H NEB 06/03/24 12:00 06/06/24 06:45 2.5 MG Ipratropium [place] 0.5 mg Q6H NEB 06/03/24 12:00 06/06/24 06:46 0.5 MG Doxycycline Hyclate 100 ml @ 50 mls/hr Q12H IV 06/03/24 08:45 06/06/24 08:44 50 MLS/HR Enteral Nutritional Formula 1,000 ml 30ML/HR GT 06/03/24 08:45 06/03/24 15:18 1,000 ML Pantoprazole Sodium 40 mg BID IV 06/04/24 10:00 06/06/24 08:45 40 MG Furosemide 100 mg/ Sodium Chloride 110 ml @ 11 mls/hr Q10H IV 06/04/24 15:15 06/06/24 03:21 11 MLS/HR Amino Acids 0 ml @ 0 mls/hr PER PHARMACY IV 06/06/24 06:45 UNV Metoclopramide HCl 10 mg Q8HR IV 06/06/24 14:00 06/07/24 06:01 Lactated Ringer's 1,000 ml @ 75 mls/hr [id number] IV 06/06/24 11:00 06/06/24 10:59 75 MLS/HR Examination: GENERAL:Abnormal, LUNGS:Abnormal, CVS:Abnormal, ABDOMEN:Abnormal laboratory and microbiology Laboratory Tests 06/06/24 05:11 Test 06/06/24 05:11 Range/Units Serum Glucose 112 H 74-106 mg/dL Microbiology Date/Time Source Procedure Growth Status 06/02/24 22:30 Nose MRSA Screen - Final Complete 06/02/24 18:00 Sputum Gram Stain - Final Resulted 06/02/24 18:00 Sputum Respiratory Culture - Preliminary Resulted 06/02/24 15:57 Voided Urine Urine Culture - Final Complete 06/02/24 04:30 Blood Blood Culture - Preliminary NO GROWTH AFTER 72 HOURS OF INCUBATION. Resulted Problem List/Assessment/Plan Problem List/Assessment/Plan Acute kidney injury hemodynamically mediated No previous history of CKD Bilateral small pleural effusions with PleurX catheter in place Metastatic cancer Severe protein calorie malnutrition worsening azotemia is multifactorial. catabolic state, steroids and high protein continue IVF , change to lactated ringer diuretics to increase UOP Pressors to maintain mean arterial pressure greater than 65 Avoid hypotension Critically ill patient's poor prognosis due to poor functional status and failure to thrive. patient is hospice candidate. not candidate for nursing home dialysis Family at bedside his opted towards avoiding hemodialysis. Code status changed to chemical code prognosis is grim Plan discussed with: Other (mother) My Orders My Orders Orders - NATHAN LOOMIS MD Procedure Category Date Status Time Lactated Ringer's PHA 06/06/24 In Process 11:00 Dietary Evaluation Review Comments: 1. Nepro 30 ml/hr is providing 58 gPro, 1274 kcal supporting pt's needs at 96% of protein, 102% of energy needs as long as pt is on vent. 2. Increase energy feedings once pt is off vent, 3. To avoid nephrotic syndrome, offer a Renal Specific diet with 60 g protein restriction after passing a speech eval. Expected Outcomes/Goals: monitor kidney function and reduce dietary protein for avoiding nephrotic symptoms, Critical Care Time (mins): 33 NATHAN LOOMIS MD Jun 06, 2024 11:25
[2024-06-06] MEDS: METOCLOPRAMIDE HCL 5MG/ml INJ 2ml VIAL IV SCH (14:00)
[2024-06-06] MEDS: InsuLIN REG 1unit/0.01ml Soln (100units/ml) SC SCH (16:55)
[2024-06-06] MEDS: ACCU-CHEK COMFORT CURVE STRIP VI SCH (18:00)
--- NOTE | 2024-06-06 21:52 | DVHPN2 ---
Progress Note - Dictate Date Seen: Jun 06, 2024 Medical Necessity Reason Pt with a Central, PICC or Fol: Yes The following are medically ne: Central Line, Dc Catheter Reason for dc catheter: Strict I&O Subjective Patient seen and examined at bedside. Sedated, intubated on mechanical ventilator. Overnight events reviewed. vital signs Vital Sign Date Time Temp Pulse Resp B/P (MAP) Pulse Ox O2 Delivery O2 Flow Rate FiO2 06/06/24 20:30 96 20 92/63 (73) 97 35 06/06/24 20:00 Mechanical Ventilator+ 06/06/24 20:00 97.7 97.7 Total Intake and Output 06/05/24 06/05/24 06/06/24 15:00 23:00 07:00 Intake Total 1001.75 ml 1410.5 ml 1745.5 ml Output Total 300 ml 350 ml Balance 1001.75 ml 1110.5 ml 1395.5 ml medications Current Medications Medications Dose Ordered Sig/Sonia Route Start Time Stop Time Status Last Admin Dose Admin Piperacillin Sod/ Tazobactam Sod 100 ml @ 25 mls/hr Q8HR IV 06/02/24 14:00 06/06/24 14:01 25 MLS/HR Ondansetron HCl 4 mg Q4HP PRN IV 06/02/24 07:00 Enoxaparin Sodium 30 mg DAILY SC 06/02/24 10:00 06/06/24 08:46 30 MG Acetaminophen 650 mg Q6HP PRN PO 06/02/24 07:00 Methylprednisolone Sodium Succinate 40 mg Q8HR IV 06/02/24 14:00 06/06/24 14:00 40 MG Albuterol 2.5 mg Q2HPRN PRN NEB 06/02/24 08:45 Ipratropium [place] 0.5 mg Q2HPRN PRN NEB 06/02/24 08:45 Norepinephrine Bitartrate 250 ml @ 3.75 mls/hr Q24H IV 06/02/24 14:00 06/06/24 05:22 15 MLS/HR Midazolam HCl 50 ml @ 1 mls/hr Q24H IV 06/02/24 17:45 06/06/24 19:44 5 MLS/HR Fentanyl Citrate 250 ml @ 2.5 mls/hr Q24H IV 06/02/24 17:45 06/06/24 18:05 2.5 MLS/HR Phenylephrine HCl 250 ml @ 30 mls/hr Q8H20M IV 06/02/24 18:00 Albuterol 2.5 mg Q6H NEB 06/03/24 12:00 06/06/24 18:19 2.5 MG Ipratropium [place] 0.5 mg Q6H NEB 06/03/24 12:00 06/06/24 18:23 0.5 MG Doxycycline Hyclate 100 ml @ 50 mls/hr Q12H IV 06/03/24 08:45 06/06/24 08:44 50 MLS/HR Enteral Nutritional Formula 1,000 ml 30ML/HR GT 06/03/24 08:45 06/03/24 15:18 1,000 ML Pantoprazole Sodium 40 mg BID IV 06/04/24 10:00 06/06/24 08:45 40 MG Furosemide 100 mg/ Sodium Chloride 110 ml @ 11 mls/hr Q10H IV 06/04/24 15:15 06/06/24 19:42 11 MLS/HR Amino Acids 0 ml @ 0 mls/hr PER PHARMACY IV 06/06/24 06:45 Metoclopramide HCl 10 mg Q8HR IV 06/06/24 14:00 06/07/24 06:01 06/06/24 14:00 10 MG Lactated Ringer's 1,000 ml @ 75 mls/hr [id number] IV 06/06/24 11:00 06/06/24 10:59 75 MLS/HR Fat Emulsion Intravenous 50 ml/ Potassium Acetate 10 meq/ Multivitamins 10 ml/Chromium/ Copper/Manganese/ Zinc 1 ml/Amino Acids/Dextrose 866 ml @ 36 mls/hr Q24H4M IV 06/06/24 22:00 06/07/24 21:59 Diagnostic Test (Pha) 1 strip Q6HR 06/06/24 18:00 06/06/24 18:00 1 STRIP Insulin Human Regular FOLLOW SLIDING SCALE Q6HR SC 06/06/24 18:00 06/06/24 16:55 2 UNITS Dextrose 50 ml UD IV 06/06/24 22:00 Dexmedetomidine HCl 400 mcg/ Dextrose 100 ml @ 2.56 mls/hr Q24H IV 06/06/24 18:30 objective Gen.: Patient lying in bed in medical ICU. Sedated, intubated on mechanical ventilator. Head: Normocephalic, atraumatic. Eyes: PERRLA. Ears: Normal external anatomy. Throat: Endotracheal tube and orogastric tube in place. Neck: Supple, trachea midline. Chest: Transmitted breath sounds bilaterally. Decreased air entry bilaterally. No wheezing. Bibasilar crackles. Cardiovascular: Positive S1, positive S2. Regular rate and rhythm. Abdomen: Positive bowel sounds in all 4 quadrants. Soft, nontender, nondistended. : Dc in place. Normal external genitalia. Rectal: Deferred. Skin: Warm, dry. Intact. Extremities: 2+ radial pulses bilaterally. No lower extremity edema. Neuro: Sedated. laboratory and microbiology Laboratory Tests 06/06/24 05:11 Test 06/06/24 05:11 Range/Units Serum Glucose 112 H 74-106 mg/dL Assessment/Plan Impression: Acute hypoxic respiratory failure Acute hypercarbic respiratory failure, PaCO2 60.5 mmHg On mechanical ventilator Recurrent right pleural effusion due to malignancy Renal cell carcinoma with metastasis to the lung Ex-smoker Cachexia, BMI 15.8 Shock Events: Remains on vent support On vent: RR 20, VT 450, PEEP 8 -->5, Fio2 35% Sedated on Versed, Fentanyl OK to start Precedex drip if necessary ABG reviewed, acidemia CXR reviewed, demonstrates bilateral nodular and confluence consolidations throughout both lung saleh. Right chest tube in place. On pressors for hemodynamic support. On Levophed 6 mcg/min Start vasopressin if necessary. Titrate to keep MAP above 65 mmHg/SBP above 90 mmHg. Improved pressor requirements Continue to drain PleurX every other day. Continue antibiotics Continue bronchodilators IV steroids Diurese w/ Lasix drip Monitor renal function - creatinine trending up Monitor electrolytes. Supplement as necessary. Nephrology recommendations appreciated Family declined hemodialysis Taper sedation as tolerated Plan for CPAP in AM. Poor prognosis GI prophylaxis w/ Pepcid DVT prophylaxis w/ Lovenox Labs and imaging reviewed. Rest of plan as noted below. Plan: s/p intubation on mechanical ventilator CXR image and report reviewed. Bilateral lung masses. Endotracheal tube in place. Bilateral pleural effusions, [id number]-right pleural effusion. ABG reviewed. Acidemia due to CO2 retention On vent: RR 20, VT 450, PEEP 5, Fio2 35% Titrate FIO2 to keep O2 saturation above 92%. VAP bundle Daily ABG and CXR while intubated. Sedate for ventilator synchrony On pressors for hemodynamic support. On Levophed Start vasopressin if necessary. Titrate to keep MAP above 65 mmHg/SBP above 90 mmHg. Broad-spectrum empiric antibiotics. F/u cultures. Monitor renal function due to Acute kidney injury. Monitor electrolytes. Supplement as necessary. Nutritional support. Accucheks, ISS. GI/DVT prophylaxis. Condition: Critical Prognosis: Poor given multiple comorbidities. Rest of plan per hospitalist and other consultants. A total of 35 minutes of critical care time was spent reviewing the patient record, examining the patient, making a diagnostic and therapeutic plan, discussing this plan with the medical personnel, following up on diagnostic studies and following the patient for clinical stability excluding any and all procedures. At least 50% of this time was spent in direct, [id number] contact. Thank you AMOS Gifford for allowing me to participate in this patient's care. Further recommendations will depend on patient's clinical course. Please do not hesitate to contact me if you have any questions or concerns. This medical document was created using an electronic medical record system with [employer] dictation system. Although this document has been carefully reviewed, there may still be some phonetic and typographical errors. These areas are purely typographical due to imperfections of the software programs, and do not reflect any compromise in the patient's medical care. Dietary Evaluation Review Comments: 1. Nepro 30 ml/hr is providing 58 gPro, 1274 kcal supporting pt's needs at 96% of protein, 102% of energy needs as long as pt is on vent. 2. Increase energy feedings once pt is off vent, 3. To avoid nephrotic syndrome, offer a Renal Specific diet with 60 g protein restriction after passing a speech eval. Expected Outcomes/Goals: monitor kidney function and reduce dietary protein for avoiding nephrotic symptoms, Plan discussed with: Other (ROBERT Lester) Critical Care Time(min): 35 YIN SAMSON MD Jun 06, 2024 21:52
[2024-06-06] MEDS: FAT EMULSION IV NR (21:55)
[2024-06-06] MEDS: MULTIPLE VIT IV NR (21:55)
[2024-06-06] MEDS: POTASSIUM ACETATE IV NR (21:55)
[2024-06-06] MEDS: VIT K IV NR (21:55)
[2024-06-06] MEDS: [UNRECOGNIZED DRUG - OTHER] IV NR (21:55)
[2024-06-06] MEDS ORDERED: DEXTROSE (50%) 50ML SYRG IV SCH (22:00)
[2024-06-07] VITALS (112 sets, daily range): BP systolic 78–145; BP diastolic 51–96; PULSE 69–111; RESP 10–24; TEMP 97.8–99.2; O2SAT 95–100
[2024-06-07 05:51] LABS: Basophils # (auto) 0 10 ^3/uL (0-0.2); Basophils % (auto) 0.1 % (0.0-2.0); Eosinophils # (auto) 0 10 ^3/uL (0-0.8); Lymphocytes # (auto) 0.3 10 ^3/uL (0.4-5.4); Mean Corpuscular Hemoglobin 26.9 pg (28.0-32.0); Monocytes # (auto) 0.4 10 ^3/uL (0-1.3); Monocytes % (auto) 2.8 % (0.0-12.0)
[2024-06-07 05:53] LABS: Hematocrit 30.4 % (41.0-53.0); Hemoglobin 9.7 g/dL (13.5-17.5); Lymphocytes % (auto) 2.2 % (10.0-50.0); Mean Corpuscular Volume 84.1 fL (80.0-100.0); Neutrophils # (auto) 14.2 10 ^3/uL (1.6-8.6); Neutrophils % (auto) 94.9 % (37.0-80.0); Platelet Count (auto) 141 10^3/uL (140-450); Red Blood Cells 3.62 10^6/uL (4.5-5.90)
[2024-06-07 05:55] LABS: Base Excess -11.3 mmol/L (-2.0-3.0)
[2024-06-07 05:57] LABS: Alanine Aminotransferase 23 U/L (7-40); Anion Gap 15 (5-15); BUN/Creatinine Ratio 30.7 (10.0-20.0); Magnesium 2.3 mg/dL (1.6-2.6); Potassium 3.8 mmol/L (3.5-5.1); Sodium 142 mmol/L (136-145)
[2024-06-07 05:58] LABS: Bilirubin, Total 0.4 mg/dL (0.2-1.0)
[2024-06-07 06:19] LABS: Albumin 3.1 g/dL (3.2-4.8); Alkaline Phosphatase 469 U/L (46-116); Aspartate Aminotransferase 54 U/L (13-40); Calcium 8.5 mg/dL (8.7-10.4); Carbon Dioxide 16 mmol/L (20-31); Chloride 111 mmol/L (98-107); Glucose 247 mg/dL (74-106); Phosphorus 5.7 mg/dL (2.4-5.1); Total Protein 5.1 g/dL (5.7-8.2)
[2024-06-07 06:21] LABS: Blood Urea Nitrogen 104 mg/dL (9-23)
--- NOTE | 2024-06-07 06:49 | DVH ---
EXAM: XY CHEST PORTABLE HISTORY: pna COMPARISON: XY CHEST PORTABLE on DOS: 06/06/24, XY CHEST XRAY 1 VIEW on DOS: 06/05/24, XY CHEST PORTABLE on DOS: 06/05/24, XY CHEST PORTABLE on DOS: 06/04/24, XY CHEST PORTABLE on DOS: 06/02/24, chest CT date d 05/17/2024 TECHNIQUE: Portable AP view of the chest was performed. FINDINGS: Endotracheal tube is re-identified with its tip 5 cm above the zena. Tube and left subclavian centr al line re-identified. Bilateral lung nodules, bilateral lower lobe consolidative infiltrates, and ex tensive mediastinal lymphadenopathy are better characterized on prior CT scan. Emphysematous changes are better characterized on prior CT scan. No pneumothorax. The heart is not enlarged. IMPRESSION: 1. Mechanical ventilation with tubes and lines as above. 2. Bilateral lung base consolidative infiltrates, bilateral malignant appearing lung nodules, and ext ensive pathologic appearing mediastinal lymphadenopathy re-identified. 3. Emphysema.
--- NOTE | 2024-06-07 09:55 | DVHPN2 ---
Subjective Patient chemically sedated, with some motor movement noted. Reviewed: Care Plan, H&P, Labs, Medications Changes from previous H/P or p: No Changes General: Per HPI Respiratory: Shortness of breath Objective Vitals Vital Signs Date Time Temp Pulse Resp B/P (MAP) Pulse Ox O2 Delivery O2 Flow Rate FiO2 06/07/24 08:29 94 21 131/85 (100) 96 35 06/07/24 06:00 Mechanical Ventilator+ 06/07/24 04:00 98.5 98.5 Intake/Output Intake and Output 06/07/24 07:00 Intake Total 3688.25 ml Output Total 752 ml Balance 2936.25 ml Intake Oral 0 ml IV Total 3688.25 ml Output Urine Total 750 ml Stool Total 2 ml General Appearance: moderate distress, Other (Cachexia) HEENT: Atraumatic, PERRLA Cardiovascular: Normal S1, Normal S2 Abdomen: Normal bowel sounds, Soft, No tenderness Musculoskeletal: Normal sensory function, Normal motor function Neuro: Normal gait, Normal speech Skin: Dry, Intact Psych/Mental Status: Mental status NL, Mood NL Medications Current Medications Medications Dose Ordered Sig/Sonia Route Start Time Stop Time Status Last Admin Dose Admin Ondansetron HCl 4 mg Q4HP PRN IV 06/02/24 07:00 Enoxaparin Sodium 30 mg DAILY SC 06/02/24 10:00 06/06/24 08:46 30 MG Acetaminophen 650 mg Q6HP PRN PO 06/02/24 07:00 Albuterol 2.5 mg Q2HPRN PRN NEB 06/02/24 08:45 Ipratropium [place] 0.5 mg Q2HPRN PRN NEB 06/02/24 08:45 Norepinephrine Bitartrate 250 ml @ 3.75 mls/hr Q24H IV 06/02/24 14:00 06/07/24 00:06 15 MLS/HR Midazolam HCl 50 ml @ 1 mls/hr Q24H IV 06/02/24 17:45 06/07/24 05:01 5 MLS/HR Fentanyl Citrate 250 ml @ 2.5 mls/hr Q24H IV 06/02/24 17:45 06/06/24 18:05 2.5 MLS/HR Phenylephrine HCl 250 ml @ 30 mls/hr Q8H20M IV 06/02/24 18:00 Albuterol 2.5 mg Q6H NEB 06/03/24 12:00 06/07/24 06:18 2.5 MG Ipratropium [place] 0.5 mg Q6H NEB 06/03/24 12:00 06/07/24 06:18 0.5 MG Doxycycline Hyclate 100 ml @ 50 mls/hr Q12H IV 06/03/24 08:45 06/06/24 22:09 50 MLS/HR Enteral Nutritional Formula 1,000 ml 30ML/HR GT 06/03/24 08:45 06/03/24 15:18 1,000 ML Pantoprazole Sodium 40 mg BID IV 06/04/24 10:00 06/06/24 21:53 40 MG Furosemide 100 mg/ Sodium Chloride 110 ml @ 11 mls/hr Q10H IV 06/04/24 15:15 06/07/24 05:00 11 MLS/HR Amino Acids 0 ml @ 0 mls/hr PER PHARMACY IV 06/06/24 06:45 Lactated Ringer's 1,000 ml @ 75 mls/hr [id number] IV 06/06/24 11:00 06/07/24 00:20 75 MLS/HR Fat Emulsion Intravenous 50 ml/ Potassium Acetate 10 meq/ Multivitamins 10 ml/Chromium/ Copper/Manganese/ Zinc 1 ml/Amino Acids/Dextrose 866 ml @ 36 mls/hr Q24H4M IV 06/06/24 22:00 06/07/24 21:59 06/06/24 21:55 36 MLS/HR Diagnostic Test (Pha) 1 strip Q6HR 06/06/24 18:00 06/07/24 06:10 1 STRIP Insulin Human Regular FOLLOW SLIDING SCALE Q6HR SC 06/06/24 18:00 06/07/24 06:10 8 UNITS Dextrose 50 ml UD IV 06/06/24 22:00 Dexmedetomidine HCl 400 mcg/ Dextrose 100 ml @ 2.56 mls/hr Q24H IV 06/06/24 18:30 Methylprednisolone Sodium Succinate 40 mg Q8HR IV 06/07/24 14:00 Micafungin Sodium 100 mg/Sodium Chloride 100 ml @ 100 mls/hr DAILY IV 06/07/24 10:00 Fat Emulsion Intravenous 50 ml/ Potassium Acetate 10 meq/ Multivitamins 10 ml/Chromium/ Copper/Manganese/ Zinc 1 ml/Amino Acids/Dextrose 866 ml @ 36 mls/hr Q24H4M IV 06/07/24 22:00 06/08/24 21:59 Laboratory Results Laboratory Tests 06/07/24 05:19 Chemistry Test 06/07/24 05:19 Albumin 3.1 g/dL (3.2-4.8) L Calcium Level 8.5 mg/dL (8.7-10.4) L Magnesium Level 2.3 mg/dL (1.6-2.6) Phosphorus Level 5.7 mg/dL (2.4-5.1) H Total Protein 5.1 g/dL (5.7-8.2) L LFT Test 06/07/24 05:19 Alanine Aminotransferase (ALT) 23 U/L (7-40) Alkaline Phosphatase 469 U/L (46-116) H Aspartate Amino Transferase (AST) 54 U/L (13-40) H Total Bilirubin 0.4 mg/dL (0.2-1.0) Urinalysis Test 06/02/24 15:57 Urine Color Yellow (Yellow) Urine Clarity Turbid (Clear) H Urine pH 5.0 (5.0-9.0) Urine Specific [place] 1.020 (1.001-1.035) Urine Protein 1+ (Negative) H Urine Ketones Negative (Negative) Urine Blood Trace /uL (Negative) H Urine Nitrite Negative (Negative) Urine Bilirubin Negative (Negative) Urine Urobilinogen Normal mg/dL (Negative) Urine Leukocyte Esterase Trace /uL (Negative) Urine RBC 7 /hpf (0 - 3) Urine Microscopic WBC 6 /HPF (0-3) H Urine Squamous Epithelial Cells Few /hpf (<5) Urine Calcium Oxalate Crystals Few (None Seen) Urine Bacteria Few /hpf (None Seen) H Urine Hyaline Casts Few /lpf (0 - 2) Urine Mucus Few (None Seen) Urine Sperm Present /hpf (None Seen) Urine Creatinine 105.47 mg/dL (30.0-125.0) Urine Sodium < 10 mmol/L (40-220) L Urine Glucose Normal mg/dL (Normal) Blood Gas Results Test 06/07/24 05:48 Arterial Blood pH 7.309 (7.350-7.450) FiO2 % 35.0 Microbiology Microbiology Date/Time Source Procedure Growth Status 06/02/24 22:30 Nose MRSA Screen - Final Complete 06/02/24 18:00 Sputum Gram Stain - Final Resulted 06/02/24 18:00 Sputum Respiratory Culture - Preliminary Resulted 06/02/24 15:57 Voided Urine Urine Culture - Final Complete 06/02/24 04:30 Blood Blood Culture - Final NO GROWTH AFTER 5 DAYS OF INCUBATION. Complete Labs and/or images reviewed: Labs reviewed by me, Image(s) reviewed by me Assessment/Plan Assessment/Plan Impression: -acute on chronic hypoxic and hypercarbic respiratory failure -metabolic encephalopathy secondary to hypercarbia and hypercalcemia -renal cell carcinoma, status post nephrectomy with metastatic cancer to the lungs -cachexia -hypercalcemia -metabolic acidosis -diabetes mellitus -acute kidney injury, probable vasomotor nephropathy -CKD stage IIIB -history of nephrectomy Plan: -events: Sputum culture positive for filamentous fungi. Start micafungin. Plans for spontaneous breathing trial today. If patient fails, start tube feeding and wean off TPN. Long discussion made with the patient's mother regarding plan of care and poor prognosis the patient. She continues to be hopeful for extubation today. -KUB unremarkable -pulmonary consultation: Ventilator management per their discretion. -nephrology consultation : Recommendations reviewed -stopped IV fluids material Lasix drip -continue tube feeding -PleurX catheter with no drainage today. -regular insulin sliding scale -continue doxycycline and micafungin. Stop Zosyn -repeat labs in a.m. Prognosis: Poor given multiple comorbidities and advanced metastatic cancer. Critical care time spent with patient discussing and formulating plan of care: 40 minutes. This does not include time spent performing procedures. This medical document was created using an electronic medical record system with [employer] dictation system. Although this document has been carefully reviewed, there may still be some phonetic and typographical errors. These areas are purely typographical due to imperfections of the software programs, and do not reflect any compromise in the patient's medical care. Plan discussed with: Patient, Other (RN) My Orders Orders - MARCELO CARRASCO NP Procedure Category Date Status Time Amino Acid PHA 06/06/24 In Process Infusion... W/Fat 22:00 Dextrose 50% Syringe PHA 06/06/24 In Process 22:00 Glucose Blood PHA 06/06/24 In Process (Accu-Chek Comfort 18:00 Insulin R (Human) PHA 06/06/24 In Process (Insulin R) 18:00 Tpn Per Pharmacy DAN[facility] 06/06/24 In Process 22:00 Methylprednisolone PHA 06/07/24 In Process Sod Succ (Solu Medrol 14:00 Micafungin Sodium PHA 06/07/24 In Process (Mycamine) 10:00 Communication Order ORDERS 06/07/24 Transmitted 06:46 Amino Acid PHA 06/07/24 In Process Infusion... W/Fat 22:00 Date of Service: Jun 07, 2024 Billing Provider: MARCELO CARRASCO NP Common Visit Codes: 35455-[id number] CARE 30-74 MIN MARCELO CARRASCO NP Jun 07, 2024 09:55
[2024-06-07] MEDS: MICAFUNGIN SODIUM 100 MG in SODIUM CHL 0.9% 100 ML IV SCH (10:43)
[2024-06-07] MEDS: methylPREDNISolone SOD SUCC 40 MG/ML VL IV SCH (13:45)
[2024-06-07] MEDS: SODIUM BICARB 8.4% 50Meq/50ml SYR Vial IV ONE (14:42)
--- NOTE | 2024-06-07 17:30 | DVHPN2 ---
Progress Note Date Seen: Jun 07, 2024 Medical Necessity Reason Pt with a Central, PICC or Fol: Yes The following are medically ne: Central Line, Dc Catheter Reason for dc catheter: Strict I&O Subjective Review of Systems: RESPIRATORY:Abnormal Objective vital signs Vital Sign Date Time Temp Pulse Resp B/P (MAP) Pulse Ox O2 Delivery O2 Flow Rate FiO2 06/07/24 16:30 129/91 06/07/24 16:30 111 18 99 06/07/24 16:12 35 06/07/24 16:00 99.2 99.2 06/07/24 15:47 Mechanical Ventilator+ Total Intake and Output 06/06/24 06/06/24 06/07/24 15:00 23:00 07:00 Intake Total 953.75 ml 1155.25 ml 1579.25 ml Output Total 250 ml 502 ml Balance 953.75 ml 905.25 ml 1077.25 ml medications Current Medications Medications Dose Ordered Sig/Sonia Route Start Time Stop Time Status Last Admin Dose Admin Ondansetron HCl 4 mg Q4HP PRN IV 06/02/24 07:00 Enoxaparin Sodium 30 mg DAILY SC 06/02/24 10:00 06/07/24 10:45 30 MG Acetaminophen 650 mg Q6HP PRN PO 06/02/24 07:00 Albuterol 2.5 mg Q2HPRN PRN NEB 06/02/24 08:45 Ipratropium [place] 0.5 mg Q2HPRN PRN NEB 06/02/24 08:45 Norepinephrine Bitartrate 250 ml @ 3.75 mls/hr Q24H IV 06/02/24 14:00 06/07/24 00:06 15 MLS/HR Midazolam HCl 50 ml @ 1 mls/hr Q24H IV 06/02/24 17:45 06/07/24 05:01 5 MLS/HR Fentanyl Citrate 250 ml @ 2.5 mls/hr Q24H IV 06/02/24 17:45 06/06/24 18:05 2.5 MLS/HR Phenylephrine HCl 250 ml @ 30 mls/hr Q8H20M IV 06/02/24 18:00 Albuterol 2.5 mg Q6H NEB 06/03/24 12:00 06/07/24 11:43 2.5 MG Ipratropium [place] 0.5 mg Q6H NEB 06/03/24 12:00 06/07/24 11:43 0.5 MG Doxycycline Hyclate 100 ml @ 50 mls/hr Q12H IV 06/03/24 08:45 06/07/24 10:43 50 MLS/HR Enteral Nutritional Formula 1,000 ml 30ML/HR GT 06/03/24 08:45 06/03/24 15:18 1,000 ML Pantoprazole Sodium 40 mg BID IV 06/04/24 10:00 06/07/24 10:43 40 MG Furosemide 100 mg/ Sodium Chloride 110 ml @ 11 mls/hr Q10H IV 06/04/24 15:15 06/07/24 12:59 11 MLS/HR Amino Acids 0 ml @ 0 mls/hr PER PHARMACY IV 06/06/24 06:45 Lactated Ringer's 1,000 ml @ 75 mls/hr [id number] IV 06/06/24 11:00 06/07/24 12:59 75 MLS/HR Fat Emulsion Intravenous 50 ml/ Potassium Acetate 10 meq/ Multivitamins 10 ml/Chromium/ Copper/Manganese/ Zinc 1 ml/Amino Acids/Dextrose 866 ml @ 36 mls/hr Q24H4M IV 06/06/24 22:00 06/07/24 21:59 06/06/24 21:55 36 MLS/HR Diagnostic Test (Pha) 1 strip Q6HR 06/06/24 18:00 06/07/24 12:36 1 STRIP Insulin Human Regular FOLLOW SLIDING SCALE Q6HR SC 06/06/24 18:00 06/07/24 12:40 8 UNITS Dextrose 50 ml UD IV 06/06/24 22:00 Dexmedetomidine HCl 400 mcg/ Dextrose 100 ml @ 2.56 mls/hr Q24H IV 06/06/24 18:30 Methylprednisolone Sodium Succinate 40 mg Q8HR IV 06/07/24 14:00 06/07/24 13:45 40 MG Micafungin Sodium 100 mg/Sodium Chloride 100 ml @ 100 mls/hr DAILY IV 06/07/24 10:00 06/07/24 10:43 100 MLS/HR Fat Emulsion Intravenous 50 ml/ Potassium Acetate 10 meq/ Multivitamins 10 ml/Chromium/ Copper/Manganese/ Zinc 1 ml/Insulin Human Regular 4 units/Amino Acids/ Dextrose 866.04 ml @ 36 mls/hr Q24H4M IV 06/07/24 22:00 06/08/24 21:59 Examination: GENERAL:Abnormal, LUNGS:Abnormal, CVS:Abnormal, ABDOMEN:Abnormal, NEURO:Abnormal laboratory and microbiology Laboratory Tests 06/07/24 05:19 Test 06/07/24 05:19 Range/Units Serum Glucose 247 #H 74-106 mg/dL Microbiology Date/Time Source Procedure Growth Status 06/02/24 22:30 Nose MRSA Screen - Final Complete 06/02/24 18:00 Sputum Gram Stain - Final Resulted 06/02/24 18:00 Sputum Respiratory Culture - Preliminary Resulted 06/02/24 15:57 Voided Urine Urine Culture - Final Complete 06/02/24 04:30 Blood Blood Culture - Final NO GROWTH AFTER 5 DAYS OF INCUBATION. Complete Problem List/Assessment/Plan Problem List/Assessment/Plan Acute kidney injury hemodynamically mediated No previous history of CKD Bilateral small pleural effusions with PleurX catheter in place Metastatic cancer Severe protein calorie malnutrition Fungal PNA worsening azotemia is multifactorial. catabolic state, steroids and high protein continue IVF , change to lactated ringer diuretics to increase UOP Pressors to maintain mean arterial pressure greater than 65 Avoid hypotension Critically ill patient's poor prognosis due to poor functional status and failure to thrive. patient is hospice candidate. not candidate for [facility] dialysis Family at bedside his opted towards avoiding hemodialysis. Code status changed to chemical code prognosis is grim Plan discussed with: Other (mother) Dietary Evaluation Review Comments: 1. Nepro 30 ml/hr is providing 58 gPro, 1274 kcal supporting pt's needs at 96% of protein, 102% of energy needs as long as pt is on vent. 2. Increase energy feedings once pt is off vent, 3. To avoid nephrotic syndrome, offer a Renal Specific diet with 60 g protein restriction after passing a speech eval. Expected Outcomes/Goals: monitor kidney function and reduce dietary protein for avoiding nephrotic symptoms, NATHAN LOOMIS MD Jun 07, 2024 17:30
--- NOTE | 2024-06-07 21:28 | DVHPN2 ---
Progress Note - Dictate Date Seen: Jun 07, 2024 Medical Necessity Reason Pt with a Central, PICC or Fol: Yes The following are medically ne: Central Line, Dc Catheter Reason for dc catheter: Strict I&O Subjective Patient seen and examined at bedside. Sedated, intubated on mechanical ventilator. Overnight events reviewed. vital signs Vital Sign Date Time Temp Pulse Resp B/P (MAP) Pulse Ox O2 Delivery O2 Flow Rate FiO2 06/07/24 20:48 85 21 89/62 (71) 99 35 06/07/24 20:00 97.8 97.8 06/07/24 18:01 Mechanical Ventilator+ Total Intake and Output 06/06/24 06/06/24 06/07/24 15:00 23:00 07:00 Intake Total 953.75 ml 1155.25 ml 1579.25 ml Output Total 250 ml 502 ml Balance 953.75 ml 905.25 ml 1077.25 ml medications Current Medications Medications Dose Ordered Sig/Sonia Route Start Time Stop Time Status Last Admin Dose Admin Ondansetron HCl 4 mg Q4HP PRN IV 06/02/24 07:00 Enoxaparin Sodium 30 mg DAILY SC 06/02/24 10:00 06/07/24 10:45 30 MG Acetaminophen 650 mg Q6HP PRN PO 06/02/24 07:00 Albuterol 2.5 mg Q2HPRN PRN NEB 06/02/24 08:45 Ipratropium [place] 0.5 mg Q2HPRN PRN NEB 06/02/24 08:45 Norepinephrine Bitartrate 250 ml @ 3.75 mls/hr Q24H IV 06/02/24 14:00 06/07/24 00:06 15 MLS/HR Midazolam HCl 50 ml @ 1 mls/hr Q24H IV 06/02/24 17:45 06/07/24 05:01 5 MLS/HR Fentanyl Citrate 250 ml @ 2.5 mls/hr Q24H IV 06/02/24 17:45 06/06/24 18:05 2.5 MLS/HR Phenylephrine HCl 250 ml @ 30 mls/hr Q8H20M IV 06/02/24 18:00 Albuterol 2.5 mg Q6H NEB 06/03/24 12:00 06/07/24 18:27 2.5 MG Ipratropium [place] 0.5 mg Q6H NEB 06/03/24 12:00 06/07/24 18:28 0.5 MG Doxycycline Hyclate 100 ml @ 50 mls/hr Q12H IV 06/03/24 08:45 06/07/24 10:43 50 MLS/HR Enteral Nutritional Formula 1,000 ml 30ML/HR GT 06/03/24 08:45 06/03/24 15:18 1,000 ML Pantoprazole Sodium 40 mg BID IV 06/04/24 10:00 06/07/24 10:43 40 MG Furosemide 100 mg/ Sodium Chloride 110 ml @ 11 mls/hr Q10H IV 06/04/24 15:15 06/07/24 12:59 11 MLS/HR Amino Acids 0 ml @ 0 mls/hr PER PHARMACY IV 06/06/24 06:45 Lactated Ringer's 1,000 ml @ 75 mls/hr [id number] IV 06/06/24 11:00 06/07/24 12:59 75 MLS/HR Fat Emulsion Intravenous 50 ml/ Potassium Acetate 10 meq/ Multivitamins 10 ml/Chromium/ Copper/Manganese/ Zinc 1 ml/Amino Acids/Dextrose 866 ml @ 36 mls/hr Q24H4M IV 06/06/24 22:00 06/07/24 21:59 06/06/24 21:55 36 MLS/HR Diagnostic Test (Pha) 1 strip Q6HR 06/06/24 18:00 06/07/24 18:24 1 STRIP Insulin Human Regular FOLLOW SLIDING SCALE Q6HR SC 06/06/24 18:00 06/07/24 18:24 4 UNITS Dextrose 50 ml UD IV 06/06/24 22:00 Dexmedetomidine HCl 400 mcg/ Dextrose 100 ml @ 2.56 mls/hr Q24H IV 06/06/24 18:30 Methylprednisolone Sodium Succinate 40 mg Q8HR IV 06/07/24 14:00 06/07/24 13:45 40 MG Micafungin Sodium 100 mg/Sodium Chloride 100 ml @ 100 mls/hr DAILY IV 06/07/24 10:00 06/07/24 10:43 100 MLS/HR Fat Emulsion Intravenous 50 ml/ Potassium Acetate 10 meq/ Multivitamins 10 ml/Chromium/ Copper/Manganese/ Zinc 1 ml/Insulin Human Regular 4 units/Amino Acids/ Dextrose 866.04 ml @ 36 mls/hr Q24H4M IV 06/07/24 22:00 06/08/24 21:59 objective Gen.: Patient lying in bed in medical ICU. Sedated, intubated on mechanical ventilator. Head: Normocephalic, atraumatic. Eyes: PERRLA. Ears: Normal external anatomy. Throat: Endotracheal tube and orogastric tube in place. Neck: Supple, trachea midline. Chest: Transmitted breath sounds bilaterally. Decreased air entry bilaterally. No wheezing. Bibasilar crackles. Cardiovascular: Positive S1, positive S2. Regular rate and rhythm. Abdomen: Positive bowel sounds in all 4 quadrants. Soft, nontender, nondistended. : Dc in place. Normal external genitalia. Rectal: Deferred. Skin: Warm, dry. Intact. Extremities: 2+ radial pulses bilaterally. No lower extremity edema. Neuro: Sedated. laboratory and microbiology Laboratory Tests 06/07/24 05:19 Test 06/07/24 05:19 Range/Units Serum Glucose 247 #H 74-106 mg/dL Assessment/Plan Impression: Acute hypoxic respiratory failure Acute hypercarbic respiratory failure, PaCO2 60.5 mmHg On mechanical ventilator Recurrent right pleural effusion due to malignancy Renal cell carcinoma with metastasis to the lung Ex-smoker Cachexia, BMI 15.8 Shock Events: Remains on vent support On vent: RR 20, VT 450, PEEP 5, Fio2 35% Sedated on Versed, Fentanyl OK to start Precedex drip if necessary ABG reviewed, acidemia CXR reviewed, demonstrates bilateral lung base consolidative infiltrates, bilateral malignant appearing lung nodules, and extensive pathologic appearing mediastinal lymphadenopathy re-identified. Emphysema. Devices in place. Patient tolerated CPAP for 4 hours NGT - GI hemorrhage Stop low intermittent suction On pressors for hemodynamic support. On Levophed 2 mcg/min Start vasopressin if necessary. Titrate to keep MAP above 65 mmHg/SBP above 90 mmHg. Improved pressor requirements Continue to drain PleurX every other day. Continue antibiotics Continue bronchodilators IV steroids TPN for nutritional support IV fluids with LR at 75 ml/hr. Diurese w/ Lasix drip Monitor renal function - creatinine trending up Monitor electrolytes. Supplement as necessary. Nephrology recommendations appreciated Family declined hemodialysis Taper sedation as tolerated Plan for CPAP in AM. Poor prognosis GI prophylaxis w/ Pepcid DVT prophylaxis w/ Lovenox Labs and imaging reviewed. Rest of plan as noted below. Plan: s/p intubation on mechanical ventilator CXR image and report reviewed. Bilateral lung masses. Endotracheal tube in place. Bilateral pleural effusions, [id number] pleural effusion. ABG reviewed. Acidemia due to CO2 retention On vent: RR 20, VT 450, PEEP 5, Fio2 35% Titrate FIO2 to keep O2 saturation above 92%. VAP bundle Daily ABG and CXR while intubated. Sedate for ventilator synchrony On pressors for hemodynamic support. On Levophed Start vasopressin if necessary. Titrate to keep MAP above 65 mmHg/SBP above 90 mmHg. Broad-spectrum empiric antibiotics. F/u cultures. Monitor renal function due to Acute kidney injury. Monitor electrolytes. Supplement as necessary. Nutritional support. Accucheks, ISS. GI/DVT prophylaxis. Condition: Critical Prognosis: Poor given multiple comorbidities. Rest of plan per hospitalist and other consultants. A total of 35 minutes of critical care time was spent reviewing the patient record, examining the patient, making a diagnostic and therapeutic plan, discussing this plan with the medical personnel, following up on diagnostic studies and following the patient for clinical stability excluding any and all procedures. At least 50% of this time was spent in direct, [id number] contact. Thank you AMOS Gifford for allowing me to participate in this patient's care. Further recommendations will depend on patient's clinical course. Please do not hesitate to contact me if you have any questions or concerns. This medical document was created using an electronic medical record system with [employer] computerized dictation system. Although this document has been carefully reviewed, there may still be some phonetic and typographical errors. These areas are purely typographical due to imperfections of the software programs, and do not reflect any compromise in the patient's medical care. Dietary Evaluation Review Comments: 1. Nepro 30 ml/hr is providing 58 gPro, 1274 kcal supporting pt's needs at 96% of protein, 102% of energy needs as long as pt is on vent. 2. Increase energy feedings once pt is off vent, 3. To avoid nephrotic syndrome, offer a Renal Specific diet with 60 g protein restriction after passing a speech eval. Expected Outcomes/Goals: monitor kidney function and reduce dietary protein for avoiding nephrotic symptoms, Plan discussed with: Other (ROBERT Colon) Critical Care Time(min): 35 YIN SAMSON MD Jun 07, 2024 21:28
[2024-06-07] MEDS: FUROSEMIDE INJECTION 10 ML ONE (22:24)
[2024-06-07] MEDS: [UNRECOGNIZED DRUG - OTHER] IV NR (22:29)
[2024-06-07] MEDS: POTASSIUM ACETATE IV NR (22:29)
[2024-06-07] MEDS: FAT EMULSION IV NR (22:29)
[2024-06-07] MEDS: VIT K IV NR (22:29)
[2024-06-07] MEDS: MULTIPLE VIT IV NR (22:29)
[2024-06-08] VITALS (103 sets, daily range): BP systolic 72–136; BP diastolic 48–95; PULSE 79–107; RESP 8–26; TEMP 94.6–98.6; O2SAT 97–100
--- NOTE | 2024-06-08 05:18 | DVH ---
CHEST RADIOGRAPH Indication: pna Technique: Single frontal view of the chest was obtained COMPARISON: XY CHEST PORTABLE on DOS: 06/07/24, XY CHEST PORTABLE on DOS: 06/06/24, XY CHEST XRAY 1 VIEW on DOS: 06/05/24, XY CHEST PORTABLE on DOS: 06/05/24, XY CHEST PORTABLE on DOS: 06/04/24 FINDINGS: Lines and Tubes: Endotracheal tube, left central venous catheter and right chest tube in satisfactory position. Lungs: Multifocal airspace disease. Masslike opacities in the right upper lung. Pleura: Small bilateral pleural effusions. No pneumothorax. Cardiomediastinal contours: Unremarkable Bones: Unremarkable IMPRESSION: Lines and tubes in satisfactory position. No significant interval change.
[2024-06-08 05:45] LABS: Basophils # (auto) 0 10 ^3/uL (0-0.2); Basophils % (auto) 0.1 % (0.0-2.0); Eosinophils # (auto) 0 10 ^3/uL (0-0.8); Hematocrit 32.8 % (41.0-53.0); Hemoglobin 10.6 g/dL (13.5-17.5); Lymphocytes # (auto) 0.3 10 ^3/uL (0.4-5.4); Lymphocytes % (auto) 2.1 % (10.0-50.0); Mean Corpuscular Hemoglobin 27.3 pg (28.0-32.0); Mean Corpuscular Hgb Conc. 32.3 g/dL (32.0-36.0); Mean Corpuscular Volume 84.6 fL (80.0-100.0); Monocytes # (auto) 0.4 10 ^3/uL (0-1.3); Neutrophils # (auto) 13.8 10 ^3/uL (1.6-8.6); Neutrophils % (auto) 94.8 % (37.0-80.0); Platelet Count (auto) 101 10^3/uL (140-450); Red Blood Cells 3.87 10^6/uL (4.5-5.90); Red Cell Distribution Width 17.2 % (11.8-14.3); White Blood Cell 14.5 10^3/uL (4.4-10.8)
[2024-06-08 05:59] LABS: Alanine Aminotransferase 31 U/L (7-40); Anion Gap 16 (5-15); BUN/Creatinine Ratio 35.7 (10.0-20.0); Sodium 145 mmol/L (136-145)
[2024-06-08 06:00] LABS: Aspartate Aminotransferase 29 U/L (13-40); Phosphorus 4.1 mg/dL (2.4-5.1)
[2024-06-08 06:23] LABS: Carbon Dioxide 18 mmol/L (20-31); Chloride 111 mmol/L (98-107); Glucose 262 mg/dL (74-106); Potassium 2.8 mmol/L (3.5-5.1)
[2024-06-08 06:25] LABS: Albumin 3.1 g/dL (3.2-4.8); Alkaline Phosphatase 638 U/L (46-116); Bilirubin, Total 0.3 mg/dL (0.2-1.0); Blood Urea Nitrogen 111 mg/dL (9-23); Calcium 8.2 mg/dL (8.7-10.4)
--- NOTE | 2024-06-08 08:14 | DVHPN2 ---
Subjective Patient chemically sedated, with some motor movement noted. Reviewed: Care Plan, H&P, Labs, Medications Changes from previous H/P or p: No Changes General: Per HPI Respiratory: Shortness of breath Objective Vitals Vital Signs Date Time Temp Pulse Resp B/P (MAP) Pulse Ox O2 Delivery O2 Flow Rate FiO2 06/08/24 06:45 89 8 127/95 (106) 100 06/08/24 06:14 35 06/08/24 06:00 Mechanical Ventilator+ 06/07/24 20:00 97.8 97.8 Intake/Output Intake and Output 06/08/24 07:00 Intake Total 2350.25 ml Output Total 2901 ml Balance -550.75 ml IV Total 2350.25 ml Output Urine Total 2900 ml Stool Total 1 ml General Appearance: moderate distress, Other (Cachexia) HEENT: Atraumatic, PERRLA Cardiovascular: Normal S1, Normal S2 Abdomen: Normal bowel sounds, Soft, No tenderness Musculoskeletal: Normal sensory function, Normal motor function Neuro: Normal gait, Normal speech Skin: Dry, Intact Psych/Mental Status: Mental status NL, Mood NL Medications Current Medications Medications Dose Ordered Sig/Sonia Route Start Time Stop Time Status Last Admin Dose Admin Ondansetron HCl 4 mg Q4HP PRN IV 06/02/24 07:00 Enoxaparin Sodium 30 mg DAILY SC 06/02/24 10:00 06/07/24 10:45 30 MG Acetaminophen 650 mg Q6HP PRN PO 06/02/24 07:00 Albuterol 2.5 mg Q2HPRN PRN NEB 06/02/24 08:45 Ipratropium [place] 0.5 mg Q2HPRN PRN NEB 06/02/24 08:45 Norepinephrine Bitartrate 250 ml @ 3.75 mls/hr Q24H IV 06/02/24 14:00 06/07/24 00:06 15 MLS/HR Midazolam HCl 50 ml @ 1 mls/hr Q24H IV 06/02/24 17:45 06/07/24 05:01 5 MLS/HR Fentanyl Citrate 250 ml @ 2.5 mls/hr Q24H IV 06/02/24 17:45 06/06/24 18:05 2.5 MLS/HR Phenylephrine HCl 250 ml @ 30 mls/hr Q8H20M IV 06/02/24 18:00 Albuterol 2.5 mg Q6H NEB 06/03/24 12:00 06/08/24 06:12 2.5 MG Ipratropium [place] 0.5 mg Q6H NEB 06/03/24 12:00 06/08/24 06:14 0.5 MG Doxycycline Hyclate 100 ml @ 50 mls/hr Q12H IV 06/03/24 08:45 06/07/24 22:29 50 MLS/HR Enteral Nutritional Formula 1,000 ml 30ML/HR GT 06/03/24 08:45 06/03/24 15:18 1,000 ML Pantoprazole Sodium 40 mg BID IV 06/04/24 10:00 06/07/24 22:25 40 MG Furosemide 100 mg/ Sodium Chloride 110 ml @ 11 mls/hr Q10H IV 06/04/24 15:15 06/07/24 22:23 11 MLS/HR Amino Acids 0 ml @ 0 mls/hr PER PHARMACY IV 06/06/24 06:45 Diagnostic Test (Pha) 1 strip Q6HR 06/06/24 18:00 06/08/24 05:07 1 STRIP Insulin Human Regular FOLLOW SLIDING SCALE Q6HR SC 06/06/24 18:00 06/08/24 05:12 8 UNITS Dextrose 50 ml UD IV 06/06/24 22:00 Dexmedetomidine HCl 400 mcg/ Dextrose 100 ml @ 2.56 mls/hr Q24H IV 06/06/24 18:30 Methylprednisolone Sodium Succinate 40 mg Q8HR IV 06/07/24 14:00 06/08/24 05:14 40 MG Micafungin Sodium 100 mg/Sodium Chloride 100 ml @ 100 mls/hr DAILY IV 06/07/24 10:00 06/07/24 10:43 100 MLS/HR Fat Emulsion Intravenous 50 ml/ Potassium Acetate 10 meq/ Multivitamins 10 ml/Chromium/ Copper/Manganese/ Zinc 1 ml/Insulin Human Regular 4 units/Amino Acids/ Dextrose 866.04 ml @ 36 mls/hr Q24H4M IV 06/07/24 22:00 06/08/24 21:59 06/07/24 22:29 36 MLS/HR Laboratory Results Laboratory Tests 06/08/24 04:55 Chemistry Test 06/08/24 04:55 Albumin 3.1 g/dL (3.2-4.8) L Calcium Level 8.2 mg/dL (8.7-10.4) L Magnesium Level 2.0 mg/dL (1.6-2.6) Phosphorus Level 4.1 mg/dL (2.4-5.1) Total Protein 5.0 g/dL (5.7-8.2) L LFT Test 06/08/24 04:55 Alanine Aminotransferase (ALT) 31 U/L (7-40) Alkaline Phosphatase 638 U/L (46-116) H Aspartate Amino Transferase (AST) 29 U/L (13-40) Total Bilirubin 0.3 mg/dL (0.2-1.0) Urinalysis Test 06/02/24 15:57 Urine Color Yellow (Yellow) Urine Clarity Turbid (Clear) H Urine pH 5.0 (5.0-9.0) Urine Specific [place] 1.020 (1.001-1.035) Urine Protein 1+ (Negative) H Urine Ketones Negative (Negative) Urine Blood Trace /uL (Negative) H Urine Nitrite Negative (Negative) Urine Bilirubin Negative (Negative) Urine Urobilinogen Normal mg/dL (Negative) Urine Leukocyte Esterase Trace /uL (Negative) Urine RBC 7 /hpf (0 - 3) Urine Microscopic WBC 6 /HPF (0-3) H Urine Squamous Epithelial Cells Few /hpf (<5) Urine Calcium Oxalate Crystals Few (None Seen) Urine Bacteria Few /hpf (None Seen) H Urine Hyaline Casts Few /lpf (0 - 2) Urine Mucus Few (None Seen) Urine Sperm Present /hpf (None Seen) Urine Creatinine 105.47 mg/dL (30.0-125.0) Urine Sodium < 10 mmol/L (40-220) L Urine Glucose Normal mg/dL (Normal) Blood Gas Results Test 06/07/24 14:02 Arterial Blood pH 7.286 (7.350-7.450) FiO2 % 35.0 Microbiology Microbiology Date/Time Source Procedure Growth Status 06/02/24 22:30 Nose MRSA Screen - Final Complete 06/02/24 18:00 Sputum Gram Stain - Final Resulted 06/02/24 18:00 Sputum Respiratory Culture - Preliminary Resulted 06/02/24 15:57 Voided Urine Urine Culture - Final Complete 06/02/24 04:30 Blood Blood Culture - Final NO GROWTH AFTER 5 DAYS OF INCUBATION. Complete Labs and/or images reviewed: Labs reviewed by me, Image(s) reviewed by me Assessment/Plan Assessment/Plan Impression: -acute on chronic hypoxic and hypercarbic respiratory failure -metabolic encephalopathy secondary to hypercarbia and hypercalcemia -renal cell carcinoma, status post nephrectomy with metastatic cancer to the lungs -cachexia -hypercalcemia -metabolic acidosis -diabetes mellitus -acute kidney injury, probable vasomotor nephropathy -CKD stage IIIB -history of nephrectomy Plan: -events: Sputum culture positive for filamentous fungi. Start micafungin. Plans for spontaneous breathing trial today. If patient fails, start tube feeding and wean off TPN. Long discussion made with the patient's mother regarding plan of care and poor prognosis the patient. She continues to be hopeful for extubation today. -KUB unremarkable -pulmonary consultation: Ventilator management per their discretion. -nephrology consultation : Recommendations reviewed -stopped IV fluids material Lasix drip -continue tube feeding -PleurX catheter with no drainage today. -regular insulin sliding scale -continue doxycycline and micafungin. -repeat labs in a.m. Prognosis: Poor given multiple comorbidities and advanced metastatic cancer. Critical care time spent with patient discussing and formulating plan of care: 40 minutes. This does not include time spent performing procedures. This medical document was created using an electronic medical record system with [employer] dictation system. Although this document has been carefully reviewed, there may still be some phonetic and typographical errors. These areas are purely typographical due to imperfections of the software programs, and do not reflect any compromise in the patient's medical care. Plan discussed with: Patient, Other (RN) My Orders Orders - MARCELO CARRASCO NP Procedure Category Date Status Time Amino Acid PHA 06/07/24 In Process Infusion... W/Fat 22:00 Tpn Per Pharmacy DANICA 06/07/24 In Process 22:00 Potassium Chl Gregory PHA 06/08/24 Verified KCL 08:15 Basic Metabolic Panel LAB 06/09/24 Verified 04:00 Chest Portable XY 06/09/24 Verified 04:00 Abg W/ Co-Ox RT 06/09/24 Verified 04:00 Date of Service: Jun 08, 2024 Billing Provider: MARCELO CARRASCO NP Common Visit Codes: [id number] CARE 30-74 MIN MARCELO CARRASCO NP Jun 08, 2024 08:14
[2024-06-08] MEDS: POTASSIUM CHL 20MEQ/100ML 100 ML IV SCH (09:03)
[2024-06-08 10:55] LABS: Base Excess -8.8 mmol/L (-2.0-3.0)
--- NOTE | 2024-06-08 15:12 | DVHPN2 ---
Progress Note Date Seen: Jun 08, 2024 Medical Necessity Reason Pt with a Central, PICC or Fol: Yes The following are medically ne: Central Line, Dc Catheter Reason for dc catheter: Strict I&O Subjective Patient reports: Other (Patient family bedside appears very weak) Review of Systems: Deferred Objective vital signs Vital Sign Date Time Temp Pulse Resp B/P (MAP) Pulse Ox O2 Delivery O2 Flow Rate FiO2 06/08/24 14:00 20 100 Mechanical Ventilator+ 35 35 06/08/24 14:00 87 06/08/24 12:45 110/75 (87) 06/08/24 12:00 94.6 94.6 Total Intake and Output 06/07/24 06/07/24 06/08/24 15:00 23:00 07:00 Intake Total 1284.75 ml 736.75 ml 379.50 ml Output Total 900 ml 2001 ml Balance 1284.75 ml -163.25 ml -1621.50 ml medications Current Medications Medications Dose Ordered Sig/Sonia Route Start Time Stop Time Status Last Admin Dose Admin Ondansetron HCl 4 mg Q4HP PRN IV 06/02/24 07:00 Enoxaparin Sodium 30 mg DAILY SC 06/02/24 10:00 06/08/24 09:03 30 MG Acetaminophen 650 mg Q6HP PRN PO 06/02/24 07:00 Albuterol 2.5 mg Q2HPRN PRN NEB 06/02/24 08:45 Ipratropium [place] 0.5 mg Q2HPRN PRN NEB 06/02/24 08:45 Norepinephrine Bitartrate 250 ml @ 3.75 mls/hr Q24H IV 06/02/24 14:00 06/07/24 00:06 15 MLS/HR Midazolam HCl 50 ml @ 1 mls/hr Q24H IV 06/02/24 17:45 06/07/24 05:01 5 MLS/HR Fentanyl Citrate 250 ml @ 2.5 mls/hr Q24H IV 06/02/24 17:45 06/06/24 18:05 2.5 MLS/HR Phenylephrine HCl 250 ml @ 30 mls/hr Q8H20M IV 06/02/24 18:00 Albuterol 2.5 mg Q6H NEB 06/03/24 12:00 06/08/24 11:50 2.5 MG Ipratropium [place] 0.5 mg Q6H NEB 06/03/24 12:00 06/08/24 11:50 0.5 MG Doxycycline Hyclate 100 ml @ 50 mls/hr Q12H IV 06/03/24 08:45 06/08/24 09:03 50 MLS/HR Enteral Nutritional Formula 1,000 ml 30ML/HR GT 06/03/24 08:45 06/03/24 15:18 1,000 ML Pantoprazole Sodium 40 mg BID IV 06/04/24 10:00 06/08/24 09:03 40 MG Furosemide 100 mg/ Sodium Chloride 110 ml @ 11 mls/hr Q10H IV 06/04/24 15:15 06/08/24 12:38 11 MLS/HR Amino Acids 0 ml @ 0 mls/hr PER PHARMACY IV 06/06/24 06:45 Diagnostic Test (Pha) 1 strip Q6HR 06/06/24 18:00 06/08/24 12:02 1 STRIP Insulin Human Regular FOLLOW SLIDING SCALE Q6HR SC 06/06/24 18:00 06/08/24 12:02 8 UNITS Dextrose 50 ml UD IV 06/06/24 22:00 Dexmedetomidine HCl 400 mcg/ Dextrose 100 ml @ 2.56 mls/hr Q24H IV 06/06/24 18:30 Methylprednisolone Sodium Succinate 40 mg Q8HR IV 06/07/24 14:00 06/08/24 14:45 40 MG Micafungin Sodium 100 mg/Sodium Chloride 100 ml @ 100 mls/hr DAILY IV 06/07/24 10:00 06/08/24 11:31 100 MLS/HR Fat Emulsion Intravenous 50 ml/ Potassium Acetate 10 meq/ Multivitamins 10 ml/Chromium/ Copper/Manganese/ Zinc 1 ml/Insulin Human Regular 4 units/Amino Acids/ Dextrose 866.04 ml @ 36 mls/hr Q24H4M IV 06/07/24 22:00 06/08/24 21:59 06/07/24 22:29 36 MLS/HR Fat Emulsion Intravenous 100 ml/Potassium Acetate 60 meq/ Calcium Gluconate 2.3 meq/Magnesium Sulfate 12 meq/ Multivitamins 10 ml/Chromium/ Copper/Manganese/ Zinc 1 ml/Insulin Human Regular 12 units/Amino Acids/ Dextrose/Purified Water 1,049.0662 ml @ 44 mls/hr [id number] IV 06/08/24 22:00 06/09/24 21:59 Examination: GENERAL:Abnormal (Looks emaciated), MSK:Abnormal, SKIN:Abnormal, NEURO:Normal laboratory and microbiology Laboratory Tests 06/08/24 04:55 Test 06/08/24 04:55 Range/Units Serum Glucose 262 H 74-106 mg/dL Microbiology Date/Time Source Procedure Growth Status 06/02/24 22:30 Nose MRSA Screen - Final Complete 06/02/24 18:00 Sputum Gram Stain - Final Resulted 06/02/24 18:00 Sputum Respiratory Culture - Preliminary Resulted 06/02/24 15:57 Voided Urine Urine Culture - Final Complete 06/02/24 04:30 Blood Blood Culture - Final NO GROWTH AFTER 5 DAYS OF INCUBATION. Complete Problem List/Assessment/Plan Problem List/Assessment/Plan Acute kidney injury hemodynamically mediated No previous history of CKD Bilateral small pleural effusions with PleurX catheter in place Metastatic cancer Severe protein calorie malnutrition Fungal PNA Hypokalemia Recommendations On Lasix drip KCL replace Avoid hypotension Critically ill patient's poor prognosis due to poor functional status and failure to thrive. patient is hospice candidate. not candidate for long-term dialysis Plan discussed with: Patient, Other (Mother and brother) Dietary Evaluation Review Comments: 1. Nepro 30 ml/hr is providing 58 gPro, 1274 kcal supporting pt's needs at 96% of protein, 102% of energy needs as long as pt is on vent. 2. Increase energy feedings once pt is off vent, 3. To avoid nephrotic syndrome, offer a Renal Specific diet with 60 g protein restriction after passing a speech eval. Expected Outcomes/Goals: monitor kidney function and reduce dietary protein for avoiding nephrotic symptoms, SHAD FITZGERALD MD Jun 08, 2024 15:12
[2024-06-08] MEDS: TPN PER PHARMACY IV NR (21:24)
--- NOTE | 2024-06-08 22:24 | DVHPN2 ---
Progress Note - Dictate Date Seen: Jun 08, 2024 Medical Necessity Reason Pt with a Central, PICC or Fol: Yes The following are medically ne: Central Line, Dc Catheter Reason for dc catheter: Strict I&O Subjective Patient seen and examined at bedside. intubated on mechanical ventilator. Overnight events reviewed. vital signs Vital Sign Date Time Temp Pulse Resp B/P (MAP) Pulse Ox O2 Delivery O2 Flow Rate FiO2 06/08/24 21:38 109/76 06/08/24 20:10 84 21 100 30 06/08/24 20:00 Mechanical Ventilator+ 06/08/24 20:00 98.1 208.6 Total Intake and Output 06/07/24 06/07/24 06/08/24 15:00 23:00 07:00 Intake Total 1284.75 ml 736.75 ml 379.50 ml Output Total 900 ml 2001 ml Balance 1284.75 ml -163.25 ml -1621.50 ml medications Current Medications Medications Dose Ordered Sig/Sonia Route Start Time Stop Time Status Last Admin Dose Admin Ondansetron HCl 4 mg Q4HP PRN IV 06/02/24 07:00 Enoxaparin Sodium 30 mg DAILY SC 06/02/24 10:00 06/08/24 09:03 30 MG Acetaminophen 650 mg Q6HP PRN PO 06/02/24 07:00 Albuterol 2.5 mg Q2HPRN PRN NEB 06/02/24 08:45 Ipratropium [place] 0.5 mg Q2HPRN PRN NEB 06/02/24 08:45 Norepinephrine Bitartrate 250 ml @ 3.75 mls/hr Q24H IV 06/02/24 14:00 06/07/24 00:06 15 MLS/HR Midazolam HCl 50 ml @ 1 mls/hr Q24H IV 06/02/24 17:45 06/07/24 05:01 5 MLS/HR Fentanyl Citrate 250 ml @ 2.5 mls/hr Q24H IV 06/02/24 17:45 06/06/24 18:05 2.5 MLS/HR Phenylephrine HCl 250 ml @ 30 mls/hr Q8H20M IV 06/02/24 18:00 Albuterol 2.5 mg Q6H NEB 06/03/24 12:00 06/08/24 18:43 2.5 MG Ipratropium [place] 0.5 mg Q6H NEB 06/03/24 12:00 06/08/24 18:43 0.5 MG Doxycycline Hyclate 100 ml @ 50 mls/hr Q12H IV 06/03/24 08:45 06/08/24 20:35 50 MLS/HR Enteral Nutritional Formula 1,000 ml 30ML/HR GT 06/03/24 08:45 06/03/24 15:18 1,000 ML Pantoprazole Sodium 40 mg BID IV 06/04/24 10:00 06/08/24 21:15 40 MG Furosemide 100 mg/ Sodium Chloride 110 ml @ 11 mls/hr Q10H IV 06/04/24 15:15 06/08/24 21:38 11 MLS/HR Amino Acids 0 ml @ 0 mls/hr PER PHARMACY IV 06/06/24 06:45 Diagnostic Test (Pha) 1 strip Q6HR 06/06/24 18:00 06/08/24 18:12 1 STRIP Insulin Human Regular FOLLOW SLIDING SCALE Q6HR SC 06/06/24 18:00 06/08/24 18:16 4 UNITS Dextrose 50 ml UD IV 06/06/24 22:00 Dexmedetomidine HCl 400 mcg/ Dextrose 100 ml @ 2.56 mls/hr Q24H IV 06/06/24 18:30 Methylprednisolone Sodium Succinate 40 mg Q8HR IV 06/07/24 14:00 06/08/24 21:15 40 MG Micafungin Sodium 100 mg/Sodium Chloride 100 ml @ 100 mls/hr DAILY IV 06/07/24 10:00 06/08/24 11:31 100 MLS/HR Fat Emulsion Intravenous 100 ml/Potassium Acetate 60 meq/ Calcium Gluconate 2.3 meq/Magnesium Sulfate 12 meq/ Multivitamins 10 ml/Chromium/ Copper/Manganese/ Zinc 1 ml/Insulin Human Regular 12 units/Amino Acids/ Dextrose/Purified Water 1,049.0662 ml @ 44 mls/hr [id number] IV 06/08/24 22:00 06/09/24 21:59 06/08/24 21:24 44 MLS/HR objective Gen.: Patient lying in bed in medical ICU. Intubated on mechanical ventilator. Head: Normocephalic, atraumatic. Eyes: PERRLA. Ears: Normal external anatomy. Throat: Endotracheal tube and orogastric tube in place. Neck: Supple, trachea midline. Chest: Transmitted breath sounds bilaterally. Decreased air entry bilaterally. No wheezing. Bibasilar crackles. Cardiovascular: Positive S1, positive S2. Regular rate and rhythm. Abdomen: Positive bowel sounds in all 4 quadrants. Soft, nontender, nondistended. : Dc in place. Normal external genitalia. Rectal: Deferred. Skin: Warm, dry. Intact. Extremities: 2+ radial pulses bilaterally. No lower extremity edema. Neuro: Off sedation laboratory and microbiology Laboratory Tests 06/08/24 04:55 Test 06/08/24 04:55 Range/Units Serum Glucose 262 H 74-106 mg/dL Assessment/Plan Impression: Acute hypoxic respiratory failure Acute hypercarbic respiratory failure, PaCO2 60.5 mmHg On mechanical ventilator Recurrent right pleural effusion due to malignancy Renal cell carcinoma with metastasis to the lung Ex-smoker Cachexia, BMI 15.8 Shock Events: Remains on vent support On vent: RR 20, VT 450, PEEP 5, Fio2 30% Patient failed CPAP x 3. Hypotension Start Levophed Titrate to keep MAP above 65 mmHg/SBP above 90 mmHg. Off sedation Off Fentanyl ABG reviewed, compensated CXR reviewed, demonstrates multifocal airspace disease. Masslike opacities in the right upper lung. Small bilateral pleural effusions. Devices in place. NGT Continue to drain PleurX every other day. Continue antibiotics Continue bronchodilators IV steroids TPN for nutritional support IV fluids with LR at 75 ml/hr. Diurese w/ Lasix drip Monitor renal function - creatinine trending up Monitor electrolytes. Supplement as necessary. Potassium supplementation Nephrology recommendations appreciated Family declined hemodialysis Taper sedation as tolerated Plan for CPAP in AM. Poor prognosis Updated mother at bedside. GI prophylaxis w/ Pepcid DVT prophylaxis w/ Lovenox Labs and imaging reviewed. Rest of plan as noted below. Plan: s/p intubation on mechanical ventilator CXR image and report reviewed. Bilateral lung masses. Endotracheal tube in place. Bilateral pleural effusions, [id number] pleural effusion. ABG reviewed. Acidemia due to CO2 retention On vent: RR 20, VT 450, PEEP 5, Fio2 30% Titrate FIO2 to keep O2 saturation above 92%. VAP bundle Daily ABG and CXR while intubated. Sedate for ventilator synchrony On pressors for hemodynamic support. On Levophed Start vasopressin if necessary. Titrate to keep MAP above 65 mmHg/SBP above 90 mmHg. Broad-spectrum empiric antibiotics. F/u cultures. Monitor renal function due to Acute kidney injury. Monitor electrolytes. Supplement as necessary. Nutritional support. Accucheks, ISS. GI/DVT prophylaxis. Condition: Critical Prognosis: Poor given multiple comorbidities. Rest of plan per hospitalist and other consultants. A total of 35 minutes of critical care time was spent reviewing the patient record, examining the patient, making a diagnostic and therapeutic plan, discussing this plan with the medical personnel, following up on diagnostic studies and following the patient for clinical stability excluding any and all procedures. At least 50% of this time was spent in direct, [id number] contact. Thank you AMOS Gifford for allowing me to participate in this patient's care. Further recommendations will depend on patient's clinical course. Please do not hesitate to contact me if you have any questions or concerns. This medical document was created using an electronic medical record system with [employer] dictation system. Although this document has been carefully reviewed, there may still be some phonetic and typographical errors. These areas are purely typographical due to imperfections of the software programs, and do not reflect any compromise in the patient's medical care. Dietary Evaluation Review Comments: 1. Nepro 30 ml/hr is providing 58 gPro, 1274 kcal supporting pt's needs at 96% of protein, 102% of energy needs as long as pt is on vent. 2. Increase energy feedings once pt is off vent, 3. To avoid nephrotic syndrome, offer a Renal Specific diet with 60 g protein restriction after passing a speech eval. Expected Outcomes/Goals: monitor kidney function and reduce dietary protein for avoiding nephrotic symptoms, Plan discussed with: Other (ROBERT Adair) Critical Care Time(min): 35 YIN SAMSON MD Jun 08, 2024 22:24
[2024-06-09] VITALS (108 sets, daily range): BP systolic 84–135; BP diastolic 60–96; PULSE 91–112; RESP 10–35; TEMP 94.5–99; O2SAT 96–100
--- NOTE | 2024-06-09 05:15 | DVH ---
EXAM: XR Cervical Spine, 6 or More Views CLINICAL INDICATION: pna TECHNIQUE: Frontal, lateral, oblique and flexion/extension views of the cervical spine. COMPARISON: XY CHEST PORTABLE on DOS: 06/08/24, XY CHEST PORTABLE on DOS: 06/07/24, XY CHEST PORTABLE o n DOS: 06/06/24, XY CHEST XRAY 1 VIEW on DOS: 06/05/24, XY CHEST PORTABLE on DOS: 06/05/24 FINDINGS: VERTEBRAE: Unremarkable. No acute fracture. Normal alignment. No instability. DISC SPACES: No acute findings. No significant narrowing. SOFT TISSUES: Unremarkable. LUNG APICES: Nodular opacities of both lungs, likely multifocal pneumonia and/or pulmonary nodules. TUBES, LINES AND DEVICES: Stable tubes and lines. OTHER FINDINGS: . No change. IMPRESSION: Nodular opacities of both lungs, likely multifocal pneumonia and/or pulmonary nodules.
[2024-06-09 05:38] LABS: Alanine Aminotransferase 32 U/L (7-40); Anion Gap 16 (5-15); Aspartate Aminotransferase 25 U/L (13-40); BUN/Creatinine Ratio 46.8 (10.0-20.0); Calcium 8.9 mg/dL (8.7-10.4); Carbon Dioxide 20 mmol/L (20-31); Phosphorus 2.6 mg/dL (2.4-5.1)
[2024-06-09 05:51] LABS: Albumin 3.1 g/dL (3.2-4.8); Alkaline Phosphatase 602 U/L (46-116); Bilirubin, Total 0.3 mg/dL (0.2-1.0); Blood Urea Nitrogen 125 mg/dL (9-23); Chloride 110 mmol/L (98-107); Glucose 192 mg/dL (74-106); Potassium 2.9 mmol/L (3.5-5.1); Sodium 146 mmol/L (136-145); Total Protein 5.2 g/dL (5.7-8.2)
[2024-06-09 07:51] LABS: Base Excess -4.4 mmol/L (-2.0-3.0)
--- NOTE | 2024-06-09 09:29 | DVHPN2 ---
Subjective Patient off sedation and following some commands. Reviewed: Care Plan, H&P, Labs, Medications Changes from previous H/P or p: No Changes General: Per HPI Respiratory: Shortness of breath Objective Vitals Vital Signs Date Time Temp Pulse Resp B/P (MAP) Pulse Ox O2 Delivery O2 Flow Rate FiO2 06/09/24 08:21 102 22 122/86 (98) 98 30 06/09/24 08:00 98.4 209.1 06/09/24 06:00 Mechanical Ventilator+ Intake/Output Intake and Output 06/09/24 07:00 Intake Total 1577 ml Output Total 4400 ml Balance -2823 ml Intake Oral 0 ml IV Total 1577 ml Output Urine Total 4400 ml General Appearance: moderate distress, Other (Cachexia) HEENT: Atraumatic, PERRLA Cardiovascular: Normal S1, Normal S2 Abdomen: Normal bowel sounds, Soft, No tenderness Musculoskeletal: Normal sensory function, Normal motor function Neuro: Normal gait, Normal speech Skin: Dry, Intact Psych/Mental Status: Mental status NL, Mood NL Medications Current Medications Medications Dose Ordered Sig/Sonia Route Start Time Stop Time Status Last Admin Dose Admin Ondansetron HCl 4 mg Q4HP PRN IV 06/02/24 07:00 Enoxaparin Sodium 30 mg DAILY SC 06/02/24 10:00 06/08/24 09:03 30 MG Acetaminophen 650 mg Q6HP PRN PO 06/02/24 07:00 Albuterol 2.5 mg Q2HPRN PRN NEB 06/02/24 08:45 Ipratropium [place] 0.5 mg Q2HPRN PRN NEB 06/02/24 08:45 Norepinephrine Bitartrate 250 ml @ 3.75 mls/hr Q24H IV 06/02/24 14:00 06/09/24 02:45 7.5 MLS/HR Midazolam HCl 50 ml @ 1 mls/hr Q24H IV 06/02/24 17:45 06/07/24 05:01 5 MLS/HR Fentanyl Citrate 250 ml @ 2.5 mls/hr Q24H IV 06/02/24 17:45 06/06/24 18:05 2.5 MLS/HR Phenylephrine HCl 250 ml @ 30 mls/hr Q8H20M IV 06/02/24 18:00 Albuterol 2.5 mg Q6H NEB 06/03/24 12:00 06/09/24 05:52 2.5 MG Ipratropium [place] 0.5 mg Q6H NEB 06/03/24 12:00 06/09/24 05:52 0.5 MG Doxycycline Hyclate 100 ml @ 50 mls/hr Q12H IV 06/03/24 08:45 06/08/24 20:35 50 MLS/HR Enteral Nutritional Formula 1,000 ml 30ML/HR GT 06/03/24 08:45 06/03/24 15:18 1,000 ML Pantoprazole Sodium 40 mg BID IV 06/04/24 10:00 06/08/24 21:15 40 MG Furosemide 100 mg/ Sodium Chloride 110 ml @ 11 mls/hr Q10H IV 06/04/24 15:15 06/09/24 06:19 11 MLS/HR Amino Acids 0 ml @ 0 mls/hr PER PHARMACY IV 06/06/24 06:45 Diagnostic Test (Pha) 1 strip Q6HR 06/06/24 18:00 06/09/24 06:07 1 STRIP Insulin Human Regular FOLLOW SLIDING SCALE Q6HR SC 06/06/24 18:00 06/09/24 06:07 4 UNITS Dextrose 50 ml UD IV 06/06/24 22:00 Dexmedetomidine HCl 400 mcg/ Dextrose 100 ml @ 2.56 mls/hr Q24H IV 06/06/24 18:30 Methylprednisolone Sodium Succinate 40 mg Q8HR IV 06/07/24 14:00 06/09/24 06:06 40 MG Micafungin Sodium 100 mg/Sodium Chloride 100 ml @ 100 mls/hr DAILY IV 06/07/24 10:00 06/08/24 11:31 100 MLS/HR Fat Emulsion Intravenous 100 ml/Potassium Acetate 60 meq/ Calcium Gluconate 2.3 meq/Magnesium Sulfate 12 meq/ Multivitamins 10 ml/Chromium/ Copper/Manganese/ Zinc 1 ml/Insulin Human Regular 12 units/Amino Acids/ Dextrose/Purified Water 1,049.0662 ml @ 44 mls/hr [id number] IV 06/08/24 22:00 06/09/24 21:59 06/08/24 21:24 44 MLS/HR Potassium Chloride 100 ml @ 50 mls/hr Q2H IV 06/09/24 08:15 06/09/24 12:14 Laboratory Results Laboratory Tests 06/08/24 04:55 06/09/24 04:43 Chemistry Test 06/09/24 04:43 Albumin 3.1 g/dL (3.2-4.8) L Calcium Level 8.9 mg/dL (8.7-10.4) Magnesium Level 2.0 mg/dL (1.6-2.6) Phosphorus Level 2.6 mg/dL (2.4-5.1) Total Protein 5.2 g/dL (5.7-8.2) L LFT Test 06/09/24 04:43 Alanine Aminotransferase (ALT) 32 U/L (7-40) Alkaline Phosphatase 602 U/L (46-116) H Aspartate Amino Transferase (AST) 25 U/L (13-40) Total Bilirubin 0.3 mg/dL (0.2-1.0) Urinalysis Test 06/02/24 15:57 Urine Color Yellow (Yellow) Urine Clarity Turbid (Clear) H Urine pH 5.0 (5.0-9.0) Urine Specific [place] 1.020 (1.001-1.035) Urine Protein 1+ (Negative) H Urine Ketones Negative (Negative) Urine Blood Trace /uL (Negative) H Urine Nitrite Negative (Negative) Urine Bilirubin Negative (Negative) Urine Urobilinogen Normal mg/dL (Negative) Urine Leukocyte Esterase Trace /uL (Negative) Urine RBC 7 /hpf (0 - 3) Urine Microscopic WBC 6 /HPF (0-3) H Urine Squamous Epithelial Cells Few /hpf (<5) Urine Calcium Oxalate Crystals Few (None Seen) Urine Bacteria Few /hpf (None Seen) H Urine Hyaline Casts Few /lpf (0 - 2) Urine Mucus Few (None Seen) Urine Sperm Present /hpf (None Seen) Urine Creatinine 105.47 mg/dL (30.0-125.0) Urine Sodium < 10 mmol/L (40-220) L Urine Glucose Normal mg/dL (Normal) Blood Gas Results Test 06/08/24 10:40 06/09/24 07:40 Arterial Blood pH 7.358 (7.350-7.450) 7.432 (7.350-7.450) FiO2 % 35.0 30.0 Microbiology Microbiology Date/Time Source Procedure Growth Status 06/02/24 22:30 Nose MRSA Screen - Final Complete 06/02/24 18:00 Sputum Gram Stain - Final Resulted 06/02/24 18:00 Sputum Respiratory Culture - Preliminary Resulted 06/02/24 15:57 Voided Urine Urine Culture - Final Complete 06/02/24 04:30 Blood Blood Culture - Final NO GROWTH AFTER 5 DAYS OF INCUBATION. Complete Labs and/or images reviewed: Labs reviewed by me, Image(s) reviewed by me Assessment/Plan Assessment/Plan Impression: -acute on chronic hypoxic and hypercarbic respiratory failure -metabolic encephalopathy secondary to hypercarbia and hypercalcemia -renal cell carcinoma, status post nephrectomy with metastatic cancer to the lungs -cachexia -hypercalcemia -metabolic acidosis -diabetes mellitus -acute kidney injury, probable vasomotor nephropathy -CKD stage IIIB -history of nephrectomy Plan: -events: Patient more awake. Following some commands. Chest x-ray reveals right lower lung pleural effusion. We will attempt to drain with PleurX catheter. Sedation has been stopped with probable repeat spontaneous breathing trial if patient tolerates. Long discussion made with the patient's mother and brother yesterday regarding plan of care and poor prognosis. -KUB unremarkable -pulmonary consultation: Ventilator management per their discretion. -nephrology consultation : Recommendations reviewed -stopped IV fluids material Lasix drip -continue tube feeding -PleurX catheter with no drainage today. -regular insulin sliding scale -continue doxycycline and micafungin. -repeat labs in a.m. Prognosis: Poor given multiple comorbidities and advanced metastatic cancer. Critical care time spent with patient discussing and formulating plan of care: 90 minutes. This does not include time spent performing procedures. This medical document was created using an electronic medical record system with [employer] dictation system. Although this document has been carefully reviewed, there may still be some phonetic and typographical errors. These areas are purely typographical due to imperfections of the software programs, and do not reflect any compromise in the patient's medical care. Plan discussed with: Patient, Other (RN) My Orders Orders - MARCELO CARRASCO NP Procedure Category Date Status Time Amino Acid PHA 06/08/24 In Process Infusion... W/Fat 22:00 Tpn Per Pharmacy DANICA 06/08/24 In Process 11:59 Potassium Chl PHA 06/09/24 In Process 20meq/100ml 08:15 Basic Metabolic Panel LAB 06/10/24 Verified 04:00 Complete Blood Count LAB 06/10/24 Verified 04:00 Communication Order ORDERS 06/09/24 Transmitted 09:24 Date of Service: Jun 09, 2024 Billing Provider: MARCELO CARRASCO NP Common Visit Codes: 25988-[id number] CARE 30-74 MIN, 34894-[id number] CARE-EACH +30MIN MARCELO CARRASCO NP Jun 09, 2024 09:29
[2024-06-09] MEDS: POTASSIUM CHL 20MEQ/100ML 100 ML IV SCH (10:12)
[2024-06-09 12:43] LABS: Base Excess -3.5 mmol/L (-2.0-3.0)
--- NOTE | 2024-06-09 17:15 | DVHPN2 ---
Progress Note Date Seen: Jun 09, 2024 Medical Necessity Reason Pt with a Central, PICC or Fol: Yes The following are medically ne: Central Line, Dc Catheter Reason for dc catheter: Strict I&O Subjective Patient reports: Other Review of Systems: Deferred Objective vital signs Vital Sign Date Time Temp Pulse Resp B/P (MAP) Pulse Ox O2 Delivery O2 Flow Rate FiO2 06/09/24 16:30 97.9 100 23 112/84 (93) 99 208.2 06/09/24 16:01 30 06/09/24 12:00 Mechanical Ventilator+ Total Intake and Output 06/08/24 06/08/24 06/09/24 15:00 23:00 07:00 Intake Total 726 ml 396 ml 455 ml Output Total 2200 ml 2200 ml Balance 726 ml -1804 ml -1745 ml medications Current Medications Medications Dose Ordered Sig/Sonia Route Start Time Stop Time Status Last Admin Dose Admin Ondansetron HCl 4 mg Q4HP PRN IV 06/02/24 07:00 Enoxaparin Sodium 30 mg DAILY SC 06/02/24 10:00 06/09/24 10:04 30 MG Acetaminophen 650 mg Q6HP PRN PO 06/02/24 07:00 Albuterol 2.5 mg Q2HPRN PRN NEB 06/02/24 08:45 Ipratropium [place] 0.5 mg Q2HPRN PRN NEB 06/02/24 08:45 Norepinephrine Bitartrate 250 ml @ 3.75 mls/hr Q24H IV 06/02/24 14:00 06/09/24 02:45 7.5 MLS/HR Midazolam HCl 50 ml @ 1 mls/hr Q24H IV 06/02/24 17:45 06/07/24 05:01 5 MLS/HR Fentanyl Citrate 250 ml @ 2.5 mls/hr Q24H IV 06/02/24 17:45 06/06/24 18:05 2.5 MLS/HR Phenylephrine HCl 250 ml @ 30 mls/hr Q8H20M IV 06/02/24 18:00 Albuterol 2.5 mg Q6H NEB 06/03/24 12:00 06/09/24 11:37 2.5 MG Ipratropium [place] 0.5 mg Q6H NEB 06/03/24 12:00 06/09/24 11:37 0.5 MG Doxycycline Hyclate 100 ml @ 50 mls/hr Q12H IV 06/03/24 08:45 06/09/24 10:11 50 MLS/HR Enteral Nutritional Formula 1,000 ml 30ML/HR GT 06/03/24 08:45 06/03/24 15:18 1,000 ML Pantoprazole Sodium 40 mg BID IV 06/04/24 10:00 06/09/24 10:04 40 MG Amino Acids 0 ml @ 0 mls/hr PER PHARMACY IV 06/06/24 06:45 Diagnostic Test (Pha) 1 strip Q6HR 06/06/24 18:00 06/09/24 12:54 1 STRIP Insulin Human Regular FOLLOW SLIDING SCALE Q6HR SC 06/06/24 18:00 06/09/24 12:48 4 UNITS Dextrose 50 ml UD IV 06/06/24 22:00 Dexmedetomidine HCl 400 mcg/ Dextrose 100 ml @ 2.56 mls/hr Q24H IV 06/06/24 18:30 Methylprednisolone Sodium Succinate 40 mg Q8HR IV 06/07/24 14:00 06/09/24 06:06 40 MG Micafungin Sodium 100 mg/Sodium Chloride 100 ml @ 100 mls/hr DAILY IV 06/07/24 10:00 06/09/24 10:05 100 MLS/HR Fat Emulsion Intravenous 100 ml/Potassium Acetate 60 meq/ Calcium Gluconate 2.3 meq/Magnesium Sulfate 12 meq/ Multivitamins 10 ml/Chromium/ Copper/Manganese/ Zinc 1 ml/Insulin Human Regular 12 units/Amino Acids/ Dextrose/Purified Water 1,049.0662 ml @ 44 mls/hr [id number] IV 06/08/24 22:00 06/09/24 21:59 06/08/24 21:24 44 MLS/HR Fat Emulsion Intravenous 150 ml/Potassium Chloride 100 meq/ Magnesium Sulfate 14 meq/ Multivitamins 10 ml/Chromium/ Copper/Manganese/ Zinc 1 ml/Insulin Human Regular 16 units/Amino Acids/ Dextrose 1,064.66 ml @ 44 mls/hr [id number] IV 06/09/24 22:00 06/10/24 21:59 Examination: GENERAL:Abnormal, MSK:Abnormal, NEURO:Abnormal laboratory and microbiology Laboratory Tests 06/09/24 04:43 06/08/24 04:55 Test 06/09/24 04:43 Range/Units Serum Glucose 192 H 74-106 mg/dL Microbiology Date/Time Source Procedure Growth Status 06/02/24 22:30 Nose MRSA Screen - Final Complete 06/02/24 18:00 Sputum Gram Stain - Final Resulted 06/02/24 18:00 Sputum Respiratory Culture - Preliminary Resulted 06/02/24 15:57 Voided Urine Urine Culture - Final Complete 06/02/24 04:30 Blood Blood Culture - Final NO GROWTH AFTER 5 DAYS OF INCUBATION. Complete Problem List/Assessment/Plan Problem List/Assessment/Plan Acute kidney injury hemodynamically mediated No previous history of CKD Bilateral small pleural effusions with PleurX catheter in place Metastatic cancer Severe protein calorie malnutrition Fungal PNA Hypokalemia cachexia Recommendations dc Lasix drip KCL replace Avoid hypotension Critically ill patient's poor prognosis due to poor functional status and failure to thrive. patient is hospice candidate. not candidate for dialysis if renal function deteriorates Plan discussed with: Other Dietary Evaluation Review Comments: 1. Nepro 30 ml/hr is providing 58 gPro, 1274 kcal supporting pt's needs at 96% of protein, 102% of energy needs as long as pt is on vent. 2. Increase energy feedings once pt is off vent, 3. To avoid nephrotic syndrome, offer a Renal Specific diet with 60 g protein restriction after passing a speech eval. Expected Outcomes/Goals: monitor kidney function and reduce dietary protein for avoiding nephrotic symptoms, SHAD FITZGERALD MD Jun 09, 2024 17:15
[2024-06-09] MEDS: TPN PER PHARMACY IV NR (20:59)
--- NOTE | 2024-06-09 21:59 | DVHPN2 ---
Progress Note - Dictate Date Seen: Jun 09, 2024 Medical Necessity Reason Pt with a Central, PICC or Fol: Yes The following are medically ne: Central Line, Dc Catheter Reason for dc catheter: Strict I&O Subjective Patient seen and examined at bedside. intubated on mechanical ventilator. Overnight events reviewed. vital signs Vital Sign Date Time Temp Pulse Resp B/P (MAP) Pulse Ox O2 Delivery O2 Flow Rate FiO2 06/09/24 21:30 98.4 101 20 101/73 (82) 99 209.1 06/09/24 20:16 30 06/09/24 20:00 Mechanical Ventilator+ Total Intake and Output 06/08/24 06/08/24 06/09/24 15:00 23:00 07:00 Intake Total 726 ml 396 ml 513.75 ml Output Total 2200 ml 2200 ml Balance 726 ml -1804 ml -1686.25 ml medications Current Medications Medications Dose Ordered Sig/Sonia Route Start Time Stop Time Status Last Admin Dose Admin Ondansetron HCl 4 mg Q4HP PRN IV 06/02/24 07:00 Enoxaparin Sodium 30 mg DAILY SC 06/02/24 10:00 06/09/24 10:04 30 MG Acetaminophen 650 mg Q6HP PRN PO 06/02/24 07:00 Albuterol 2.5 mg Q2HPRN PRN NEB 06/02/24 08:45 Ipratropium [place] 0.5 mg Q2HPRN PRN NEB 06/02/24 08:45 Norepinephrine Bitartrate 250 ml @ 3.75 mls/hr Q24H IV 06/02/24 14:00 06/09/24 02:45 7.5 MLS/HR Midazolam HCl 50 ml @ 1 mls/hr Q24H IV 06/02/24 17:45 06/07/24 05:01 5 MLS/HR Fentanyl Citrate 250 ml @ 2.5 mls/hr Q24H IV 06/02/24 17:45 06/06/24 18:05 2.5 MLS/HR Phenylephrine HCl 250 ml @ 30 mls/hr Q8H20M IV 06/02/24 18:00 Albuterol 2.5 mg Q6H NEB 06/03/24 12:00 06/09/24 18:20 2.5 MG Ipratropium [place] 0.5 mg Q6H NEB 06/03/24 12:00 06/09/24 18:20 0.5 MG Doxycycline Hyclate 100 ml @ 50 mls/hr Q12H IV 06/03/24 08:45 06/09/24 20:53 50 MLS/HR Enteral Nutritional Formula 1,000 ml 30ML/HR GT 06/03/24 08:45 06/03/24 15:18 1,000 ML Pantoprazole Sodium 40 mg BID IV 06/04/24 10:00 06/09/24 20:53 40 MG Amino Acids 0 ml @ 0 mls/hr PER PHARMACY IV 06/06/24 06:45 Diagnostic Test (Pha) 1 strip Q6HR 06/06/24 18:00 06/09/24 18:21 1 STRIP Insulin Human Regular FOLLOW SLIDING SCALE Q6HR SC 06/06/24 18:00 06/09/24 18:30 8 UNITS Dextrose 50 ml UD IV 06/06/24 22:00 Dexmedetomidine HCl 400 mcg/ Dextrose 100 ml @ 2.56 mls/hr Q24H IV 06/06/24 18:30 Methylprednisolone Sodium Succinate 40 mg Q8HR IV 06/07/24 14:00 06/09/24 20:53 40 MG Micafungin Sodium 100 mg/Sodium Chloride 100 ml @ 100 mls/hr DAILY IV 06/07/24 10:00 06/09/24 10:05 100 MLS/HR Fat Emulsion Intravenous 100 ml/Potassium Acetate 60 meq/ Calcium Gluconate 2.3 meq/Magnesium Sulfate 12 meq/ Multivitamins 10 ml/Chromium/ Copper/Manganese/ Zinc 1 ml/Insulin Human Regular 12 units/Amino Acids/ Dextrose/Purified Water 1,049.0662 ml @ 44 mls/hr [id number] IV 06/08/24 22:00 06/09/24 21:59 06/08/24 21:24 44 MLS/HR Fat Emulsion Intravenous 150 ml/Potassium Chloride 100 meq/ Magnesium Sulfate 14 meq/ Multivitamins 10 ml/Chromium/ Copper/Manganese/ Zinc 1 ml/Insulin Human Regular 16 units/Amino Acids/ Dextrose 1,064.66 ml @ 44 mls/hr [id number] IV 06/09/24 22:00 06/10/24 21:59 06/09/24 20:59 44 MLS/HR objective Gen.: Patient lying in bed in medical ICU. Intubated on mechanical ventilator. Head: Normocephalic, atraumatic. Eyes: PERRLA. Ears: Normal external anatomy. Throat: Endotracheal tube and orogastric tube in place. Neck: Supple, trachea midline. Chest: Transmitted breath sounds bilaterally. Decreased air entry bilaterally. No wheezing. Bibasilar crackles. Cardiovascular: Positive S1, positive S2. Regular rate and rhythm. Abdomen: Positive bowel sounds in all 4 quadrants. Soft, nontender, nondistended. : Dc in place. Normal external genitalia. Rectal: Deferred. Skin: Warm, dry. Intact. Extremities: 2+ radial pulses bilaterally. No lower extremity edema. Neuro: Off sedation laboratory and microbiology Laboratory Tests 06/09/24 04:43 06/08/24 04:55 Test 06/09/24 04:43 Range/Units Serum Glucose 192 H 74-106 mg/dL Assessment/Plan Impression: Acute hypoxic respiratory failure Acute hypercarbic respiratory failure, PaCO2 60.5 mmHg On mechanical ventilator Recurrent right pleural effusion due to malignancy Renal cell carcinoma with metastasis to the lung Ex-smoker Cachexia, BMI 15.8 Shock Events: Remains on vent support On vent: RR 20, VT 450, PEEP 5, Fio2 30% CPAP with PS 12-14 Patient tolerated CPAP for 3 hours. Off sedation On Precedex drip ABG reviewed, on CPAP with PS 8, PEEP 5 CXR reviewed, demonstrates bilateral nodular opacities. Devices in place. NGT Continue to drain PleurX every other day. Continue antibiotics Continue bronchodilators IV steroids TPN for nutritional support Diurese w/ Lasix drip Monitor renal function - creatinine trending down, BUN trending up Monitor electrolytes. Supplement as necessary. Potassium supplementation Nephrology recommendations appreciated Family declined hemodialysis SBT/CAROLINE Poor prognosis GI prophylaxis w/ Pepcid DVT prophylaxis w/ Lovenox Labs and imaging reviewed. Rest of plan as noted below. Plan: s/p intubation on mechanical ventilator On vent: RR 20, VT 450, PEEP 5, Fio2 30% Titrate FIO2 to keep O2 saturation above 92%. VAP bundle Daily ABG and CXR while intubated. Off sedation Pressors as necessary for hemodynamic support. Titrate to keep MAP above 65 mmHg/SBP above 90 mmHg. Broad-spectrum empiric antibiotics. F/u cultures. Monitor renal function due to Acute kidney injury. Monitor electrolytes. Supplement as necessary. Nutritional support. Accucheks, ISS. GI/DVT prophylaxis. Condition: Critical Prognosis: Poor given multiple comorbidities. Rest of plan per hospitalist and other consultants. A total of 35 minutes of critical care time was spent reviewing the patient record, examining the patient, making a diagnostic and therapeutic plan, discussing this plan with the medical personnel, following up on diagnostic studies and following the patient for clinical stability excluding any and all procedures. At least 50% of this time was spent in direct, [id number] contact. Thank you AMOS Gifford for allowing me to participate in this patient's care. Further recommendations will depend on patient's clinical course. Please do not hesitate to contact me if you have any questions or concerns. This medical document was created using an electronic medical record system with [employer] system. Although this document has been carefully reviewed, there may still be some phonetic and typographical errors. These areas are purely typographical due to imperfections of the software programs, and do not reflect any compromise in the patient's medical care. Dietary Evaluation Review Comments: 1. Nepro 30 ml/hr is providing 58 gPro, 1274 kcal supporting pt's needs at 96% of protein, 102% of energy needs as long as pt is on vent. 2. Increase energy feedings once pt is off vent, 3. To avoid nephrotic syndrome, offer a Renal Specific diet with 60 g protein restriction after passing a speech eval. Expected Outcomes/Goals: monitor kidney function and reduce dietary protein for avoiding nephrotic symptoms, Plan discussed with: Other (ROBERT Colon) Critical Care Time(min): 35 YIN SAMSON MD Jun 09, 2024 21:59
[2024-06-10] VITALS (101 sets, daily range): BP systolic 77–129; BP diastolic 52–92; PULSE 76–111; RESP 13–28; TEMP 96.1–98.4; O2SAT 93–100
[2024-06-10 05:15] LABS: Hematocrit 30.1 % (41.0-53.0); Mean Corpuscular Hemoglobin 27.1 pg (28.0-32.0); Mean Corpuscular Hgb Conc. 33.4 g/dL (32.0-36.0); Mean Corpuscular Volume 81.2 fL (80.0-100.0); Platelet Count (auto) 87 10^3/uL (140-450); Red Cell Distribution Width 16.7 % (11.8-14.3)
--- NOTE | 2024-06-10 05:16 | DVH ---
EXAM: XR Chest, 1 View CLINICAL INDICATION: INTUBATED TECHNIQUE: Frontal view of the chest. COMPARISON: XY CHEST PORTABLE on DOS: 06/09/24, XY CHEST PORTABLE on DOS: 06/08/24, XY CHEST PORTABLE o n DOS: 06/07/24, XY CHEST PORTABLE on DOS: 06/06/24, XY CHEST XRAY 1 VIEW on DOS: 06/05/24 FINDINGS: LUNGS AND PLEURAL SPACES: Multiple nodular consolidation, unchanged. No pneumothorax. HEART: Unremarkable. No cardiomegaly. MEDIASTINUM: Unremarkable. Normal mediastinal contour. BONES/JOINTS: Unremarkable. No acute fracture. TUBES, LINES AND DEVICES: Stable tubes and lines. OTHER FINDINGS: No significant change from the prior exam. . . . .. IMPRESSION: No significant change from the prior exam.
[2024-06-10 05:25] LABS: Band Neutrophils % (manual) 0; Basophils % (manual) 0 (0.0-2.0); Blast Cells 0; Eosinophils % (manual) 0 (0-7); Metamyelocytes % 0; Myelocytes % 0; Promyelocytes % 0; Reactive Lymphocytes 0
[2024-06-10 05:31] LABS: Alanine Aminotransferase 32 U/L (7-40); Albumin 3.3 g/dL (3.2-4.8); Anion Gap 14 (5-15); Aspartate Aminotransferase 16 U/L (13-40); Calcium 9.3 mg/dL (8.7-10.4); Carbon Dioxide 25 mmol/L (20-31); Magnesium 2.2 mg/dL (1.6-2.6); Potassium 3.8 mmol/L (3.5-5.1)
[2024-06-10 05:52] LABS: Alkaline Phosphatase 490 U/L (46-116); Bilirubin, Total 0.3 mg/dL (0.2-1.0); Blood Urea Nitrogen 125 mg/dL (9-23); Chloride 109 mmol/L (98-107); Glucose 192 mg/dL (74-106); Phosphorus 1.8 mg/dL (2.4-5.1); Sodium 148 mmol/L (136-145); Total Protein 5.2 g/dL (5.7-8.2)
[2024-06-10 08:00] LABS: Base Excess -1.7 mmol/L (-2.0-3.0)
[2024-06-10 08:47] LABS: Lymphocytes % (manual) 1 (10.0-50.0); Monocytes % (manual) 2 (0-12)
[2024-06-10 08:48] LABS: Platelet Estimate Decreased
--- NOTE | 2024-06-10 08:53 | DVHPN2 ---
Subjective Patient off sedation and following some commands. Reviewed: Care Plan, H&P, Labs, Medications Changes from previous H/P or p: No Changes General: Per HPI Respiratory: Shortness of breath Objective Vitals Vital Signs Date Time Temp Pulse Resp B/P (MAP) Pulse Ox O2 Delivery O2 Flow Rate FiO2 06/10/24 08:00 97.9 98 22 98 208.2 06/10/24 07:40 30 06/10/24 06:00 Mechanical Ventilator+ Intake/Output Intake and Output 06/10/24 07:00 Intake Total 1691.75 ml Output Total 3700 ml Balance -2008.25 ml Intake Oral 0 ml IV Total 1691.75 ml Output Urine Total 3700 ml General Appearance: Alert, moderate distress, Other (Cachexia) HEENT: Atraumatic, PERRLA Lungs: Other (Bilateral rhonchi. Mechanical ventilation) Cardiovascular: Normal S1, Normal S2 Abdomen: Normal bowel sounds, Soft, No tenderness Musculoskeletal: Normal sensory function, Normal motor function Neuro: Normal gait, Normal speech, Other (Patient was following some commands) Skin: Dry, Intact Psych/Mental Status: Mental status NL, Mood NL Medications Current Medications Medications Dose Ordered Sig/Sonia Route Start Time Stop Time Status Last Admin Dose Admin Ondansetron HCl 4 mg Q4HP PRN IV 06/02/24 07:00 Enoxaparin Sodium 30 mg DAILY SC 06/02/24 10:00 06/09/24 10:04 30 MG Acetaminophen 650 mg Q6HP PRN PO 06/02/24 07:00 Albuterol 2.5 mg Q2HPRN PRN NEB 06/02/24 08:45 Ipratropium [place] 0.5 mg Q2HPRN PRN NEB 06/02/24 08:45 Norepinephrine Bitartrate 250 ml @ 3.75 mls/hr Q24H IV 06/02/24 14:00 06/09/24 02:45 7.5 MLS/HR Midazolam HCl 50 ml @ 1 mls/hr Q24H IV 06/02/24 17:45 06/07/24 05:01 5 MLS/HR Fentanyl Citrate 250 ml @ 2.5 mls/hr Q24H IV 06/02/24 17:45 06/06/24 18:05 2.5 MLS/HR Phenylephrine HCl 250 ml @ 30 mls/hr Q8H20M IV 06/02/24 18:00 Albuterol 2.5 mg Q6H NEB 06/03/24 12:00 06/10/24 06:20 2.5 MG Ipratropium [place] 0.5 mg Q6H NEB 06/03/24 12:00 06/10/24 06:20 0.5 MG Doxycycline Hyclate 100 ml @ 50 mls/hr Q12H IV 06/03/24 08:45 06/10/24 08:48 50 MLS/HR Enteral Nutritional Formula 1,000 ml 30ML/HR GT 06/03/24 08:45 06/03/24 15:18 1,000 ML Pantoprazole Sodium 40 mg BID IV 06/04/24 10:00 06/10/24 08:48 40 MG Amino Acids 0 ml @ 0 mls/hr PER PHARMACY IV 06/06/24 06:45 Diagnostic Test (Pha) 1 strip Q6HR 06/06/24 18:00 06/10/24 05:20 1 STRIP Insulin Human Regular FOLLOW SLIDING SCALE Q6HR SC 06/06/24 18:00 06/10/24 05:21 4 UNITS Dextrose 50 ml UD IV 06/06/24 22:00 Dexmedetomidine HCl 400 mcg/ Dextrose 100 ml @ 2.56 mls/hr Q24H IV 06/06/24 18:30 Methylprednisolone Sodium Succinate 40 mg Q8HR IV 06/07/24 14:00 06/10/24 05:08 40 MG Micafungin Sodium 100 mg/Sodium Chloride 100 ml @ 100 mls/hr DAILY IV 06/07/24 10:00 06/10/24 08:49 100 MLS/HR Fat Emulsion Intravenous 150 ml/Potassium Chloride 100 meq/ Magnesium Sulfate 14 meq/ Multivitamins 10 ml/Chromium/ Copper/Manganese/ Zinc 1 ml/Insulin Human Regular 16 units/Amino Acids/ Dextrose 1,064.66 ml @ 44 mls/hr [id number] IV 06/09/24 22:00 06/10/24 21:59 06/09/24 20:59 44 MLS/HR Laboratory Results Laboratory Tests 06/10/24 04:45 Chemistry Test 06/10/24 04:45 Albumin 3.3 g/dL (3.2-4.8) Calcium Level 9.3 mg/dL (8.7-10.4) Magnesium Level 2.2 mg/dL (1.6-2.6) Phosphorus Level 1.8 mg/dL (2.4-5.1) L Total Protein 5.2 g/dL (5.7-8.2) L LFT Test 06/10/24 04:45 Alanine Aminotransferase (ALT) 32 U/L (7-40) Alkaline Phosphatase 490 U/L (46-116) H Aspartate Amino Transferase (AST) 16 U/L (13-40) Total Bilirubin 0.3 mg/dL (0.2-1.0) Urinalysis Test 06/02/24 15:57 Urine Color Yellow (Yellow) Urine Clarity Turbid (Clear) H Urine pH 5.0 (5.0-9.0) Urine Specific [place] 1.020 (1.001-1.035) Urine Protein 1+ (Negative) H Urine Ketones Negative (Negative) Urine Blood Trace /uL (Negative) H Urine Nitrite Negative (Negative) Urine Bilirubin Negative (Negative) Urine Urobilinogen Normal mg/dL (Negative) Urine Leukocyte Esterase Trace /uL (Negative) Urine RBC 7 /hpf (0 - 3) Urine Microscopic WBC 6 /HPF (0-3) H Urine Squamous Epithelial Cells Few /hpf (<5) Urine Calcium Oxalate Crystals Few (None Seen) Urine Bacteria Few /hpf (None Seen) H Urine Hyaline Casts Few /lpf (0 - 2) Urine Mucus Few (None Seen) Urine Sperm Present /hpf (None Seen) Urine Creatinine 105.47 mg/dL (30.0-125.0) Urine Sodium < 10 mmol/L (40-220) L Urine Glucose Normal mg/dL (Normal) Blood Gas Results Test 06/09/24 12:20 06/10/24 07:50 Arterial Blood pH 7.439 (7.350-7.450) 7.453 (7.350-7.450) FiO2 % 30.0 30.0 Microbiology Microbiology Date/Time Source Procedure Growth Status 06/02/24 22:30 Nose MRSA Screen - Final Complete 06/02/24 18:00 Sputum Gram Stain - Final Resulted 06/02/24 18:00 Sputum Respiratory Culture - Preliminary Resulted 06/02/24 15:57 Voided Urine Urine Culture - Final Complete 06/02/24 04:30 Blood Blood Culture - Final NO GROWTH AFTER 5 DAYS OF INCUBATION. Complete Labs and/or images reviewed: Labs reviewed by me Assessment/Plan Assessment/Plan Impression: -acute on chronic hypoxic and hypercarbic respiratory failure -metabolic encephalopathy secondary to hypercarbia and hypercalcemia -renal cell carcinoma, status post nephrectomy with metastatic cancer to the lungs -cachexia -hypercalcemia -metabolic acidosis -diabetes mellitus -acute kidney injury, probable vasomotor nephropathy -CKD stage IIIB -history of nephrectomy -anemia of chronic disease Plan: -events: Patient more awake. Following some commands. PleurX catheter drained yesterday with 650 mL noted. Discussed case with the patient's mother yesterday as well as this a.m.. She wants to continue with spontaneous breathing trials. Patient continues to be a Chem code. -pulmonary consultation: Ventilator management per their discretion. -nephrology consultation : Recommendations reviewed -continue Lasix drip at 5 milligrams/hour -continue TPN -PleurX catheter with no drainage today. -regular insulin sliding scale -continue doxycycline and micafungin. -repeat labs in a.m. Prognosis: Poor given multiple comorbidities and advanced metastatic cancer. Critical care time spent with patient discussing and formulating plan of care: 90 minutes. This does not include time spent performing procedures. This medical document was created using an electronic medical record system with [employer] dictation system. Although this document has been carefully reviewed, there may still be some phonetic and typographical errors. These areas are purely typographical due to imperfections of the software programs, and do not reflect any compromise in the patient's medical care. Plan discussed with: Patient, Other (RN) My Orders Orders - MARCELO CARRASCO NP Procedure Category Date Status Time Communication Order ORDERS 06/09/24 Transmitted 09:24 Amino Acid PHA 06/09/24 In Process Infusion... W/Fat 22:00 Tpn Per Pharmacy [facility]AN[facility] 06/09/24 In Process 22:00 Basic Metabolic Panel LAB 06/11/24 Verified 04:00 Chest Portable XY 06/11/24 Verified 04:00 Date of Service: Jun 10, 2024 Billing Provider: MARCELO CARRASCO NP Common Visit Codes: [id number] CARE 30-74 MIN MARCELO CARRASCO NP Jun 10, 2024 08:53
[2024-06-10] MEDS: SODIUM PHOSPHATES 20 MEQ in SODIUM CHL 0.9% 100 ML IV ONE (12:23)
--- NOTE | 2024-06-10 15:11 | DVHPN2 ---
Progress Note Date Seen: Jun 10, 2024 Medical Necessity Reason Pt with a Central, PICC or Fol: Yes The following are medically ne: Central Line, Dc Catheter Reason for dc catheter: Strict I&O Subjective Patient reports: Other Review of Systems: Deferred Objective vital signs Vital Sign Date Time Temp Pulse Resp B/P (MAP) Pulse Ox O2 Delivery O2 Flow Rate FiO2 06/10/24 13:45 97.7 101 24 121/85 (97) 207.9 06/10/24 13:41 100 30 06/10/24 12:00 Mechanical Ventilator+ Total Intake and Output 06/09/24 06/09/24 06/10/24 15:00 23:00 07:00 Intake Total 931.75 ml 452 ml 352 ml Output Total 1500 ml 850 ml 1350 ml Balance -568.25 ml -398 ml -998 ml medications Current Medications Medications Dose Ordered Sig/Sonia Route Start Time Stop Time Status Last Admin Dose Admin Ondansetron HCl 4 mg Q4HP PRN IV 06/02/24 07:00 Enoxaparin Sodium 30 mg DAILY SC 06/02/24 10:00 06/09/24 10:04 30 MG Acetaminophen 650 mg Q6HP PRN PO 06/02/24 07:00 Albuterol 2.5 mg Q2HPRN PRN NEB 06/02/24 08:45 Ipratropium [place] 0.5 mg Q2HPRN PRN NEB 06/02/24 08:45 Norepinephrine Bitartrate 250 ml @ 3.75 mls/hr Q24H IV 06/02/24 14:00 06/09/24 02:45 7.5 MLS/HR Midazolam HCl 50 ml @ 1 mls/hr Q24H IV 06/02/24 17:45 06/07/24 05:01 5 MLS/HR Fentanyl Citrate 250 ml @ 2.5 mls/hr Q24H IV 06/02/24 17:45 06/06/24 18:05 2.5 MLS/HR Phenylephrine HCl 250 ml @ 30 mls/hr Q8H20M IV 06/02/24 18:00 Albuterol 2.5 mg Q6H NEB 06/03/24 12:00 06/10/24 13:41 2.5 MG Ipratropium [place] 0.5 mg Q6H NEB 06/03/24 12:00 06/10/24 13:41 0.5 MG Doxycycline Hyclate 100 ml @ 50 mls/hr Q12H IV 06/03/24 08:45 06/10/24 08:48 50 MLS/HR Enteral Nutritional Formula 1,000 ml 30ML/HR GT 06/03/24 08:45 06/03/24 15:18 1,000 ML Pantoprazole Sodium 40 mg BID IV 06/04/24 10:00 06/10/24 08:48 40 MG Amino Acids 0 ml @ 0 mls/hr PER PHARMACY IV 06/06/24 06:45 Diagnostic Test (Pha) 1 strip Q6HR 06/06/24 18:00 06/10/24 11:40 1 STRIP Insulin Human Regular FOLLOW SLIDING SCALE Q6HR SC 06/06/24 18:00 06/10/24 11:52 8 UNITS Dextrose 50 ml UD IV 06/06/24 22:00 Dexmedetomidine HCl 400 mcg/ Dextrose 100 ml @ 2.56 mls/hr Q24H IV 06/06/24 18:30 Methylprednisolone Sodium Succinate 40 mg Q8HR IV 06/07/24 14:00 06/10/24 15:02 40 MG Micafungin Sodium 100 mg/Sodium Chloride 100 ml @ 100 mls/hr DAILY IV 06/07/24 10:00 06/10/24 08:49 100 MLS/HR Fat Emulsion Intravenous 150 ml/Potassium Chloride 100 meq/ Magnesium Sulfate 14 meq/ Multivitamins 10 ml/Chromium/ Copper/Manganese/ Zinc 1 ml/Insulin Human Regular 16 units/Amino Acids/ Dextrose 1,064.66 ml @ 44 mls/hr [id number] IV 06/09/24 22:00 06/10/24 21:59 06/09/24 20:59 44 MLS/HR Fat Emulsion Intravenous 150 ml/Potassium Phosphate 20 meq/ Magnesium Sulfate 12 meq/ Multivitamins 10 ml/Chromium/ Copper/Manganese/ Zinc 1 ml/Insulin Human Regular 18 units/Amino Acids/ Dextrose 1,018.7255 ml @ 42 mls/hr [id number] IV 06/10/24 22:00 06/11/24 21:59 Examination: GENERAL:Abnormal (cachexia), LUNGS:Abnormal, MSK:Abnormal, SKIN:Abnormal, NEURO:Normal laboratory and microbiology Laboratory Tests 06/10/24 04:45 Test 06/10/24 04:45 Range/Units Serum Glucose 192 H 74-106 mg/dL Microbiology Date/Time Source Procedure Growth Status 06/02/24 22:30 Nose MRSA Screen - Final Complete 06/02/24 18:00 Sputum Gram Stain - Final Resulted 06/02/24 18:00 Sputum Respiratory Culture - Preliminary Resulted 06/02/24 15:57 Voided Urine Urine Culture - Final Complete 06/02/24 04:30 Blood Blood Culture - Final NO GROWTH AFTER 5 DAYS OF INCUBATION. Complete Problem List/Assessment/Plan Problem List/Assessment/Plan Acute kidney injury hemodynamically mediated etiology No previous history of CKD Bilateral small pleural effusions with PleurX catheter in place Metastatic cancer Severe protein calorie malnutrition Fungal PNA Hypokalemia cachexia hypernatremia Recommendations d5w iv bun high sec to steroids +TPN dc Lasix drip KCL replace prn Avoid hypotension poor prognosis Plan discussed with: Other Dietary Evaluation Review Comments: 1. Nepro 30 ml/hr is providing 58 gPro, 1274 kcal supporting pt's needs at 96% of protein, 102% of energy needs as long as pt is on vent. 2. Increase energy feedings once pt is off vent, 3. To avoid nephrotic syndrome, offer a Renal Specific diet with 60 g protein restriction after passing a speech eval. Expected Outcomes/Goals: monitor kidney function and reduce dietary protein for avoiding nephrotic symptoms, SHAD FITZGERALD MD Jun 10, 2024 15:11
[2024-06-10] MEDS: D5W 5% 1,000 ML IV SCH (18:08)
[2024-06-10] MEDS: TPN PER PHARMACY IV NR (20:39)
--- NOTE | 2024-06-10 23:20 | DVHPN2 ---
Progress Note - Dictate Date Seen: Jun 10, 2024 Medical Necessity Reason Pt with a Central, PICC or Fol: Yes The following are medically ne: Central Line, Dc Catheter Reason for dc catheter: Strict I&O Subjective Patient seen and examined at bedside. intubated on mechanical ventilator. Overnight events reviewed. vital signs Vital Sign Date Time Temp Pulse Resp B/P (MAP) Pulse Ox O2 Delivery O2 Flow Rate FiO2 06/10/24 21:25 76 20 77/52 (60) 99 30 06/10/24 19:15 98.2 208.8 06/10/24 18:00 Mechanical Ventilator+ Total Intake and Output 06/09/24 06/09/24 06/10/24 15:00 23:00 07:00 Intake Total 931.75 ml 452 ml 352 ml Output Total 1500 ml 850 ml 1350 ml Balance -568.25 ml -398 ml -998 ml medications Current Medications Medications Dose Ordered Sig/Sonia Route Start Time Stop Time Status Last Admin Dose Admin Ondansetron HCl 4 mg Q4HP PRN IV 06/02/24 07:00 Enoxaparin Sodium 30 mg DAILY SC 06/02/24 10:00 06/09/24 10:04 30 MG Acetaminophen 650 mg Q6HP PRN PO 06/02/24 07:00 Albuterol 2.5 mg Q2HPRN PRN NEB 06/02/24 08:45 Ipratropium [place] 0.5 mg Q2HPRN PRN NEB 06/02/24 08:45 Norepinephrine Bitartrate 250 ml @ 3.75 mls/hr Q24H IV 06/02/24 14:00 06/09/24 02:45 7.5 MLS/HR Midazolam HCl 50 ml @ 1 mls/hr Q24H IV 06/02/24 17:45 06/07/24 05:01 5 MLS/HR Fentanyl Citrate 250 ml @ 2.5 mls/hr Q24H IV 06/02/24 17:45 06/06/24 18:05 2.5 MLS/HR Phenylephrine HCl 250 ml @ 30 mls/hr Q8H20M IV 06/02/24 18:00 Albuterol 2.5 mg Q6H NEB 06/03/24 12:00 06/10/24 18:36 2.5 MG Ipratropium [place] 0.5 mg Q6H NEB 06/03/24 12:00 06/10/24 18:36 0.5 MG Doxycycline Hyclate 100 ml @ 50 mls/hr Q12H IV 06/03/24 08:45 06/10/24 20:39 50 MLS/HR Enteral Nutritional Formula 1,000 ml 30ML/HR GT 06/03/24 08:45 06/03/24 15:18 1,000 ML Pantoprazole Sodium 40 mg BID IV 06/04/24 10:00 06/10/24 22:39 40 MG Amino Acids 0 ml @ 0 mls/hr PER PHARMACY IV 06/06/24 06:45 Diagnostic Test (Pha) 1 strip Q6HR 06/06/24 18:00 06/10/24 17:59 1 STRIP Insulin Human Regular FOLLOW SLIDING SCALE Q6HR SC 06/06/24 18:00 06/10/24 17:27 4 UNITS Dextrose 50 ml UD IV 06/06/24 22:00 Dexmedetomidine HCl 400 mcg/ Dextrose 100 ml @ 2.56 mls/hr Q24H IV 06/06/24 18:30 Methylprednisolone Sodium Succinate 40 mg Q8HR IV 06/07/24 14:00 06/10/24 22:39 40 MG Micafungin Sodium 100 mg/Sodium Chloride 100 ml @ 100 mls/hr DAILY IV 06/07/24 10:00 06/10/24 08:49 100 MLS/HR Fat Emulsion Intravenous 150 ml/Potassium Phosphate 20 meq/ Magnesium Sulfate 12 meq/ Multivitamins 10 ml/Chromium/ Copper/Manganese/ Zinc 1 ml/Insulin Human Regular 18 units/Amino Acids/ Dextrose 1,018.7255 ml @ 42 mls/hr [id number] IV 06/10/24 22:00 06/11/24 21:59 06/10/24 20:39 42 MLS/HR Dextrose 1,000 ml @ 50 mls/hr Q20H IV 06/10/24 15:15 06/10/24 18:08 50 MLS/HR objective Gen.: Patient lying in bed in medical ICU. Intubated on mechanical ventilator. Head: Normocephalic, atraumatic. Eyes: PERRLA. Ears: Normal external anatomy. Throat: Endotracheal tube and orogastric tube in place. Neck: Supple, trachea midline. Chest: Transmitted breath sounds bilaterally. Decreased air entry bilaterally. No wheezing. Bibasilar crackles. Cardiovascular: Positive S1, positive S2. Regular rate and rhythm. Abdomen: Positive bowel sounds in all 4 quadrants. Soft, nontender, nondistended. : Dc in place. Normal external genitalia. Rectal: Deferred. Skin: Warm, dry. Intact. Extremities: 2+ radial pulses bilaterally. No lower extremity edema. Neuro: Off sedation laboratory and microbiology Laboratory Tests 06/10/24 04:45 Test 06/10/24 04:45 Range/Units Serum Glucose 192 H 74-106 mg/dL Assessment/Plan Impression: Acute hypoxic respiratory failure Acute hypercarbic respiratory failure, PaCO2 60.5 mmHg On mechanical ventilator Recurrent right pleural effusion due to malignancy Renal cell carcinoma with metastasis to the lung Ex-smoker Cachexia, BMI 15.8 Shock Events: Remains on vent support On vent: RR 20, VT 450, PEEP 5, Fio2 30% ABG reviewed, notable for alkalemia CXR reviewed, demonstrates multiple nodular consolidations, unchanged. Devices in place. Patient tolerated CPAP for 1 hour. Off sedation Off Precedex NGT Continue to drain PleurX every other day. Continue antibiotics Continue antifungal Continue bronchodilators IV steroids TPN for nutritional support Monitor renal function - BUN trending up Monitor electrolytes. Supplement as necessary. Potassium supplementation Nephrology recommendations appreciated Family declined hemodialysis SBT/CAROLINE Poor prognosis Family wishes to continue attempts at liberation from vent. GI prophylaxis w/ Pepcid DVT prophylaxis w/ Lovenox Labs and imaging reviewed. Rest of plan as noted below. Plan: s/p intubation on mechanical ventilator On vent: RR 20, VT 450, PEEP 5, Fio2 30% Titrate FIO2 to keep O2 saturation above 92%. VAP bundle Daily ABG and CXR while intubated. Off sedation Pressors as necessary for hemodynamic support. Titrate to keep MAP above 65 mmHg/SBP above 90 mmHg. Broad-spectrum empiric antibiotics. F/u cultures. Monitor renal function due to acute kidney injury. Monitor electrolytes. Supplement as necessary. Nutritional support. Accucheks, ISS. GI/DVT prophylaxis. Condition: Critical Prognosis: Poor given multiple comorbidities. Rest of plan per hospitalist and other consultants. A total of 35 minutes of critical care time was spent reviewing the patient record, examining the patient, making a diagnostic and therapeutic plan, discussing this plan with the medical personnel, following up on diagnostic studies and following the patient for clinical stability excluding any and all procedures. At least 50% of this time was spent in direct, [id number] contact. Thank you AMOS Gifford for allowing me to participate in this patient's care. Further recommendations will depend on patient's clinical course. Please do not hesitate to contact me if you have any questions or concerns. This medical document was created using an electronic medical record system with [employer] dictation system. Although this document has been carefully reviewed, there may still be some phonetic and typographical errors. These areas are purely typographical due to imperfections of the software programs, and do not reflect any compromise in the patient's medical care. Dietary Evaluation Review Comments: 1. Nepro 30 ml/hr is providing 58 gPro, 1274 kcal supporting pt's needs at 96% of protein, 102% of energy needs as long as pt is on vent. 2. Increase energy feedings once pt is off vent, 3. To avoid nephrotic syndrome, offer a Renal Specific diet with 60 g protein restriction after passing a speech eval. Expected Outcomes/Goals: monitor kidney function and reduce dietary protein for avoiding nephrotic symptoms, Plan discussed with: Other (ROBERT Paige) Critical Care Time(min): 35 YIN SAMSON MD Jun 10, 2024 23:20
[2024-06-11] VITALS (97 sets, daily range): BP systolic 80–157; BP diastolic 52–104; PULSE 35–156; RESP 7–30; TEMP 94.1–98.3; O2SAT 86–100
--- NOTE | 2024-06-11 05:13 | DVH ---
EXAM: XR Chest, 1 View CLINICAL INDICATION: device placement TECHNIQUE: Frontal view of the chest. COMPARISON: XY CHEST PORTABLE on DOS: 06/10/24, XY CHEST PORTABLE on DOS: 06/09/24, XY CHEST PORTABLE o n DOS: 06/08/24, XY CHEST PORTABLE on DOS: 06/07/24, XY CHEST PORTABLE on DOS: 06/06/24 FINDINGS: LUNGS AND PLEURAL SPACES: Persistent nodular opacity in both lungs, unchanged. No pneumothorax. HEART: Unremarkable. No cardiomegaly. MEDIASTINUM: Unremarkable. Normal mediastinal contour. BONES/JOINTS: Unremarkable. No acute fracture. TUBES, LINES AND DEVICES: Stable tubes and lines. OTHER FINDINGS: No significant change from the prior exam. . . . .. IMPRESSION: No significant change from the prior exam.
[2024-06-11 05:43] LABS: Hematocrit 28.4 % (41.0-53.0); Hemoglobin 9.6 g/dL (13.5-17.5); Mean Corpuscular Hemoglobin 27.4 pg (28.0-32.0); Mean Corpuscular Hgb Conc. 33.7 g/dL (32.0-36.0); Mean Corpuscular Volume 81.3 fL (80.0-100.0); Platelet Count (auto) 77 10^3/uL (140-450); Red Cell Distribution Width 16.9 % (11.8-14.3); White Blood Cell 8.4 10^3/uL (4.4-10.8)
[2024-06-11 05:50] LABS: Band Neutrophils % (manual) 0; Basophils % (manual) 0 (0.0-2.0); Blast Cells 0; Eosinophils % (manual) 0 (0-7); Metamyelocytes % 0; Myelocytes % 0; Promyelocytes % 0; Reactive Lymphocytes 0
[2024-06-11 06:18] LABS: Alanine Aminotransferase 19 U/L (7-40); Anion Gap 14 (5-15); Calcium 9.1 mg/dL (8.7-10.4); Carbon Dioxide 25 mmol/L (20-31); Magnesium 2.4 mg/dL (1.6-2.6); Potassium 3.9 mmol/L (3.5-5.1); Triglycerides 67 mg/dL (< 150)
[2024-06-11 06:19] LABS: Phosphorus 2.8 mg/dL (2.4-5.1)
[2024-06-11 06:21] LABS: Albumin 3.1 g/dL (3.2-4.8); Alkaline Phosphatase 405 U/L (46-116); Aspartate Aminotransferase 11 U/L (13-40); Bilirubin, Total 0.2 mg/dL (0.2-1.0); Chloride 108 mmol/L (98-107); Glucose 272 mg/dL (74-106); Sodium 147 mmol/L (136-145)
[2024-06-11 06:23] LABS: Blood Urea Nitrogen 121 mg/dL (9-23)
[2024-06-11 06:41] LABS: Lymphocytes % (manual) 4 (10.0-50.0)
[2024-06-11 06:42] LABS: Monocytes % (manual) 1 (0-12); Platelet Estimate Decreased
--- NOTE | 2024-06-11 09:22 | DVHPN2 ---
Subjective Patient was alert and following commands. Attempting to take endotracheal tube out. Reviewed: Care Plan, H&P, Labs, Medications Changes from previous H/P or p: No Changes General: Per HPI Respiratory: Shortness of breath Objective Vitals Vital Signs Date Time Temp Pulse Resp B/P (MAP) Pulse Ox O2 Delivery O2 Flow Rate FiO2 06/11/24 08:24 87 23 120/85 (97) 99 30 06/11/24 08:15 97.2 207.0 06/11/24 08:00 Mechanical Ventilator+ Intake/Output Intake and Output 06/11/24 07:00 Intake Total 2049.25 ml Output Total 1800 ml Balance 249.25 ml Intake Oral 0 ml IV Total 2049.25 ml Output Urine Total 1800 ml # Bowel Movements 2 General Appearance: Alert, mild distress, Other (Cachexia) HEENT: Atraumatic, PERRLA Lungs: Other (Bilateral rhonchi. Mechanical ventilation) Cardiovascular: Normal S1, Normal S2 Abdomen: Normal bowel sounds, Soft, No tenderness Musculoskeletal: Normal sensory function, Normal motor function Neuro: Normal gait, Normal speech, Other (Patient was following some commands) Skin: Dry, Intact Psych/Mental Status: Mental status NL, Mood NL Medications Current Medications Medications Dose Ordered Sig/Sonia Route Start Time Stop Time Status Last Admin Dose Admin Ondansetron HCl 4 mg Q4HP PRN IV 06/02/24 07:00 Enoxaparin Sodium 30 mg DAILY SC 06/02/24 10:00 06/09/24 10:04 30 MG Acetaminophen 650 mg Q6HP PRN PO 06/02/24 07:00 Albuterol 2.5 mg Q2HPRN PRN NEB 06/02/24 08:45 Ipratropium [place] 0.5 mg Q2HPRN PRN NEB 06/02/24 08:45 Norepinephrine Bitartrate 250 ml @ 3.75 mls/hr Q24H IV 06/02/24 14:00 06/09/24 02:45 7.5 MLS/HR Midazolam HCl 50 ml @ 1 mls/hr Q24H IV 06/02/24 17:45 06/07/24 05:01 5 MLS/HR Fentanyl Citrate 250 ml @ 2.5 mls/hr Q24H IV 06/02/24 17:45 06/06/24 18:05 2.5 MLS/HR Phenylephrine HCl 250 ml @ 30 mls/hr Q8H20M IV 06/02/24 18:00 Albuterol 2.5 mg Q6H NEB 06/03/24 12:00 06/11/24 06:34 2.5 MG Ipratropium [place] 0.5 mg Q6H NEB 06/03/24 12:00 06/11/24 06:34 0.5 MG Doxycycline Hyclate 100 ml @ 50 mls/hr Q12H IV 06/03/24 08:45 06/11/24 09:04 50 MLS/HR Enteral Nutritional Formula 1,000 ml 30ML/HR GT 06/03/24 08:45 06/03/24 15:18 1,000 ML Pantoprazole Sodium 40 mg BID IV 06/04/24 10:00 06/11/24 09:04 40 MG Amino Acids 0 ml @ 0 mls/hr PER PHARMACY IV 06/06/24 06:45 Diagnostic Test (Pha) 1 strip Q6HR 06/06/24 18:00 06/11/24 05:39 1 STRIP Insulin Human Regular FOLLOW SLIDING SCALE Q6HR SC 06/06/24 18:00 06/11/24 06:52 12 UNITS Dextrose 50 ml UD IV 06/06/24 22:00 Dexmedetomidine HCl 400 mcg/ Dextrose 100 ml @ 2.56 mls/hr Q24H IV 06/06/24 18:30 Methylprednisolone Sodium Succinate 40 mg Q8HR IV 06/07/24 14:00 06/11/24 05:39 40 MG Micafungin Sodium 100 mg/Sodium Chloride 100 ml @ 100 mls/hr DAILY IV 06/07/24 10:00 06/11/24 09:10 100 MLS/HR Fat Emulsion Intravenous 150 ml/Potassium Phosphate 20 meq/ Magnesium Sulfate 12 meq/ Multivitamins 10 ml/Chromium/ Copper/Manganese/ Zinc 1 ml/Insulin Human Regular 18 units/Amino Acids/ Dextrose 1,018.7255 ml @ 42 mls/hr [id number] IV 06/10/24 22:00 06/11/24 21:59 06/10/24 20:39 42 MLS/HR Dextrose 1,000 ml @ 50 mls/hr Q20H IV 06/10/24 15:15 06/10/24 18:08 50 MLS/HR Laboratory Results Laboratory Tests 06/11/24 04:46 Chemistry Test 06/11/24 04:46 Albumin 3.1 g/dL (3.2-4.8) L Calcium Level 9.1 mg/dL (8.7-10.4) Magnesium Level 2.4 mg/dL (1.6-2.6) Phosphorus Level 2.8 mg/dL (2.4-5.1) Total Protein 5.0 g/dL (5.7-8.2) L Lipid panel Test 06/11/24 04:46 Triglycerides Level 67 mg/dL (< 150) LFT Test 06/11/24 04:46 Alanine Aminotransferase (ALT) 19 U/L (7-40) Alkaline Phosphatase 405 U/L (46-116) H Aspartate Amino Transferase (AST) 11 U/L (13-40) L Total Bilirubin 0.2 mg/dL (0.2-1.0) Urinalysis Test 06/02/24 15:57 Urine Color Yellow (Yellow) Urine Clarity Turbid (Clear) H Urine pH 5.0 (5.0-9.0) Urine Specific [place] 1.020 (1.001-1.035) Urine Protein 1+ (Negative) H Urine Ketones Negative (Negative) Urine Blood Trace /uL (Negative) H Urine Nitrite Negative (Negative) Urine Bilirubin Negative (Negative) Urine Urobilinogen Normal mg/dL (Negative) Urine Leukocyte Esterase Trace /uL (Negative) Urine RBC 7 /hpf (0 - 3) Urine Microscopic WBC 6 /HPF (0-3) H Urine Squamous Epithelial Cells Few /hpf (<5) Urine Calcium Oxalate Crystals Few (None Seen) Urine Bacteria Few /hpf (None Seen) H Urine Hyaline Casts Few /lpf (0 - 2) Urine Mucus Few (None Seen) Urine Sperm Present /hpf (None Seen) Urine Creatinine 105.47 mg/dL (30.0-125.0) Urine Sodium < 10 mmol/L (40-220) L Urine Glucose Normal mg/dL (Normal) Microbiology Microbiology Date/Time Source Procedure Growth Status 06/02/24 22:30 Nose MRSA Screen - Final Complete 06/02/24 18:00 Sputum Gram Stain - Final Resulted 06/02/24 18:00 Sputum Respiratory Culture - Preliminary Resulted 06/02/24 15:57 Voided Urine Urine Culture - Final Complete 06/02/24 04:30 Blood Blood Culture - Final NO GROWTH AFTER 5 DAYS OF INCUBATION. Complete Labs and/or images reviewed: Labs reviewed by me, Image(s) reviewed by me Assessment/Plan Assessment/Plan Impression: -acute on chronic hypoxic and hypercarbic respiratory failure -metabolic encephalopathy secondary to hypercarbia and hypercalcemia -renal cell carcinoma, status post nephrectomy with metastatic cancer to the lungs -cachexia -hypercalcemia -metabolic acidosis -diabetes mellitus -acute kidney injury, probable vasomotor nephropathy -CKD stage IIIB -history of nephrectomy -anemia of chronic disease Plan: -events: Patient was awake and following commands. Discussion made with the patient's mother was bedside regarding the need for her to consider compassionate extubation given his terminal diagnosis. She was requesting to wait until hospice has been established. Discussed case with social worker clinical who will assist mother with establishment of hospice services. Plans for compassion extubation today. -pulmonary consultation: Recommendations reviewed -nephrology consultation : Recommendations reviewed -continue Lasix drip at 5 milligrams/hour -continue TPN -PleurX catheter with no drainage today. -regular insulin sliding scale -continue doxycycline and micafungin. -repeat labs in a.m. Prognosis: Poor given multiple comorbidities and advanced metastatic cancer. Critical care time spent with patient discussing and formulating plan of care: 90 minutes. This does not include time spent performing procedures. This medical document was created using an electronic medical record system with [employer] dictation system. Although this document has been carefully reviewed, there may still be some phonetic and typographical errors. These areas are purely typographical due to imperfections of the software programs, and do not reflect any compromise in the patient's medical care. Plan discussed with: Patient, Other (RN, Mother) My Orders Orders - MARCELO CARRASCO NP Procedure Category Date Status Time Amino Acid PHA 06/10/24 In Process Infusion... W/Fat 22:00 Tpn Per Pharmacy [facility]AN[facility] 06/10/24 In Process 22:00 Date of Service: Jun 11, 2024 Billing Provider: MARCELO CARRASCO NP Common Visit Codes: [id number] CARE 30-74 MIN, [id number] CARE-EACH +30MIN MARCELO CARRASCO NP Jun 11, 2024 09:22
--- NOTE | 2024-06-11 17:16 | DVHPN2 ---
Progress Note Date Seen: Jun 11, 2024 Medical Necessity Reason Pt with a Central, PICC or Fol: Yes The following are medically ne: Central Line, Dc Catheter Reason for dc catheter: Strict I&O Subjective Patient reports: Other Review of Systems: Deferred Objective vital signs Vital Sign Date Time Temp Pulse Resp B/P (MAP) Pulse Ox O2 Delivery O2 Flow Rate FiO2 06/11/24 14:59 87 22 125/83 (97) 100 30 06/11/24 12:45 94.3 201.7 06/11/24 12:00 Mechanical Ventilator+ Total Intake and Output 06/10/24 06/10/24 06/11/24 15:00 23:00 07:00 Intake Total 592.25 ml 706.0 ml 751.0 ml Output Total 850 ml 950 ml Balance 592.25 ml -144.0 ml -199.0 ml medications Current Medications Medications Dose Ordered Sig/Sonia Route Start Time Stop Time Status Last Admin Dose Admin Ondansetron HCl 4 mg Q4HP PRN IV 06/02/24 07:00 Enoxaparin Sodium 30 mg DAILY SC 06/02/24 10:00 06/09/24 10:04 30 MG Acetaminophen 650 mg Q6HP PRN PO 06/02/24 07:00 Albuterol 2.5 mg Q2HPRN PRN NEB 06/02/24 08:45 Ipratropium [place] 0.5 mg Q2HPRN PRN NEB 06/02/24 08:45 Norepinephrine Bitartrate 250 ml @ 3.75 mls/hr Q24H IV 06/02/24 14:00 06/09/24 02:45 7.5 MLS/HR Midazolam HCl 50 ml @ 1 mls/hr Q24H IV 06/02/24 17:45 06/07/24 05:01 5 MLS/HR Fentanyl Citrate 250 ml @ 2.5 mls/hr Q24H IV 06/02/24 17:45 06/06/24 18:05 2.5 MLS/HR Phenylephrine HCl 250 ml @ 30 mls/hr Q8H20M IV 06/02/24 18:00 Albuterol 2.5 mg Q6H NEB 06/03/24 12:00 06/11/24 11:58 2.5 MG Ipratropium [place] 0.5 mg Q6H NEB 06/03/24 12:00 06/11/24 11:57 0.5 MG Doxycycline Hyclate 100 ml @ 50 mls/hr Q12H IV 06/03/24 08:45 06/11/24 09:04 50 MLS/HR Enteral Nutritional Formula 1,000 ml 30ML/HR GT 06/03/24 08:45 06/03/24 15:18 1,000 ML Pantoprazole Sodium 40 mg BID IV 06/04/24 10:00 06/11/24 09:04 40 MG Amino Acids 0 ml @ 0 mls/hr PER PHARMACY IV 06/06/24 06:45 Diagnostic Test (Pha) 1 strip Q6HR 06/06/24 18:00 06/11/24 11:41 1 STRIP Insulin Human Regular FOLLOW SLIDING SCALE Q6HR SC 06/06/24 18:00 06/11/24 11:42 8 UNITS Dextrose 50 ml UD IV 06/06/24 22:00 Dexmedetomidine HCl 400 mcg/ Dextrose 100 ml @ 2.56 mls/hr Q24H IV 06/06/24 18:30 Methylprednisolone Sodium Succinate 40 mg Q8HR IV 06/07/24 14:00 06/11/24 15:30 40 MG Micafungin Sodium 100 mg/Sodium Chloride 100 ml @ 100 mls/hr DAILY IV 06/07/24 10:00 06/11/24 09:10 100 MLS/HR Fat Emulsion Intravenous 150 ml/Potassium Phosphate 20 meq/ Magnesium Sulfate 12 meq/ Multivitamins 10 ml/Chromium/ Copper/Manganese/ Zinc 1 ml/Insulin Human Regular 18 units/Amino Acids/ Dextrose 1,018.7255 ml @ 42 mls/hr [id number] IV 06/10/24 22:00 06/11/24 21:59 06/10/24 20:39 42 MLS/HR Dextrose 1,000 ml @ 50 mls/hr Q20H IV 06/10/24 15:15 06/10/24 18:08 50 MLS/HR Fat Emulsion Intravenous 150 ml/Potassium Phosphate 22 meq/ Magnesium Sulfate 8 meq/ Multivitamins 10 ml/Chromium/ Copper/Manganese/ Zinc 1 ml/Insulin Human Regular 22 units/Amino Acids/ Dextrose/Purified Water 1,218.22 ml @ 51 mls/hr [id number] IV 06/11/24 22:00 06/12/24 21:59 Examination: GENERAL:Abnormal, MSK:Abnormal laboratory and microbiology Laboratory Tests 06/11/24 04:46 Test 06/11/24 04:46 Range/Units Serum Glucose 272 H 74-106 mg/dL Microbiology Date/Time Source Procedure Growth Status 06/02/24 22:30 Nose MRSA Screen - Final Complete 06/02/24 18:00 Sputum Gram Stain - Final Resulted 06/02/24 18:00 Sputum Respiratory Culture - Preliminary Resulted 06/02/24 15:57 Voided Urine Urine Culture - Final Complete 06/02/24 04:30 Blood Blood Culture - Final NO GROWTH AFTER 5 DAYS OF INCUBATION. Complete Problem List/Assessment/Plan Problem List/Assessment/Plan Acute kidney injury hemodynamically mediated etiology No previous history of CKD Bilateral small pleural effusions with PleurX catheter in place Metastatic cancer Severe protein calorie malnutrition Fungal PNA Hypokalemia cachexia hypernatremia Recommendations d5w iv bun high sec to steroids +TPN dc Lasix drip KCL replace prn Avoid hypotension poor prognosis Plan discussed with: Other Dietary Evaluation Review Comments: 1. Nepro 30 ml/hr is providing 58 gPro, 1274 kcal supporting pt's needs at 96% of protein, 102% of energy needs as long as pt is on vent. 2. Increase energy feedings once pt is off vent, 3. To avoid nephrotic syndrome, offer a Renal Specific diet with 60 g protein restriction after passing a speech eval. Expected Outcomes/Goals: monitor kidney function and reduce dietary protein for avoiding nephrotic symptoms, SHAD FITZGERALD MD Jun 11, 2024 17:16
[2024-06-11] MEDS ORDERED: TPN PER PHARMACY IV NR (22:00)
[2024-06-11] MEDS: TPN PER PHARMACY IV NR (23:25)
--- NOTE | 2024-06-11 23:30 | DVHPN2 ---
Progress Note - Dictate Date Seen: Jun 11, 2024 Medical Necessity Reason Pt with a Central, PICC or Fol: Yes The following are medically ne: Central Line, Dc Catheter Reason for cd catheter: Strict I&O Subjective Patient seen and examined at bedside. S/p extubation, on supplemental oxygen Overnight events reviewe vital signs Vital Sign Date Time Temp Pulse Resp B/P (MAP) Pulse Ox O2 Delivery O2 Flow Rate FiO2 06/11/24 22:00 97.2 97.2 06/11/24 20:00 94 13 111/79 (90) 95 06/11/24 18:16 Cool Aerosol 10 98 98 Total Intake and Output 06/10/24 06/10/24 06/11/24 15:00 23:00 07:00 Intake Total 592.25 ml 706.0 ml 751.0 ml Output Total 850 ml 950 ml Balance 592.25 ml -144.0 ml -199.0 ml medications Current Medications Medications Dose Ordered Sig/Sonia Route Start Time Stop Time Status Last Admin Dose Admin Ondansetron HCl 4 mg Q4HP PRN IV 06/02/24 07:00 Enoxaparin Sodium 30 mg DAILY SC 06/02/24 10:00 06/09/24 10:04 30 MG Acetaminophen 650 mg Q6HP PRN PO 06/02/24 07:00 Albuterol 2.5 mg Q2HPRN PRN NEB 06/02/24 08:45 Ipratropium [place] 0.5 mg Q2HPRN PRN NEB 06/02/24 08:45 Norepinephrine Bitartrate 250 ml @ 3.75 mls/hr Q24H IV 06/02/24 14:00 06/09/24 02:45 7.5 MLS/HR Midazolam HCl 50 ml @ 1 mls/hr Q24H IV 06/02/24 17:45 06/07/24 05:01 5 MLS/HR Fentanyl Citrate 250 ml @ 2.5 mls/hr Q24H IV 06/02/24 17:45 06/06/24 18:05 2.5 MLS/HR Phenylephrine HCl 250 ml @ 30 mls/hr Q8H20M IV 06/02/24 18:00 Albuterol 2.5 mg Q6H NEB 06/03/24 12:00 06/11/24 18:18 2.5 MG Ipratropium [place] 0.5 mg Q6H NEB 06/03/24 12:00 06/11/24 18:18 0.5 MG Doxycycline Hyclate 100 ml @ 50 mls/hr Q12H IV 06/03/24 08:45 06/11/24 20:29 50 MLS/HR Enteral Nutritional Formula 1,000 ml 30ML/HR GT 06/03/24 08:45 06/03/24 15:18 1,000 ML Pantoprazole Sodium 40 mg BID IV 06/04/24 10:00 06/11/24 23:06 40 MG Amino Acids 0 ml @ 0 mls/hr PER PHARMACY IV 06/06/24 06:45 Diagnostic Test (Pha) 1 strip Q6HR 06/06/24 18:00 06/11/24 18:00 1 STRIP Insulin Human Regular FOLLOW SLIDING SCALE Q6HR SC 06/06/24 18:00 06/11/24 18:00 8 UNITS Dextrose 50 ml UD IV 06/06/24 22:00 Dexmedetomidine HCl 400 mcg/ Dextrose 100 ml @ 2.56 mls/hr Q24H IV 06/06/24 18:30 Methylprednisolone Sodium Succinate 40 mg Q8HR IV 06/07/24 14:00 06/11/24 23:06 40 MG Micafungin Sodium 100 mg/Sodium Chloride 100 ml @ 100 mls/hr DAILY IV 06/07/24 10:00 06/11/24 09:10 100 MLS/HR Dextrose 1,000 ml @ 50 mls/hr Q20H IV 06/10/24 15:15 06/11/24 11:15 50 MLS/HR Fat Emulsion Intravenous 150 ml/Potassium Phosphate 22 meq/ Magnesium Sulfate 8 meq/ Multivitamins 10 ml/Chromium/ Copper/Manganese/ Zinc 1 ml/Insulin Human Regular 22 units/Amino Acids/ Dextrose/Purified Water 1,218.22 ml @ 51 mls/hr [id number] IV 06/11/24 23:15 06/12/24 23:14 06/11/24 23:25 51 MLS/HR objective Gen.: Patient lying in bed in no apparent distress. On supplemental oxygen. Head: Normocephalic, atraumatic. Eyes: EOMI/PERRLA. Ears: Normal hearing. Normal anatomy. Neck/trachea: Trachea midline, supple. Nose: Normal external anatomy. Mouth: Moist mucous membranes. Chest: Decreased air entry bilaterally. No wheezing or rhonchi. Cardiovascular: Positive S1, positive S2. Regular rate and rhythm. Abdomen: Positive bowel sounds in all 4 quadrants. Soft, non-tender, non- distended. : Deferred. Rectal: Deferred. Skin: Warm, dry. Intact. Extremities: 2+ radial pulses bilaterally. No lower extremity edema. Neuro: Awake, alert, oriented x3. No gross motor or sensory deficits. Cranial nerves II through XII intact. Gait not assessed. laboratory and microbiology Laboratory Tests 06/11/24 04:46 Test 06/11/24 04:46 Range/Units Serum Glucose 272 H 74-106 mg/dL Assessment/Plan Impression: Acute hypoxic respiratory failure Acute hypercarbic respiratory failure, PaCO2 60.5 mmHg On mechanical ventilator Recurrent right pleural effusion due to malignancy Renal cell carcinoma with metastasis to the lung Ex-smoker Cachexia, BMI 15.8 Shock Events: Patient tolerated CPAP and was extubated uneventfully Currently on supplemental O2 at 15 LPM nonrebreather. Patient on atropine due to bradycardia. Pressors for hemodynamic support. On Levophed at 4 mcg/min Titrate to keep MAP above 65 mmHg/SBP above 90 mmHg. NGT Continue to drain PleurX every other day. Continue antibiotics Continue antifungal Continue bronchodilators IV steroids TPN for nutritional support Monitor renal function Monitor electrolytes. Supplement as necessary. Nephrology recommendations appreciated Family declined hemodialysis Poor prognosis GI prophylaxis w/ Pepcid DVT prophylaxis w/ Lovenox Labs and imaging reviewed. Rest of plan as noted below. Plan: s/p extubation Supplemental oxygen Titrate to keep sats above 90% Off sedation Pressors for hemodynamic support. Titrate to keep MAP above 65 mmHg/SBP above 90 mmHg. Broad-spectrum empiric antibiotics. F/u cultures. Monitor renal function due to acute kidney injury. Monitor electrolytes. Supplement as necessary. Nutritional support. Accucheks, ISS. GI/DVT prophylaxis. Condition: Critical Prognosis: Poor given multiple comorbidities. Rest of plan per hospitalist and other consultants. A total of 35 minutes of critical care time was spent reviewing the patient record, examining the patient, making a diagnostic and therapeutic plan, discussing this plan with the medical personnel, following up on diagnostic studies and following the patient for clinical stability excluding any and all procedures. At least 50% of this time was spent in direct, [id number] contact. Thank you AMOS Gifford for allowing me to participate in this patient's care. Further recommendations will depend on patient's clinical course. Please do not hesitate to contact me if you have any questions or concerns. This medical document was created using an electronic medical record system with [employer] dictation system. Although this document has been carefully reviewed, there may still be some phonetic and typographical errors. These areas are purely typographical due to imperfections of the software programs, and do not reflect any compromise in the patient's medical care. Dietary Evaluation Review Comments: 1. Nepro 30 ml/hr is providing 58 gPro, 1274 kcal supporting pt's needs at 96% of protein, 102% of energy needs as long as pt is on vent. 2. Increase energy feedings once pt is off vent, 3. To avoid nephrotic syndrome, offer a Renal Specific diet with 60 g protein restriction after passing a speech eval. Expected Outcomes/Goals: monitor kidney function and reduce dietary protein for avoiding nephrotic symptoms, Plan discussed with: Other (ROBERT Paige) Critical Care Time(min): 35 YIN SAMSON MD Jun 11, 2024 23:30
[2024-06-12] VITALS (93 sets, daily range): BP systolic 82–116; BP diastolic 50–77; PULSE 18–98; RESP 14–26; TEMP 93.3–99.1; O2SAT 88–98
[2024-06-12 05:53] LABS: Alanine Aminotransferase 24 U/L (7-40); Albumin 3.3 g/dL (3.2-4.8); Anion Gap 10 (5-15); Aspartate Aminotransferase 17 U/L (13-40); BUN/Creatinine Ratio 57.6 (10.0-20.0); Calcium 9.1 mg/dL (8.7-10.4); Carbon Dioxide 26 mmol/L (20-31); Magnesium 2.5 mg/dL (1.6-2.6); Phosphorus 4.3 mg/dL (2.4-5.1); Potassium 4.1 mmol/L (3.5-5.1)
[2024-06-12 06:13] LABS: Alkaline Phosphatase 410 U/L (46-116); Bilirubin, Total 0.2 mg/dL (0.2-1.0); Chloride 111 mmol/L (98-107); Glucose 156 mg/dL (74-106); Sodium 147 mmol/L (136-145); Total Protein 5.3 g/dL (5.7-8.2)
[2024-06-12 06:15] LABS: Blood Urea Nitrogen 98 mg/dL (9-23)
--- NOTE | 2024-06-12 10:11 | DVHPN2 ---
Subjective Patient more lethargic today. Able to follow some commands. Reviewed: Care Plan, H&P, Labs, Medications Changes from previous H/P or p: Changes General: Per HPI Respiratory: Shortness of breath Objective Vitals Vital Signs Date Time Temp Pulse Resp B/P (MAP) Pulse Ox O2 Delivery O2 Flow Rate FiO2 06/12/24 08:15 96.3 82 17 101/68 (79) 92 205.3 06/12/24 06:54 Non-Rebreather 15.0 06/12/24 06:54 N/A Intake/Output Intake and Output 06/12/24 07:00 Intake Total 1492.25 ml Output Total 3000 ml Balance -1507.75 ml Intake Oral 0 ml IV Total 1492.25 ml Output Urine Total 3000 ml # Bowel Movements 3 General Appearance: Alert, mild distress, Other (Cachexia) HEENT: Atraumatic, PERRLA Lungs: Other (Bilateral rhonchi. Mechanical ventilation) Cardiovascular: Normal S1, Normal S2 Abdomen: Normal bowel sounds, Soft, No tenderness Musculoskeletal: Normal sensory function, Normal motor function Neuro: Normal gait, Normal speech, Other (Patient was following some commands) Skin: Dry, Intact Psych/Mental Status: Mental status NL, Mood NL Medications Current Medications Medications Dose Ordered Sig/Sonia Route Start Time Stop Time Status Last Admin Dose Admin Ondansetron HCl 4 mg Q4HP PRN IV 06/02/24 07:00 Enoxaparin Sodium 30 mg DAILY SC 06/02/24 10:00 06/09/24 10:04 30 MG Acetaminophen 650 mg Q6HP PRN PO 06/02/24 07:00 Albuterol 2.5 mg Q2HPRN PRN NEB 06/02/24 08:45 Ipratropium [place] 0.5 mg Q2HPRN PRN NEB 06/02/24 08:45 Norepinephrine Bitartrate 250 ml @ 3.75 mls/hr Q24H IV 06/02/24 14:00 06/11/24 18:15 3.75 MLS/HR Midazolam HCl 50 ml @ 1 mls/hr Q24H IV 06/02/24 17:45 06/07/24 05:01 5 MLS/HR Fentanyl Citrate 250 ml @ 2.5 mls/hr Q24H IV 06/02/24 17:45 06/06/24 18:05 2.5 MLS/HR Phenylephrine HCl 250 ml @ 30 mls/hr Q8H20M IV 06/02/24 18:00 Albuterol 2.5 mg Q6H NEB 06/03/24 12:00 06/12/24 06:54 2.5 MG Ipratropium [place] 0.5 mg Q6H NEB 06/03/24 12:00 06/12/24 06:54 0.5 MG Doxycycline Hyclate 100 ml @ 50 mls/hr Q12H IV 06/03/24 08:45 06/12/24 09:05 50 MLS/HR Enteral Nutritional Formula 1,000 ml 30ML/HR GT 06/03/24 08:45 06/03/24 15:18 1,000 ML Pantoprazole Sodium 40 mg BID IV 06/04/24 10:00 06/12/24 09:06 40 MG Amino Acids 0 ml @ 0 mls/hr PER PHARMACY IV 06/06/24 06:45 Diagnostic Test (Pha) 1 strip Q6HR 06/06/24 18:00 06/12/24 06:00 1 STRIP Insulin Human Regular FOLLOW SLIDING SCALE Q6HR SC 06/06/24 18:00 06/12/24 05:54 2 UNITS Dextrose 50 ml UD IV 06/06/24 22:00 Dexmedetomidine HCl 400 mcg/ Dextrose 100 ml @ 2.56 mls/hr Q24H IV 06/06/24 18:30 Methylprednisolone Sodium Succinate 40 mg Q8HR IV 06/07/24 14:00 06/12/24 06:38 40 MG Micafungin Sodium 100 mg/Sodium Chloride 100 ml @ 100 mls/hr DAILY IV 06/07/24 10:00 06/12/24 09:06 100 MLS/HR Dextrose 1,000 ml @ 50 mls/hr Q20H IV 06/10/24 15:15 06/11/24 11:15 50 MLS/HR Fat Emulsion Intravenous 150 ml/Potassium Phosphate 22 meq/ Magnesium Sulfate 8 meq/ Multivitamins 10 ml/Chromium/ Copper/Manganese/ Zinc 1 ml/Insulin Human Regular 22 units/Amino Acids/ Dextrose/Purified Water 1,218.22 ml @ 51 mls/hr [id number] IV 06/11/24 23:15 06/12/24 23:14 06/11/24 23:25 51 MLS/HR Laboratory Results Laboratory Tests 06/11/24 04:46 06/12/24 05:06 Chemistry Test 06/12/24 05:06 Albumin 3.3 g/dL (3.2-4.8) Calcium Level 9.1 mg/dL (8.7-10.4) Magnesium Level 2.5 mg/dL (1.6-2.6) Phosphorus Level 4.3 mg/dL (2.4-5.1) Total Protein 5.3 g/dL (5.7-8.2) L LFT Test 06/12/24 05:06 Alanine Aminotransferase (ALT) 24 U/L (7-40) Alkaline Phosphatase 410 U/L (46-116) H Aspartate Amino Transferase (AST) 17 U/L (13-40) Total Bilirubin 0.2 mg/dL (0.2-1.0) Urinalysis Test 06/02/24 15:57 Urine Color Yellow (Yellow) Urine Clarity Turbid (Clear) H Urine pH 5.0 (5.0-9.0) Urine Specific [place] 1.020 (1.001-1.035) Urine Protein 1+ (Negative) H Urine Ketones Negative (Negative) Urine Blood Trace /uL (Negative) H Urine Nitrite Negative (Negative) Urine Bilirubin Negative (Negative) Urine Urobilinogen Normal mg/dL (Negative) Urine Leukocyte Esterase Trace /uL (Negative) Urine RBC 7 /hpf (0 - 3) Urine Microscopic WBC 6 /HPF (0-3) H Urine Squamous Epithelial Cells Few /hpf (<5) Urine Calcium Oxalate Crystals Few (None Seen) Urine Bacteria Few /hpf (None Seen) H Urine Hyaline Casts Few /lpf (0 - 2) Urine Mucus Few (None Seen) Urine Sperm Present /hpf (None Seen) Urine Creatinine 105.47 mg/dL (30.0-125.0) Urine Sodium < 10 mmol/L (40-220) L Urine Glucose Normal mg/dL (Normal) Microbiology Microbiology Date/Time Source Procedure Growth Status 06/02/24 22:30 Nose MRSA Screen - Final Complete 06/02/24 18:00 Sputum Gram Stain - Final Resulted 06/02/24 18:00 Sputum Respiratory Culture - Preliminary Resulted 06/02/24 15:57 Voided Urine Urine Culture - Final Complete 06/02/24 04:30 Blood Blood Culture - Final NO GROWTH AFTER 5 DAYS OF INCUBATION. Complete Labs and/or images reviewed: Labs reviewed by me, Image(s) reviewed by me Assessment/Plan Assessment/Plan Impression: -acute on chronic hypoxic and hypercarbic respiratory failure -metabolic encephalopathy secondary to hypercarbia and hypercalcemia -renal cell carcinoma, status post nephrectomy with metastatic cancer to the lungs -cachexia -hypercalcemia -metabolic acidosis -diabetes mellitus -acute kidney injury, probable vasomotor nephropathy -CKD stage IIIB -history of nephrectomy -anemia of chronic disease Plan: -events: Patient compassionately extubated yesterday. Continues to be a chemical code at this time and is on Levophed 2 micrograms/minute. Long discussion made with the patient's mother regarding plan of care, with the mother not wanting the patient to go home with hospice at this time. She is still hoping that his mentation will improve and go home safely. Discussed with the mother that he does have a terminal diagnosis and there is no promise that his clinical picture we will improved. At this time she wishes to continue current modalities and is agreeable to not have the patient placed back on the ventilator. -pulmonary consultation: Recommendations reviewed -nephrology consultation : Recommendations reviewed -continue Lasix drip at 5 milligrams/hour -continue TPN -PleurX catheter with no drainage today. -regular insulin sliding scale -continue doxycycline and micafungin. -repeat labs in a.m. Prognosis: Poor given multiple comorbidities and advanced metastatic cancer. Critical care time spent with patient discussing and formulating plan of care: 90 minutes. This does not include time spent performing procedures. This medical document was created using an electronic medical record system with [facility] dictation system. Although this document has been carefully reviewed, there may still be some phonetic and typographical errors. These areas are purely typographical due to imperfections of the software programs, and do not reflect any compromise in the patient's medical care. Plan discussed with: Patient, Other (RN) My Orders Orders - MARCELO CARRASCO NP Procedure Category Date Status Time Tpn Per Pharmacy DANICA 06/11/24 In Process 22:00 Rt To Terminal Wean Pt ORDERS 06/11/24 Transmitted 15:12 Amino Acid PHA 06/11/24 In Process Infusion... W/Fat 23:15 Date of Service: Jun 12, 2024 Billing Provider: MARCELO CARRASCO NP Common Visit Codes: [id number] CARE 30-74 MIN, [id number] CARE-EACH +30MIN MARCELO CARRASCO NP Jun 12, 2024 10:11
--- NOTE | 2024-06-12 19:21 | DVHPN2 ---
Progress Note Date Seen: Jun 12, 2024 Medical Necessity Reason Pt with a Central, PICC or Fol: Yes The following are medically ne: Central Line, Dc Catheter Reason for dc catheter: Strict I&O Subjective Patient reports: Other Review of Systems: Deferred Objective vital signs Vital Sign Date Time Temp Pulse Resp B/P (MAP) Pulse Ox O2 Delivery O2 Flow Rate FiO2 06/12/24 18:43 95 Non-Rebreather 15.0 06/12/24 18:43 N/A 06/12/24 18:08 82 20 06/12/24 17:00 97.5 93/61 (72) 207.5 Total Intake and Output 06/11/24 06/11/24 06/12/24 15:00 23:00 07:00 Intake Total 836 ml 144.75 ml 511.50 ml Output Total 1800 ml 1200 ml Balance 836 ml -1655.25 ml -688.50 ml medications Current Medications Medications Dose Ordered Sig/Sonia Route Start Time Stop Time Status Last Admin Dose Admin Ondansetron HCl 4 mg Q4HP PRN IV 06/02/24 07:00 Enoxaparin Sodium 30 mg DAILY SC 06/02/24 10:00 06/09/24 10:04 30 MG Acetaminophen 650 mg Q6HP PRN PO 06/02/24 07:00 Albuterol 2.5 mg Q2HPRN PRN NEB 06/02/24 08:45 Ipratropium [place] 0.5 mg Q2HPRN PRN NEB 06/02/24 08:45 Norepinephrine Bitartrate 250 ml @ 3.75 mls/hr Q24H IV 06/02/24 14:00 06/11/24 18:15 3.75 MLS/HR Midazolam HCl 50 ml @ 1 mls/hr Q24H IV 06/02/24 17:45 06/07/24 05:01 5 MLS/HR Fentanyl Citrate 250 ml @ 2.5 mls/hr Q24H IV 06/02/24 17:45 06/06/24 18:05 2.5 MLS/HR Phenylephrine HCl 250 ml @ 30 mls/hr Q8H20M IV 06/02/24 18:00 Albuterol 2.5 mg Q6H NEB 06/03/24 12:00 06/12/24 18:43 2.5 MG Ipratropium [place] 0.5 mg Q6H NEB 06/03/24 12:00 06/12/24 18:42 0.5 MG Doxycycline Hyclate 100 ml @ 50 mls/hr Q12H IV 06/03/24 08:45 06/12/24 09:05 50 MLS/HR Enteral Nutritional Formula 1,000 ml 30ML/HR GT 06/03/24 08:45 06/03/24 15:18 1,000 ML Pantoprazole Sodium 40 mg BID IV 06/04/24 10:00 06/12/24 09:06 40 MG Amino Acids 0 ml @ 0 mls/hr PER PHARMACY IV 06/06/24 06:45 Diagnostic Test (Pha) 1 strip Q6HR 06/06/24 18:00 06/12/24 18:41 1 STRIP Insulin Human Regular FOLLOW SLIDING SCALE Q6HR SC 06/06/24 18:00 06/12/24 18:10 4 UNITS Dextrose 50 ml UD IV 06/06/24 22:00 Dexmedetomidine HCl 400 mcg/ Dextrose 100 ml @ 2.56 mls/hr Q24H IV 06/06/24 18:30 Methylprednisolone Sodium Succinate 40 mg Q8HR IV 06/07/24 14:00 06/12/24 14:32 40 MG Micafungin Sodium 100 mg/Sodium Chloride 100 ml @ 100 mls/hr DAILY IV 06/07/24 10:00 06/12/24 09:06 100 MLS/HR Dextrose 1,000 ml @ 50 mls/hr Q20H IV 06/10/24 15:15 06/11/24 11:15 50 MLS/HR Fat Emulsion Intravenous 150 ml/Potassium Phosphate 22 meq/ Magnesium Sulfate 8 meq/ Multivitamins 10 ml/Chromium/ Copper/Manganese/ Zinc 1 ml/Insulin Human Regular 22 units/Amino Acids/ Dextrose/Purified Water 1,218.22 ml @ 51 mls/hr [id number] IV 06/11/24 23:15 06/12/24 23:14 06/11/24 23:25 51 MLS/HR Fat Emulsion Intravenous 150 ml/Potassium Acetate 20 meq/ Magnesium Sulfate 4 meq/ Multivitamins 10 ml/Chromium/ Copper/Manganese/ Zinc 1 ml/Insulin Human Regular 20 units/Amino Acids/ Dextrose/Purified Water 1,222.2 ml @ 51 mls/hr [id number] IV 06/12/24 22:00 06/13/24 21:59 Examination: GENERAL:Abnormal, LUNGS:Abnormal, NEURO:Abnormal laboratory and microbiology Laboratory Tests 06/12/24 05:06 06/11/24 04:46 Test 06/12/24 05:06 Range/Units Serum Glucose 156 #H 74-106 mg/dL Microbiology Date/Time Source Procedure Growth Status 06/02/24 22:30 Nose MRSA Screen - Final Complete 06/02/24 18:00 Sputum Gram Stain - Final Resulted 06/02/24 18:00 Sputum Respiratory Culture - Preliminary Resulted 06/02/24 15:57 Voided Urine Urine Culture - Final Complete 06/02/24 04:30 Blood Blood Culture - Final NO GROWTH AFTER 5 DAYS OF INCUBATION. Complete Problem List/Assessment/Plan Problem List/Assessment/Plan Acute kidney injury hemodynamically mediated etiology No previous history of CKD Bilateral small pleural effusions with PleurX catheter in place Metastatic cancer Severe protein calorie malnutrition Fungal PNA Hypokalemia cachexia hypernatremia Recommendations d5w iv bun high sec to steroids +TPN extubated KCL replace prn Avoid hypotension d/w mom poor prognosis Plan discussed with: Other Dietary Evaluation Review Comments: 1. Nepro 30 ml/hr is providing 58 gPro, 1274 kcal supporting pt's needs at 96% of protein, 102% of energy needs as long as pt is on vent. 2. Increase energy feedings once pt is off vent, 3. To avoid nephrotic syndrome, offer a Renal Specific diet with 60 g protein restriction after passing a speech eval. Expected Outcomes/Goals: monitor kidney function and reduce dietary protein for avoiding nephrotic symptoms, SHDA FITZGERALD MD Jun 12, 2024 19:21
[2024-06-12] MEDS: TPN PER PHARMACY IV NR (21:08)
--- NOTE | 2024-06-12 23:49 | DVHPN2 ---
Progress Note - Dictate Date Seen: Jun 12, 2024 Medical Necessity Reason Pt with a Central, PICC or Fol: Yes The following are medically ne: Central Line, Dc Catheter Reason for dc catheter: Strict I&O Subjective Patient seen and examined at bedside. Remains on supplemental oxygen Overnight events reviewed vital signs Vital Sign Date Time Temp Pulse Resp B/P (MAP) Pulse Ox O2 Delivery O2 Flow Rate FiO2 06/12/24 23:15 99.1 94 19 88/55 (66) 94 210.4 06/12/24 22:00 Non-Rebreather 15 30 30 Total Intake and Output 06/11/24 06/11/24 06/12/24 15:00 23:00 07:00 Intake Total 836 ml 144.75 ml 511.50 ml Output Total 1800 ml 1200 ml Balance 836 ml -1655.25 ml -688.50 ml medications Current Medications Medications Dose Ordered Sig/Sonia Route Start Time Stop Time Status Last Admin Dose Admin Ondansetron HCl 4 mg Q4HP PRN IV 06/02/24 07:00 Enoxaparin Sodium 30 mg DAILY SC 06/02/24 10:00 06/09/24 10:04 30 MG Acetaminophen 650 mg Q6HP PRN PO 06/02/24 07:00 Albuterol 2.5 mg Q2HPRN PRN NEB 06/02/24 08:45 Ipratropium [place] 0.5 mg Q2HPRN PRN NEB 06/02/24 08:45 Norepinephrine Bitartrate 250 ml @ 3.75 mls/hr Q24H IV 06/02/24 14:00 06/12/24 22:24 26.25 MLS/HR Midazolam HCl 50 ml @ 1 mls/hr Q24H IV 06/02/24 17:45 06/07/24 05:01 5 MLS/HR Fentanyl Citrate 250 ml @ 2.5 mls/hr Q24H IV 06/02/24 17:45 06/06/24 18:05 2.5 MLS/HR Phenylephrine HCl 250 ml @ 30 mls/hr Q8H20M IV 06/02/24 18:00 Albuterol 2.5 mg Q6H NEB 06/03/24 12:00 06/12/24 18:43 2.5 MG Ipratropium [place] 0.5 mg Q6H NEB 06/03/24 12:00 06/12/24 18:42 0.5 MG Doxycycline Hyclate 100 ml @ 50 mls/hr Q12H IV 06/03/24 08:45 06/12/24 21:06 50 MLS/HR Enteral Nutritional Formula 1,000 ml 30ML/HR GT 06/03/24 08:45 06/03/24 15:18 1,000 ML Pantoprazole Sodium 40 mg BID IV 06/04/24 10:00 06/12/24 21:05 40 MG Amino Acids 0 ml @ 0 mls/hr PER PHARMACY IV 06/06/24 06:45 Diagnostic Test (Pha) 1 strip Q6HR 06/06/24 18:00 06/12/24 18:41 1 STRIP Insulin Human Regular FOLLOW SLIDING SCALE Q6HR SC 06/06/24 18:00 06/12/24 18:10 4 UNITS Dextrose 50 ml UD IV 06/06/24 22:00 Dexmedetomidine HCl 400 mcg/ Dextrose 100 ml @ 2.56 mls/hr Q24H IV 06/06/24 18:30 Methylprednisolone Sodium Succinate 40 mg Q8HR IV 06/07/24 14:00 06/12/24 21:06 40 MG Micafungin Sodium 100 mg/Sodium Chloride 100 ml @ 100 mls/hr DAILY IV 06/07/24 10:00 06/12/24 09:06 100 MLS/HR Dextrose 1,000 ml @ 50 mls/hr Q20H IV 06/10/24 15:15 06/11/24 11:15 50 MLS/HR Fat Emulsion Intravenous 150 ml/Potassium Acetate 20 meq/ Magnesium Sulfate 4 meq/ Multivitamins 10 ml/Chromium/ Copper/Manganese/ Zinc 1 ml/Insulin Human Regular 20 units/Amino Acids/ Dextrose/Purified Water 1,222.2 ml @ 51 mls/hr [id number] IV 06/12/24 22:00 06/13/24 21:59 06/12/24 21:08 51 MLS/HR objective Gen.: Patient lying in bed in no apparent distress. On supplemental oxygen. Head: Normocephalic, atraumatic. Eyes: EOMI/PERRLA. Ears: Normal hearing. Normal anatomy. Neck/trachea: Trachea midline, supple. Nose: Normal external anatomy. Mouth: Moist mucous membranes. Chest: Decreased air entry bilaterally. No wheezing or rhonchi. Cardiovascular: Positive S1, positive S2. Regular rate and rhythm. Abdomen: Positive bowel sounds in all 4 quadrants. Soft, non-tender, non- distended. : Deferred. Rectal: Deferred. Skin: Warm, dry. Intact. Extremities: 2+ radial pulses bilaterally. No lower extremity edema. Neuro: Awake, alert, oriented x3. No gross motor or sensory deficits. Cranial nerves II through XII intact. Gait not assessed. laboratory and microbiology Laboratory Tests 06/12/24 05:06 06/11/24 04:46 Test 06/12/24 05:06 Range/Units Serum Glucose 156 #H 74-106 mg/dL Assessment/Plan Impression: Acute hypoxic respiratory failure Acute hypercarbic respiratory failure, PaCO2 60.5 mmHg Recurrent right pleural effusion due to malignancy Renal cell carcinoma with metastasis to the lung Ex-smoker Cachexia, BMI 15.8 Shock Events: Patient s/p compassionate extubation Remains on supplemental O2 at 15 LPM nonrebreather. Taper O2 as tolerated Head of bed elevation Aspiration precautions Pressors for hemodynamic support. On Levophed at 14 mcg/min Titrate to keep MAP above 65 mmHg/SBP above 90 mmHg. Increased pressor requirements NGT Continue to drain PleurX every other day. Continue antibiotics Continue antifungal Continue bronchodilators IV steroids TPN for nutritional support Monitor renal function Monitor electrolytes. Supplement as necessary. Nephrology recommendations appreciated Family declined hemodialysis Poor prognosis GI prophylaxis w/ Pepcid DVT prophylaxis w/ Lovenox Labs and imaging reviewed. Rest of plan as noted below. Plan: S/p compassionate extubation on 06/11/24 Supplemental oxygen Titrate to keep sats above 90% Off sedation Pressors for hemodynamic support. Titrate to keep MAP above 65 mmHg/SBP above 90 mmHg. Broad-spectrum empiric antibiotics. F/u cultures. Monitor renal function due to acute kidney injury. Monitor electrolytes. Supplement as necessary. Nutritional support. Accucheks, ISS. GI/DVT prophylaxis. Condition: Critical Prognosis: Poor given multiple comorbidities. Rest of plan per hospitalist and other consultants. A total of 35 minutes of critical care time was spent reviewing the patient record, examining the patient, making a diagnostic and therapeutic plan, discussing this plan with the medical personnel, following up on diagnostic studies and following the patient for clinical stability excluding any and all procedures. At least 50% of this time was spent in direct, [id number] contact. Thank you AMOS Gifford for allowing me to participate in this patient's care. Further recommendations will depend on patient's clinical course. Please do not hesitate to contact me if you have any questions or concerns. This medical document was created using an electronic medical record system with [email or web address] dictation system. Although this document has been carefully reviewed, there may still be some phonetic and typographical errors. These areas are purely typographical due to imperfections of the software programs, and do not reflect any compromise in the patient's medical care. Dietary Evaluation Review Comments: 1. Nepro 30 ml/hr is providing 58 gPro, 1274 kcal supporting pt's needs at 96% of protein, 102% of energy needs as long as pt is on vent. 2. Increase energy feedings once pt is off vent, 3. To avoid nephrotic syndrome, offer a Renal Specific diet with 60 g protein restriction after passing a speech eval. Expected Outcomes/Goals: monitor kidney function and reduce dietary protein for avoiding nephrotic symptoms, Plan discussed with: Other (ROBERT Woodward) Critical Care Time(min): 35 YIN SAMSON MD Jun 12, 2024 23:49
[2024-06-13] VITALS (102 sets, daily range): BP systolic 47–103; BP diastolic 27–64; PULSE 72–102; RESP 11–31; TEMP 98.2–99.7; O2SAT 85–100
[2024-06-13 06:02] LABS: Alanine Aminotransferase 24 U/L (7-40); Albumin 3.3 g/dL (3.2-4.8); Anion Gap 7 (5-15); Aspartate Aminotransferase 29 U/L (13-40); BUN/Creatinine Ratio 56.3 (10.0-20.0); Calcium 8.9 mg/dL (8.7-10.4); Carbon Dioxide 30 mmol/L (20-31); Magnesium 2.6 mg/dL (1.6-2.6)
[2024-06-13 06:06] LABS: Alkaline Phosphatase 410 U/L (46-116); Bilirubin, Total 0.3 mg/dL (0.2-1.0); Chloride 110 mmol/L (98-107); Glucose 195 mg/dL (74-106); Phosphorus 6.1 mg/dL (2.4-5.1); Sodium 147 mmol/L (136-145); Total Protein 5.3 g/dL (5.7-8.2)
[2024-06-13 06:07] LABS: Blood Urea Nitrogen 121 mg/dL (9-23)
--- NOTE | 2024-06-13 12:21 | DVHPN2 ---
Subjective Lethargic Reviewed: Care Plan, H&P, Labs, Medications, Previous Orders, Radiology, Other (Consultations) Changes from previous H/P or p: Changes Objective Vitals Vital Signs Date Time Temp Pulse Resp B/P (MAP) Pulse Ox O2 Delivery O2 Flow Rate FiO2 06/13/24 11:34 98 16 93 06/13/24 11:32 87/54 06/13/24 11:29 Non-Rebreather 15 N/A 06/13/24 10:00 98.8 209.8 Intake/Output Intake and Output 06/13/24 07:00 Intake Total 2217.75 ml Output Total 750 ml Balance 1467.75 ml IV Total 2217.75 ml Output Urine Total 750 ml General Appearance: severe distress, Other (Cachexia; lethargic) HEENT: Atraumatic Lungs: Other (Bilateral rhonchi with decreased air entry) Chest/Breasts: Other (Right PleurX) Cardiovascular: Normal S1, Normal S2, Other (Tachycardia) Abdomen: Soft Genitourinary: Other (Morrison's) Neuro: Other (Lethargic) Medications Current Medications Medications Dose Ordered Sig/Sonia Route Start Time Stop Time Status Last Admin Dose Admin Ondansetron HCl 4 mg Q4HP PRN IV 06/02/24 07:00 Enoxaparin Sodium 30 mg DAILY SC 06/02/24 10:00 06/09/24 10:04 30 MG Acetaminophen 650 mg Q6HP PRN PO 06/02/24 07:00 Albuterol 2.5 mg Q2HPRN PRN NEB 06/02/24 08:45 Ipratropium Arp 0.5 mg Q2HPRN PRN NEB 06/02/24 08:45 Norepinephrine Bitartrate 250 ml @ 3.75 mls/hr Q24H IV 06/02/24 14:00 06/13/24 08:17 37.5 MLS/HR Midazolam HCl 50 ml @ 1 mls/hr Q24H IV 06/02/24 17:45 06/07/24 05:01 5 MLS/HR Fentanyl Citrate 250 ml @ 2.5 mls/hr Q24H IV 06/02/24 17:45 06/06/24 18:05 2.5 MLS/HR Phenylephrine HCl 250 ml @ 30 mls/hr Q8H20M IV 06/02/24 18:00 Albuterol 2.5 mg Q6H NEB 06/03/24 12:00 06/13/24 11:29 2.5 MG Ipratropium Arp 0.5 mg Q6H NEB 06/03/24 12:00 06/13/24 11:29 0.5 MG Doxycycline Hyclate 100 ml @ 50 mls/hr Q12H IV 06/03/24 08:45 06/13/24 09:13 50 MLS/HR Enteral Nutritional Formula 1,000 ml 30ML/HR GT 06/03/24 08:45 06/03/24 15:18 1,000 ML Pantoprazole Sodium 40 mg BID IV 06/04/24 10:00 06/13/24 09:13 40 MG Amino Acids 0 ml @ 0 mls/hr PER PHARMACY IV 06/06/24 06:45 Diagnostic Test (Pha) 1 strip Q6HR 06/06/24 18:00 06/13/24 12:06 1 STRIP Insulin Human Regular FOLLOW SLIDING SCALE Q6HR SC 06/06/24 18:00 06/13/24 12:12 4 UNITS Dextrose 50 ml UD IV 06/06/24 22:00 Dexmedetomidine HCl 400 mcg/ Dextrose 100 ml @ 2.56 mls/hr Q24H IV 06/06/24 18:30 Methylprednisolone Sodium Succinate 40 mg Q8HR IV 06/07/24 14:00 06/13/24 05:20 40 MG Micafungin Sodium 100 mg/Sodium Chloride 100 ml @ 100 mls/hr DAILY IV 06/07/24 10:00 06/13/24 10:47 100 MLS/HR Dextrose 1,000 ml @ 50 mls/hr Q20H IV 06/10/24 15:15 06/11/24 11:15 50 MLS/HR Fat Emulsion Intravenous 150 ml/Potassium Acetate 20 meq/ Magnesium Sulfate 4 meq/ Multivitamins 10 ml/Chromium/ Copper/Manganese/ Zinc 1 ml/Insulin Human Regular 20 units/Amino Acids/ Dextrose/Purified Water 1,222.2 ml @ 51 mls/hr [id number] IV 06/12/24 22:00 06/13/24 21:59 06/12/24 21:08 51 MLS/HR Fat Emulsion Intravenous 150 ml/Multivitamins 10 ml/Chromium/ Copper/Manganese/ Zinc 1 ml/Insulin Human Regular 20 units/Amino Acids/ Dextrose/Purified Water 1,211.2 ml @ 50 mls/hr [id number] IV 06/13/24 22:00 06/14/24 21:59 Laboratory Results Laboratory Tests 06/11/24 04:46 06/13/24 04:45 Chemistry Test 06/13/24 04:45 Albumin 3.3 g/dL (3.2-4.8) Calcium Level 8.9 mg/dL (8.7-10.4) Magnesium Level 2.6 mg/dL (1.6-2.6) Phosphorus Level 6.1 mg/dL (2.4-5.1) H Total Protein 5.3 g/dL (5.7-8.2) L LFT Test 06/13/24 04:45 Alanine Aminotransferase (ALT) 24 U/L (7-40) Alkaline Phosphatase 410 U/L (46-116) H Aspartate Amino Transferase (AST) 29 U/L (13-40) Total Bilirubin 0.3 mg/dL (0.2-1.0) Urinalysis Test 06/02/24 15:57 Urine Color Yellow (Yellow) Urine Clarity Turbid (Clear) H Urine pH 5.0 (5.0-9.0) Urine Specific [place] 1.020 (1.001-1.035) Urine Protein 1+ (Negative) H Urine Ketones Negative (Negative) Urine Blood Trace /uL (Negative) H Urine Nitrite Negative (Negative) Urine Bilirubin Negative (Negative) Urine Urobilinogen Normal mg/dL (Negative) Urine Leukocyte Esterase Trace /uL (Negative) Urine RBC 7 /hpf (0 - 3) Urine Microscopic WBC 6 /HPF (0-3) H Urine Squamous Epithelial Cells Few /hpf (<5) Urine Calcium Oxalate Crystals Few (None Seen) Urine Bacteria Few /hpf (None Seen) H Urine Hyaline Casts Few /lpf (0 - 2) Urine Mucus Few (None Seen) Urine Sperm Present /hpf (None Seen) Urine Creatinine 105.47 mg/dL (30.0-125.0) Urine Sodium < 10 mmol/L (40-220) L Urine Glucose Normal mg/dL (Normal) Microbiology Microbiology Date/Time Source Procedure Growth Status 06/02/24 22:30 Nose MRSA Screen - Final Complete 06/02/24 18:00 Sputum Gram Stain - Final Resulted 06/02/24 18:00 Sputum Respiratory Culture - Preliminary Resulted 06/02/24 15:57 Voided Urine Urine Culture - Final Complete 06/02/24 04:30 Blood Blood Culture - Final NO GROWTH AFTER 5 DAYS OF INCUBATION. Complete Labs and/or images reviewed: Labs reviewed by me, Image(s) reviewed by me Assessment/Plan Assessment/Plan Covering Albino Castro NP: #Acute metabolic/toxic encephalopathy secondary to hypercapnia and hypercalcemia #Acute on chronic hypoxic/hypercapnic respiratory failure due to fungal and suspected bacterial pneumonia #Renal cell carcinoma s/p nephrectomy with metastasis to lungs #Recurrent right pleural effusion due to malignancy s/p PleurX #Septic shock with leukocytosis, and lactic acidosis due to fungal and suspected bacterial pneumonia #MK; due to VMN in the setting of septic shock #Severe protein malnutrition Continue oxygen therapy as needed for comfort care Was on mechanical ventilation; s/p compassionate extubation Was on IV antibiotics, and IV antifungal Pulmonology and Nephrology were following Reviewed available cultures, ABGs, and CXRs Was on IV vasopressors Started IV morphine, and IV Ativan for comfort care Continue close monitoring Goals of care discussed with the patient's mother for 22 minutes; DNR with comfort care 120 minutes of critical care time. Late Entry. This medical document was created using an electronic medical record system with computerized dictation system. Although this document has been carefully reviewed, there might still be some phonetic and typographical errors. These areas are purely typographical due to imperfections of the software programs, and do not reflect any compromise in the patient's medical care. Plan discussed with: Other (Mother; Nurse) Date of Service: Jun 13, 2024 Billing Provider: FALLON HERNANDEZ MD Common Visit Codes: 91914-[id number] CARE 30-74 MIN (120 minutes), 92500-[id number] CARE-EACH +30MIN Secondary Visit Codes: [id number] CARE PLAN 30 MINUTES (22 minutes) FALLON HERNANDEZ MD Jun 13, 2024 12:21
[2024-06-13] MEDS ORDERED: ATROPINE SULF 1 MG/10ml SYR IV ONE (12:53)
[2024-06-13] MEDS: SOD CHL 0.45% 1,000 ML IV ONE (13:34)
[2024-06-13] MEDS: LORazepam 2MG/ML-1ML VIAL IV ONE (16:34)
[2024-06-13] MEDS: MORPHINE SULFATE INJ 2 MG/ml SYRG IV ONE (16:35)
[2024-06-13] MEDS: MORPHINE SULFATE INJ 2 MG/ml SYRG ONE (19:16)
[2024-06-13] MEDS: VIT K IV NR (20:30)
[2024-06-13] MEDS: MULTIPLE VIT IV NR (20:30)
[2024-06-13] MEDS: FAT EMULSION IV NR (20:30)
[2024-06-13] MEDS: [UNRECOGNIZED DRUG - OTHER] IV NR (20:30)
--- NOTE | 2024-06-13 21:07 | DVHPN2 ---
Progress Note Date Seen: Jun 13, 2024 Medical Necessity Reason Pt with a Central, PICC or Fol: Yes The following are medically ne: Central Line, Dc Catheter Reason for dc catheter: Strict I&O Subjective Patient reports: Other (appears sick) Review of Systems: Deferred Objective vital signs Vital Sign Date Time Temp Pulse Resp B/P (MAP) Pulse Ox O2 Delivery O2 Flow Rate FiO2 06/13/24 20:15 98.6 81 12 49/29 (36) 94 209.5 06/13/24 20:00 Nasal Cannula* 2 28 Total Intake and Output 06/12/24 06/12/24 06/13/24 15:00 23:00 07:00 Intake Total 726.50 ml 644.50 ml 846.75 ml Output Total 600 ml 150 ml Balance 726.50 ml 44.50 ml 696.75 ml medications Current Medications Medications Dose Ordered Sig/Sonia Route Start Time Stop Time Status Last Admin Dose Admin Ondansetron HCl 4 mg Q4HP PRN IV 06/02/24 07:00 Enoxaparin Sodium 30 mg DAILY SC 06/02/24 10:00 06/09/24 10:04 30 MG Acetaminophen 650 mg Q6HP PRN PO 06/02/24 07:00 Norepinephrine Bitartrate 250 ml @ 3.75 mls/hr Q24H IV 06/02/24 14:00 06/13/24 13:39 45 MLS/HR Midazolam HCl 50 ml @ 1 mls/hr Q24H IV 06/02/24 17:45 06/07/24 05:01 5 MLS/HR Phenylephrine HCl 250 ml @ 30 mls/hr Q8H20M IV 06/02/24 18:00 Doxycycline Hyclate 100 ml @ 50 mls/hr Q12H IV 06/03/24 08:45 06/13/24 09:13 50 MLS/HR Enteral Nutritional Formula 1,000 ml 30ML/HR GT 06/03/24 08:45 06/03/24 15:18 1,000 ML Pantoprazole Sodium 40 mg BID IV 06/04/24 10:00 06/13/24 09:13 40 MG Amino Acids 0 ml @ 0 mls/hr PER PHARMACY IV 06/06/24 06:45 Diagnostic Test (Pha) 1 strip Q6HR 06/06/24 18:00 06/13/24 12:06 1 STRIP Insulin Human Regular FOLLOW SLIDING SCALE Q6HR SC 06/06/24 18:00 06/13/24 12:12 4 UNITS Dextrose 50 ml UD IV 06/06/24 22:00 Dexmedetomidine HCl 400 mcg/ Dextrose 100 ml @ 2.56 mls/hr Q24H IV 06/06/24 18:30 Methylprednisolone Sodium Succinate 40 mg Q8HR IV 06/07/24 14:00 06/13/24 13:34 40 MG Micafungin Sodium 100 mg/Sodium Chloride 100 ml @ 100 mls/hr DAILY IV 06/07/24 10:00 06/13/24 10:47 100 MLS/HR Dextrose 1,000 ml @ 50 mls/hr Q20H IV 06/10/24 15:15 06/11/24 11:15 50 MLS/HR Fat Emulsion Intravenous 150 ml/Potassium Acetate 20 meq/ Magnesium Sulfate 4 meq/ Multivitamins 10 ml/Chromium/ Copper/Manganese/ Zinc 1 ml/Insulin Human Regular 20 units/Amino Acids/ Dextrose/Purified Water 1,222.2 ml @ 51 mls/hr [id number] IV 06/12/24 22:00 06/13/24 21:59 06/12/24 21:08 51 MLS/HR Fat Emulsion Intravenous 175 ml/Multivitamins 10 ml/Chromium/ Copper/Manganese/ Zinc 1 ml/Insulin Human Regular 20 units/Amino Acids/ Dextrose/Purified Water 1,186.2 ml @ 49 mls/hr [id number] IV 06/13/24 22:00 06/14/24 21:59 Morphine Sulfate 2 mg Q2HPRN PRN IV 06/13/24 19:15 Examination: GENERAL:Abnormal, LUNGS:Abnormal, MSK:Abnormal, SKIN:Abnormal, NEURO:Abnormal laboratory and microbiology Laboratory Tests 06/13/24 04:45 06/11/24 04:46 Test 06/13/24 04:45 Range/Units Serum Glucose 195 H 74-106 mg/dL Microbiology Date/Time Source Procedure Growth Status 06/02/24 22:30 Nose MRSA Screen - Final Complete 06/02/24 18:00 Sputum Gram Stain - Final Resulted 06/02/24 18:00 Sputum Respiratory Culture - Preliminary Resulted 06/02/24 15:57 Voided Urine Urine Culture - Final Complete 06/02/24 04:30 Blood Blood Culture - Final NO GROWTH AFTER 5 DAYS OF INCUBATION. Complete Problem List/Assessment/Plan Problem List/Assessment/Plan Acute kidney injury hemodynamically mediated etiology No previous history of CKD Bilateral small pleural effusions with PleurX catheter in place Metastatic cancer Severe protein calorie malnutrition Fungal PNA Hypokalemia cachexia hypernatremia Recommendations half NS as ordered bun high sec to steroids +TPN--reduce steroid dose if able to extubated KCL replace prn Avoid hypotension d/w mom poor prognosis Plan discussed with: Other My Orders My Orders Orders - SHAD FITZGERALD MD Procedure Category Date Status Time Sod Chl 0.45% (Sodium PHA 06/13/24 In Process Chloride 0.45% Via 13:00 Dietary Evaluation Review Comments: 1. Nepro 30 ml/hr is providing 58 gPro, 1274 kcal supporting pt's needs at 96% of protein, 102% of energy needs as long as pt is on vent. 2. Increase energy feedings once pt is off vent, 3. To avoid nephrotic syndrome, offer a Renal Specific diet with 60 g protein restriction after passing a speech eval. Expected Outcomes/Goals: monitor kidney function and reduce dietary protein for avoiding nephrotic symptoms, SHAD FITZGERALD MD Jun 13, 2024 21:07
[2024-06-13] MEDS: MORPHINE SULFATE INJ 2 MG/ml SYRG IV PRN (23:17)
--- NOTE | 2024-06-13 23:30 | DVHPN2 ---
Progress Note - Dictate Date Seen: Jun 13, 2024 Medical Necessity Reason Pt with a Central, PICC or Fol: Yes The following are medically ne: Central Line, Dc Catheter Reason for dc catheter: Strict I&O Subjective Patient seen and examined at bedside. Remains on supplemental oxygen Overnight events reviewed vital signs Vital Sign Date Time Temp Pulse Resp B/P (MAP) Pulse Ox O2 Delivery O2 Flow Rate FiO2 06/13/24 23:17 83 13 48/27 06/13/24 23:00 98.6 94 209.5 06/13/24 22:00 Nasal Cannula* 2 28 Total Intake and Output 06/12/24 06/12/24 06/13/24 15:00 23:00 07:00 Intake Total 726.50 ml 644.50 ml 846.75 ml Output Total 600 ml 150 ml Balance 726.50 ml 44.50 ml 696.75 ml medications Current Medications Medications Dose Ordered Sig/Sonia Route Start Time Stop Time Status Last Admin Dose Admin Ondansetron HCl 4 mg Q4HP PRN IV 06/02/24 07:00 Enoxaparin Sodium 30 mg DAILY SC 06/02/24 10:00 06/09/24 10:04 30 MG Acetaminophen 650 mg Q6HP PRN PO 06/02/24 07:00 Norepinephrine Bitartrate 250 ml @ 3.75 mls/hr Q24H IV 06/02/24 14:00 06/13/24 13:39 45 MLS/HR Midazolam HCl 50 ml @ 1 mls/hr Q24H IV 06/02/24 17:45 06/07/24 05:01 5 MLS/HR Phenylephrine HCl 250 ml @ 30 mls/hr Q8H20M IV 06/02/24 18:00 Doxycycline Hyclate 100 ml @ 50 mls/hr Q12H IV 06/03/24 08:45 06/13/24 09:13 50 MLS/HR Enteral Nutritional Formula 1,000 ml 30ML/HR GT 06/03/24 08:45 06/03/24 15:18 1,000 ML Pantoprazole Sodium 40 mg BID IV 06/04/24 10:00 06/13/24 09:13 40 MG Amino Acids 0 ml @ 0 mls/hr PER PHARMACY IV 06/06/24 06:45 Diagnostic Test (Pha) 1 strip Q6HR 06/06/24 18:00 06/13/24 12:06 1 STRIP Insulin Human Regular FOLLOW SLIDING SCALE Q6HR SC 06/06/24 18:00 06/13/24 12:12 4 UNITS Dextrose 50 ml UD IV 06/06/24 22:00 Dexmedetomidine HCl 400 mcg/ Dextrose 100 ml @ 2.56 mls/hr Q24H IV 06/06/24 18:30 Methylprednisolone Sodium Succinate 40 mg Q8HR IV 06/07/24 14:00 06/13/24 13:34 40 MG Micafungin Sodium 100 mg/Sodium Chloride 100 ml @ 100 mls/hr DAILY IV 06/07/24 10:00 06/13/24 10:47 100 MLS/HR Dextrose 1,000 ml @ 50 mls/hr Q20H IV 06/10/24 15:15 06/11/24 11:15 50 MLS/HR Fat Emulsion Intravenous 175 ml/Multivitamins 10 ml/Chromium/ Copper/Manganese/ Zinc 1 ml/Insulin Human Regular 20 units/Amino Acids/ Dextrose/Purified Water 1,186.2 ml @ 49 mls/hr [id number] IV 06/13/24 22:00 06/14/24 21:59 Morphine Sulfate 2 mg Q2HPRN PRN IV 06/13/24 19:15 06/13/24 23:17 2 MG objective Gen.: Patient lying in bed in no apparent distress. On supplemental oxygen. Head: Normocephalic, atraumatic. Eyes: EOMI/PERRLA. Ears: Normal hearing. Normal anatomy. Neck/trachea: Trachea midline, supple. Nose: Normal external anatomy. Mouth: Moist mucous membranes. Chest: Decreased air entry bilaterally. No wheezing or rhonchi. Cardiovascular: Positive S1, positive S2. Regular rate and rhythm. Abdomen: Positive bowel sounds in all 4 quadrants. Soft, non-tender, non- distended. : Deferred. Rectal: Deferred. Skin: Warm, dry. Intact. Extremities: 2+ radial pulses bilaterally. No lower extremity edema. Neuro: Awake, alert, oriented x3. No gross motor or sensory deficits. Cranial nerves II through XII intact. Gait not assessed. laboratory and microbiology Laboratory Tests 06/13/24 04:45 06/11/24 04:46 Test 06/13/24 04:45 Range/Units Serum Glucose 195 H 74-106 mg/dL Assessment/Plan Impression: Acute hypoxic respiratory failure Acute hypercarbic respiratory failure, PaCO2 60.5 mmHg Recurrent right pleural effusion due to malignancy Renal cell carcinoma with metastasis to the lung Ex-smoker Cachexia, BMI 15.8 Shock Events: Patient s/p compassionate extubation Remains on supplemental O2 at 15 -->12 LPM nonrebreather. Taper O2 as tolerated Head of bed elevation Aspiration precautions Pressors for hemodynamic support. On Levophed at 20 mcg/min Titrate to keep MAP above 65 mmHg/SBP above 90 mmHg. Off Joshua-Synephrine NGT Continue to drain PleurX every other day. Continue antibiotics Continue antifungal Continue bronchodilators IV steroids TPN for nutritional support Monitor renal function Monitor electrolytes. Supplement as necessary. Nephrology recommendations appreciated Family declined hemodialysis Poor prognosis GI prophylaxis w/ Pepcid DVT prophylaxis w/ Lovenox Labs and imaging reviewed. Rest of plan as noted below. Plan: S/p compassionate extubation on 06/11/24 Supplemental oxygen Titrate to keep sats above 90% Off sedation Pressors for hemodynamic support. Titrate to keep MAP above 65 mmHg/SBP above 90 mmHg. Broad-spectrum empiric antibiotics. F/u cultures. Monitor renal function due to acute kidney injury. Monitor electrolytes. Supplement as necessary. Nutritional support. Accucheks, ISS. GI/DVT prophylaxis. Condition: Critical Prognosis: Poor given multiple comorbidities. Rest of plan per hospitalist and other consultants. A total of 35 minutes of critical care time was spent reviewing the patient record, examining the patient, making a diagnostic and therapeutic plan, discussing this plan with the medical personnel, following up on diagnostic studies and following the patient for clinical stability excluding any and all procedures. At least 50% of this time was spent in direct, [id number] contact. Thank you AMOS Gifford for allowing me to participate in this patient's care. Further recommendations will depend on patient's clinical course. Please do not hesitate to contact me if you have any questions or concerns. This medical document was created using an electronic medical record system with [employer] system. Although this document has been carefully reviewed, there may still be some phonetic and typographical errors. These areas are purely typographical due to imperfections of the software programs, and do not reflect any compromise in the patient's medical care. Dietary Evaluation Review Comments: 1. Nepro 30 ml/hr is providing 58 gPro, 1274 kcal supporting pt's needs at 96% of protein, 102% of energy needs as long as pt is on vent. 2. Increase energy feedings once pt is off vent, 3. To avoid nephrotic syndrome, offer a Renal Specific diet with 60 g protein restriction after passing a speech eval. Expected Outcomes/Goals: monitor kidney function and reduce dietary protein for avoiding nephrotic symptoms, Plan discussed with: Other (ROBERT Longoria) Critical Care Time(min): 35 YIN SAMSON MD Jun 13, 2024 23:30
[2024-06-14] VITALS (28 sets, daily range): BP systolic 29–48; BP diastolic 11–27; PULSE 54–86; RESP 0–16; TEMP 97.7–98.6; O2SAT 83–97
[2024-06-14] MEDS: LORazepam 2MG/ML-1ML VIAL IV ONE (03:47)
--- NOTE | 2024-06-14 07:58 | DVHPN2 ---
Subjective pronunciation Reviewed: Care Plan, H&P, Labs, Medications Changes from previous H/P or p: Changes Objective Vitals Vital Signs Date Time Temp Pulse Resp B/P (MAP) Pulse Ox O2 Delivery O2 Flow Rate FiO2 06/14/24 06:45 97.7 54 0 29/11 (17) 83 207.9 06/14/24 06:00 Nasal Cannula* 2 28 Intake/Output Intake and Output 06/14/24 07:00 Intake Total 1175.25 ml Output Total 60 ml Balance 1115.25 ml Intake Oral 0 ml IV Total 1175.25 ml Output Urine Total 60 ml Medications Current Medications Medications Dose Ordered Sig/Sonia Route Start Time Stop Time Status Last Admin Dose Admin Ondansetron HCl 4 mg Q4HP PRN IV 06/02/24 07:00 Enoxaparin Sodium 30 mg DAILY SC 06/02/24 10:00 06/09/24 10:04 30 MG Acetaminophen 650 mg Q6HP PRN PO 06/02/24 07:00 Norepinephrine Bitartrate 250 ml @ 3.75 mls/hr Q24H IV 06/02/24 14:00 06/13/24 13:39 45 MLS/HR Midazolam HCl 50 ml @ 1 mls/hr Q24H IV 06/02/24 17:45 06/07/24 05:01 5 MLS/HR Phenylephrine HCl 250 ml @ 30 mls/hr Q8H20M IV 06/02/24 18:00 Doxycycline Hyclate 100 ml @ 50 mls/hr Q12H IV 06/03/24 08:45 06/13/24 09:13 50 MLS/HR Enteral Nutritional Formula 1,000 ml 30ML/HR GT 06/03/24 08:45 06/03/24 15:18 1,000 ML Pantoprazole Sodium 40 mg BID IV 06/04/24 10:00 06/13/24 09:13 40 MG Amino Acids 0 ml @ 0 mls/hr PER PHARMACY IV 06/06/24 06:45 Diagnostic Test (Pha) 1 strip Q6HR 06/06/24 18:00 06/13/24 12:06 1 STRIP Insulin Human Regular FOLLOW SLIDING SCALE Q6HR SC 06/06/24 18:00 06/13/24 12:12 4 UNITS Dextrose 50 ml UD IV 06/06/24 22:00 Dexmedetomidine HCl 400 mcg/ Dextrose 100 ml @ 2.56 mls/hr Q24H IV 06/06/24 18:30 Methylprednisolone Sodium Succinate 40 mg Q8HR IV 06/07/24 14:00 06/13/24 13:34 40 MG Micafungin Sodium 100 mg/Sodium Chloride 100 ml @ 100 mls/hr DAILY IV 06/07/24 10:00 06/13/24 10:47 100 MLS/HR Dextrose 1,000 ml @ 50 mls/hr Q20H IV 06/10/24 15:15 06/11/24 11:15 50 MLS/HR Fat Emulsion Intravenous 175 ml/Multivitamins 10 ml/Chromium/ Copper/Manganese/ Zinc 1 ml/Insulin Human Regular 20 units/Amino Acids/ Dextrose/Purified Water 1,186.2 ml @ 49 mls/hr [id number] IV 06/13/24 22:00 06/14/24 21:59 Morphine Sulfate 2 mg Q2HPRN PRN IV 06/13/24 19:15 06/14/24 03:48 2 MG Laboratory Results Laboratory Tests 06/11/24 04:46 06/13/24 04:45 Urinalysis Test 06/02/24 15:57 Urine Color Yellow (Yellow) Urine Clarity Turbid (Clear) H Urine pH 5.0 (5.0-9.0) Urine Specific [place] 1.020 (1.001-1.035) Urine Protein 1+ (Negative) H Urine Ketones Negative (Negative) Urine Blood Trace /uL (Negative) H Urine Nitrite Negative (Negative) Urine Bilirubin Negative (Negative) Urine Urobilinogen Normal mg/dL (Negative) Urine Leukocyte Esterase Trace /uL (Negative) Urine RBC 7 /hpf (0 - 3) Urine Microscopic WBC 6 /HPF (0-3) H Urine Squamous Epithelial Cells Few /hpf (<5) Urine Calcium Oxalate Crystals Few (None Seen) Urine Bacteria Few /hpf (None Seen) H Urine Hyaline Casts Few /lpf (0 - 2) Urine Mucus Few (None Seen) Urine Sperm Present /hpf (None Seen) Urine Creatinine 105.47 mg/dL (30.0-125.0) Urine Sodium < 10 mmol/L (40-220) L Urine Glucose Normal mg/dL (Normal) Microbiology Microbiology Date/Time Source Procedure Growth Status 06/02/24 22:30 Nose MRSA Screen - Final Complete 1/28/25 18:00 Sputum Gram Stain - Final Resulted 06/02/24 18:00 Sputum Respiratory Culture - Preliminary Resulted 06/02/24 15:57 Voided Urine Urine Culture - Final Complete 06/02/24 04:30 Blood Blood Culture - Final NO GROWTH AFTER 5 DAYS OF INCUBATION. Complete Assessment/Plan Assessment/Plan Arnol Olmos is a 53-year-old male with past medical history of hypertension, hyperlipidemia, diabetes, renal cell carcinoma Mets to the lung receiving treatment immunotherapy at [facility], gout, hypothyroidism, right nephrectomy who presents to the ED with shortness of breath x1 day. Per mother at bedside and caregiver stated that the patient is bed-bound, on 5 L nasal cannula oxygen dependence at home suddenly became short of breath. Per family and caregiver, patient is A&O x1 and tracks with eyes but nonverbal. Patient is still has right chest tube in place, was supposed to go see oncologist today to get a re- sutured. Patient also has dentures in place. Per caregiver patient eats foods that are liquids and needs assistance be fed. Per caregiver patient is getting Opdivo at [facility]. Caregiver denies any recent sick contacts or recent illnesses. Mother and caregiver at bedside denies chest pain, fever, chills, nausea, vomiting, diarrhea, and recent trauma or injury. -acute on chronic hypoxic and hypercarbic respiratory failure -metabolic encephalopathy secondary to hypercarbia and hypercalcemia -renal cell carcinoma, status post nephrectomy with metastatic cancer to the lungs -cachexia -hypercalcemia -metabolic acidosis -diabetes mellitus -acute kidney injury, probable vasomotor nephropathy -CKD stage IIIB -history of nephrectomy -anemia of chronic disease I was called to see the patient with a forementioned history for unresponsiveness. On exam the patient did not respond to verbal or physical stimuli. Absent heart rate and breath sounds. Absent peripheral pulses. Pupils are fixed and dilated. Patient pronounced at 0710 am, 06/14/2024. Plan discussed with: Other Date of Service: Jun 14, 2024 Billing Provider: JACKY DALE Common Visit Codes: [id number] INP/OBS CARE(MOD) JACKY DALE Jun 14, 2024 07:58
--- NOTE | 2024-06-14 08:33 | DVHDS2 ---
Discharge Summary Date of Admission Jun 02, 2024 at 15:19 Date of Discharge: Jun 14, 2024 Admitting Diagnosis Shortness of breath Labs/Diagnostic Data: Laboratory Results Test 06/13/24 11:58 06/13/24 04:45 06/11/24 04:46 06/10/24 07:50 POC Glucose 199 mg/dl (70-106) Sodium Level 147 mmol/L (136-145) Potassium Level 5.0 mmol/L (3.5-5.1) Chloride Level 110 mmol/L (98-107) Carbon Dioxide Level 30 mmol/L (20-31) Anion Gap 7 (5-15) Blood Urea Nitrogen 121 mg/dL (9-23) Creatinine 2.15 mg/dL (0.700-1.30) Glomerular Filtration Rate Calc 36 mL/min (>90) BUN/Creatinine Ratio 56.3 (10.0-20.0) Serum Glucose 195 mg/dL (74-106) Calcium Level 8.9 mg/dL (8.7-10.4) Phosphorus Level 6.1 mg/dL (2.4-5.1) Magnesium Level 2.6 mg/dL (1.6-2.6) Total Bilirubin 0.3 mg/dL (0.2-1.0) Aspartate Amino Transferase (AST) 29 U/L (13-40) Alanine Aminotransferase (ALT) 24 U/L (7-40) Alkaline Phosphatase 410 U/L (46-116) Total Protein 5.3 g/dL (5.7-8.2) Albumin 3.3 g/dL (3.2-4.8) White Blood Count 8.4 10^3/uL (4.4-10.8) Red Blood Count 3.50 10^6/uL (4.5-5.90) Hemoglobin 9.6 g/dL (13.5-17.5) Hematocrit 28.4 % (41.0-53.0) Mean Corpuscular Volume 81.3 fL (80.0-100.0) Mean Corpuscular Hemoglobin 27.4 pg (28.0-32.0) Mean Corpuscular Hemoglobin Concent 33.7 g/dL (32.0-36.0) Red Cell Distribution Width 16.9 % (11.8-14.3) Platelet Count 77 10^3/uL (140-450) Mean Platelet Volume 8.8 fL (6.9-10.8) Neutrophils (%) (Auto) % (37.0-80.0) Lymphocytes (%) (Auto) % (10.0-50.0) Monocytes (%) (Auto) % (0.0-12.0) Basophils (%) (Auto) % (0.0-2.0) Neutrophils # (Auto) 10 ^3/uL (1.6-8.6) Lymphocytes # (Auto) 10 ^3/uL (0.4-5.4) Monocytes # (Auto) 10 ^3/uL (0-1.3) Differential Total Cells Counted 100.0 (100) Neutrophils % (Manual) 95 (37.0-80.0) Band Neutrophils % (Manual) 0 Lymphocytes % (Manual) 4 (10.0-50.0) Monocytes % (Manual) 1 (0-12) Eosinophils % (Manual) 0 (0-7) Basophils % (Manual) 0 (0.0-2.0) Metamyelocytes % (manual) 0 Myelocytes % (Manual) 0 Promyelocytes % (Manual) 0 Blast Cells % (Manual) 0 Reactive Lymphocytes 0 Platelet Estimate Decreased Triglycerides Level 67 mg/dL (< 150) Blood Gas Specimen Type Arterial Blood Gas Sample Site Right brachial Blood Gas Patient Temperature 37.0 Arterial Blood Date Drawn [id number] Arterial Blood pH 7.453 (7.350-7.450) Arterial Blood Partial Pressure CO2 31.2 mmHg (35.0-48.0) Arterial Blood Partial Pressure O2 82.6 mmHg (83.0-108.0) Arterial Blood HCO3 21.3 mmol/L (21.0-28.0) Arterial Blood Oxygen Saturation 96.1 % (94.0-98.0) Arterial Blood Base Excess -1.7 mmol/L (-2.0-3.0) Arterial Blood Oxyhemoglobin 94.9 % (94.0-98.0) Arterial Blood Carboxyhemoglobin 0.9 % (0.5-1.5) Arterial Blood Methemoglobin 0.3 % (0.0-1.5) Micky Test N/a Blood Gas Total Hemoglobin 13.00 g/dL (13.5-17.5) Blood Gas Set Respiration Rate 20.0 Blood Gas Modality Vent - ac FiO2 % 30.0 Blood Gas Tidal Volume 450.0 Blood Gas PEEP or CPAP 5.0 Test 06/09/24 12:20 06/08/24 10:40 06/08/24 04:55 06/07/24 14:02 Blood Gas Pressure Support 8 Blood Gas Spontaneous Rate 20 Eosinophils (%) (Auto) 0.0 % (0.0-7.0) Eosinophils # (Auto) 0 10 ^3/uL (0-0.8) Basophils # (Auto) 0 10 ^3/uL (0-0.2) Nucleated Red Blood Cells 0.0 % Blood Gas Spontaneous Tidal Volume 400 Test 06/05/24 07:05 06/04/24 17:02 06/04/24 06:15 06/02/24 17:33 Blood Gas Critical Value Read Back Yes Miscellaneous Referred Test ( Tmp Sent to [facility] D-Dimer, Quantitative 5.21 mg/L FEU (0.0-0.49) Uric Acid 14.1 mg/dL (3.7-9.2) Blood Gas EPAP 7 Blood Gas IPAP 18 Blood Gas Notified Whom Dr. ricky antony Blood Gas Notified Time [id number] Blood Gas Notified By Curt [facility] Test 06/02/24 15:57 06/02/24 07:25 06/02/24 04:14 06/02/24 02:52 Urine Color Yellow (Yellow) Urine Clarity Turbid (Clear) Urine pH 5.0 (5.0-9.0) Urine Specific [place] 1.020 (1.001-1.035) Urine Protein 1+ (Negative) Urine Ketones Negative (Negative) Urine Blood Trace /uL (Negative) Urine Nitrite Negative (Negative) Urine Bilirubin Negative (Negative) Urine Urobilinogen Normal mg/dL (Negative) Urine Leukocyte Esterase Trace /uL (Negative) Urine RBC 7 /hpf (0 - 3) Urine Microscopic WBC 6 /HPF (0-3) Urine Squamous Epithelial Cells Few /hpf (<5) Urine Calcium Oxalate Crystals Few (None Seen) Urine Bacteria Few /hpf (None Seen) Urine Hyaline Casts Few /lpf (0 - 2) Urine Mucus Few (None Seen) Urine Sperm Present /hpf (None Seen) Urine Creatinine 105.47 mg/dL (30.0-125.0) Urine Sodium < 10 mmol/L (40-220) Urine Glucose Normal mg/dL (Normal) Lactic Acid Level 1.7 mmol/L (0.4-2.0) Influenza Type A Antigen Negative (Negative) Influenza Type B Antigen Negative (Negative) SARS-CoV-2 Antigen (Rapid) Negative (NEGATIVE) Troponin I High Sensitivity < 3 ng/L (</=54) B-Type Natriuretic Peptide 36.76 pg/mL (0-100) Other Laboratory Tests 06/13/24 04:45 06/11/24 04:46 Brief Hx & Hospital Course: 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: #Acute metabolic/toxic encephalopathy secondary to hypercapnia and hypercalcemia #Acute on chronic hypoxic/hypercapnic respiratory failure due to fungal and suspected bacterial pneumonia #Renal cell carcinoma s/p nephrectomy with metastasis to lungs #Recurrent right pleural effusion due to malignancy s/p PleurX #Septic shock with leukocytosis, and lactic acidosis due to fungal and suspected bacterial pneumonia #MK; due to VMN in the setting of septic shock #Severe protein malnutrition Was onoxygen therapy as needed for comfort care Was on mechanical ventilation; s/p compassionate extubation Was on IV antibiotics, and IV antifungal Pulmonology and Nephrology were following Reviewed available cultures, ABGs, and CXRs Was on IV vasopressors Was on IV morphine, and IV Ativan for comfort care at 07:10 am this morning on 06/14/2024 Late Entry. This medical document was created using an electronic medical record system with computerized dictation system. Although this document has been carefully reviewed, there might still be some phonetic and typographical errors. These areas are purely typographical due to imperfections of the software programs, and do not reflect any compromise in the patient's medical care. Consults/Reason for consult Pulmonology for acute respiratory failure//Nephrology for MK Condition at Discharge: Unstable () Final Diagnosis/Problems List #Acute metabolic/toxic encephalopathy secondary to hypercapnia and hypercalcemia #Acute on chronic hypoxic/hypercapnic respiratory failure due to fungal and suspected bacterial pneumonia #Renal cell carcinoma s/p nephrectomy with metastasis to lungs #Recurrent right pleural effusion due to malignancy s/p PleurX #Septic shock with leukocytosis, and lactic acidosis due to fungal and suspected bacterial pneumonia #MK; due to VMN in the setting of septic shock #Severe protein malnutrition Discharge Disposition: at Hospital Discharge Statement: "Patient was advised to return to the ER or call 911 if any headaches, dizziness, shortness of breath, chest pain, abdominal pain, bleeding, fevers, or worsening of medical condition. Patient was counseled about treatment plan, medications, possible side effects, patientverbalized understanding. All questions were answered to the best of my ability. This discharge took greater then 30 minutes in planning, reviewing documentation, counseling the patient, and discussing with other team members." ASSESSMENT ASSESSMENT Assessment Date of Service: Jun 14, 2024 Billing Provider: FALLON HERNANDEZ MD Common Visit Codes: 12771-MMJ/OBS DISCH DAY >30min FALLON HERNANDEZ MD Jun 14, 2024 08:33
== END 2024-06-14 12:30 | DRG 720 ==
LOC: EDBD 02:28 → ER 02:28 → UNDOADMIN 06:51 → OVERFLOW 06:51 → TELE 15:19 → DOU IN ICU 06-03 08:55 → ICU CENTRL 06-03 19:32
PROVIDERS: ADMIT Nurse Practitioner Acute Care; ATTEND Nurse Practitioner Acute Care
PROC: 5A1955Z Respiratory Ventilation, Greater than 96 Consecutive Hours (ICD-10-PCS; principal; 2024-06-02)
PROC: 0BH17EZ Insertion of Endotracheal Airway into Trachea, Via Natural or Artificial Opening (ICD-10-PCS; 2024-06-02)
PROC: 02HV33Z Insertion of Infusion Device into Superior Vena Cava, Percutaneous Approach (ICD-10-PCS; 2024-06-02)
PROC: B548ZZA Ultrasonography of Superior Vena Cava, Guidance (ICD-10-PCS; 2024-06-02)
PROC: 5A09357 Assistance with Respiratory Ventilation, Less than 24 Consecutive Hours, Continuous Positive Airway Pressure (ICD-10-PCS; 2024-06-02)
PROC: 0D9670Z Drainage of Stomach with Drainage Device, Via Natural or Artificial Opening (ICD-10-PCS; 2024-06-06)
PROC: 5A1935Z Respiratory Ventilation, Less than 24 Consecutive Hours (ICD-10-PCS; 2024-06-11)
DX: A41.9 Sepsis, unspecified organism (principal); J96.21 Acute and chronic respiratory failure with hypoxia; N17.0 Acute kidney failure with tubular necrosis; R65.21 Severe sepsis with septic shock; G92.8 Other toxic encephalopathy; E43 Unspecified severe protein-calorie malnutrition; J43.9 Emphysema, unspecified; K92.2 Gastrointestinal hemorrhage, unspecified; E86.9 Volume depletion, unspecified; Z20.822 Contact with and (suspected) exposure to COVID-19; E87.1 Hypo-osmolality and hyponatremia; D63.8 Anemia in other chronic diseases classified elsewhere; E11.22 Type 2 diabetes mellitus with diabetic chronic kidney disease; J96.22 Acute and chronic respiratory failure with hypercapnia; Z68.1 Body mass index [BMI] 19.9 or less, adult; I12.9 Hypertensive chronic kidney disease with stage 1 through stage 4 chronic kidney disease, or unspecified chronic kidney disease; E03.9 Hypothyroidism, unspecified; E78.5 Hyperlipidemia, unspecified; E83.52 Hypercalcemia; E87.5 Hyperkalemia; C34.92 Malignant neoplasm of unspecified part of left bronchus or lung; C34.91 Malignant neoplasm of unspecified part of right bronchus or lung; J98.11 Atelectasis; N18.32 Chronic kidney disease, stage 3b; E87.4 Mixed disorder of acid-base balance; F17.210 Nicotine dependence, cigarettes, uncomplicated; Z74.01 Bed confinement status; Z90.5 Acquired absence of kidney; Z51.5 Encounter for palliative care; Z85.528 Personal history of other malignant neoplasm of kidney; Z99.81 Dependence on supplemental oxygen; Z79.899 Other long term (current) drug therapy; J91.0 Malignant pleural effusion
CPT/HCPCS: 36415; 36600; 70450; 71045; 74018; 80048; 80053; 81001; 82570; 82805; 82962; 83605; 83735; 83880; 84100; 84132; 84300; 84478; 84484; 84550; 85007; 85025; 85027; 85379; 87040; 87070; 87081; 87086; 87205; 87426; 87804; 93005; 94002; 94003; 94640; 94660; 94668; 96365; 96375; G0378; J1815; J2248; J2470; J2543; J3480; J3490; J7060